=== PATIENT | male | born 1990 | race Two or more races ===

== ENCOUNTER 2020-02-28 15:15 | Outpatient (REF) | payer OTHER, SELFPAY | END 2020-02-28 15:16 | disposition home or self-care (01) | LOC: HO.LAB 15:15 | PROVIDERS: Visit Provider Internal Medicine | DX: Z20.828 Contact with and (suspected) exposure to other viral communicable diseases (principal) | CPT/HCPCS: 36415; C9803; U0003 ==

== ENCOUNTER 2023-07-22 14:32 | Inpatient (IN) | payer OTHER, SELFPAY ==
--- NOTE | 2023-07-22 14:39 | ED_ITS ---
HPI - Psych General Chief Complaint: Psychiatric Symptoms Stated Complaint: SEC 12 FOR [facility]ANOIA FROM [facility] Time Seen by Provider: 07/22/23 14:39 Source: patient Mode of arrival: ambulatory Limitations: other (Pressured speech, paranoid) History of Present Illness ED Provider: Dr. Yo Noriega HPI Narrative: 33-year-old male history of bipolar disorder, schizophrenia, hallucinations, cocaine use disorder, alcohol use disorder who was at the [facility] on a Section 35. He has been at the facility since 07/16/2023 (6 days). He was sent to the emergency department on a Section 12 which states the following: ?Paranoid, not med compliant, disorganized behaviors, unable to care for himself-not eating and rapidly losing weight, auditory hallucinations and responding to internal stimuli ?. On presentation, the patient is awake and alert, he is talking to himself and he incorporates words that he hears or reads into his constant, nonstop, monolgue. He did allow me to examine him and he cooperated with the exam. Related Data Home Medications ?Medication ?Instructions ?Recorded ?Confirmed clonidine HCl 0.1 mg tablet 0.1 mg PO BID 07/22/23 07/22/23 fluphenazine HCl 5 mg tablet 5 mg PO BID 07/22/23 07/22/23 Allergies Allergy/AdvReac Type Severity Reaction Status Date / Time Unable to Assess Allergy Verified 07/22/23 14:41 Review of Systems 2 Review of Systems: Yes all other systems are reviewed and are negative PMFSH Social History Social History Smoked in Last 30 Days: No Use of substances other than those prescribed or required for medical reasons: No Advance Directives: No Advance Directives Information Provided: No Do you have a plan to hurt others: No Plan Physical Exam 2 Vital Signs: Vital Signs: Last Vital Signs Temp 97.8 F 07/22/23 14:40 Pulse 80 07/22/23 14:40 Resp 16 07/22/23 20:25 BP 131/73 07/22/23 14:40 Pulse Ox 99 07/22/23 14:40 O2 Del Method Room Air 07/22/23 14:40 BMI result Body Mass Index 19.0 Exam: General: Patient is awake, alert, he has a constant, nonstop, monologue that incorporates words that he hears and words that he reads. Head: Normocephalic, atraumatic EENT: PERRL, Lids normal, sclera normal, conjunctiva normal, nose normal , ears normal, throat without erythema or exudates Neck: Supple, no adenopathy Lung: breath sounds symmetric, no wheezing, rales or rhonchi Chest: symmetric movement, nontender Heart: regular rate and rhythm, normal S1, S2 no murmurs or rubs Abdomen: soft, non-tender, nondistended, normal bowel sounds Back: no vertebral tenderness, no CVAT Extremities: no deformities, moves all extremities symmetrically Neuro: Awake, alert, oriented to person, rapid, nonstop speech, cranial nerves are intact, strength symmetric Psych: Patient is talking to himself and seems to be responding to an internal dialogue Medications Administered Discontinued Medications Generic Name Dose Route Start Last Admin Trade Name Mathew PRN Reason Stop Dose Admin Lorazepam 2 mg 07/22/23 14:42 07/22/23 14:47 Lorazepam 1 Mg Tablet PO 07/22/23 14:43 2 mg ONCE STA Administration Olanzapine 10 mg 07/22/23 14:42 07/22/23 14:47 Olanzapine 10 Mg Tablet PO 07/22/23 14:43 10 mg ONCE ONE Administration Medical Decision Making Medical Decision Making [facility] Narrative: 33-year-old male history of bipolar disorder, schizophrenia, hallucinations, cocaine use disorder, alcohol use disorder who was at the [facility] on a Section 35. He has been at the facility since 07/16/2023 (6 days). He was sent to the emergency department on a Section 12 for evaluation of paranoid ideation, noncompliant with medications, disorganized behavior, not eating, losing weight, auditory hallucinations and responding to internal stimuli. The patient is awake and oriented to person, he is cooperative and has a constant, rapid, nonstop, monologue which incorporates words from conversation that he is hearing and words that he is reading such as name tags. Differential diagnosis: ?Includes but is not limited to decompensation of bipolar/schizophrenia, noncompliance with medications, alcohol withdrawal, hyperthyroidism, electrolyte abnormalities, anemia Following evaluation was ordered: CBC, CMP, drug screen urine, ethanol, lipase, magnesium, TSH with reflex T4, COVID-19, influenza, RSV Patient was initially treated with the following: Zyprexa 10 mg orally and lorazepam 2 mg orally Course: 18:57 Start physician observation My interpretation patient's laboratory evaluation is as follows: CBC was normal. BUN elevated 19 with a normal creatinine of 1.02. Calcium elevated 10.3. ALT elevated 45. TSH was low at 0.20 with the patient's free T4 was normal at 1.21-suggesting the patient does not have hyperthyroidism as the cause of his symptoms. U tox was positive for marijuana. Ethanol was below detectable limits. COVID-19, RSV and influenza were negative. Patient's symptoms are most likely related to decompensation of his bipolar/schizophrenia. Patient is medically cleared for care team consult. Patient is waiting for care team evaluation. Patient will remain in the emergency department Behavioral Health Unit until disposition can be determined or until patient's symptoms improve over time. 20:45 Continue physician observation At the end of my shift, disposition is not been determined yet for this patient and the patient is waiting for care team evaluation. Therefore the patient's care was turned over to my colleague, Dr. Hanny Santos. Admission/Observation Consideration of admission/observation: Escalation of care including admission/observation considered Lab Data MDM Lab Attestation statement: I reviewed the patient's lab results. 07/22/23 15:24 07/22/23 15:24 Labs: Lab Results 07/22/23 07/22/23 Range/Units 15:24 16:06 WBC 9.1 (4.8-10.8) X10*3/uL RBC 6.13 H (4.60-5.80) X10*6/uL Hgb 15.9 (14.0-18.0) g/dl Hct 50.1 (42.0-52.0) % MCV 81.7 (80.0-98.0) fL MCH 25.9 L (27.0-33.0) pg MCHC 31.7 (31.0-36.0) g/dl RDW 13.7 (11.0-16.0) % Plt Count 383 (160-400) X10*3/uL MPV 10.2 (9.4-12.4) fL Immature Gran % (Auto) 0.2 (0.0-0.4) % Neut % (Auto) 56.1 (45-73) % Lymph % (Auto) 36.7 (20-40) % [place] % (Auto) 5.6 (2-11) % Eos % (Auto) 0.7 (0-4) % Baso % (Auto) 0.7 (0-2) % Lymph # (Auto) 3.4 (1.2-4.9) X10*3/uL [place] # (Auto) 0.5 (0.1-1.2) X10*3/uL Eos # (Auto) 0.1 (0.0-0.4) X10*3/uL Baso # (Auto) 0.1 (0.0-0.2) X10*3/uL Abs Immat Gran (auto) 0.02 (0.00-0.03) X10*3/uL Absolute Neuts (auto) 5.1 (2.0-8.3) x10*3/uL Absolute Nucleated RBC 0.000 (0.0-0.012) X10*3/uL Nucleated RBC % (auto) 0.0 (0.0-0.2) /100WBC Sodium 144 (135-145) mmol/L Potassium 4.2 (3.3-5.1) mmol/L Chloride 107 (96-108) mmol/L Carbon Dioxide 28 (22-29) mmol/L Anion Gap 13 (12-20) BUN 19 H (9-16) mg/dL Creatinine 1.02 (0.5-1.4) mg/dL Estim Creat Clear Calc 86.6 Estimated GFR > 60 Random Glucose 110 (60-115) mg/dL Calcium 10.3 H (8.4-10.2) mg/dL Magnesium 2.6 (1.6-2.6) mg/dL Total Bilirubin 0.4 (0.0-1.0) mg/dL AST 19 (5-37) U/L ALT 45 H (0-40) U/L Alkaline Phosphatase 50 (39-117) U/L Total Protein 7.5 (6.5-8.0) g/dL Albumin 4.6 (3.5-5.0) g/dL Lipase 76 (8-78) U/L TSH 0.20 L (0.32-4.0) uIU/mL Free T4 1.21 (0.71-1.85) ng/dL Urine Opiates Screen Not Detected (Not Detect) Ur Buprenorphine Scrn Not Detected (Not Detect) ng/mL Ur Oxycodone Screen Not Detected (Not Detect) ng/mL Urine Methadone Screen Not Detected (Not Detect) ng/mL Urine Fentanyl Screen Not Detected (Not Detect) Ur Barbiturates Screen Not Detected (Not Detect) Ur Phencyclidine Scrn Not Detected (Not Detect) Ur Amphetamines Screen Not Detected (Not Detect) U Benzodiazepines Scrn Not Detected (Not Detect) Urine Cocaine Screen Not Detected (Not Detect) U Marijuana (THC) Screen POSITIVE H (Not Detect) Ethyl Alcohol < 10 mg/dL Influenza Type A (PCR) NEGATIVE (Negative) Influenza Type B (PCR) NEGATIVE (Negative) RSV RNA Qual (PCR) NEGATIVE (Negative) SARS-CoV-2 RNA (RT-PCR) NEGATIVE (Negative) Independent Historian Clinical information obtained from an independent historian. History obtained from or confirmed by: EMS and Other (career services officer) External Record Review External record reviewed: Outpatient record and Other (Section 12) Discharge Plan Discharge Clinical Impression: Paranoid ideation, Non-compliant behavior Patient Disposition: Still a Patient Prescriptions: No Action clonidine HCl 0.1 mg Tablet 0.1 mg PO BID Rx Instructions: BID @ 0800 and 1999 fluphenazine HCl 5 mg Tablet 5 mg PO BID Rx Instructions: BID @ 0800 and 1999 Interventions: [place]-Suicide Risk Severity Scale Last Done: 07/22/23 16:31 Print Language: Polish
[2023-07-22 14:40] VITALS: BP 131/73; BP 134/66; PULSE 80; PULSE 82; RESP 16; TEMP 36.6; O2SAT 98; O2SAT 99; BMI 19.0
[2023-07-22] MEDS: LORazepam 1 MG TABLET 2 MG PO (14:47)
[2023-07-22] MEDS: OLANZapine 10 MG TABLET PO (14:47)
--- NOTE | 2023-07-22 15:02 | PC.NURSE ---
claudiomagdiel from [facility] on a section 12 d/t being non med compliant/auditory hallucinations/paranoia/decreased PO intake. upon ED arrival, vss and up to date. pt constantly speaking out loud/tearful/not making sense. 2 security officers present. pt changed over by security - placed in ligature free gown. pt seen by ED provider. pt medicated per provider order. pt took pills whole w/o complications. snacks provided to pt. no sob/wob noted. respirations even and unlabored. plan of care ongoing.
[2023-07-22 15:29] LABS: MANUAL DIFF FLAG NO
[2023-07-22 15:53] LABS: Alanine Aminotransferase 45 U/L (0-40); Albumin Level 4.6 g/dL (3.5-5.0); Alkaline Phosphatase 50 U/L (39-117); Anion Gap 13 (12-20); Aspartate Amino Transferase 19 U/L (5-37); Bilirubin Total 0.4 mg/dL (0.0-1.0); Blood Urea Nitrogen 19 mg/dL (9-16); Calcium 10.3 mg/dL (8.4-10.2); Carbon Dioxide 28 mmol/L (22-29); Chloride 107 mmol/L (96-108); Creatinine Clr Calc Pharmacy 86.6; Estimated Glomerular Filt Rate > 60; Glucose Random 110 mg/dL (60-115); Lipase 76 U/L (8-78); Magnesium 2.6 mg/dL (1.6-2.6); Potassium 4.2 mmol/L (3.3-5.1); Sodium 144 mmol/L (135-145); Total Protein 7.5 g/dL (6.5-8.0)
[2023-07-22 15:58] LABS: Ethanol < 10 mg/dL
[2023-07-22 16:08] LABS: Basophils Absolute Auto 0.1 X10*3/uL (0.0-0.2); Basophils Percent Auto 0.7 % (0-2); Eosinophils Absolute Auto 0.1 X10*3/uL (0.0-0.4); Eosinophils Percent Auto 0.7 % (0-4); Hematocrit 50.1 % (42.0-52.0); Hemoglobin 15.9 g/dl (14.0-18.0); Imm Gran Abs Auto 0.02 X10*3/uL (0.00-0.03); Imm Gran Pct Auto 0.2 % (0.0-0.4); Lymphocytes Absolute Auto 3.4 X10*3/uL (1.2-4.9); Lymphocytes Percent Auto 36.7 % (20-40); Mean Corpuscular HGB Conc 31.7 g/dl (31.0-36.0); Mean Corpuscular Hemoglobin 25.9 pg (27.0-33.0); Mean Corpuscular Volume 81.7 fL (80.0-98.0); Mean Platelet Volume 10.2 fL (9.4-12.4); Monocytes Absolute Auto 0.5 X10*3/uL (0.1-1.2); Monocytes Percent Auto 5.6 % (2-11); Neutrophils Absolute Auto 5.1 x10*3/uL (2.0-8.3); Neutrophils Percent Auto 56.1 % (45-73); Platelet Count 383 X10*3/uL (160-400); Red Blood Count 6.13 X10*6/uL (4.60-5.80); Red Cell Distribution Width 13.7 % (11.0-16.0); White Blood Count 9.1 X10*3/uL (4.8-10.8)
--- NOTE | 2023-07-22 16:09 | PC.NURSE ---
urine obtained/sent to lab.
[2023-07-22 16:15] LABS: Influenza A PCR NEGATIVE (Negative); Influenza B PCR NEGATIVE (Negative); Resp Syncy Virus RNA Qual PCR NEGATIVE (Negative); SARS COV2 PCR INHOUSE NEGATIVE (Negative)
[2023-07-22 16:33] LABS: Amphetamine Screen Urine Not Detected (Not Detect); Barbiturates, Urine Not Detected (Not Detect); Benzodiazepines Screen Urine Not Detected (Not Detect); Buprenorphine Scr Not Detected (Not Detect); Cannabinoid Screen Urine POSITIVE (Not Detect); Cocaine Screen Urine Not Detected (Not Detect); Fentanyl, urine Not Detected (Not Detect); Methadone Screen, Urine Not Detected (Not Detect); Opiate Screen Urine Not Detected (Not Detect); Oxycodone Screen Urine Not Detected (Not Detect); Phencyclidine Screen Urine Not Detected (Not Detect)
--- NOTE | 2023-07-22 16:37 | PC.NURSE ---
pt currently asleep/resting in no apparent distress w/ the lights dimmed. medication administration effective. security from facility remains bedside. no sob/wob noted. respirations even/unlabored. plan of care ongoing. call vee placed within reach.
[2023-07-22 16:56] LABS: Free T4 (Free Thyroxine) 1.21 ng/dL (0.71-1.85)
--- NOTE | 2023-07-22 18:17 | PC.NURSE ---
RE: Belongings all belongings are in locker 5
--- NOTE | 2023-07-22 18:43 | PC.NURSE ---
Patient comes to ED today from [facility] on a Section 35 for increased paranoia and auditory hallucinations. Patient is calm and cooperative upon arrival to [facility], now sleeping
--- NOTE | 2023-07-22 19:38 | PC.NURSE ---
patient appears in no distress at present appears to be resting in room, awaits care team assessment
[2023-07-22 20:25] VITALS: RESP 16
[2023-07-22] MEDS: fluPHENAZine HCl 5 MG TABLET PO (20:43)
[2023-07-22] MEDS: cloNIDine HCL 0.1 MG TABLET PO (20:43)
[2023-07-23 02:30] VITALS: BP 125/94; PULSE 80; RESP 16; TEMP 37.1; O2SAT 97
[2023-07-23] MEDS: Acetaminophen 325 MG TABLET PO (02:42)
[2023-07-23] MEDS: traZODone HCL 50 MG TABLET PO (02:42)
--- NOTE | 2023-07-23 02:46 | PC.NURSE ---
client got up used bathroom, requested sleep med and tylenol
[2023-07-23] MEDS: OLANZapine ODT 10 MG TAB.RAPDIS TRANSLINGU (03:45)
--- NOTE | 2023-07-23 03:46 | PC.NURSE ---
patient once he had ingested some drinks and snacks seemed to get easily stimulated by the environment and started narrating all that he saw up at nurses station, reading all phone numbers and becoming engrossed by the objects inside the nurses station, challenging to redirect. requested meds from provider.
--- NOTE | 2023-07-23 04:09 | PC.NURSE ---
in my opinion it is possible that this client may have been cheeking his meds in skilled nursing and or may be exaggerating his symptoms, the responses seem pretty stereotypical and in my opinion patient seemed to be casing the environment of the nurses station.
--- NOTE | 2023-07-23 07:22 | ECG_ITS ---
Test Reason : prolong QT Blood Pressure : / mmHG Vent. Rate : 057 BPM Atrial Rate : 057 BPM P-R Int : 144 ms QRS Dur : 098 ms QT Int : 420 ms P-R-T Axes : 063 080 058 degrees QTc Int : 408 ms Sinus bradycardia Otherwise normal ECG No previous ECGs available Referred By: Yo Noriega Electronically Signed By:JOSE ALFREDO SMITH
[2023-07-23] MEDS: fluPHENAZine HCl 5 MG TABLET PO ×2 (08:55→22:38)
[2023-07-23] MEDS: cloNIDine HCL 0.1 MG TABLET PO ×2 (08:55→22:41)
--- NOTE | 2023-07-23 09:31 | PC.NURSE ---
patient awake, medicated per the MAR. ambulating independently throughout [place] area, speaking to self.
--- NOTE | 2023-07-23 11:41 | PC.NURSE ---
patient continues to pace in hallway, repeating conversations of staff w/ other patients. redirected from climbing on couches. attempted to provide w/ prn, patient refusing at this time
[2023-07-23] MEDS: HaloperidoL 5 MG TABLET PO (12:45)
[2023-07-23] MEDS: LORazepam 1 MG TABLET 2 MG PO (12:45)
--- NOTE | 2023-07-23 12:45 | PC.NURSE ---
patient was standing in hallway when he reported that he was peeing on the floor. staff over to have patient walk back to room where he was medicated with PRN medications and encouraged to change into clean clothes.
[2023-07-23 13:40] VITALS: BP 127/72; PULSE 90; RESP 16; TEMP 36.4; O2SAT 98
[2023-07-23 15:58] VITALS: BMI 23.6
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
[2023-07-23 22:35] VITALS: BP 144/88; PULSE 111; TEMP 36.8
[2023-07-23] MEDS: Acetaminophen 325 MG TABLET 650 MG PO (22:44)
[2023-07-24] MEDS: traZODone HCL 50 MG TABLET PO (02:19)
[2023-07-24 08:00] VITALS: BP 132/73; PULSE 91; RESP 18; TEMP 36.3; O2SAT 99
[2023-07-24] MEDS: cloNIDine HCL 0.1 MG TABLET PO (08:01)
[2023-07-24] MEDS: LORazepam 1 MG TABLET 2 MG PO ×2 (08:01→21:00)
[2023-07-24] MEDS: OLANZapine 5 MG TABLET PO ×2 (08:01→14:38)
[2023-07-24] MEDS: fluPHENAZine HCl 5 MG TABLET PO (08:05)
[2023-07-24 08:08] LABS: Estimated Average Glucose 117 mg/dL; Hemoglobin A1c % 5.7 % (<6.0)
[2023-07-24 08:15] LABS: Cholesterol 173 mg/dL (<200); HDL Cholesterol 68 mg/dL (>40); LDL Cholesterol Calculated 92 mg/dL (<100); Triglycerides 65 mg/dL (<150)
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
[2023-07-24] MEDS: hydrOXYzine HCL 25 MG TABLET PO (14:38)
[2023-07-24 20:00] VITALS: BP 147/67; PULSE 101; RESP 18; TEMP 36.7; O2SAT 98
[2023-07-25] MEDS: hydrOXYzine HCL 25 MG TABLET PO ×4 (00:33→19:54)
[2023-07-25] MEDS: traZODone HCL 50 MG TABLET PO ×2 (03:38→19:53)
[2023-07-25 08:00] VITALS: BP 141/80; PULSE 107; RESP 20; TEMP 36.4; O2SAT 99
[2023-07-25 08:35] VITALS: BP 141/80
[2023-07-25] MEDS: fluPHENAZine HCl 5 MG TABLET 10 MG PO ×2 (08:35→19:53)
[2023-07-25] MEDS: cloNIDine HCL 0.1 MG TABLET PO ×2 (08:35→19:53)
[2023-07-25] MEDS: LORazepam 1 MG TABLET 2 MG PO (09:58)
[2023-07-25] MEDS: OLANZapine 5 MG TABLET PO ×2 (09:58→15:41)
--- NOTE | 2023-07-25 18:28 | P.PNPSI_ITS ---
Subjective Subjective Date of Service: 07/25/23 Reason For Visit: disorganized/psychosis Subjective Notes: Conditional Voluntary Healthcare Proxy: No Guardianship: No Medical Problems Affecting Mental Status: No Interim History: Pt seen, discussed with team Intrusive, disorganized, echolalic and hyperverbal. Poor boundaries-targeting peers, when confronted with little awareness of this and no insight as to how his comments effect others-i.e. calling a peer Cecil. Recites The Wall excerpts and Comfortably Numb from memory, with little insight as to what the meaning is of what is said.... there is no pain you are receding. I guess I would recede if I had pain maybe. when I was a child I caught a fleeting glimpse - I have seen boats on week. Needing much redirection, supervision, support. Meds appear to be helpful. Medication Compliance: Yes Side effects from medications: No Attending Groups: No Review of Systems Acute medical concerns: No Medical Review of Systems: unchanged Review of Systems Review of Systems Yes all other systems are reviewed and are negative Mental Status Exam Mental Status Exam Patient Appearance: Fatigued and Disheveled Patient Orientation: Person Level of Consciousness: Alert Patient Behavior: Talkative, Cooperative and Wandering Mood Description: Withdrawn and Constricted Affect Description: Constricted Patient Cognition Impaired: Yes Ability to Follow Directions: Fair Speech Pattern: Spontaneous Speech, Soft-Spoken and Inappropriate (echolalia) Memory Description: Remote Impaired Hallucinations: Auditory (???) Delusions: Paranoid Ideation and Present Perceptual Disturbances: Derealization Thought Process: Distracted and Confusion Thought Content: positive for Loose Associations and positive for Tangential Depressive Symptoms: Increased Fatigue and Difficulty Concentrating Judgement: Poor Diagnostics Vital Signs (24Hr): Vital Signs - 24 hr 07/24/23 20:00 07/25/23 08:00 07/25/23 08:35 Temperature 98.0 F 97.5 F Pulse Rate 101 H 107 H Respiratory Rate 18 20 Blood Pressure 147/67 H 141/80 H 141/80 H Pulse Oximetry 98 99 Oxygen Delivery Method Room Air Room Air BMI result Body Mass Index 23.6 Labs 07/22/23 15:24 07/22/23 15:24 Labs: Laboratory Results - last 48 hr 07/24/23 07:45 Estimat Average Glucose 117 Hemoglobin A1c % 5.7 Triglycerides 65 Cholesterol 173 LDL Cholesterol, Calc 92 HDL Cholesterol 68 Medications Medications Current Medications Acetaminophen (Acetaminophen 325 Mg Tablet) 650 mg PO Q6H PRN PRN Reason: Headache/Pain Mild Scale (1-3) Last Admin: 07/23/23 22:44 Dose: 650 mg Al Hydroxide/Mg Hydroxide (Magnesium Hydrox/Alum Hydrox 30 Ml Oral.Susp) 30 ml PO Q6H PRN PRN Reason: Heartburn/Nausea Clonidine HCl (Clonidine Hcl 0.1 Mg Tablet) 0.1 mg PO BID@ [facility]; Protocol Last Admin: 07/25/23 08:35 Dose: 0.1 mg Fluphenazine HCl (Fluphenazine Hcl 5 Mg Tablet) 10 mg PO BID@ [facility] Last Admin: 07/25/23 08:35 Dose: 10 mg Hydroxyzine HCl (Hydroxyzine Hcl 25 Mg Tablet) 25 mg PO Q6H PRN PRN Reason: Anxiety Last Admin: 07/25/23 15:41 Dose: 25 mg Lorazepam (Lorazepam 1 Mg Tablet) 2 mg PO BID PRN PRN Reason: anxiety/restlessness Last Admin: 07/25/23 09:58 Dose: 2 mg Magnesium Hydroxide (Milk Of Magnesia 30 Ml Oral.Susp) 30 ml PO DAILY PRN PRN Reason: Constipation Nicotine (Nicotine 21 Mg Patch.Td24) 21 mg TRANSDERMA DAILY PRN PRN Reason: smoking cessation Nicotine Polacrilex (Nicotine Polacrilex 2 Mg Gum) 4 mg BUCCAL Q2H PRN PRN Reason: Nicotine Cravings Olanzapine (Olanzapine 5 Mg Tablet) 5 mg PO TID PRN PRN Reason: agitation Last Admin: 07/25/23 15:41 Dose: 5 mg Olanzapine (Olanzapine 10 Mg Tablet) 10 mg PO BEDTIME [facility] Last Admin: 07/25/23 00:34 Dose: Not Given Trazodone HCl (Trazodone Hcl 50 Mg Tablet) 50 mg PO BEDTIME MRX1 PRN PRN Reason: Insomnia Last Admin: 07/25/23 03:38 Dose: 50 mg Allergies Allergies Allergy/AdvReac Type Severity Reaction Status Date / Time nka Allergy nka Uncoded 07/24/23 16:52 Assessment & Plan Assessment & Plan (1) Schizoaffective disorder, bipolar type: Status: Acute Code(s): F25.0 - Schizoaffective disorder, bipolar type (2) Polysubstance use disorder: Status: Acute Code(s): F19.90 - Other psychoactive substance use, unspecified, uncomplicated Plan 33 yo male, history of schizoaffective disorder, bipolar type, sent from [facility] where he was admitted on a Section 35 on 07/13 for public intoxication while running in the community without clothing. Pt is psychotic upon presentation, signed CV and has been calm but echolalic in speech and behaviors for the most part since admission. Plan: Collateral contacts Med trials for stabilization of sx Olanzapine 10 mg HS Increase Fluphenazine to 10 mg bid Diagnostics Milieu integration for added support, education regarding coping skills. 07/24: Continue plan. Reason for continued inpatient stay Substantial Risk for: rapid decompensation Time Spent With Patient Time: Total time managing care of this patient today ____ minutes.
[2023-07-25] MEDS: OLANZapine 10 MG TABLET PO (19:53)
[2023-07-25 20:00] VITALS: BP 141/90; PULSE 98; RESP 18; TEMP 36.6; O2SAT 100
[2023-07-26] MEDS: traZODone HCL 50 MG TABLET PO ×2 (02:19→21:01)
[2023-07-26] MEDS: LORazepam 1 MG TABLET 2 MG PO ×2 (02:19→13:49)
[2023-07-26] MEDS: hydrOXYzine HCL 25 MG TABLET PO ×4 (02:19→18:27)
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
[2023-07-26] MEDS: OLANZapine 5 MG TABLET PO ×3 (06:19→19:41)
[2023-07-26] MEDS: cloNIDine HCL 0.1 MG TABLET PO ×2 (06:19→19:40)
[2023-07-26 07:36] VITALS: BP 122/80; PULSE 88; TEMP 36.6; O2SAT 100
[2023-07-26] MEDS: fluPHENAZine HCl 5 MG TABLET 10 MG PO ×2 (08:24→19:41)
--- NOTE | 2023-07-26 10:58 | HO.PSYCHPN ---
Subjective Subjective Date of Service: 07/26/23 Reason For Visit: disorganized/psychosis Subjective Notes: Conditional Voluntary Healthcare Proxy: No Guardianship: No Medical Problems Affecting Mental Status: No Interim History: Pt seen, discussed with team. Continues with intrusive, poorly organized, disruptive behavior with echolalia. Irritating to peers who are not confronting him at times. Medication Compliance: Yes Side effects from medications: No Attending Groups: Intermittent Review of Systems Acute medical concerns: No Medical Review of Systems: unchanged Review of Systems Review of Systems Yes all other systems are reviewed and are negative Mental Status Exam Mental Status Exam Patient Appearance: Fatigued and Disheveled Patient Orientation: Person Level of Consciousness: Alert Patient Behavior: Talkative, Cooperative and Wandering Mood Description: Withdrawn and Constricted Affect Description: Constricted Patient Cognition Impaired: Yes Ability to Follow Directions: Fair Speech Pattern: Spontaneous Speech, Soft-Spoken and Inappropriate (echolalia) Memory Description: Remote Impaired Hallucinations: Auditory (???) Delusions: Paranoid Ideation and Present Perceptual Disturbances: Derealization Thought Process: Distracted and Confusion Thought Content: positive for Loose Associations and positive for Tangential Depressive Symptoms: Increased Fatigue and Difficulty Concentrating Judgement: Poor Diagnostics Vital Signs (24Hr): Vital Signs - 24 hr 07/25/23 20:00 07/26/23 07:36 Temperature 97.9 F 97.9 F Pulse Rate 98 88 Respiratory Rate 18 Blood Pressure 141/90 H 122/80 Pulse Oximetry 100 100 Oxygen Delivery Method Room Air Room Air BMI result Body Mass Index 23.6 Labs 07/22/23 15:24 07/22/23 15:24 Medications Medications Current Medications Acetaminophen (Acetaminophen 325 Mg Tablet) 650 mg PO Q6H PRN PRN Reason: Headache/Pain Mild Scale (1-3) Last Admin: 07/23/23 22:44 Dose: 650 mg Al Hydroxide/Mg Hydroxide (Magnesium Hydrox/Alum Hydrox 30 Ml Oral.Susp) 30 ml PO Q6H PRN PRN Reason: Heartburn/Nausea Clonidine HCl (Clonidine Hcl 0.1 Mg Tablet) 0.1 mg PO BID@799,1999 [facility]; Protocol Last Admin: 07/26/23 06:19 Dose: 0.1 mg Fluphenazine HCl (Fluphenazine Hcl 5 Mg Tablet) 10 mg PO BID@799,1999 [facility] Last Admin: 07/26/23 08:24 Dose: 10 mg Hydroxyzine HCl (Hydroxyzine Hcl 25 Mg Tablet) 25 mg PO Q6H PRN PRN Reason: Anxiety Last Admin: 07/26/23 06:19 Dose: 25 mg Lorazepam (Lorazepam 1 Mg Tablet) 2 mg PO BID PRN PRN Reason: anxiety/restlessness Last Admin: 07/26/23 02:19 Dose: 2 mg Magnesium Hydroxide (Milk Of Magnesia 30 Ml Oral.Susp) 30 ml PO DAILY PRN PRN Reason: Constipation Nicotine (Nicotine 21 Mg Patch.Td24) 21 mg TRANSDERMA DAILY PRN PRN Reason: smoking cessation Nicotine Polacrilex (Nicotine Polacrilex 2 Mg Gum) 4 mg BUCCAL Q2H PRN PRN Reason: Nicotine Cravings Olanzapine (Olanzapine 5 Mg Tablet) 5 mg PO TID PRN PRN Reason: agitation Last Admin: 07/26/23 06:19 Dose: 5 mg Olanzapine (Olanzapine 10 Mg Tablet) 10 mg PO BEDTIME [facility] Last Admin: 07/25/23 19:53 Dose: 10 mg Trazodone HCl (Trazodone Hcl 50 Mg Tablet) 50 mg PO BEDTIME MRX1 PRN PRN Reason: Insomnia Last Admin: 07/26/23 02:19 Dose: 50 mg Allergies Allergies Allergy/AdvReac Type Severity Reaction Status Date / Time nka Allergy nka Uncoded 07/24/23 16:52 Assessment & Plan Assessment & Plan (1) Schizoaffective disorder, bipolar type: Status: Acute Code(s): F25.0 - Schizoaffective disorder, bipolar type (2) Polysubstance use disorder: Status: Acute Code(s): F19.90 - Other psychoactive substance use, unspecified, uncomplicated Plan 33 yo male, history of schizoaffective disorder, bipolar type, sent from [facility] where he was admitted on a Section 35 on 07/13 for public intoxication while running in the community without clothing. Pt is psychotic upon presentation, signed CV and has been calm but echolalic in speech and behaviors for the most part since admission. Plan: Collateral contacts Med trials for stabilization of sx Olanzapine 10 mg HS Increase Fluphenazine to 10 mg bid Diagnostics Milieu integration for added support, education regarding coping skills. 07/25: Increase Olanzapine to 20 mg HS Reason for continued inpatient stay Substantial Risk for: rapid decompensation Time Spent With Patient Time: Total time managing care of this patient today ____ minutes.
[2023-07-26 20:00] VITALS: BP 161/78; PULSE 121; RESP 18; TEMP 36.7; O2SAT 99
[2023-07-26] MEDS: OLANZapine 10 MG TABLET 20 MG PO (21:02)
[2023-07-27] MEDS: traZODone HCL 50 MG TABLET PO ×2 (00:21→21:50)
[2023-07-27] MEDS: LORazepam 1 MG TABLET 2 MG PO ×3 (00:21→22:06)
[2023-07-27] MEDS: hydrOXYzine HCL 25 MG TABLET PO ×2 (00:21→21:50)
[2023-07-27] MEDS: OLANZapine 5 MG TABLET PO ×2 (03:08→11:24)
[2023-07-27 08:49] VITALS: BP 135/80; PULSE 110; RESP 16; TEMP 36.9; O2SAT 98
[2023-07-27 09:19] VITALS: BP 135/80
[2023-07-27] MEDS: cloNIDine HCL 0.1 MG TABLET PO ×2 (09:19→21:49)
[2023-07-27] MEDS: fluPHENAZine HCl 5 MG TABLET 10 MG PO ×3 (09:20→21:49)
--- NOTE | 2023-07-27 09:45 | P.PNPSI_ITS ---
Subjective Subjective Date of Service: 07/27/23 Reason For Visit: disorganized/psychosis Subjective Notes: Conditional Voluntary Interim History: One to one continues. Continues with intrusive sx, boundaries are poor, touching others. Echolalia and ongoing commentary which he starts when one responds to him. Tangential, disorganized. Team reports pt did hit the wall today. Given one extra Prolixin dose of 10 mg today, with little to no effect. Broke headphones in half quickly today per team. Can escalate quickly Medication Compliance: Yes Side effects from medications: No Attending Groups: No Review of Systems Acute medical concerns: No Medical Review of Systems: unchanged Review of Systems Review of Systems Yes all other systems are reviewed and are negative Mental Status Exam Mental Status Exam Patient Appearance: Fatigued and Disheveled Patient Orientation: Person Level of Consciousness: Alert Patient Behavior: Talkative, Cooperative and Wandering Mood Description: Withdrawn and Constricted Affect Description: Constricted Patient Cognition Impaired: Yes Ability to Follow Directions: Fair Speech Pattern: Spontaneous Speech, Soft-Spoken and Inappropriate (echolalia) Memory Description: Remote Impaired Hallucinations: Auditory (???) Delusions: Paranoid Ideation and Present Perceptual Disturbances: Derealization Thought Process: Distracted and Confusion Thought Content: positive for Loose Associations and positive for Tangential Depressive Symptoms: Increased Fatigue and Difficulty Concentrating Judgement: Poor Diagnostics Vital Signs (24Hr): Vital Signs - 24 hr 07/26/23 20:00 07/27/23 08:49 07/27/23 09:19 Temperature 98.0 F 98.5 F Pulse Rate 121 H 110 H Respiratory Rate 18 16 Blood Pressure 161/78 H 135/80 135/80 Pulse Oximetry 99 98 Oxygen Delivery Method Room Air Room Air BMI result Body Mass Index 23.6 Labs 07/22/23 15:24 07/22/23 15:24 Medications Medications Current Medications Acetaminophen (Acetaminophen 325 Mg Tablet) 650 mg PO Q6H PRN PRN Reason: Headache/Pain Mild Scale (1-3) Last Admin: 07/23/23 22:44 Dose: 650 mg Al Hydroxide/Mg Hydroxide (Magnesium Hydrox/Alum Hydrox 30 Ml Oral.Susp) 30 ml PO Q6H PRN PRN Reason: Heartburn/Nausea Clonidine HCl (Clonidine Hcl 0.1 Mg Tablet) 0.1 mg PO BID@0800,2000 [facility]; Protocol Last Admin: 07/27/23 09:19 Dose: 0.1 mg Fluphenazine HCl (Fluphenazine Hcl 5 Mg Tablet) 10 mg PO BID@0800,1999 [facility] Last Admin: 07/27/23 09:20 Dose: 10 mg Hydroxyzine HCl (Hydroxyzine Hcl 25 Mg Tablet) 25 mg PO Q6H PRN PRN Reason: Anxiety Last Admin: 07/27/23 00:21 Dose: 25 mg Lorazepam (Lorazepam 1 Mg Tablet) 2 mg PO BID PRN PRN Reason: anxiety/restlessness Last Admin: 07/27/23 00:21 Dose: 2 mg Magnesium Hydroxide (Milk Of Magnesia 30 Ml Oral.Susp) 30 ml PO DAILY PRN PRN Reason: Constipation Nicotine (Nicotine 21 Mg Patch.Td24) 21 mg TRANSDERMA DAILY PRN PRN Reason: smoking cessation Nicotine Polacrilex (Nicotine Polacrilex 2 Mg Gum) 4 mg BUCCAL Q2H PRN PRN Reason: Nicotine Cravings Olanzapine (Olanzapine 5 Mg Tablet) 5 mg PO TID PRN PRN Reason: agitation Last Admin: 07/27/23 03:08 Dose: 5 mg Olanzapine (Olanzapine 10 Mg Tablet) 20 mg PO BEDTIME [facility] Last Admin: 07/26/23 21:02 Dose: 20 mg Trazodone HCl (Trazodone Hcl 50 Mg Tablet) 50 mg PO BEDTIME MRX1 PRN PRN Reason: Insomnia Last Admin: 07/27/23 00:21 Dose: 50 mg Allergies Allergies Allergy/AdvReac Type Severity Reaction Status Date / Time nka Allergy nka Uncoded 07/24/23 16:52 Assessment & Plan Assessment & Plan (1) Schizoaffective disorder, bipolar type: Status: Acute Code(s): F25.0 - Schizoaffective disorder, bipolar type (2) Polysubstance use disorder: Status: Acute Code(s): F19.90 - Other psychoactive substance use, unspecified, uncomplicated Plan 33 yo male, history of schizoaffective disorder, bipolar type, sent from [facility] where he was admitted on a Section 35 on 07/13 for public intoxication while running in the community without clothing. Pt is psychotic upon presentation, signed CV and has been calm but echolalic in speech and behaviors for the most part since admission. Plan: Collateral contacts Med trials for stabilization of sx Olanzapine 10 mg HS Increase Fluphenazine to 10 mg bid Diagnostics Milieu integration for added support, education regarding coping skills. 07/25: Increase Olanzapine to 20 mg HS 07/26: Increase of Prolixin today without current effect. Reason for continued inpatient stay Substantial Risk for: rapid decompensation Time Spent With Patient Time: Total time managing care of this patient today ____ minutes.
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
[2023-07-27] MEDS: Acetaminophen 325 MG TABLET 650 MG PO (18:33)
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
[2023-07-27 20:00] VITALS: BP 143/84; PULSE 114; RESP 18; TEMP 36.8; O2SAT 98
[2023-07-27] MEDS: OLANZapine 10 MG TABLET 20 MG PO (21:00)
[2023-07-27 21:49] VITALS: BP 143/84
--- NOTE | 2023-07-28 06:49 | PC.NURSE ---
This patient told his 1:1 male staff that he is a big, black gorilla. Patient redirected by an [facility].
[2023-07-28 08:00] VITALS: RESP 20
[2023-07-28] MEDS: fluPHENAZine HCl 5 MG TABLET 10 MG PO (08:33)
[2023-07-28] MEDS: LORazepam 1 MG TABLET 2 MG PO ×2 (08:33→14:25)
[2023-07-28] MEDS: OLANZapine 5 MG TABLET PO ×3 (08:34→22:37)
[2023-07-28] MEDS: Nicotine 21 MG PATCH.TD24 TRANSDERMA (08:34)
[2023-07-28 11:15] VITALS: BP 150/73; PULSE 91; RESP 18; TEMP 37; O2SAT 98
[2023-07-28 11:18] VITALS: BP 150/73
[2023-07-28] MEDS: cloNIDine HCL 0.1 MG TABLET PO ×2 (11:18→22:38)
[2023-07-28] MEDS: hydrOXYzine HCL 25 MG TABLET PO ×2 (11:18→22:37)
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
[2023-07-28] MEDS: OLANZapine 10 MG TABLET 20 MG PO (18:43)
[2023-07-28] MEDS: HaloperidoL 5 MG TABLET 10 MG PO (18:43)
[2023-07-28] MEDS: Benztropine Mesylate 1 MG TABLET PO (18:44)
--- NOTE | 2023-07-28 19:06 | PC.NURSE ---
Pt became agitated and threatening towards staff, swinging and posturing. He was redirected, given HS medications per Ambar Mcduffie [employer] orders. Security called.
[2023-07-28 20:00] VITALS: BP 152/83; PULSE 118; RESP 18; TEMP 36.8; O2SAT 98
[2023-07-28] MEDS: traZODone HCL 50 MG TABLET PO (22:37)
[2023-07-28 22:38] VITALS: BP 152/83
[2023-07-29] MEDS: Nicotine Polacrilex 2 MG GUM 4 MG BUCCAL (04:41)
[2023-07-29] MEDS: hydrOXYzine HCL 25 MG TABLET PO ×3 (05:19→20:01)
[2023-07-29] MEDS: OLANZapine 5 MG TABLET PO ×3 (05:19→18:10)
[2023-07-29] MEDS: cloNIDine HCL 0.1 MG TABLET PO ×2 (07:51→20:01)
[2023-07-29] MEDS: HaloperidoL 5 MG TABLET 10 MG PO ×2 (07:52→20:01)
[2023-07-29] MEDS: OLANZapine 10 MG TABLET PO (07:52)
[2023-07-29] MEDS: Benztropine Mesylate 1 MG TABLET PO ×2 (07:52→20:01)
[2023-07-29] MEDS: LORazepam 1 MG TABLET 2 MG PO ×2 (07:52→15:59)
[2023-07-29 08:10] VITALS: BP 136/77; PULSE 78; RESP 18; TEMP 36.6; O2SAT 97
[2023-07-29] MEDS: Nicotine 21 MG PATCH.TD24 TRANSDERMA (11:39)
--- NOTE | 2023-07-29 16:03 | P.PNPSI_ITS ---
Subjective Subjective Date of Service: 07/29/23 Reason For Visit: disorganized/psychosis Interim History: Met with patient; discussed with team Patient talking in more complete and logical sentences however he remains disorganized in both speech and behavior, rude and insulting to numerous staff as they walk by, intrusive and needs constant redirection and needs to remain on one-to-one, not able to tolerate roommate.. Not sleeping very much at night. Intermittent angry outbursts and punching things. This morning patient got so dysregulated, security had to be called, however patient was able to be redirected. Patient agreed to start Depakote, hoping it will help him sleep. Mental Status Exam Mental Status Exam Narrative: Pt is alert and oriented to self, but not really situation; behavior is intrusive, insulting to peers and staff, intermittently highly agitated with threatening gestures, sometimes punching things on the wall; patient is not in distress; dressed in casual attire, tattooed arms, unkempt; mood is described as good though affect congruent either blunted or constricted; eye contact appropriate; Speech is normal rate, volume and prosody and not pressured; intermittent psychomotor agitation present, sometimes severe; thought process can be goal directed but also distracted and disorganized, tangential; Thought content is on whatever is in front of him; intermittent paranoid delusional thinking; denies any SI/HI. Unclear if AH Patients insight and judgment impaired Diagnostics Vital Signs (24Hr): Vital Signs - 24 hr 07/28/23 20:00 07/28/23 22:38 07/29/23 08:10 Temperature 98.3 F 97.8 F Pulse Rate 118 H 78 Respiratory Rate 18 18 Blood Pressure 152/83 H 152/83 H 136/77 Pulse Oximetry 98 97 Oxygen Delivery Method Room Air Room Air BMI result Body Mass Index 23.6 Labs 07/22/23 15:24 07/22/23 15:24 Medications Medications Current Medications Acetaminophen (Acetaminophen 325 Mg Tablet) 650 mg PO Q6H PRN PRN Reason: Headache/Pain Mild Scale (1-3) Last Admin: 07/27/23 18:33 Dose: 650 mg Al Hydroxide/Mg Hydroxide (Magnesium Hydrox/Alum Hydrox 30 Ml Oral.Susp) 30 ml PO Q6H PRN PRN Reason: Heartburn/Nausea Benztropine Mesylate (Benztropine Mesylate 1 Mg Tablet) 1 mg PO BID [facility] Last Admin: 07/29/23 07:52 Dose: 1 mg Clonidine HCl (Clonidine Hcl 0.1 Mg Tablet) 0.1 mg PO BID@0800,1999 [facility]; Protocol Last Admin: 07/29/23 07:51 Dose: 0.1 mg Haloperidol (Haloperidol 5 Mg Tablet) 10 mg PO BID [facility] Last Admin: 07/29/23 07:52 Dose: 10 mg Hydroxyzine HCl (Hydroxyzine Hcl 25 Mg Tablet) 25 mg PO Q6H PRN PRN Reason: Anxiety Last Admin: 07/29/23 11:41 Dose: 25 mg Lorazepam (Lorazepam 1 Mg Tablet) 2 mg PO BID PRN PRN Reason: anxiety/restlessness Last Admin: 07/29/23 15:59 Dose: 2 mg Magnesium Hydroxide (Milk Of Magnesia 30 Ml Oral.Susp) 30 ml PO DAILY PRN PRN Reason: Constipation Nicotine (Nicotine 21 Mg Patch.Td24) 21 mg TRANSDERMA DAILY PRN PRN Reason: smoking cessation Last Admin: 07/29/23 11:39 Dose: 21 mg Nicotine Polacrilex (Nicotine Polacrilex 2 Mg Gum) 4 mg BUCCAL Q2H PRN PRN Reason: Nicotine Cravings Last Admin: 07/29/23 04:41 Dose: 4 mg Olanzapine (Olanzapine 5 Mg Tablet) 5 mg PO TID PRN PRN Reason: agitation Last Admin: 07/29/23 15:16 Dose: 5 mg Olanzapine (Olanzapine 10 Mg Tablet) 20 mg PO BEDTIME [facility] Last Admin: 07/28/23 18:43 Dose: 20 mg Olanzapine (Olanzapine 10 Mg Tablet) 10 mg PO DAILY [facility] Last Admin: 07/29/23 07:52 Dose: 10 mg Trazodone HCl (Trazodone Hcl 50 Mg Tablet) 50 mg PO BEDTIME MRX1 PRN PRN Reason: Insomnia Last Admin: 07/28/23 22:37 Dose: 50 mg Allergies Allergies Allergy/AdvReac Type Severity Reaction Status Date / Time nka Allergy nka Uncoded 07/24/23 16:52 Assessment & Plan Assessment & Plan (1) Schizoaffective disorder, bipolar type: Status: Acute Code(s): F25.0 - Schizoaffective disorder, bipolar type (2) Polysubstance use disorder: Status: Acute Code(s): F19.90 - Other psychoactive substance use, unspecified, uncomplicated Plan 33 yo male, history of schizoaffective disorder, bipolar type, sent from [facility] where he was admitted on a Section 35 on 07/13 for public intoxication while running in the community without clothing. Pt is psychotic upon presentation, signed CV and has been calm but echolalic in speech and behaviors for the most part since admission. Hospital course: 07/25: Increase Olanzapine to 20 mg HS 07/27: No real improvement on consistent changes. DC Prolixin Haldol 10 mg bid-prepare for decanoate trial Add Olanzapine 10 mg a.m. Benztropine 1 mg bid 07/28 Patient talking in more complete and logical sentences however he remains disorganized in both speech and behavior, rude and insulting to numerous staff as they walk by, intrusive and needs constant redirection and needs to remain on one-to-one, not able to tolerate roommate.. Not sleeping very much at night. Intermittent angry outbursts and punching things. This morning patient got so dysregulated, security had to be called, however patient was able to be redirected. Patient agreed to start Depakote, hoping it will help him sleep. Plan: CV 1:1 for unit safety 1. Patient has been treated with the following meds, however does not seem to have helped much Haldol 10 mg b.i.d. Zyprexa 10 mg daily Zyprexa 20 mg q.h.s. 2.on 07/28 Will add Depakote ER 750 q.h.s. to address likely rick (patient is not sleeping and in the past was prescribed lithium) -will continue Haldol and Zyprexa regimen for now however will likely need to change Continue to attempt to gather collateral Collateral Patient educated on: diagnosis and medication risk/benefits Informed Consent: understands, does not understand and further education needed Reason for continued inpatient stay Substantial Risk for: harm to others and inability to function Time Spent With Patient Time: Total time managing care of this patient today ____ minutes.
[2023-07-29 19:53] VITALS: BP 124/69; PULSE 94; RESP 16; TEMP 36.7; O2SAT 98
[2023-07-29] MEDS: OLANZapine 10 MG TABLET 20 MG PO (20:01)
[2023-07-29] MEDS: Divalproex Sodium ER 250 MG TAB.ER.24H 750 MG PO (20:01)
[2023-07-29] MEDS: traZODone HCL 50 MG TABLET PO (20:01)
[2023-07-30] MEDS: OLANZapine 5 MG TABLET PO ×3 (00:22→17:16)
[2023-07-30] MEDS: Acetaminophen 325 MG TABLET 650 MG PO (00:23)
[2023-07-30] MEDS: traZODone HCL 50 MG TABLET PO (00:23)
[2023-07-30] MEDS: LORazepam 1 MG TABLET 2 MG PO ×3 (01:53→21:45)
[2023-07-30] MEDS: diphenhydrAMINE HCL 25 MG CAPSULE 50 MG PO (03:25)
[2023-07-30] MEDS: HaloperidoL 5 MG TABLET PO ×3 (03:25→14:43)
--- NOTE | 2023-07-30 04:22 | PC.NURSE ---
PT WAS ESCALATING THROUGHOUT THE NIGHT, YELLING INTERMITTENTLY, CALLING STAFF DEROGATORY NAMES AND PUNCHING THE GLASS TO THE NURSES STATION. HE WAS ACCEPTING PRN PO MEDICATIONS WITH MINIMAL EFFECT. PT WENT INTO HIS ROOM AND CAME OUT SEVERAL MINUTES LATER WITH ONE OF THE SCREWS TO THE BOTTOM OF THE BED IN GROUP ROOM B THE PATIENT WAS THREATENING TO STAB STAFF AND MURDER THEM WITH THE SCREW IF SOMEONE DID NOT GET HIM ALL OF HIS BELONGINGS SO HE COULD BE DISCHARGED. SECURITY WAS CALLED. PRESCRIBED PO PRN MEDICATIONS WHICH THE PATIENT ACCEPTED. THE PT GAVE SECURITY THE SCREW FROM THE BED. HE WENT INTO HIS ROOM, LAID ON A YOGA MAT ON THE FLOOR AND FELL ASLEEP.
[2023-07-30 07:12] VITALS: BP 138/78
[2023-07-30] MEDS: cloNIDine HCL 0.1 MG TABLET PO ×2 (07:12→22:35)
[2023-07-30] MEDS: hydrOXYzine HCL 25 MG TABLET PO ×2 (07:12→13:36)
[2023-07-30] MEDS: Benztropine Mesylate 1 MG TABLET PO (07:58)
[2023-07-30] MEDS: HaloperidoL 5 MG TABLET 10 MG PO (07:58)
[2023-07-30] MEDS: OLANZapine 10 MG TABLET PO (07:58)
[2023-07-30 08:00] VITALS: BP 138/73; PULSE 110; RESP 18; TEMP 36.4; O2SAT 97
--- NOTE | 2023-07-30 09:51 | HO.PSYCHPN ---
Subjective Subjective Date of Service: 07/30/23 Reason For Visit: disorganized/psychosis Interim History: Met with patient; discussed with team Patient remains disorganized, intrusive, making disparaging comments to staff/peers, repeating what he hears as he walks down the finnegan Continues to require one-to-one for milieu safety Mental Status Exam Mental Status Exam Narrative: Pt is alert and oriented to self, but not really situation; behavior is intrusive, insulting to peers and staff, intermittently highly agitated with threatening gestures, sometimes punching things on the wall; patient is not in distress; dressed in casual attire, tattooed arms, unkempt; mood is described as good though affect congruent either blunted or constricted; eye contact appropriate; Speech is normal rate, volume and prosody and not pressured; intermittent psychomotor agitation present, sometimes severe; thought process can be goal directed but also distracted and disorganized, tangential; Thought content is on whatever is in front of him; intermittent paranoid delusional thinking; denies any SI/HI. Unclear if AH Patients insight and judgment impaired Diagnostics Vital Signs (24Hr): Vital Signs - 24 hr 07/29/23 19:53 07/30/23 07:12 Temperature 98.1 F Pulse Rate 94 Respiratory Rate 16 Blood Pressure 124/69 138/78 Pulse Oximetry 98 Oxygen Delivery Method Room Air BMI result Body Mass Index 23.6 Labs 07/22/23 15:24 07/22/23 15:24 Medications Medications Current Medications Acetaminophen (Acetaminophen 325 Mg Tablet) 650 mg PO Q6H PRN PRN Reason: Headache/Pain Mild Scale (1-3) Last Admin: 07/30/23 00:23 Dose: 650 mg Al Hydroxide/Mg Hydroxide (Magnesium Hydrox/Alum Hydrox 30 Ml Oral.Susp) 30 ml PO Q6H PRN PRN Reason: Heartburn/Nausea Benztropine Mesylate (Benztropine Mesylate 1 Mg Tablet) 1 mg PO BID [facility] Last Admin: 07/30/23 07:58 Dose: 1 mg Clonidine HCl (Clonidine Hcl 0.1 Mg Tablet) 0.1 mg PO BID@0800,2000 [facility]; Protocol Last Admin: 07/30/23 07:12 Dose: 0.1 mg Divalproex Sodium (Divalproex Sodium Er 250 Mg Tab.Er.24h) 750 mg PO BEDTIME [facility] Last Admin: 07/29/23 20:01 Dose: 750 mg Haloperidol (Haloperidol 5 Mg Tablet) 10 mg PO BID [facility] Last Admin: 07/30/23 07:58 Dose: 10 mg Haloperidol (Haloperidol 5 Mg Tablet) 5 mg PO TID PRN PRN Reason: Psychosis Last Admin: 07/30/23 09:21 Dose: 5 mg Hydroxyzine HCl (Hydroxyzine Hcl 25 Mg Tablet) 25 mg PO Q6H PRN PRN Reason: Anxiety Last Admin: 07/30/23 07:12 Dose: 25 mg Lorazepam (Lorazepam 1 Mg Tablet) 2 mg PO BID PRN PRN Reason: anxiety/restlessness Last Admin: 07/30/23 01:53 Dose: 2 mg Magnesium Hydroxide (Milk Of Magnesia 30 Ml Oral.Susp) 30 ml PO DAILY PRN PRN Reason: Constipation Nicotine (Nicotine 21 Mg Patch.Td24) 21 mg TRANSDERMA DAILY PRN PRN Reason: smoking cessation Last Admin: 07/29/23 11:39 Dose: 21 mg Nicotine Polacrilex (Nicotine Polacrilex 2 Mg Gum) 4 mg BUCCAL Q2H PRN PRN Reason: Nicotine Cravings Last Admin: 07/29/23 04:41 Dose: 4 mg Olanzapine (Olanzapine 5 Mg Tablet) 5 mg PO TID PRN PRN Reason: agitation Last Admin: 07/30/23 09:21 Dose: 5 mg Olanzapine (Olanzapine 10 Mg Tablet) 20 mg PO BEDTIME [facility] Last Admin: 07/29/23 20:01 Dose: 20 mg Olanzapine (Olanzapine 10 Mg Tablet) 10 mg PO DAILY [facility] Last Admin: 07/30/23 07:58 Dose: 10 mg Trazodone HCl (Trazodone Hcl 50 Mg Tablet) 50 mg PO BEDTIME MRX1 PRN PRN Reason: Insomnia Last Admin: 07/30/23 00:23 Dose: 50 mg Allergies Allergies Allergy/AdvReac Type Severity Reaction Status Date / Time nka Allergy nka Uncoded 07/24/23 16:52 Assessment & Plan Assessment & Plan (1) Schizoaffective disorder, bipolar type: Status: Acute Code(s): F25.0 - Schizoaffective disorder, bipolar type (2) Polysubstance use disorder: Status: Acute Code(s): F19.90 - Other psychoactive substance use, unspecified, uncomplicated Plan 33 yo male, history of schizoaffective disorder, bipolar type, sent from [facility] where he was admitted on a Section 35 on 07/13 for public intoxication while running in the community without clothing. Pt is psychotic upon presentation, signed CV and has been calm but echolalic in speech and behaviors for the most part since admission. Hospital course: 07/25: Increase Olanzapine to 20 mg HS 07/27: No real improvement on consistent changes. DC Prolixin Haldol 10 mg bid-prepare for decanoate trial Add Olanzapine 10 mg a.m. Benztropine 1 mg bid 07/28 Patient talking in more complete and logical sentences however he remains disorganized in both speech and behavior, rude and insulting to numerous staff as they walk by, intrusive and needs constant redirection and needs to remain on one-to-one, not able to tolerate roommate.. Not sleeping very much at night. Intermittent angry outbursts and punching things. This morning patient got so dysregulated, security had to be called, however patient was able to be redirected. Patient agreed to start Depakote, hoping it will help him sleep. 1). Patient has been treated with the following meds, however does not seem to have helped much Haldol 10 mg b.i.d. Zyprexa 10 mg daily Zyprexa 20 mg q.h.s. 2).on 07/28 Will add Depakote ER 750 q.h.s. to address likely rick (patient is not sleeping and in the past was prescribed lithium) -will continue Haldol and Zyprexa regimen for now however will likely need to change 07/29 patient remains with disorganized, intermittently aggressive behaviors; did sleep a little better last night with Depakote Need to change medication regimen as Patient has gotten up to Zyprexa 45 mg daily and Haldol 20 mg daily (when adding PRNs) 1) increase Depakote ER to 1500 mg q.h.s.; patient continues to be disorganized and dysregulated and intermittently threatening; so far tolerating and found helpful (ER is about 80% of IR) 2) start Risperdal 2 mg b.i.d.; will titrate to 3 mg b.i.d. starting tomorrow on 07/30 (intention is to see if Risperdal can work where Haldol and Zyprexa have thus been ineffective) 3) discontinue Zyprexa 10 mg daily 4) continue Zyprexa 20 mg q.h.s. and Haldol 10 mg b.i.d. for now since not sure if these may be partially subduing him and it is unclear if Risperdal will help 5) work to cross taper Risperdal with Zyprexa/Haldol; goal will be to see if Risperdal and Depakote can be effective and efforts made to be on only 1 antipsychotic SW obtained collateral from father -current episode started this May, sounds like rick when patient quit his job, spent 4000 in a week... -at baseline patient is fully functional; history of lots of LSD which seem to trigger psychotic/manic symptoms. Family history on both sides of schizophrenia -patient has been Section 35 2 times in the last 2 years; 4 psychiatric hospitalizations in the past 2 years -patient can not return to his father's or the apartment he was renting Plan: CV 1:1 for unit safety See medication management above under hospital course, by day Continue to attempt to gather collateral Collateral Patient educated on: diagnosis and medication risk/benefits Informed Consent: understands, does not understand and further education needed Reason for continued inpatient stay Substantial Risk for: harm to others and inability to function Time Spent With Patient Time: Total time managing care of this patient today ____ minutes.
[2023-07-30] MEDS: Nicotine 21 MG PATCH.TD24 TRANSDERMA (10:35)
[2023-07-30] MEDS: Nicotine Polacrilex 2 MG GUM 4 MG BUCCAL ×3 (14:26→20:31)
[2023-07-30] MEDS: risperiDONE 2 MG TABLET PO (15:30)
[2023-07-30 20:00] VITALS: BP 142/91; PULSE 125; TEMP 36.6; O2SAT 98
[2023-07-30] MEDS: Divalproex Sodium ER 500 MG TAB.ER.24H 1500 MG PO (20:33)
[2023-07-31] MEDS: HaloperidoL 5 MG TABLET PO (01:12)
[2023-07-31] MEDS: OLANZapine 5 MG TABLET PO ×3 (01:12→16:18)
[2023-07-31] MEDS: traZODone HCL 50 MG TABLET PO ×3 (01:13→20:55)
[2023-07-31] MEDS: Nicotine Polacrilex 2 MG GUM 4 MG BUCCAL ×6 (01:13→20:13)
[2023-07-31] MEDS: Acetaminophen 325 MG TABLET 650 MG PO ×2 (03:02→20:13)
[2023-07-31] MEDS: HaloperidoL 5 MG TABLET 10 MG PO ×3 (03:33→20:54)
[2023-07-31] MEDS: diphenhydrAMINE HCL 25 MG CAPSULE 50 MG PO (03:33)
--- NOTE | 2023-07-31 04:15 | PC.NURSE ---
Addendum entered by Awilda Sultana RN 07/31/23 05:20: Additional medication did not have any effect. Patient proceeded to shred multiple papers from prior groups, his admission booklet, and coloring pages, and threw them throughout hallway in front of Group Room B. Patient also proceeded to punch the lock box on wall for stairwell in hallway, as well as soap dispenser in bathroom. Patient took book from shelf in room, proceeded to throw across unit x2. He continues with pressured speech, delusional statements, You're all dirty excellence leader. Provider notified again to update on behaviors. Security called to the unit to assist. Ativan 2 mg PRN administered with much encouragement. Original Note: Patient observed becoming increasingly irritable and agitated during 1:1 observation. Patient repeatedly slamming door, verbally aggressive toward 1:1 sitters, escalating with redirection. Patient asking for PRN medications frequently. All PRN's exhausted with no effect on behaviors. Patient began threatening staff stating Do I need to start making a knife? I'll take all these bolts out of this bed, and use them. Provider cooperative education director (EH) notified, and additional medication requested. Haldol 10mg x 1 and Benadryl 50mg x1 ordered and administered - effect pending.
[2023-07-31] MEDS: LORazepam 1 MG TABLET 2 MG PO (05:00)
[2023-07-31] MEDS: hydrOXYzine HCL 25 MG TABLET PO ×2 (06:25→15:58)
[2023-07-31] MEDS: Benztropine Mesylate 1 MG TABLET PO ×2 (08:17→20:53)
[2023-07-31] MEDS: risperiDONE 3 MG TABLET PO ×2 (08:17→20:52)
[2023-07-31] MEDS: cloNIDine HCL 0.1 MG TABLET PO ×2 (08:17→20:54)
[2023-07-31 08:30] VITALS: BP 133/72; PULSE 119; RESP 18; TEMP 36.4; O2SAT 98
[2023-07-31] MEDS: Nicotine 21 MG PATCH.TD24 TRANSDERMA (09:00)
[2023-07-31] MEDS: Haloperidol Lactate 5 MG/ML VIAL 10 MG IM (10:33)
[2023-07-31] MEDS: diazePAM 10 MG/2 ML CARTRIDGE 5 MG IM (10:33)
--- NOTE | 2023-07-31 14:14 | P.PNPSI_ITS ---
Subjective Subjective Date of Service: 07/31/23 Reason For Visit: disorganized/psychosis Subjective Notes: Conditional Voluntary Interim History: Pt did not sleep all night, intermittently agitated, following peers. Echolalia, and also mimicking behaviors. restless, not combative during the day, asking for medications to help him sleep. pacing, non sensical at times. Pt intrusive disorganized perseverative on 1.1 periods agitation required frequent medication Diagnostics Vital Signs (24Hr): Vital Signs - 24 hr 07/30/23 20:00 07/31/23 08:30 Temperature 97.8 F 97.6 F Pulse Rate 125 H 119 H Respiratory Rate 18 Blood Pressure 142/91 H 133/72 Pulse Oximetry 98 98 Oxygen Delivery Method Room Air Room Air BMI result Body Mass Index 23.6 Labs 08/01/23 17:07 08/02/23 10:51 Medications Medications Current Medications Acetaminophen (Acetaminophen 325 Mg Tablet) 650 mg PO Q6H PRN PRN Reason: Headache/Pain Mild Scale (1-3) Last Admin: 07/31/23 03:02 Dose: 650 mg Al Hydroxide/Mg Hydroxide (Magnesium Hydrox/Alum Hydrox 30 Ml Oral.Susp) 30 ml PO Q6H PRN PRN Reason: Heartburn/Nausea Benztropine Mesylate (Benztropine Mesylate 1 Mg Tablet) 1 mg PO BID [facility] Last Admin: 07/31/23 08:17 Dose: 1 mg Clonidine HCl (Clonidine Hcl 0.1 Mg Tablet) 0.1 mg PO BID@0800,2000 [facility]; Protocol Last Admin: 07/31/23 08:17 Dose: 0.1 mg Divalproex Sodium (Divalproex Sodium Er 500 Mg Tab.Er.24h) 1,500 mg PO BEDTIME [facility] Last Admin: 07/30/23 20:33 Dose: 500 mg Haloperidol (Haloperidol 5 Mg Tablet) 10 mg PO BID [facility] Last Admin: 07/31/23 08:17 Dose: 10 mg Haloperidol (Haloperidol 5 Mg Tablet) 5 mg PO TID PRN PRN Reason: Psychosis Last Admin: 07/31/23 01:12 Dose: 5 mg Hydroxyzine HCl (Hydroxyzine Hcl 25 Mg Tablet) 25 mg PO Q6H PRN PRN Reason: Anxiety Last Admin: 07/31/23 06:25 Dose: 25 mg Lorazepam (Lorazepam 1 Mg Tablet) 2 mg PO BID PRN PRN Reason: anxiety/restlessness Last Admin: 07/31/23 05:00 Dose: 2 mg Magnesium Hydroxide (Milk Of Magnesia 30 Ml Oral.Susp) 30 ml PO DAILY PRN PRN Reason: Constipation Nicotine (Nicotine 21 Mg Patch.Td24) 21 mg TRANSDERMA DAILY PRN PRN Reason: smoking cessation Last Admin: 07/31/23 09:00 Dose: 21 mg Nicotine Polacrilex (Nicotine Polacrilex 2 Mg Gum) 4 mg BUCCAL Q2H PRN PRN Reason: Nicotine Cravings Last Admin: 07/31/23 09:00 Dose: 4 mg Olanzapine (Olanzapine 5 Mg Tablet) 5 mg PO TID PRN PRN Reason: agitation Last Admin: 07/31/23 12:05 Dose: 5 mg Olanzapine (Olanzapine 10 Mg Tablet) 20 mg PO BEDTIME [facility] Last Admin: 07/31/23 00:57 Dose: Not Given Risperidone (Risperidone 3 Mg Tablet) 3 mg PO BID [facility] Last Admin: 07/31/23 08:17 Dose: 3 mg Trazodone HCl (Trazodone Hcl 50 Mg Tablet) 50 mg PO BEDTIME MRX1 PRN PRN Reason: Insomnia Last Admin: 07/31/23 02:24 Dose: 50 mg Allergies Allergies Allergy/AdvReac Type Severity Reaction Status Date / Time nka Allergy nka Uncoded 07/24/23 16:52 Assessment & Plan Assessment & Plan (1) Schizoaffective disorder, bipolar type: Status: Acute Code(s): F25.0 - Schizoaffective disorder, bipolar type (2) Polysubstance use disorder: Status: Acute Code(s): F19.90 - Other psychoactive substance use, unspecified, uncomplicated Plan 33 yo male, history of schizoaffective disorder, bipolar type, sent from [facility] where he was admitted on a Section 35 on 07/13 for public intoxication while running in the community without clothing. Pt is psychotic upon presentation, signed CV and has been calm but echolalic in speech and behaviors for the most part since admission. Hospital course: 07/25: Increase Olanzapine to 20 mg HS 07/27: No real improvement on consistent changes. DC Prolixin Haldol 10 mg bid-prepare for decanoate trial Add Olanzapine 10 mg a.m. Benztropine 1 mg bid 07/28 Patient talking in more complete and logical sentences however he remains disorganized in both speech and behavior, rude and insulting to numerous staff as they walk by, intrusive and needs constant redirection and needs to remain on one-to-one, not able to tolerate roommate.. Not sleeping very much at night. Intermittent angry outbursts and punching things. This morning patient got so dysregulated, security had to be called, however patient was able to be redirected. Patient agreed to start Depakote, hoping it will help him sleep. 1). Patient has been treated with the following meds, however does not seem to have helped much Haldol 10 mg b.i.d. Zyprexa 10 mg daily Zyprexa 20 mg q.h.s. 2).on 07/28 Will add Depakote ER 750 q.h.s. to address likely rick (patient is not sleeping and in the past was prescribed lithium) -will continue Haldol and Zyprexa regimen for now however will likely need to change 07/29 patient remains with disorganized, intermittently aggressive behaviors; did sleep a little better last night with Depakote Need to change medication regimen as Patient has gotten up to Zyprexa 45 mg daily and Haldol 20 mg daily (when adding PRNs) 1) increase Depakote ER to 1500 mg q.h.s.; patient continues to be disorganized and dysregulated and intermittently threatening; so far tolerating and found helpful (ER is about 80% of IR) 2) start Risperdal 2 mg b.i.d.; will titrate to 3 mg b.i.d. starting tomorrow on 07/30 (intention is to see if Risperdal can work where Haldol and Zyprexa have thus been ineffective) 3) discontinue Zyprexa 10 mg daily 4) continue Zyprexa 20 mg q.h.s. and Haldol 10 mg b.i.d. for now since not sure if these may be partially subduing him and it is unclear if Risperdal will help 5) work to cross taper Risperdal with Zyprexa/Haldol; goal will be to see if Risperdal and Depakote can be effective and efforts made to be on only 1 antipsychotic SW obtained collateral from father -current episode started this May, sounds like rick when patient quit his job, spent 4000 in a week... -at baseline patient is fully functional; history of lots of LSD which seem to trigger psychotic/manic symptoms. Family history on both sides of schizophrenia -patient has been Section 35 2 times in the last 2 years; 4 psychiatric hospitalizations in the past 2 years -patient can not return to his father's or the apartment he was renting Plan: CV 1:1 for unit safety See medication management above under hospital course, by day Continue to attempt to gather collateral Collateral 07/31/23 Pt seen cont antipsychotic evaluate response Reason for continued inpatient stay Substantial Risk for: harm to others, inability to function and rapid decompensation Time Spent With Patient Time: Total time managing care of this patient today ____ minutes.
--- NOTE | 2023-07-31 14:54 | P.PNPSI_ITS ---
Subjective Subjective Date of Service: 07/31/23 Reason For Visit: disorganized/psychosis Subjective Notes: Conditional Voluntary Interim History: Pt did not sleep all night, intermittently agitated, following peers. Echolalia, and also mimicking behaviors. restless, not combative during the day, asking for medications to help him sleep. pacing, non sensical at times. Mental Status Exam Mental Status Exam Narrative: Pt with hospital gown, fair hygiene, seeing through others as he walks, echolalia. internally preoccupied. appears tired, but unable to sleep. Diagnostics Vital Signs (24Hr): Vital Signs - 24 hr 07/30/23 20:00 07/31/23 08:30 Temperature 97.8 F 97.6 F Pulse Rate 125 H 119 H Respiratory Rate 18 Blood Pressure 142/91 H 133/72 Pulse Oximetry 98 98 Oxygen Delivery Method Room Air Room Air BMI result Body Mass Index 23.6 Labs 08/01/23 17:07 08/01/23 12:46 Medications Medications Current Medications Acetaminophen (Acetaminophen 325 Mg Tablet) 650 mg PO Q6H PRN PRN Reason: Headache/Pain Mild Scale (1-3) Last Admin: 07/31/23 03:02 Dose: 650 mg Al Hydroxide/Mg Hydroxide (Magnesium Hydrox/Alum Hydrox 30 Ml Oral.Susp) 30 ml PO Q6H PRN PRN Reason: Heartburn/Nausea Benztropine Mesylate (Benztropine Mesylate 1 Mg Tablet) 1 mg PO BID [facility] Last Admin: 07/31/23 08:17 Dose: 1 mg Clonidine HCl (Clonidine Hcl 0.1 Mg Tablet) 0.1 mg PO BID@0800,2000 [facility]; Protocol Last Admin: 07/31/23 08:17 Dose: 0.1 mg Divalproex Sodium (Divalproex Sodium Er 500 Mg Tab.Er.24h) 1,500 mg PO BEDTIME [facility] Last Admin: 07/30/23 20:33 Dose: 500 mg Haloperidol (Haloperidol 5 Mg Tablet) 10 mg PO BID [facility] Last Admin: 07/31/23 08:17 Dose: 10 mg Haloperidol (Haloperidol 5 Mg Tablet) 5 mg PO TID PRN PRN Reason: Psychosis Last Admin: 07/31/23 01:12 Dose: 5 mg Hydroxyzine HCl (Hydroxyzine Hcl 25 Mg Tablet) 25 mg PO Q6H PRN PRN Reason: Anxiety Last Admin: 07/31/23 06:25 Dose: 25 mg Lorazepam (Lorazepam 1 Mg Tablet) 2 mg PO BID PRN PRN Reason: anxiety/restlessness Last Admin: 07/31/23 05:00 Dose: 2 mg Magnesium Hydroxide (Milk Of Magnesia 30 Ml Oral.Susp) 30 ml PO DAILY PRN PRN Reason: Constipation Nicotine (Nicotine 21 Mg Patch.Td24) 21 mg TRANSDERMA DAILY PRN PRN Reason: smoking cessation Last Admin: 07/31/23 09:00 Dose: 21 mg Nicotine Polacrilex (Nicotine Polacrilex 2 Mg Gum) 4 mg BUCCAL Q2H PRN PRN Reason: Nicotine Cravings Last Admin: 07/31/23 09:00 Dose: 4 mg Olanzapine (Olanzapine 5 Mg Tablet) 5 mg PO TID PRN PRN Reason: agitation Last Admin: 07/31/23 12:05 Dose: 5 mg Olanzapine (Olanzapine 10 Mg Tablet) 20 mg PO BEDTIME [facility] Last Admin: 07/31/23 00:57 Dose: Not Given Risperidone (Risperidone 3 Mg Tablet) 3 mg PO BID [facility] Last Admin: 07/31/23 08:17 Dose: 3 mg Trazodone HCl (Trazodone Hcl 50 Mg Tablet) 50 mg PO BEDTIME MRX1 PRN PRN Reason: Insomnia Last Admin: 07/31/23 02:24 Dose: 50 mg Allergies Allergies Allergy/AdvReac Type Severity Reaction Status Date / Time nka Allergy nka Uncoded 07/24/23 16:52 Assessment & Plan Assessment & Plan (1) Schizoaffective disorder, bipolar type: Status: Acute Code(s): F25.0 - Schizoaffective disorder, bipolar type (2) Polysubstance use disorder: Status: Acute Code(s): F19.90 - Other psychoactive substance use, unspecified, uncomplicated Plan 33 yo male, history of schizoaffective disorder, bipolar type, sent from [facility] where he was admitted on a Section 35 on 07/13 for public intoxication while running in the community without clothing. Pt is psychotic upon presentation, signed CV and has been calm but echolalic in speech and behaviors for the most part since admission. Hospital course: 07/25: Increase Olanzapine to 20 mg HS 07/27: No real improvement on consistent changes. DC Prolixin Haldol 10 mg bid-prepare for decanoate trial Add Olanzapine 10 mg a.m. Benztropine 1 mg bid 07/28 Patient talking in more complete and logical sentences however he remains disorganized in both speech and behavior, rude and insulting to numerous staff as they walk by, intrusive and needs constant redirection and needs to remain on one-to-one, not able to tolerate roommate.. Not sleeping very much at night. Intermittent angry outbursts and punching things. This morning patient got so dysregulated, security had to be called, however patient was able to be redirected. Patient agreed to start Depakote, hoping it will help him sleep. 1). Patient has been treated with the following meds, however does not seem to have helped much Haldol 10 mg b.i.d. Zyprexa 10 mg daily Zyprexa 20 mg q.h.s. 2).on 07/28 Will add Depakote ER 750 q.h.s. to address likely rick (patient is not sleeping and in the past was prescribed lithium) -will continue Haldol and Zyprexa regimen for now however will likely need to change 07/29 patient remains with disorganized, intermittently aggressive behaviors; did sleep a little better last night with Depakote Need to change medication regimen as Patient has gotten up to Zyprexa 45 mg daily and Haldol 20 mg daily (when adding PRNs) 1) increase Depakote ER to 1500 mg q.h.s.; patient continues to be disorganized and dysregulated and intermittently threatening; so far tolerating and found helpful (ER is about 80% of IR) 2) start Risperdal 2 mg b.i.d.; will titrate to 3 mg b.i.d. starting tomorrow on 07/30 (intention is to see if Risperdal can work where Haldol and Zyprexa have thus been ineffective) 3) discontinue Zyprexa 10 mg daily 4) continue Zyprexa 20 mg q.h.s. and Haldol 10 mg b.i.d. for now since not sure if these may be partially subduing him and it is unclear if Risperdal will help 5) work to cross taper Risperdal with Zyprexa/Haldol; goal will be to see if Risperdal and Depakote can be effective and efforts made to be on only 1 antipsychotic SW obtained collateral from father -current episode started this May, sounds like rick when patient quit his job, spent 4000 in a week... -at baseline patient is fully functional; history of lots of LSD which seem to trigger psychotic/manic symptoms. Family history on both sides of schizophrenia -patient has been Section 35 2 times in the last 2 years; 4 psychiatric hospitalizations in the past 2 years -patient can not return to his father's or the apartment he was renting 07/30- pt continues without sleeping, pacing, less agitated, appears with excitatory catatonia underlying psychosis. will order ammonia level, cmp, cpk as he has been medicated multiple times. Plan: CV 1:1 for unit safety See medication management above under hospital course, by day Continue to attempt to gather collateral Collateral Reason for continued inpatient stay Substantial Risk for: harm to others and inability to function Time Spent With Patient Time: Total time managing care of this patient today ____ minutes.
[2023-07-31] MEDS: LORazepam 1 MG TABLET PO (16:25)
[2023-07-31 19:19] VITALS: BP 120/80; PULSE 124; TEMP 36.8; O2SAT 97
[2023-07-31] MEDS: OLANZapine 10 MG TABLET 20 MG PO (20:53)
[2023-07-31] MEDS: Divalproex Sodium ER 500 MG TAB.ER.24H 1500 MG PO (20:55)
[2023-08-01] MEDS: OLANZapine 5 MG TABLET PO ×2 (00:09→14:23)
[2023-08-01] MEDS: LORazepam 1 MG TABLET 2 MG PO ×2 (00:10→14:10)
[2023-08-01] MEDS: Nicotine Polacrilex 2 MG GUM 4 MG BUCCAL ×4 (01:18→20:24)
[2023-08-01] MEDS: cloNIDine HCL 0.1 MG TABLET PO ×2 (08:20→20:24)
[2023-08-01] MEDS: HaloperidoL 5 MG TABLET 10 MG PO (08:20)
[2023-08-01] MEDS: risperiDONE 3 MG TABLET PO (08:21)
[2023-08-01] MEDS: Benztropine Mesylate 1 MG TABLET PO ×2 (08:21→20:26)
[2023-08-01 08:30] VITALS: BP 121/75; PULSE 100; RESP 18; TEMP 36.8; O2SAT 94
--- NOTE | 2023-08-01 08:44 | P.PNPSI_ITS ---
Subjective Subjective Date of Service: 08/01/23 Reason For Visit: disorganized/psychosis Subjective Notes: Section 7 Interim History: Pt did sleep a little bit better last night. Echolalia, and also mimicking behaviors. Less restless. Slightly more organized in thinking but still confused at times, reports he is at [place]. He is taking medications as prescribed. No rigidity or cogwheel on exam labs ordered- cbc with leukocytosis, afebrile. CMP renal function intact BUN 9, Cr 0.95, CPK elevated in 800's. LFT elevated especially AST 106, ALT 717. ammonia wnl 40, depakote level 51. no electrolyte abnormalities. Review of Systems Review of Systems Yes all other systems are reviewed and are negative Mental Status Exam Mental Status Exam Narrative: Pt with hospital gown, fair hygiene, seeing through others as he walks, echolalia. internally preoccupied. appears tired, but unable to sleep. Diagnostics Vital Signs (24Hr): Vital Signs - 24 hr 07/31/23 19:19 Temperature 98.2 F Pulse Rate 124 H Blood Pressure 120/80 Pulse Oximetry 97 Oxygen Delivery Method Room Air BMI result Body Mass Index 23.6 Labs 08/01/23 17:07 08/01/23 12:46 Medications Medications Current Medications Acetaminophen (Acetaminophen 325 Mg Tablet) 650 mg PO Q6H PRN PRN Reason: Headache/Pain Mild Scale (1-3) Last Admin: 07/31/23 20:13 Dose: 650 mg Al Hydroxide/Mg Hydroxide (Magnesium Hydrox/Alum Hydrox 30 Ml Oral.Susp) 30 ml PO Q6H PRN PRN Reason: Heartburn/Nausea Benztropine Mesylate (Benztropine Mesylate 1 Mg Tablet) 1 mg PO BID [facility] Last Admin: 08/01/23 08:21 Dose: 1 mg Clonidine HCl (Clonidine Hcl 0.1 Mg Tablet) 0.1 mg PO BID@0800,1999 [facility]; Protocol Last Admin: 08/01/23 08:20 Dose: 0.1 mg Divalproex Sodium (Divalproex Sodium Er 500 Mg Tab.Er.24h) 1,500 mg PO BEDTIME [facility] Last Admin: 07/31/23 20:55 Dose: 1,500 mg Haloperidol (Haloperidol 5 Mg Tablet) 10 mg PO BID [facility] Last Admin: 08/01/23 08:20 Dose: 10 mg Haloperidol (Haloperidol 5 Mg Tablet) 5 mg PO TID PRN PRN Reason: Psychosis Last Admin: 07/31/23 01:12 Dose: 5 mg Hydroxyzine HCl (Hydroxyzine Hcl 25 Mg Tablet) 25 mg PO Q6H PRN PRN Reason: Anxiety Last Admin: 07/31/23 15:58 Dose: 25 mg Lorazepam (Lorazepam 1 Mg Tablet) 2 mg PO BID PRN PRN Reason: anxiety/restlessness Last Admin: 08/01/23 00:10 Dose: 2 mg Magnesium Hydroxide (Milk Of Magnesia 30 Ml Oral.Susp) 30 ml PO DAILY PRN PRN Reason: Constipation Nicotine (Nicotine 21 Mg Patch.Td24) 21 mg TRANSDERMA DAILY PRN PRN Reason: smoking cessation Last Admin: 07/31/23 09:00 Dose: 21 mg Nicotine Polacrilex (Nicotine Polacrilex 2 Mg Gum) 4 mg BUCCAL Q2H PRN PRN Reason: Nicotine Cravings Last Admin: 08/01/23 06:36 Dose: 4 mg Olanzapine (Olanzapine 5 Mg Tablet) 5 mg PO TID PRN PRN Reason: agitation Last Admin: 08/01/23 00:09 Dose: 5 mg Olanzapine (Olanzapine 10 Mg Tablet) 20 mg PO BEDTIME [facility] Last Admin: 07/31/23 20:53 Dose: 20 mg Risperidone (Risperidone 3 Mg Tablet) 3 mg PO BID [facility] Last Admin: 08/01/23 08:21 Dose: 3 mg Trazodone HCl (Trazodone Hcl 50 Mg Tablet) 50 mg PO BEDTIME MRX1 PRN PRN Reason: Insomnia Last Admin: 07/31/23 20:55 Dose: 50 mg Allergies Allergies Allergy/AdvReac Type Severity Reaction Status Date / Time nka Allergy nka Uncoded 07/24/23 16:52 Assessment & Plan Assessment & Plan (1) Schizoaffective disorder, bipolar type: Status: Acute Code(s): F25.0 - Schizoaffective disorder, bipolar type (2) Polysubstance use disorder: Status: Acute Code(s): F19.90 - Other psychoactive substance use, unspecified, uncomplicated Plan 33 yo male, history of schizoaffective disorder, bipolar type, sent from [facility] where he was admitted on a Section 35 on 07/13 for public intoxication while running in the community without clothing. Pt is psychotic upon presentation, signed CV and has been calm but echolalic in speech and behaviors for the most part since admission. Hospital course: 07/25: Increase Olanzapine to 20 mg HS 07/27: No real improvement on consistent changes. DC Prolixin Haldol 10 mg bid-prepare for decanoate trial Add Olanzapine 10 mg a.m. Benztropine 1 mg bid 07/28 Patient talking in more complete and logical sentences however he remains disorganized in both speech and behavior, rude and insulting to numerous staff as they walk by, intrusive and needs constant redirection and needs to remain on one-to-one, not able to tolerate roommate.. Not sleeping very much at night. Intermittent angry outbursts and punching things. This morning patient got so dysregulated, security had to be called, however patient was able to be redirected. Patient agreed to start Depakote, hoping it will help him sleep. 1). Patient has been treated with the following meds, however does not seem to have helped much Haldol 10 mg b.i.d. Zyprexa 10 mg daily Zyprexa 20 mg q.h.s. 2).on 07/28 Will add Depakote ER 750 q.h.s. to address likely rick (patient is not sleeping and in the past was prescribed lithium) -will continue Haldol and Zyprexa regimen for now however will likely need to change 07/29 patient remains with disorganized, intermittently aggressive behaviors; did sleep a little better last night with Depakote Need to change medication regimen as Patient has gotten up to Zyprexa 45 mg daily and Haldol 20 mg daily (when adding PRNs) 1) increase Depakote ER to 1500 mg q.h.s.; patient continues to be disorganized and dysregulated and intermittently threatening; so far tolerating and found helpful (ER is about 80% of IR) 2) start Risperdal 2 mg b.i.d.; will titrate to 3 mg b.i.d. starting tomorrow on 07/30 (intention is to see if Risperdal can work where Haldol and Zyprexa have thus been ineffective) 3) discontinue Zyprexa 10 mg daily 4) continue Zyprexa 20 mg q.h.s. and Haldol 10 mg b.i.d. for now since not sure if these may be partially subduing him and it is unclear if Risperdal will help 5) work to cross taper Risperdal with Zyprexa/Haldol; goal will be to see if Risperdal and Depakote can be effective and efforts made to be on only 1 antipsychotic SW obtained collateral from father -current episode started this May, sounds like rick when patient quit his job, spent 4000 in a week... -at baseline patient is fully functional; history of lots of LSD which seem to trigger psychotic/manic symptoms. Family history on both sides of schizophrenia -patient has been Section 35 2 times in the last 2 years; 4 psychiatric hospitalizations in the past 2 years -patient can not return to his father's or the apartment he was renting 07/31- labs ordered- cbc with leukocytosis, afebrile. CMP renal function intact BUN 9, Cr 0.95, CPK elevated in 800's. LFT elevated especially AST 106, ALT 717. ammonia wnl 40, depakote level 51. no electrolyte abnormalities. suspect elevated CPK related to IM medications and restraints. Elevation in LFT- especially ALT may be related to elevated CPK, medications. will order hep panel, if not trending down, may need GI consult. Less suspicion for NMS- no rigidity/afebrile, mentation improving despite abnormal labs. will hold depakote, especially as LFT normalize or trend back down. Plan: CV 1:1 for unit safety See medication management above under hospital course, by day Continue to attempt to gather collateral Collateral Reason for continued inpatient stay Substantial Risk for: harm to others and inability to function Time Spent With Patient Time: Total time managing care of this patient today ____ minutes.
[2023-08-01] MEDS: HaloperidoL 5 MG TABLET PO (12:25)
[2023-08-01 13:10] LABS: Ammonia 45 umol/L (13-55)
[2023-08-01 13:19] LABS: Alanine Aminotransferase 717 U/L (0-40); Albumin Level 4.5 g/dL (3.5-5.0); Alkaline Phosphatase 69 U/L (39-117); Anion Gap 15 (12-20); Aspartate Amino Transferase 106 U/L (5-37); Bilirubin Total 0.2 mg/dL (0.0-1.0); Blood Urea Nitrogen 9 mg/dL (9-16); Calcium 10.7 mg/dL (8.4-10.2); Carbon Dioxide 29 mmol/L (22-29); Chloride 102 mmol/L (96-108); Creatinine Clr Calc Pharmacy 102.4; Estimated Glomerular Filt Rate > 60; Glucose Random 98 mg/dL (60-115); Potassium 4.4 mmol/L (3.3-5.1); Sodium 142 mmol/L (135-145); Total Protein 7.5 g/dL (6.5-8.0)
[2023-08-01] MEDS: Acetaminophen 325 MG TABLET 650 MG PO (14:23)
[2023-08-01] MEDS: hydrOXYzine HCL 25 MG TABLET PO (14:23)
[2023-08-01] MEDS: Nicotine 21 MG PATCH.TD24 TRANSDERMA (14:26)
[2023-08-01 17:18] LABS: Basophils Absolute Auto 0.1 X10*3/uL (0.0-0.2); Basophils Percent Auto 0.9 % (0-2); Eosinophils Absolute Auto 0.5 X10*3/uL (0.0-0.4); Hematocrit 43.4 % (42.0-52.0); Hemoglobin 13.9 g/dl (14.0-18.0); Imm Gran Abs Auto 0.65 X10*3/uL (0.00-0.03); Imm Gran Pct Auto 4.4 % (0.0-0.4); Lymphocytes Absolute Auto 4.6 X10*3/uL (1.2-4.9); Lymphocytes Percent Auto 31.3 % (20-40); MANUAL DIFF FLAG SCAN; Mean Corpuscular Volume 81.1 fL (80.0-98.0); Mean Platelet Volume 9.7 fL (9.4-12.4); Monocytes Absolute Auto 1.5 X10*3/uL (0.1-1.2); Monocytes Percent Auto 10.3 % (2-11); NRBC Pct Auto 0.1 /100WBC (0.0-0.2); Neutrophils Absolute Auto 7.4 x10*3/uL (2.0-8.3); Neutrophils Percent Auto 50.1 % (45-73); Platelet Count 334 X10*3/uL (160-400); Red Blood Count 5.35 X10*6/uL (4.60-5.80); Red Cell Distribution Width 15.6 % (11.0-16.0); SCAN SMEAR FLAG 1; White Blood Count 14.8 X10*3/uL (4.8-10.8)
[2023-08-01 18:15] LABS: SLIDE REVIEW VERIFIED
[2023-08-01 20:00] VITALS: BP 130/67; PULSE 130; RESP 18; TEMP 36.8; O2SAT 96
[2023-08-01 20:24] VITALS: BP 130/67
[2023-08-01] MEDS: risperiDONE 2 MG TABLET PO (20:26)
[2023-08-01] MEDS: LORazepam 1 MG TABLET PO (20:30)
[2023-08-01] MEDS: traZODone HCL 50 MG TABLET PO (22:18)
[2023-08-02] MEDS: Acetaminophen 325 MG TABLET 650 MG PO (00:25)
[2023-08-02] MEDS: traZODone HCL 50 MG TABLET PO ×2 (00:27→20:06)
[2023-08-02] MEDS: Nicotine Polacrilex 2 MG GUM 4 MG BUCCAL ×5 (00:39→16:21)
[2023-08-02] MEDS: Benztropine Mesylate 1 MG TABLET PO ×2 (08:12→20:04)
[2023-08-02] MEDS: cloNIDine HCL 0.1 MG TABLET PO ×2 (08:13→19:01)
[2023-08-02] MEDS: risperiDONE 2 MG TABLET PO ×2 (08:13→20:04)
[2023-08-02] MEDS: Nicotine 21 MG PATCH.TD24 TRANSDERMA (08:13)
[2023-08-02] MEDS: HaloperidoL 5 MG TABLET PO ×2 (09:08→18:48)
[2023-08-02] MEDS: LORazepam 1 MG TABLET 2 MG PO (09:08)
--- NOTE | 2023-08-02 09:58 | HO.PSYCHPN ---
Subjective Subjective Date of Service: 08/02/23 Reason For Visit: disorganized/psychosis Subjective Notes: Conditional Voluntary Interim History: Pt slept most of the night. Somewhat agitated in the morning but accepting medications. He is confused at times as to where he is. He states he is at [facility]. He slept some more in the morning. CPK trending down, as well as LFT. May need to add olanzapine back again as he is regressing. Review of Systems Review of Systems Yes all other systems are reviewed and are negative Mental Status Exam Mental Status Exam Patient Appearance: Fatigued and Disheveled Patient Orientation: Person Level of Consciousness: Alert Patient Behavior: Talkative, Cooperative and Wandering Mood Description: Withdrawn and Constricted Affect Description: Constricted Patient Cognition Impaired: Yes Ability to Follow Directions: Fair Speech Pattern: Spontaneous Speech, Soft-Spoken and Inappropriate (echolalia) Memory Description: Remote Impaired Diagnostics Vital Signs (24Hr): Vital Signs - 24 hr 08/01/23 20:00 08/01/23 20:24 Temperature 98.2 F Pulse Rate 130 H Respiratory Rate 18 Blood Pressure 130/67 130/67 Pulse Oximetry 96 Oxygen Delivery Method Room Air BMI result Body Mass Index 23.6 Labs 08/01/23 17:07 08/02/23 10:51 Labs: Laboratory Results - last 48 hr 08/01/23 08/01/23 12:46 17:07 WBC 14.8 H RBC 5.35 Hgb 13.9 L Hct 43.4 MCV 81.1 MCH 26.0 L MCHC 32.0 RDW 15.6 Plt Count 334 MPV 9.7 Immature Gran % (Auto) 4.4 H Neut % (Auto) 50.1 Lymph % (Auto) 31.3 [place] % (Auto) 10.3 Eos % (Auto) 3.0 Baso % (Auto) 0.9 Lymph # (Auto) 4.6 [place] # (Auto) 1.5 H Eos # (Auto) 0.5 H Baso # (Auto) 0.1 Abs Immat Gran (auto) 0.65 H Absolute Neuts (auto) 7.4 Absolute Nucleated RBC 0.020 H Nucleated RBC % (auto) 0.1 Smear Tech's Comments VERIFIED Sodium 142 Potassium 4.4 Chloride 102 Carbon Dioxide 29 Anion Gap 15 BUN 9 Creatinine 0.95 Estim Creat Clear Calc 102.4 Estimated GFR > 60 Random Glucose 98 Calcium 10.7 H Total Bilirubin 0.2 AST 106 H ALT 717 H Alkaline Phosphatase 69 Ammonia 45 Total Creatine Kinase 851 H Total Protein 7.5 Albumin 4.5 Valproic Acid 51.0 Medications Medications Current Medications Acetaminophen (Acetaminophen 325 Mg Tablet) 650 mg PO Q6H PRN PRN Reason: Headache/Pain Mild Scale (1-3) Last Admin: 08/02/23 00:25 Dose: 650 mg Al Hydroxide/Mg Hydroxide (Magnesium Hydrox/Alum Hydrox 30 Ml Oral.Susp) 30 ml PO Q6H PRN PRN Reason: Heartburn/Nausea Benztropine Mesylate (Benztropine Mesylate 1 Mg Tablet) 1 mg PO BID [facility] Last Admin: 08/02/23 08:12 Dose: 1 mg Clonidine HCl (Clonidine Hcl 0.1 Mg Tablet) 0.1 mg PO BID@0800,1999 [facility]; Protocol Last Admin: 08/02/23 08:13 Dose: 0.1 mg Haloperidol (Haloperidol 5 Mg Tablet) 5 mg PO Q6H PRN PRN Reason: agitation Hydroxyzine HCl (Hydroxyzine Hcl 25 Mg Tablet) 25 mg PO Q6H PRN PRN Reason: Anxiety Last Admin: 08/01/23 14:23 Dose: 25 mg Lorazepam (Lorazepam 1 Mg Tablet) 1 mg PO Q6H PRN PRN Reason: anxiety/restlessness Last Admin: 08/01/23 20:30 Dose: 1 mg Magnesium Hydroxide (Milk Of Magnesia 30 Ml Oral.Susp) 30 ml PO DAILY PRN PRN Reason: Constipation Nicotine (Nicotine 21 Mg Patch.Td24) 21 mg TRANSDERMA DAILY PRN PRN Reason: smoking cessation Last Admin: 08/02/23 08:13 Dose: 21 mg Nicotine Polacrilex (Nicotine Polacrilex 2 Mg Gum) 4 mg BUCCAL Q2H PRN PRN Reason: Nicotine Cravings Last Admin: 08/02/23 04:23 Dose: 4 mg Olanzapine (Olanzapine 5 Mg Tablet) 5 mg PO TID PRN PRN Reason: agitation Last Admin: 08/01/23 14:23 Dose: 5 mg Risperidone (Risperidone 2 Mg Tablet) 2 mg PO BID [facility] Last Admin: 08/02/23 08:13 Dose: 2 mg Trazodone HCl (Trazodone Hcl 50 Mg Tablet) 50 mg PO BEDTIME MRX1 PRN PRN Reason: Insomnia Last Admin: 08/02/23 00:27 Dose: 50 mg Allergies Allergies Allergy/AdvReac Type Severity Reaction Status Date / Time nka Allergy nka Uncoded 07/24/23 16:52 Assessment & Plan Assessment & Plan (1) Schizoaffective disorder, bipolar type: Status: Acute Code(s): F25.0 - Schizoaffective disorder, bipolar type (2) Polysubstance use disorder: Status: Acute Code(s): F19.90 - Other psychoactive substance use, unspecified, uncomplicated Plan 33 yo male, history of schizoaffective disorder, bipolar type, sent from [facility] where he was admitted on a Section 35 on 07/13 for public intoxication while running in the community without clothing. Pt is psychotic upon presentation, signed CV and has been calm but echolalic in speech and behaviors for the most part since admission. Hospital course: 07/25: Increase Olanzapine to 20 mg HS 07/27: No real improvement on consistent changes. DC Prolixin Haldol 10 mg bid-prepare for decanoate trial Add Olanzapine 10 mg a.m. Benztropine 1 mg bid 07/28 Patient talking in more complete and logical sentences however he remains disorganized in both speech and behavior, rude and insulting to numerous staff as they walk by, intrusive and needs constant redirection and needs to remain on one-to-one, not able to tolerate roommate.. Not sleeping very much at night. Intermittent angry outbursts and punching things. This morning patient got so dysregulated, security had to be called, however patient was able to be redirected. Patient agreed to start Depakote, hoping it will help him sleep. 1). Patient has been treated with the following meds, however does not seem to have helped much Haldol 10 mg b.i.d. Zyprexa 10 mg daily Zyprexa 20 mg q.h.s. 2).on 07/28 Will add Depakote ER 750 q.h.s. to address likely rick (patient is not sleeping and in the past was prescribed lithium) -will continue Haldol and Zyprexa regimen for now however will likely need to change 07/29 patient remains with disorganized, intermittently aggressive behaviors; did sleep a little better last night with Depakote Need to change medication regimen as Patient has gotten up to Zyprexa 45 mg daily and Haldol 20 mg daily (when adding PRNs) 1) increase Depakote ER to 1500 mg q.h.s.; patient continues to be disorganized and dysregulated and intermittently threatening; so far tolerating and found helpful (ER is about 80% of IR) 2) start Risperdal 2 mg b.i.d.; will titrate to 3 mg b.i.d. starting tomorrow on 07/30 (intention is to see if Risperdal can work where Haldol and Zyprexa have thus been ineffective) 3) discontinue Zyprexa 10 mg daily 4) continue Zyprexa 20 mg q.h.s. and Haldol 10 mg b.i.d. for now since not sure if these may be partially subduing him and it is unclear if Risperdal will help 5) work to cross taper Risperdal with Zyprexa/Haldol; goal will be to see if Risperdal and Depakote can be effective and efforts made to be on only 1 antipsychotic SW obtained collateral from father -current episode started this May, sounds like rick when patient quit his job, spent 4000 in a week... -at baseline patient is fully functional; history of lots of LSD which seem to trigger psychotic/manic symptoms. Family history on both sides of schizophrenia -patient has been Section 35 2 times in the last 2 years; 4 psychiatric hospitalizations in the past 2 years -patient can not return to his father's or the apartment he was renting 07/31- labs ordered- cbc with leukocytosis, afebrile. CMP renal function intact BUN 9, Cr 0.95, CPK elevated in 800's. LFT elevated especially AST 106, ALT 717. ammonia wnl 40, depakote level 51. no electrolyte abnormalities. suspect elevated CPK related to IM medications and restraints. Elevation in LFT- especially ALT may be related to elevated CPK, medications. will order hep panel, if not trending down, may need GI consult. Less suspicion for NMS- no rigidity/afebrile, mentation improving despite abnormal labs. will hold depakote, especially as LFT normalize or trend back down. 08/01 ALT trending down, CPK also trending back. no rigidity or cogwheel. Plan: CV 1:1 for unit safety See medication management above under hospital course, by day Continue to attempt to gather collateral Collateral Reason for continued inpatient stay Substantial Risk for: inability to function Time Spent With Patient Time: Total time managing care of this patient today ____ minutes.
[2023-08-02 11:03] VITALS: BP 125/70; PULSE 133; RESP 18; TEMP 36.8; O2SAT 96
[2023-08-02 11:20] LABS: Alanine Aminotransferase 549 U/L (0-40); Alkaline Phosphatase 75 U/L (39-117); Aspartate Amino Transferase 102 U/L (5-37); Bilirubin Direct < 0.2 mg/dL (0.0-0.5); Bilirubin Total 0.2 mg/dL (0.0-1.0); Total Protein 6.6 g/dL (6.5-8.0)
[2023-08-02 11:21] LABS: Anion Gap 11 (12-20); Blood Urea Nitrogen 9 mg/dL (9-16); Calcium 10.3 mg/dL (8.4-10.2); Carbon Dioxide 28 mmol/L (22-29); Chloride 104 mmol/L (96-108); Creatinine Clr Calc Pharmacy 113.1; Estimated Glomerular Filt Rate > 60; Glucose Random 121 mg/dL (60-115); Potassium 4.3 mmol/L (3.3-5.1); Sodium 139 mmol/L (135-145)
[2023-08-02] MEDS: LORazepam 1 MG TABLET PO ×2 (13:30→20:04)
[2023-08-02] MEDS: hydrOXYzine HCL 25 MG TABLET PO (13:30)
[2023-08-02] MEDS: OLANZapine 5 MG TABLET PO ×2 (13:52→20:53)
[2023-08-03] MEDS: Acetaminophen 325 MG TABLET 650 MG PO ×2 (01:44→08:26)
[2023-08-03] MEDS: traZODone HCL 50 MG TABLET PO ×2 (01:45→20:28)
[2023-08-03] MEDS: Nicotine Polacrilex 2 MG GUM 4 MG BUCCAL ×3 (02:54→18:09)
[2023-08-03] MEDS: OLANZapine 5 MG TABLET PO ×2 (04:53→16:26)
[2023-08-03] MEDS: LORazepam 1 MG TABLET PO (05:24)
[2023-08-03] MEDS: OLANZapine 10 MG VIAL IM (06:01)
--- NOTE | 2023-08-03 06:36 | PC.NURSE ---
At start of shift, pt presenting as irritable, agitated and showing disruptive behaviors, talking aloud and making bizarre statements. pt insisting on having his labs drawn and being very difficult to redirect at this point after this nurse advice pt his labs usually gets drawn in the morning per MD's orders. pt becoming somewhat aggressive with ancillary staff, security called to unit for help. pt received zyprexa 5mg prn po togetehr with all his HS meds with no effect. pt continued to be irritable all night despite exhausting all prns with no effect. At 0530 Patient observed becoming increasingly irritable and agitated during 1:1 observation. Patient repeatedly throwing staff from his room on the floor, peeing on the floor, broke a piece of the plastic sign number to his room and becoming verbally aggressive towards 1:1 sitters. Pt came out of his room at one point, jumped and sat on the upper bench area close to the unit exit doors, refusing to get down. Security called to unit once again for help and pt redirected to his room.Provider station master (EH) notified, and additional medication requested. Zyprexa 10mg x 1 IM ordered and administered - effect pending.
[2023-08-03 08:00] VITALS: BP 137/71; PULSE 92; RESP 18; TEMP 36.9; O2SAT 98
[2023-08-03 08:24] LABS: Basophils Absolute Auto 0.1 X10*3/uL (0.0-0.2); Basophils Percent Auto 0.8 % (0-2); Eosinophils Absolute Auto 0.3 X10*3/uL (0.0-0.4); Eosinophils Percent Auto 2.5 % (0-4); Hematocrit 41.6 % (42.0-52.0); Hemoglobin 13.3 g/dl (14.0-18.0); Imm Gran Abs Auto 0.31 X10*3/uL (0.00-0.03); Imm Gran Pct Auto 2.2 % (0.0-0.4); Lymphocytes Absolute Auto 4.4 X10*3/uL (1.2-4.9); Lymphocytes Percent Auto 31.7 % (20-40); MANUAL DIFF FLAG SCAN; Mean Corpuscular Hemoglobin 26.1 pg (27.0-33.0); Mean Corpuscular Volume 81.6 fL (80.0-98.0); Monocytes Absolute Auto 1.2 X10*3/uL (0.1-1.2); Monocytes Percent Auto 8.9 % (2-11); Neutrophils Absolute Auto 7.4 x10*3/uL (2.0-8.3); Neutrophils Percent Auto 53.9 % (45-73); Platelet Count 326 X10*3/uL (160-400); Red Cell Distribution Width 15.5 % (11.0-16.0); SCAN SMEAR FLAG 1; White Blood Count 13.8 X10*3/uL (4.8-10.8)
[2023-08-03 08:26] VITALS: BP 137/71
[2023-08-03] MEDS: Benztropine Mesylate 1 MG TABLET PO ×2 (08:26→20:28)
[2023-08-03] MEDS: OLANZapine ODT 10 MG TAB.RAPDIS TRANSLINGU ×2 (08:26→20:28)
[2023-08-03] MEDS: cloNIDine HCL 0.1 MG TABLET PO ×2 (08:26→19:23)
[2023-08-03] MEDS: risperiDONE 2 MG TABLET PO ×2 (08:26→20:28)
[2023-08-03 08:30] LABS: Ammonia 40 umol/L (13-55)
[2023-08-03 08:40] LABS: Alanine Aminotransferase 411 U/L (0-40); Alkaline Phosphatase 73 U/L (39-117); Anion Gap 12 (12-20); Aspartate Amino Transferase 51 U/L (5-37); Bilirubin Total 0.2 mg/dL (0.0-1.0); Blood Urea Nitrogen 8 mg/dL (9-16); Calcium 9.9 mg/dL (8.4-10.2); Carbon Dioxide 26 mmol/L (22-29); Chloride 106 mmol/L (96-108); Creatinine Clr Calc Pharmacy 135.1; Estimated Glomerular Filt Rate > 60; Glucose Random 107 mg/dL (60-115); Potassium 4.3 mmol/L (3.3-5.1); Sodium 140 mmol/L (135-145); Total Protein 6.6 g/dL (6.5-8.0)
[2023-08-03 08:41] LABS: HBS Num1 8.52 mIU/mL (0-7.99); HBc Num1 0.08 S/CO (0.00-0.79); HBsAGNum1 0.26 S/CO (0.00-0.99); Hepatitis A Antibody IgM 0.12 Index (0-0.79); Hepatitis B Core Antibody Nonreactive (Nonreactive); Hepatitis B Surface Antigen Negative (Negative); ~HepC Num1 0.09 S/CO (0.00-0.79); ~Hepatitis A Antibody IgM Nonreactive (Nonreactive); ~Hepatitis C Antibody Nonreactive (Nonreactive)
[2023-08-03 08:45] LABS: SLIDE REVIEW VERIFIED
[2023-08-03 09:39] LABS: HBS Num2 7.97 mIU/mL (0-7.99); ~Hepatitis B Surface Antibody NONREACTIVE (Nonreactive)
--- NOTE | 2023-08-03 15:06 | HO.PSYCHPN ---
Subjective Subjective Date of Service: 08/03/23 Reason For Visit: disorganized/psychosis Subjective Notes: Conditional Voluntary Healthcare Proxy: No Guardianship: No Medical Problems Affecting Mental Status: No Interim History: One to one Remains intrusive, with poor boundaries, echolalic, verbally abusive and degrading, rambling, confrontive, agitated and aggressive at times. Constant commentary that is derrogative. Monitoring metabolic response to medications. Trends are decreasing Medication Compliance: Intermittent Side effects from medications: No Attending Groups: No Review of Systems Acute medical concerns: No Medical Review of Systems: unchanged Review of Systems Review of Systems Yes Unobtainable due to mental status Mental Status Exam Mental Status Exam Patient Appearance: Appropriate Patient Orientation: Person and Place Level of Consciousness: Restless, Alert and Inappropriate Patient Behavior: Talkative, Hyperactive, Suspicious, Hypersexual, Restless, Belligerent, Verbal Threats, Distractible, Confused, Good Eye Contact, Impulsive and Pacing Mood Description: Hostile and Labile Affect Description: Hostile and Labile Patient Cognition Impaired: Yes Ability to Follow Directions: Fair Speech Pattern: Perseverating, Spontaneous Speech, Rambling, Cofabulation, Excessive, Pressured and Includes Profanity Memory Description: Remote Impaired Hallucinations: None Delusions: Being Controlled, Paranoid Ideation, Grandiose and Present Perceptual Disturbances: Derealization Thought Process: Confusion Thought Content: positive for Flight of Ideas, positive for Racing, positive for Circumstantial, positive for Tangential, positive for Disorganized, positive for Suicidal Ideation (denies) and positive for Homicidal Ideation (denies) Depressive Symptoms: Insomnia, Increased Irritability, Difficulty Sleeping and Difficulty Concentrating Abnormal Motor Activity Signs and Symptoms: Aggression, Agitation, Hyperactivity and Restlessness Judgement: Poor Diagnostics Vital Signs (24Hr): Vital Signs - 24 hr 08/03/23 08:00 08/03/23 08:26 Temperature 98.4 F Pulse Rate 92 Respiratory Rate 18 Blood Pressure 137/71 137/71 Pulse Oximetry 98 Oxygen Delivery Method Room Air BMI result Body Mass Index 23.6 Labs 08/03/23 08:16 08/03/23 08:16 Labs: Laboratory Results - last 48 hr 08/01/23 08/02/23 08/03/23 17:07 10:51 08:16 WBC 14.8 H 13.8 H RBC 5.35 5.10 Hgb 13.9 L 13.3 L Hct 43.4 41.6 L MCV 81.1 81.6 MCH 26.0 L 26.1 L MCHC 32.0 32.0 RDW 15.6 15.5 Plt Count 334 326 MPV 9.7 10.0 Immature Gran % (Auto) 4.4 H 2.2 H Neut % (Auto) 50.1 53.9 Lymph % (Auto) 31.[address] [place] % (Auto) 10.3 8.9 Eos % (Auto) 3.0 2.5 Baso % (Auto) 0.9 0.8 Lymph # (Auto) 4.[address] [place] # (Auto) 1.5 H 1.2 Eos # (Auto) 0.5 H 0.3 Baso # (Auto) 0.1 0.1 Abs Immat Gran (auto) 0.65 H 0.31 H Absolute Neuts (auto) 7.4 7.4 Absolute Nucleated RBC 0.020 H 0.000 Nucleated RBC % (auto) 0.1 0.0 Smear Tech's Comments VERIFIED VERIFIED Sodium 139 140 Potassium 4.3 4.3 Chloride 104 106 Carbon Dioxide 28 26 Anion Gap 11 L 12 BUN 9 8 L Creatinine 0.86 0.72 Estim Creat Clear Calc 113.1 135.1 Estimated GFR > 60 > 60 Random Glucose 121 H 107 Calcium 10.3 H 9.9 Total Bilirubin 0.2 0.2 Direct Bilirubin < 0.2 AST 102 H 51 H ALT 549 H 411 H Alkaline Phosphatase 75 73 Ammonia 40 Total Creatine Kinase 413 H 286 H Total Protein 6.6 6.6 Albumin 4.0 4.0 Hepatitis A IgM Ab Nonreactive Hep Bs Antigen Negative Hep Bs Antibody NONREACTIVE Hep B Core Total Ab Nonreactive Hepatitis C Ab (EIA) Nonreactive Medications Medications Current Medications Acetaminophen (Acetaminophen 325 Mg Tablet) 650 mg PO Q6H PRN PRN Reason: Headache/Pain Mild Scale (1-3) Last Admin: 08/03/23 08:26 Dose: 650 mg Al Hydroxide/Mg Hydroxide (Magnesium Hydrox/Alum Hydrox 30 Ml Oral.Susp) 30 ml PO Q6H PRN PRN Reason: Heartburn/Nausea Benztropine Mesylate (Benztropine Mesylate 1 Mg Tablet) 1 mg PO BID [facility] Last Admin: 08/03/23 08:26 Dose: 1 mg Clonidine HCl (Clonidine Hcl 0.1 Mg Tablet) 0.1 mg PO BID@0800,1999 [facility]; Protocol Last Admin: 08/03/23 08:26 Dose: 0.1 mg Haloperidol (Haloperidol 5 Mg Tablet) 5 mg PO Q6H PRN PRN Reason: agitation Last Admin: 08/02/23 18:48 Dose: 5 mg Hydroxyzine HCl (Hydroxyzine Hcl 25 Mg Tablet) 25 mg PO Q6H PRN PRN Reason: Anxiety Last Admin: 08/02/23 13:30 Dose: 25 mg Lorazepam (Lorazepam 1 Mg Tablet) 2 mg PO Q6H PRN PRN Reason: anxiety/restlessness Magnesium Hydroxide (Milk Of Magnesia 30 Ml Oral.Susp) 30 ml PO DAILY PRN PRN Reason: Constipation Nicotine (Nicotine 21 Mg Patch.Td24) 21 mg TRANSDERMA DAILY PRN PRN Reason: smoking cessation Last Admin: 08/02/23 08:13 Dose: 21 mg Nicotine Polacrilex (Nicotine Polacrilex 2 Mg Gum) 4 mg BUCCAL Q2H PRN PRN Reason: Nicotine Cravings Last Admin: 08/03/23 15:02 Dose: 4 mg Olanzapine (Olanzapine 5 Mg Tablet) 5 mg PO TID PRN PRN Reason: agitation Last Admin: 08/03/23 04:53 Dose: 5 mg Olanzapine (Olanzapine Odt 10 Mg Tab.Rapdis) 10 mg TRANSLINGU BID [facility] Last Admin: 08/03/23 08:26 Dose: 10 mg Risperidone (Risperidone 2 Mg Tablet) 2 mg PO BID [facility] Last Admin: 08/03/23 08:26 Dose: 2 mg Trazodone HCl (Trazodone Hcl 50 Mg Tablet) 50 mg PO BEDTIME MRX1 PRN PRN Reason: Insomnia Last Admin: 08/03/23 01:45 Dose: 50 mg Allergies Allergies Allergy/AdvReac Type Severity Reaction Status Date / Time nka Allergy nka Uncoded 07/24/23 16:52 Assessment & Plan Assessment & Plan (1) Schizoaffective disorder, bipolar type: Status: Acute Code(s): F25.0 - Schizoaffective disorder, bipolar type (2) Polysubstance use disorder: Status: Acute Code(s): F19.90 - Other psychoactive substance use, unspecified, uncomplicated Plan 33 yo male, history of schizoaffective disorder, bipolar type, sent from [facility] where he was admitted on a Section 35 on 07/13 for public intoxication while running in the community without clothing. Pt is psychotic upon presentation, signed CV and has been calm but echolalic in speech and behaviors for the most part since admission. Hospital course: 07/25: Increase Olanzapine to 20 mg HS 07/27: No real improvement on consistent changes. DC Prolixin Haldol 10 mg bid-prepare for decanoate trial Add Olanzapine 10 mg a.m. Benztropine 1 mg bid 07/28 Patient talking in more complete and logical sentences however he remains disorganized in both speech and behavior, rude and insulting to numerous staff as they walk by, intrusive and needs constant redirection and needs to remain on one-to-one, not able to tolerate roommate.. Not sleeping very much at night. Intermittent angry outbursts and punching things. This morning patient got so dysregulated, security had to be called, however patient was able to be redirected. Patient agreed to start Depakote, hoping it will help him sleep. 1). Patient has been treated with the following meds, however does not seem to have helped much Haldol 10 mg b.i.d. Zyprexa 10 mg daily Zyprexa 20 mg q.h.s. 2).on 07/28 Will add Depakote ER 750 q.h.s. to address likely rick (patient is not sleeping and in the past was prescribed lithium) -will continue Haldol and Zyprexa regimen for now however will likely need to change 07/29 patient remains with disorganized, intermittently aggressive behaviors; did sleep a little better last night with Depakote Need to change medication regimen as Patient has gotten up to Zyprexa 45 mg daily and Haldol 20 mg daily (when adding PRNs) 1) increase Depakote ER to 1500 mg q.h.s.; patient continues to be disorganized and dysregulated and intermittently threatening; so far tolerating and found helpful (ER is about 80% of IR) 2) start Risperdal 2 mg b.i.d.; will titrate to 3 mg b.i.d. starting tomorrow on 07/30 (intention is to see if Risperdal can work where Haldol and Zyprexa have thus been ineffective) 3) discontinue Zyprexa 10 mg daily 4) continue Zyprexa 20 mg q.h.s. and Haldol 10 mg b.i.d. for now since not sure if these may be partially subduing him and it is unclear if Risperdal will help 5) work to cross taper Risperdal with Zyprexa/Haldol; goal will be to see if Risperdal and Depakote can be effective and efforts made to be on only 1 antipsychotic SW obtained collateral from father -current episode started this May, sounds like rick when patient quit his job, spent 4000 in a week... -at baseline patient is fully functional; history of lots of LSD which seem to trigger psychotic/manic symptoms. Family history on both sides of schizophrenia -patient has been Section 35 2 times in the last 2 years; 4 psychiatric hospitalizations in the past 2 years -patient can not return to his father's or the apartment he was renting 07/31- labs ordered- cbc with leukocytosis, afebrile. CMP renal function intact BUN 9, Cr 0.95, CPK elevated in 800's. LFT elevated especially AST 106, ALT 717. ammonia wnl 40, depakote level 51. no electrolyte abnormalities. suspect elevated CPK related to IM medications and restraints. Elevation in LFT- especially ALT may be related to elevated CPK, medications. will order hep panel, if not trending down, may need GI consult. Less suspicion for NMS- no rigidity/afebrile, mentation improving despite abnormal labs. will hold depakote, especially as LFT normalize or trend back down. 08/01 ALT trending down, CPK also trending back. no rigidity or cogwheel. 08/02 Cylinder 300 mg bid to begin 08/04/23. Plan: CV 1:1 for unit safety See medication management above under hospital course, by day Continue to attempt to gather collateral Collateral Informed Consent: does not understand Reason for continued inpatient stay Substantial Risk for: harm to self, harm to others, inability to function and rapid decompensation Time Spent With Patient Time: Total time managing care of this patient today ____ minutes.
[2023-08-03] MEDS: LORazepam 1 MG TABLET 2 MG PO (16:26)
[2023-08-03] MEDS: HaloperidoL 5 MG TABLET PO (16:28)
[2023-08-03] MEDS: hydrOXYzine HCL 25 MG TABLET PO (16:29)
[2023-08-03 19:23] VITALS: BP 138/74
[2023-08-03 20:00] VITALS: BP 144/58; PULSE 123; RESP 18; TEMP 37.4; O2SAT 97
[2023-08-04] MEDS: traZODone HCL 50 MG TABLET PO (01:22)
[2023-08-04] MEDS: OLANZapine 5 MG TABLET PO ×3 (01:22→20:45)
[2023-08-04] MEDS: HaloperidoL 5 MG TABLET PO ×2 (01:23→06:03)
[2023-08-04] MEDS: LORazepam 1 MG TABLET 2 MG PO ×2 (01:23→05:52)
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
[2023-08-04 07:50] VITALS: BP 133/75; PULSE 106; RESP 15; TEMP 36.8; O2SAT 98
[2023-08-04 07:59] VITALS: BP 133/75
[2023-08-04] MEDS: Lithium Carbonate 300 MG CAPSULE PO ×2 (07:59→20:44)
[2023-08-04] MEDS: risperiDONE 2 MG TABLET PO ×2 (07:59→20:44)
[2023-08-04] MEDS: cloNIDine HCL 0.1 MG TABLET PO ×2 (07:59→20:44)
[2023-08-04] MEDS: OLANZapine ODT 10 MG TAB.RAPDIS TRANSLINGU (08:00)
[2023-08-04] MEDS: Benztropine Mesylate 1 MG TABLET PO ×2 (08:00→20:44)
[2023-08-04] MEDS: hydrOXYzine HCL 25 MG TABLET PO (09:36)
[2023-08-04] MEDS: hydrOXYzine HCL 50 MG TABLET PO ×2 (11:41→18:37)
[2023-08-04] MEDS: diazePAM 2 MG TABLET PO (11:41)
[2023-08-04] MEDS: diphenhydrAMINE HCL 50 MG/ML VIAL IM (15:10)
[2023-08-04] MEDS: Haloperidol Lactate 5 MG/ML VIAL 10 MG IM (15:11)
[2023-08-04] MEDS: Nicotine Polacrilex 2 MG GUM 4 MG BUCCAL ×2 (18:36→23:58)
--- NOTE | 2023-08-04 18:56 | P.PNPSI_ITS ---
Subjective Subjective Date of Service: 08/04/23 Reason For Visit: disorganized/psychosis Subjective Notes: Conditional Voluntary Healthcare Proxy: No Guardianship: No Medical Problems Affecting Mental Status: No Interim History: Met with pt and Emmie Goldstein RN to discuss medicines. Discussed [place] start. Pt reports hydroxyzine is effective, benadryl, Haldol, He asks to have an IM of Haldol and Benadryl to calm sx. He focused on credentials, threatening to take licensing away and attempts to intimidate. Constant redirection needed Poor spatial boundaries, verbally offensive to all. Positive response to Emmie and limit setting. Remains on one to one. Medication Compliance: Intermittent Side effects from medications: No Attending Groups: No Review of Systems Acute medical concerns: No Medical Review of Systems: unchanged Review of Systems Review of Systems Yes Unobtainable due to mental status Mental Status Exam Mental Status Exam Patient Appearance: Appropriate Patient Orientation: Person and Place Level of Consciousness: Restless, Alert and Inappropriate Patient Behavior: Talkative, Hyperactive, Suspicious, Hypersexual, Restless, Belligerent, Verbal Threats, Distractible, Confused, Good Eye Contact, Impulsive and Pacing Mood Description: Hostile and Labile Affect Description: Hostile and Labile Patient Cognition Impaired: Yes Ability to Follow Directions: Fair Speech Pattern: Perseverating, Spontaneous Speech, Rambling, Cofabulation, Excessive, Pressured and Includes Profanity Memory Description: Remote Impaired Hallucinations: None Delusions: Being Controlled, Paranoid Ideation, Grandiose and Present Perceptual Disturbances: Derealization Thought Process: Confusion Thought Content: positive for Flight of Ideas, positive for Racing, positive for Circumstantial, positive for Tangential, positive for Disorganized, positive for Suicidal Ideation (denies) and positive for Homicidal Ideation (denies) Depressive Symptoms: Insomnia, Increased Irritability, Difficulty Sleeping and Difficulty Concentrating Abnormal Motor Activity Signs and Symptoms: Aggression, Agitation, Hyperactivity and Restlessness Judgement: Poor Diagnostics Vital Signs (24Hr): Vital Signs - 24 hr 08/03/23 19:23 08/03/23 20:00 08/04/23 07:50 Temperature 99.4 F 98.2 F Pulse Rate 123 H 106 H Respiratory Rate 18 15 Blood Pressure 138/74 144/58 H 133/75 Pulse Oximetry 97 98 Oxygen Delivery Method Room Air Room Air 08/04/23 07:59 Temperature Pulse Rate Respiratory Rate Blood Pressure 133/75 Pulse Oximetry Oxygen Delivery Method BMI result Body Mass Index 23.6 Labs 08/03/23 08:16 08/03/23 08:16 Labs: Laboratory Results - last 48 hr 08/01/23 08/03/23 17:07 08:16 WBC 13.8 H RBC 5.10 Hgb 13.3 L Hct 41.6 L MCV 81.6 MCH 26.1 L MCHC 32.0 RDW 15.5 Plt Count 326 MPV 10.0 Immature Gran % (Auto) 2.2 H Neut % (Auto) 53.9 Lymph % (Auto) 31.7 [place] % (Auto) 8.9 Eos % (Auto) 2.5 Baso % (Auto) 0.8 Lymph # (Auto) 4.4 [place] # (Auto) 1.2 Eos # (Auto) 0.3 Baso # (Auto) 0.1 Abs Immat Gran (auto) 0.31 H Absolute Neuts (auto) 7.4 Absolute Nucleated RBC 0.000 Nucleated RBC % (auto) 0.0 Smear Tech's Comments VERIFIED Sodium 140 Potassium 4.3 Chloride 106 Carbon Dioxide 26 Anion Gap 12 BUN 8 L Creatinine 0.72 Estim Creat Clear Calc 135.1 Estimated GFR > 60 Random Glucose 107 Calcium 9.9 Total Bilirubin 0.2 AST 51 H ALT 411 H Alkaline Phosphatase 73 Ammonia 40 Total Creatine Kinase 286 H Total Protein 6.6 Albumin 4.0 Hepatitis A IgM Ab Nonreactive Hep Bs Antigen Negative Hep Bs Antibody NONREACTIVE Hep B Core Total Ab Nonreactive Hepatitis C Ab (EIA) Nonreactive Medications Medications Current Medications Acetaminophen (Acetaminophen 325 Mg Tablet) 650 mg PO Q6H PRN PRN Reason: Headache/Pain Mild Scale (1-3) Last Admin: 08/03/23 08:26 Dose: 650 mg Al Hydroxide/Mg Hydroxide (Magnesium Hydrox/Alum Hydrox 30 Ml Oral.Susp) 30 ml PO Q6H PRN PRN Reason: Heartburn/Nausea Benztropine Mesylate (Benztropine Mesylate 1 Mg Tablet) 1 mg PO BID [facility] Last Admin: 08/04/23 08:00 Dose: 1 mg Clonidine HCl (Clonidine Hcl 0.1 Mg Tablet) 0.1 mg PO BID@0800,2000 [facility]; Protocol Last Admin: 08/04/23 07:59 Dose: 0.1 mg Diazepam (Diazepam 2 Mg Tablet) 2 mg PO TID PRN PRN Reason: severe anxiety,agitation Last Admin: 08/04/23 11:41 Dose: 2 mg Haloperidol (Haloperidol 5 Mg Tablet) 5 mg PO Q6H PRN PRN Reason: agitation Last Admin: 08/04/23 01:23 Dose: 5 mg Hydroxyzine HCl (Hydroxyzine Hcl 50 Mg Tablet) 50 mg PO Q4H PRN PRN Reason: Anxiety Last Admin: 08/04/23 18:37 Dose: 50 mg [place] Carbonate ([place] Carbonate 300 Mg Capsule) 300 mg PO BID [facility] Last Admin: 08/04/23 07:59 Dose: 300 mg Magnesium Hydroxide (Milk Of Magnesia 30 Ml Oral.Susp) 30 ml PO DAILY PRN PRN Reason: Constipation Nicotine (Nicotine 21 Mg Patch.Td24) 21 mg TRANSDERMA DAILY PRN PRN Reason: smoking cessation Last Admin: 08/02/23 08:13 Dose: 21 mg Nicotine Polacrilex (Nicotine Polacrilex 2 Mg Gum) 4 mg BUCCAL Q2H PRN PRN Reason: Nicotine Cravings Last Admin: 08/04/23 18:36 Dose: 4 mg Olanzapine (Olanzapine 5 Mg Tablet) 5 mg PO TID PRN PRN Reason: agitation Last Admin: 08/04/23 13:09 Dose: 5 mg Olanzapine (Olanzapine Odt 10 Mg Tab.Rapdis) 10 mg TRANSLINGU BID [facility] Last Admin: 08/04/23 08:00 Dose: 10 mg Risperidone (Risperidone 2 Mg Tablet) 2 mg PO BID [facility] Last Admin: 08/04/23 07:59 Dose: 2 mg Trazodone HCl (Trazodone Hcl 50 Mg Tablet) 50 mg PO BEDTIME MRX1 PRN PRN Reason: Insomnia Last Admin: 08/04/23 01:22 Dose: 50 mg Allergies Allergies Allergy/AdvReac Type Severity Reaction Status Date / Time nka Allergy nka Uncoded 07/24/23 16:52 Assessment & Plan Assessment & Plan (1) Schizoaffective disorder, bipolar type: Status: Acute Code(s): F25.0 - Schizoaffective disorder, bipolar type (2) Polysubstance use disorder: Status: Acute Code(s): F19.90 - Other psychoactive substance use, unspecified, uncomplicated Plan 33 yo male, history of schizoaffective disorder, bipolar type, sent from [facility] where he was admitted on a Section 35 on 07/13 for public intoxication while running in the community without clothing. Pt is psychotic upon presentation, signed CV and has been calm but echolalic in speech and behaviors for the most part since admission. Hospital course: 07/25: Increase Olanzapine to 20 mg HS 07/27: No real improvement on consistent changes. DC Prolixin Haldol 10 mg bid-prepare for decanoate trial Add Olanzapine 10 mg a.m. Benztropine 1 mg bid 07/28 Patient talking in more complete and logical sentences however he remains disorganized in both speech and behavior, rude and insulting to numerous staff as they walk by, intrusive and needs constant redirection and needs to remain on one-to-one, not able to tolerate roommate.. Not sleeping very much at night. Intermittent angry outbursts and punching things. This morning patient got so dysregulated, security had to be called, however patient was able to be redirected. Patient agreed to start Depakote, hoping it will help him sleep. 1). Patient has been treated with the following meds, however does not seem to have helped much Haldol 10 mg b.i.d. Zyprexa 10 mg daily Zyprexa 20 mg q.h.s. 2).on 07/28 Will add Depakote ER 750 q.h.s. to address likely rick (patient is not sleeping and in the past was prescribed lithium) -will continue Haldol and Zyprexa regimen for now however will likely need to change 07/29 patient remains with disorganized, intermittently aggressive behaviors; did sleep a little better last night with Depakote Need to change medication regimen as Patient has gotten up to Zyprexa 45 mg daily and Haldol 20 mg daily (when adding PRNs) 1) increase Depakote ER to 1500 mg q.h.s.; patient continues to be disorganized and dysregulated and intermittently threatening; so far tolerating and found helpful (ER is about 80% of IR) 2) start Risperdal 2 mg b.i.d.; will titrate to 3 mg b.i.d. starting tomorrow on 07/30 (intention is to see if Risperdal can work where Haldol and Zyprexa have thus been ineffective) 3) discontinue Zyprexa 10 mg daily 4) continue Zyprexa 20 mg q.h.s. and Haldol 10 mg b.i.d. for now since not sure if these may be partially subduing him and it is unclear if Risperdal will help 5) work to cross taper Risperdal with Zyprexa/Haldol; goal will be to see if Risperdal and Depakote can be effective and efforts made to be on only 1 antipsychotic SW obtained collateral from father -current episode started this May, sounds like rick when patient quit his job, spent 4000 in a week... -at baseline patient is fully functional; history of lots of LSD which seem to trigger psychotic/manic symptoms. Family history on both sides of schizophrenia -patient has been Section 35 2 times in the last 2 years; 4 psychiatric hospitalizations in the past 2 years -patient can not return to his father's or the apartment he was renting 07/31- labs ordered- cbc with leukocytosis, afebrile. CMP renal function intact BUN 9, Cr 0.95, CPK elevated in 800's. LFT elevated especially AST 106, ALT 717. ammonia wnl 40, depakote level 51. no electrolyte abnormalities. suspect elevated CPK related to IM medications and restraints. Elevation in LFT- especially ALT may be related to elevated CPK, medications. will order hep panel, if not trending down, may need GI consult. Less suspicion for NMS- no rigidity/afebrile, mentation improving despite abnormal labs. will hold depakote, especially as LFT normalize or trend back down. 08/01 ALT trending down, CPK also trending back. no rigidity or cogwheel. 08/03 Tolerating [place] thus far Haldol 10 mg IM x1; Benadryl 50 mg IM x 1-pt reports this helps him to stabilize. Requests IM, will trial x 1 Decrease Olanzapine to 5 mg bid If tolerated will consider Risperdal increase CBCD, CMP on 08/04. Plan: CV 1:1 for unit safety See medication management above under hospital course, by day Continue to attempt to gather collateral Collateral Reason for continued inpatient stay Substantial Risk for: rapid decompensation Time Spent With Patient Time: Total time managing care of this patient today ____ minutes.
[2023-08-04 20:00] VITALS: RESP 20
[2023-08-05] MEDS: Nicotine Polacrilex 2 MG GUM 4 MG BUCCAL (03:59)
[2023-08-05] MEDS: traZODone HCL 50 MG TABLET PO (03:59)
[2023-08-05] MEDS: diazePAM 10 MG/2 ML CARTRIDGE 5 MG IM (04:35)
[2023-08-05] MEDS: Haloperidol Lactate 5 MG/ML VIAL IM (04:36)
[2023-08-05 10:48] VITALS: BP 144/67; PULSE 114; RESP 20; TEMP 36.8
[2023-08-05] MEDS: chlorproMAZINE HCl 25 MG TABLET 75 MG PO (11:00)
[2023-08-05] MEDS: cloNIDine HCL 0.1 MG TABLET PO (11:00)
[2023-08-05] MEDS: Benztropine Mesylate 1 MG TABLET PO (11:01)
[2023-08-05] MEDS: chlorproMAZINE HCl 25 MG/ML AMPUL 100 MG IM (11:20)
[2023-08-05] MEDS: diphenhydrAMINE HCL 50 MG/ML VIAL IM (11:20)
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
[2023-08-05] MEDS: diazePAM 5 MG TABLET 10 MG PO (13:59)
[2023-08-05] MEDS: Ziprasidone 40 MG CAPSULE PO (14:00)
--- NOTE | 2023-08-05 16:23 | PC.NURSE ---
pt is sleeping, respirations even and unlabored. Did not wake for 1500 scheduled medications. Provider CAW made aware.
[2023-08-05] MEDS: HaloperidoL 5 MG TABLET 20 MG PO (17:11)
--- NOTE | 2023-08-06 | ECG_ITS ---
Test Reason : qtc check Blood Pressure : / mmHG Vent. Rate : 082 BPM Atrial Rate : 082 BPM P-R Int : 154 ms QRS Dur : 094 ms QT Int : 364 ms P-R-T Axes : 046 085 049 degrees QTc Int : 425 ms Normal sinus rhythm Normal ECG When compared with ECG of 23-JUL-2023 08:49, No significant change was found Referred By: Hyun Mazariegos Electronically Signed By:JOSE ALFREDO SMITH
[2023-08-06] MEDS: diphenhydrAMINE HCL 50 MG/ML VIAL 100 MG IM (08:32)
[2023-08-06] MEDS: OLANZapine 10 MG VIAL 20 MG IM (08:32)
[2023-08-06 08:35] VITALS: RESP 21
[2023-08-06] MEDS: cloNIDine HCL 0.1 MG TABLET PO (08:43)
[2023-08-06 08:50] VITALS: RESP 21
[2023-08-06 09:05] VITALS: RESP 20
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
[2023-08-06 09:20] VITALS: RESP 20
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
--- NOTE | 2023-08-06 10:54 | P.PNPSI_ITS ---
Subjective Subjective Reason For Visit: disorganized/psychosis Diagnostics Vital Signs (24Hr): BMI result Body Mass Index 23.6 Labs 08/03/23 08:16 08/03/23 08:16 Medications Medications Current Medications Acetaminophen (Acetaminophen 325 Mg Tablet) 650 mg PO Q6H PRN PRN Reason: Headache/Pain Mild Scale (1-3) Last Admin: 08/03/23 08:26 Dose: 650 mg Al Hydroxide/Mg Hydroxide (Magnesium Hydrox/Alum Hydrox 30 Ml Oral.Susp) 30 ml PO Q6H PRN PRN Reason: Heartburn/Nausea Benztropine Mesylate (Benztropine Mesylate 1 Mg Tablet) 1 mg PO BID [facility] Last Admin: 08/06/23 08:44 Dose: Not Given Carbamazepine (Carbamazepine 100 Mg Tab.Chew) 50 mg PO BID [facility] Last Admin: 08/06/23 08:44 Dose: Not Given Clonidine HCl (Clonidine Hcl 0.1 Mg Tablet) 0.1 mg PO BID@0800,2000 [facility]; Protocol Last Admin: 08/06/23 08:43 Dose: 0.1 mg Diazepam (Diazepam 5 Mg Tablet) 10 mg PO BEDTIME [facility] Last Admin: 08/05/23 20:37 Dose: Not Given Diazepam (Diazepam 5 Mg Tablet) 5 mg PO TID PRN PRN Reason: severe anxiety,agitation Diphenhydramine HCl (Diphenhydramine Hcl 25 Mg Capsule) 50 mg PO BEDTIME [facility] Last Admin: 08/05/23 20:37 Dose: Not Given Haloperidol (Haloperidol 5 Mg Tablet) 5 mg PO Q6H PRN PRN Reason: agitation Last Admin: 08/04/23 01:23 Dose: 5 mg Haloperidol (Haloperidol 5 Mg Tablet) 20 mg PO BID [facility] Last Admin: 08/06/23 08:44 Dose: Not Given Hydroxyzine HCl (Hydroxyzine Hcl 50 Mg Tablet) 50 mg PO Q4H PRN PRN Reason: Anxiety Last Admin: 08/04/23 18:37 Dose: 50 mg [place] Carbonate ([place]ilda Carbonate Er 450 Mg Tablet.Er) 900 mg PO BEDTIME [facility] Last Admin: 08/05/23 20:37 Dose: Not Given Magnesium Hydroxide (Milk Of Magnesia 30 Ml Oral.Susp) 30 ml PO DAILY PRN PRN Reason: Constipation Nicotine (Nicotine 21 Mg Patch.Td24) 21 mg TRANSDERMA DAILY PRN PRN Reason: smoking cessation Last Admin: 08/02/23 08:13 Dose: 21 mg Nicotine Polacrilex (Nicotine Polacrilex 2 Mg Gum) 4 mg BUCCAL Q2H PRN PRN Reason: Nicotine Cravings Last Admin: 08/05/23 03:59 Dose: 4 mg Olanzapine (Olanzapine 5 Mg Tablet) 5 mg PO TID PRN PRN Reason: agitation Last Admin: 08/04/23 13:09 Dose: 5 mg Olanzapine (Olanzapine 10 Mg Tablet) 20 mg PO BID [facility] Last Admin: 08/06/23 08:44 Dose: Not Given Zolpidem Tartrate (Zolpidem Tartrate 5 Mg Tablet) 10 mg PO BEDTIME [facility] Last Admin: 08/05/23 20:37 Dose: Not Given Allergies Allergies Allergy/AdvReac Type Severity Reaction Status Date / Time nka Allergy nka Uncoded 07/24/23 16:52 Assessment & Plan Assessment & Plan (1) Schizoaffective disorder, bipolar type: Status: Acute Code(s): F25.0 - Schizoaffective disorder, bipolar type (2) Polysubstance use disorder: Status: Acute Code(s): F19.90 - Other psychoactive substance use, unspecified, uncomplicated Plan 33 yo male, history of schizoaffective disorder, bipolar type, sent from [facility] where he was admitted on a Section 35 on 07/13 for public intoxication while running in the community without clothing. Pt is psychotic upon presentation, signed CV and has been calm but echolalic in speech and behaviors for the most part since admission. Hospital course: 07/25: Increase Olanzapine to 20 mg HS 07/27: No real improvement on consistent changes. DC Prolixin Haldol 10 mg bid-prepare for decanoate trial Add Olanzapine 10 mg a.m. Benztropine 1 mg bid 07/28 Patient talking in more complete and logical sentences however he remains disorganized in both speech and behavior, rude and insulting to numerous staff as they walk by, intrusive and needs constant redirection and needs to remain on one-to-one, not able to tolerate roommate.. Not sleeping very much at night. Intermittent angry outbursts and punching things. This morning patient got so dysregulated, security had to be called, however patient was able to be redirected. Patient agreed to start Depakote, hoping it will help him sleep. 1). Patient has been treated with the following meds, however does not seem to have helped much Haldol 10 mg b.i.d. Zyprexa 10 mg daily Zyprexa 20 mg q.h.s. 2).on 07/28 Will add Depakote ER 750 q.h.s. to address likely rick (patient is not sleeping and in the past was prescribed lithium) -will continue Haldol and Zyprexa regimen for now however will likely need to change 07/29 patient remains with disorganized, intermittently aggressive behaviors; did sleep a little better last night with Depakote Need to change medication regimen as Patient has gotten up to Zyprexa 45 mg daily and Haldol 20 mg daily (when adding PRNs) 1) increase Depakote ER to 1500 mg q.h.s.; patient continues to be disorganized and dysregulated and intermittently threatening; so far tolerating and found helpful (ER is about 80% of IR) 2) start Risperdal 2 mg b.i.d.; will titrate to 3 mg b.i.d. starting tomorrow on 07/30 (intention is to see if Risperdal can work where Haldol and Zyprexa have thus been ineffective) 3) discontinue Zyprexa 10 mg daily 4) continue Zyprexa 20 mg q.h.s. and Haldol 10 mg b.i.d. for now since not sure if these may be partially subduing him and it is unclear if Risperdal will help 5) work to cross taper Risperdal with Zyprexa/Haldol; goal will be to see if Risperdal and Depakote can be effective and efforts made to be on only 1 antipsychotic SW obtained collateral from father -current episode started this May, sounds like rick when patient quit his job, spent 4000 in a week... -at baseline patient is fully functional; history of lots of LSD which seem to trigger psychotic/manic symptoms. Family history on both sides of schizophrenia -patient has been Section 35 2 times in the last 2 years; 4 psychiatric hospitalizations in the past 2 years -patient can not return to his father's or the apartment he was renting 07/31- labs ordered- cbc with leukocytosis, afebrile. CMP renal function intact BUN 9, Cr 0.95, CPK elevated in 800's. LFT elevated especially AST 106, ALT 717. ammonia wnl 40, depakote level 51. no electrolyte abnormalities. suspect elevated CPK related to IM medications and restraints. Elevation in LFT- especially ALT may be related to elevated CPK, medications. will order hep panel, if not trending down, may need GI consult. Less suspicion for NMS- no rigidity/afebrile, mentation improving despite abnormal labs. will hold depakote, especially as LFT normalize or trend back down. 08/01 ALT trending down, CPK also trending back. no rigidity or cogwheel. 08/03 Tolerating [place] thus far Haldol 10 mg IM x1; Benadryl 50 mg IM x 1-pt reports this helps him to stabilize. Requests IM, will trial x 1 Decrease Olanzapine to 5 mg bid If tolerated will consider Risperdal increase CBCD, CMP on 08/04. 08/04 Severe agitation and aggression today. Regime change Haldol 20 mg bid Olanzapine 20 mg bid Tegretol 50 mg bid Valium 10 mg HS Benadryl 50 mg HS Change [place] to ER 900 mg HS Ambien 10 mg HS Discontinue Risperdal Discontinue Chlorpromazine Repeat diagnostics when pt will allow. Plan: CV 1:1 for unit safety See medication management above under hospital course, by day Continue to attempt to gather collateral Collateral Time Spent With Patient Time: Total time managing care of this patient today ____ minutes.
[2023-08-06 12:31] VITALS: BP 133/68; PULSE 85; RESP 17; TEMP 36.3; O2SAT 98
[2023-08-06 12:53] LABS: MANUAL DIFF FLAG NO
[2023-08-06 12:55] LABS: Basophils Absolute Auto 0.1 X10*3/uL (0.0-0.2); Basophils Percent Auto 0.6 % (0-2); Eosinophils Absolute Auto 0.3 X10*3/uL (0.0-0.4); Eosinophils Percent Auto 2.4 % (0-4); Hemoglobin 15.9 g/dl (14.0-18.0); Imm Gran Abs Auto 0.13 X10*3/uL (0.00-0.03); Lymphocytes Absolute Auto 3.8 X10*3/uL (1.2-4.9); Lymphocytes Percent Auto 30.4 % (20-40); Mean Corpuscular HGB Conc 31.8 g/dl (31.0-36.0); Mean Corpuscular Volume 81.8 fL (80.0-98.0); Mean Platelet Volume 9.5 fL (9.4-12.4); Monocytes Percent Auto 8.3 % (2-11); Neutrophils Absolute Auto 7.2 x10*3/uL (2.0-8.3); Neutrophils Percent Auto 57.3 % (45-73); Platelet Count 348 X10*3/uL (160-400); Red Blood Count 6.11 X10*6/uL (4.60-5.80); White Blood Count 12.5 X10*3/uL (4.8-10.8)
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
[2023-08-06 13:17] LABS: Alanine Aminotransferase 216 U/L (0-40); Albumin Level 4.5 g/dL (3.5-5.0); Alkaline Phosphatase 68 U/L (39-117); Anion Gap 13 (12-20); Aspartate Amino Transferase 68 U/L (5-37); Bilirubin Total 0.4 mg/dL (0.0-1.0); Blood Urea Nitrogen 10 mg/dL (9-16); Calcium 10.2 mg/dL (8.4-10.2); Carbon Dioxide 27 mmol/L (22-29); Chloride 104 mmol/L (96-108); Creatinine Clr Calc Pharmacy 100.3; Estimated Glomerular Filt Rate > 60; Glucose Random 88 mg/dL (60-115); Potassium 4.2 mmol/L (3.3-5.1); Sodium 140 mmol/L (135-145); Total Protein 7.6 g/dL (6.5-8.0)
[2023-08-06] MEDS: OLANZapine 5 MG TABLET PO (15:42)
--- NOTE | 2023-08-06 18:20 | PC.NURSE ---
Pt urinated self in room while wearing clothes. Refused to change and attend to ADL's.
[2023-08-06] MEDS: diphenhydrAMINE HCL 25 MG CAPSULE 50 MG PO (20:43)
[2023-08-06] MEDS: Lithium Carbonate ER 450 MG TABLET.ER 900 MG PO (20:43)
[2023-08-06] MEDS: carBAMazepine 100 MG TAB.CHEW 50 MG PO (20:44)
[2023-08-06] MEDS: diazePAM 5 MG TABLET 10 MG PO (21:13)
[2023-08-06] MEDS: Zolpidem Tartrate 5 MG TABLET 10 MG PO (21:13)
[2023-08-06] MEDS: Benztropine Mesylate 1 MG TABLET PO (21:13)
[2023-08-06] MEDS: HaloperidoL 5 MG TABLET PO (21:14)
[2023-08-06] MEDS: HaloperidoL 5 MG TABLET 20 MG PO (22:20)
[2023-08-06] MEDS: OLANZapine 10 MG TABLET 20 MG PO (22:21)
[2023-08-07 10:42] VITALS: BP 129/77; PULSE 88; RESP 18; TEMP 36.4; O2SAT 99
[2023-08-07 10:45] VITALS: BP 129/77
[2023-08-07] MEDS: cloNIDine HCL 0.1 MG TABLET PO (10:45)
[2023-08-07] MEDS: OLANZapine 10 MG TABLET 20 MG PO (10:46)
[2023-08-07] MEDS: Benztropine Mesylate 1 MG TABLET PO (10:46)
[2023-08-07] MEDS: carBAMazepine 100 MG TAB.CHEW 200 MG PO (10:47)
--- NOTE | 2023-08-07 14:38 | P.PNPSI_ITS ---
Subjective Subjective Date of Service: 08/07/23 Reason For Visit: disorganized/psychosis Interim History: seen in the ante-room, where he had been sleeping overnight. echolalia, challenging or mocking tone. broke pills in half and dropped them on the floor. briefly took pill into his mouth with water, then spat both water and pill out. repeatedly attempting to disrobe, responsive to redirection. calling MD by the name of a local clinical documentation spec, also asking himself how he would know if i were a real doctor, or a real police commanding officer. per staff, urinated on self last night, refused to change clothes. urinated between the feet of his 1:1 staff. threw various medications on the floor. asked for haldol. Mental Status Exam Mental Status Exam Narrative: wearing shorts and nothing else. disrobed completely at one point. adequately groomed. not cooperative with interview or care. nml amount of speech, but echolalia. no appropriate answers to questions. nml loudness, decr latency. thoughts disordered, as described previously. affect constricted, normo- intense, non-labile. mood not assessed. no SI/SIBI/HI/AVH expressed. Diagnostics Vital Signs (24Hr): Vital Signs - 24 hr 08/07/23 10:42 08/07/23 10:45 Temperature 97.6 F Pulse Rate 88 Respiratory Rate 18 Blood Pressure 129/77 129/77 Pulse Oximetry 99 Oxygen Delivery Method Room Air BMI result Body Mass Index 23.6 Labs 08/06/23 12:42 08/06/23 12:42 Labs: Laboratory Results - last 48 hr 08/06/23 12:42 WBC 12.5 H RBC 6.11 H Hgb 15.9 Hct 50.0 D MCV 81.8 MCH 26.0 L MCHC 31.8 RDW 17.0 H Plt Count 348 MPV 9.5 Immature Gran % (Auto) 1.0 H Neut % (Auto) 57.3 Lymph % (Auto) 30.4 [place] % (Auto) 8.3 Eos % (Auto) 2.4 Baso % (Auto) 0.6 Lymph # (Auto) 3.8 [place] # (Auto) 1.0 Eos # (Auto) 0.3 Baso # (Auto) 0.1 Abs Immat Gran (auto) 0.13 H Absolute Neuts (auto) 7.2 Absolute Nucleated RBC 0.000 Nucleated RBC % (auto) 0.0 Sodium 140 Potassium 4.2 Chloride 104 Carbon Dioxide 27 Anion Gap 13 BUN 10 Creatinine 0.97 Estim Creat Clear Calc 100.3 Estimated GFR > 60 Random Glucose 88 Calcium 10.2 Total Bilirubin 0.4 AST 68 H ALT 216 H Alkaline Phosphatase 68 Total Protein 7.6 Albumin 4.5 TSH 0.90 Medications Medications Current Medications Acetaminophen (Acetaminophen 325 Mg Tablet) 650 mg PO Q6H PRN PRN Reason: Headache/Pain Mild Scale (1-3) Last Admin: 08/03/23 08:26 Dose: 650 mg Al Hydroxide/Mg Hydroxide (Magnesium Hydrox/Alum Hydrox 30 Ml Oral.Susp) 30 ml PO Q6H PRN PRN Reason: Heartburn/Nausea Benztropine Mesylate (Benztropine Mesylate 1 Mg Tablet) 1 mg PO BID [facility] Last Admin: 08/07/23 10:46 Dose: 1 mg Carbamazepine (Carbamazepine 100 Mg Tab.Chew) 200 mg PO BID [facility] Last Admin: 08/07/23 10:47 Dose: 200 mg Chlorpromazine HCl (Chlorpromazine Hcl 100 Mg Tablet) 200 mg PO Q4H PRN PRN Reason: anxiety/agitation Clonidine HCl (Clonidine Hcl 0.1 Mg Tablet) 0.1 mg PO BID@0800,1999 [facility]; Protocol Last Admin: 08/07/23 10:45 Dose: 0.1 mg Diazepam (Diazepam 2 Mg Tablet) 8 mg PO BEDTIME [facility] Stop: 08/09/23 20:59 Diazepam (Diazepam 2 Mg Tablet) 6 mg PO BEDTIME [facility] Stop: 08/11/23 20:59 Diazepam (Diazepam 2 Mg Tablet) 4 mg PO BEDTIME [facility] Stop: 08/13/23 20:59 Diazepam (Diazepam 2 Mg Tablet) 2 mg PO BEDTIME [facility] Stop: 08/15/23 20:59 Diphenhydramine HCl (Diphenhydramine Hcl 25 Mg Capsule) 50 mg PO BID [facility] Haloperidol (Haloperidol 5 Mg Tablet) 20 mg PO BID [facility] Last Admin: 08/07/23 11:13 Dose: Not Given [place] Carbonate ([place] Carbonate Er 450 Mg Tablet.Er) 900 mg PO BEDTIME [facility] Last Admin: 08/06/23 20:43 Dose: 450 mg Magnesium Hydroxide (Milk Of Magnesia 30 Ml Oral.Susp) 30 ml PO DAILY PRN PRN Reason: Constipation Nicotine (Nicotine 21 Mg Patch.Td24) 21 mg TRANSDERMA DAILY PRN PRN Reason: smoking cessation Last Admin: 08/02/23 08:13 Dose: 21 mg Nicotine Polacrilex (Nicotine Polacrilex 2 Mg Gum) 4 mg BUCCAL Q2H PRN PRN Reason: Nicotine Cravings Last Admin: 08/05/23 03:59 Dose: 4 mg Allergies Allergies Allergy/AdvReac Type Severity Reaction Status Date / Time nka Allergy nka Uncoded 07/24/23 16:52 Assessment & Plan Assessment & Plan (1) Schizoaffective disorder, bipolar type: Status: Acute Code(s): F25.0 - Schizoaffective disorder, bipolar type (2) Polysubstance use disorder: Status: Acute Code(s): F19.90 - Other psychoactive substance use, unspecified, uncomplicated Plan 33 yo male, history of schizoaffective disorder, bipolar type, sent from [facility] where he was admitted on a Section 35 on 07/13 for public intoxication while running in the community without clothing. Pt is psychotic upon presentation, signed CV and has been calm but echolalic in speech and behaviors for the most part since admission. Hospital course: 07/25: Increase Olanzapine to 20 mg HS 07/27: No real improvement on consistent changes. DC Prolixin Haldol 10 mg bid-prepare for decanoate trial Add Olanzapine 10 mg a.m. Benztropine 1 mg bid 07/28 Patient talking in more complete and logical sentences however he remains disorganized in both speech and behavior, rude and insulting to numerous staff as they walk by, intrusive and needs constant redirection and needs to remain on one-to-one, not able to tolerate roommate.. Not sleeping very much at night. Intermittent angry outbursts and punching things. This morning patient got so dysregulated, security had to be called, however patient was able to be redirected. Patient agreed to start Depakote, hoping it will help him sleep. 1). Patient has been treated with the following meds, however does not seem to have helped much Haldol 10 mg b.i.d. Zyprexa 10 mg daily Zyprexa 20 mg q.h.s. 2).on 07/28 Will add Depakote ER 750 q.h.s. to address likely rick (patient is not sleeping and in the past was prescribed lithium) -will continue Haldol and Zyprexa regimen for now however will likely need to change 07/29 patient remains with disorganized, intermittently aggressive behaviors; did sleep a little better last night with Depakote Need to change medication regimen as Patient has gotten up to Zyprexa 45 mg daily and Haldol 20 mg daily (when adding PRNs) 1) increase Depakote ER to 1500 mg q.h.s.; patient continues to be disorganized and dysregulated and intermittently threatening; so far tolerating and found helpful (ER is about 80% of IR) 2) start Risperdal 2 mg b.i.d.; will titrate to 3 mg b.i.d. starting tomorrow on 07/30 (intention is to see if Risperdal can work where Haldol and Zyprexa have thus been ineffective) 3) discontinue Zyprexa 10 mg daily 4) continue Zyprexa 20 mg q.h.s. and Haldol 10 mg b.i.d. for now since not sure if these may be partially subduing him and it is unclear if Risperdal will help 5) work to cross taper Risperdal with Zyprexa/Haldol; goal will be to see if Risperdal and Depakote can be effective and efforts made to be on only 1 antipsychotic SW obtained collateral from father -current episode started this May, sounds like rick when patient quit his job, spent 4000 in a week... -at baseline patient is fully functional; history of lots of LSD which seem to trigger psychotic/manic symptoms. Family history on both sides of schizophrenia -patient has been Section 35 2 times in the last 2 years; 4 psychiatric hospitalizations in the past 2 years -patient can not return to his father's or the apartment he was renting 07/31- labs ordered- cbc with leukocytosis, afebrile. CMP renal function intact BUN 9, Cr 0.95, CPK elevated in 800's. LFT elevated especially AST 106, ALT 717. ammonia wnl 40, depakote level 51. no electrolyte abnormalities. suspect elevated CPK related to IM medications and restraints. Elevation in LFT- especially ALT may be related to elevated CPK, medications. will order hep panel, if not trending down, may need GI consult. Less suspicion for NMS- no rigidity/afebrile, mentation improving despite abnormal labs. will hold depakote, especially as LFT normalize or trend back down. 08/01 ALT trending down, CPK also trending back. no rigidity or cogwheel. 08/03 Tolerating [place] thus far Haldol 10 mg IM x1; Benadryl 50 mg IM x 1-pt reports this helps him to stabilize. Requests IM, will trial x 1 Decrease Olanzapine to 5 mg bid If tolerated will consider Risperdal increase CBCD, CMP on 08/04. 08/04 Severe agitation and aggression today. Regime change Haldol 20 mg bid Olanzapine 20 mg bid Tegretol 50 mg bid Valium 10 mg HS Benadryl 50 mg HS Change [place] to ER 900 mg HS Ambien 10 mg HS Discontinue Risperdal Discontinue Chlorpromazine Repeat diagnostics when pt will allow. 08/06/[address] 08/13/23 2pm Refusing most of regime, Olanzapine/Benadryl combination IM this a.m. effective in providing him some mild rest. EKG WNL AST 51 to 68 TSH 0.90 Continue one to one Continue to offer regime Pt transferred to [facility] 08/06: attempt to streamline medications and taper disinhibiting medications. ambien D/Oumar. valium taper over the next week initiated. pt on both zyprexa 20 BID and haldol 20 BID; will DC zyprexa in favor of single scheduled neuroleptic agent. various PRNs DCed, including for haldol, zyprexa, atarax. will return to thorazine PRN agitation/anxiety despite report of lack of efficacy (clearly none of these other medications have been demonstrating much efficacy); will use relatively high-dose thorazine as needed for agitation, perhaps with IM benzo if sedation is required. it appears what may be missing from present regimen is adequate mood stabilizer. problems with recent VPA trial noted. no lithium level yet as pt has not been taking it consistently in any case. increase tegretol dosing from 50 BID to 200 BID for more aggressive approach to mood stabilization. section 7 filed, hearing pending for 08/12. Plan: CV 1:1 for unit safety See medication management above under hospital course, by day Continue to attempt to gather collateral Collateral Reason for continued inpatient stay Substantial Risk for: harm to others Time Spent With Patient Time: Total time managing care of this patient today __45__ minutes.
[2023-08-07] MEDS: chlorproMAZINE HCl 100 MG TABLET 200 MG PO (16:08)
[2023-08-07 22:00] VITALS: BP 151/65; RESP 18; TEMP 36.4
[2023-08-07] MEDS: diazePAM 2 MG TABLET 8 MG PO (23:53)
--- NOTE | 2023-08-08 03:50 | PC.NURSE ---
[facility] medication-assisted primary nurse in attempting to offer medications. accepted 2mg valium, split one tablet into multiple pieces (tablet wasted) and 2 tablets returned to bin. refused offer of PRN thorazine.
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
--- NOTE | 2023-08-08 10:41 | HO.PSYCHPN ---
Subjective Subjective Date of Service: 08/08/23 Reason For Visit: disorganized/psychosis Interim History: Patient was seen and discussed in rounds today. Records and plans were reviewed. On several attempts I could not arouse him to interact. He continues to be very disorganized, very little verbal output. Exhibits echolalia. Noncompliant with medications but sometimes certain nurses or security can be helpful with that. As I was writing the note he became quite agitated and needed 2 or 3 people to control him physically and a chemical restraints is ordered. Because of the level of agitation chlorpromazine 200 mg IM, Ativan 2 mg IM and Benadryl 50 mg IM were administered. Medication Compliance: Intermittent Mental Status Exam Mental Status Exam Narrative: Could not assess but currently he is agitated and appears to be responding to internal stimuli and threatening to break his own finger. Diagnostics Vital Signs (24Hr): Vital Signs - 24 hr 08/07/23 10:42 08/07/23 10:45 08/07/23 22:00 Temperature 97.6 F 97.5 F Pulse Rate 88 Respiratory Rate 18 18 Blood Pressure 129/77 129/77 151/65 H Pulse Oximetry 99 Oxygen Delivery Method Room Air BMI result Body Mass Index 23.6 Labs 08/06/23 12:42 08/06/23 12:42 Labs: Laboratory Results - last 48 hr 08/06/23 12:42 WBC 12.5 H RBC 6.11 H Hgb 15.9 Hct 50.0 D MCV 81.8 MCH 26.0 L MCHC 31.8 RDW 17.0 H Plt Count 348 MPV 9.5 Immature Gran % (Auto) 1.0 H Neut % (Auto) 57.3 Lymph % (Auto) 30.4 Page % (Auto) 8.3 Eos % (Auto) 2.4 Baso % (Auto) 0.6 Lymph # (Auto) 3.8 Page # (Auto) 1.0 Eos # (Auto) 0.3 Baso # (Auto) 0.1 Abs Immat Gran (auto) 0.13 H Absolute Neuts (auto) 7.2 Absolute Nucleated RBC 0.000 Nucleated RBC % (auto) 0.0 Sodium 140 Potassium 4.2 Chloride 104 Carbon Dioxide 27 Anion Gap 13 BUN 10 Creatinine 0.97 Estim Creat Clear Calc 100.3 Estimated GFR > 60 Random Glucose 88 Calcium 10.2 Total Bilirubin 0.4 AST 68 H ALT 216 H Alkaline Phosphatase 68 Total Protein 7.6 Albumin 4.5 TSH 0.90 Medications Medications Current Medications Acetaminophen (Acetaminophen 325 Mg Tablet) 650 mg PO Q6H PRN PRN Reason: Headache/Pain Mild Scale (1-3) Last Admin: 08/03/23 08:26 Dose: 650 mg Al Hydroxide/Mg Hydroxide (Magnesium Hydrox/Alum Hydrox 30 Ml Oral.Susp) 30 ml PO Q6H PRN PRN Reason: Heartburn/Nausea Benztropine Mesylate (Benztropine Mesylate 1 Mg Tablet) 1 mg PO BID [facility] Last Admin: 08/08/23 09:28 Dose: Not Given Carbamazepine (Carbamazepine 100 Mg Tab.Chew) 200 mg PO BID [facility] Last Admin: 08/08/23 09:28 Dose: Not Given Chlorpromazine HCl (Chlorpromazine Hcl 100 Mg Tablet) 200 mg PO Q4H PRN PRN Reason: anxiety/agitation Last Admin: 08/07/23 16:08 Dose: 200 mg Clonidine HCl (Clonidine Hcl 0.1 Mg Tablet) 0.1 mg PO BID@0800,1999 [facility]; Protocol Last Admin: 08/08/23 09:26 Dose: Not Given Diazepam (Diazepam 2 Mg Tablet) 8 mg PO BEDTIME [facility] Stop: 08/09/23 20:59 Last Admin: 08/07/23 23:53 Dose: 2 mg Diazepam (Diazepam 2 Mg Tablet) 6 mg PO BEDTIME [facility] Stop: 08/11/23 20:59 Diazepam (Diazepam 2 Mg Tablet) 4 mg PO BEDTIME [facility] Stop: 08/13/23 20:59 Diazepam (Diazepam 2 Mg Tablet) 2 mg PO BEDTIME [facility] Stop: 08/15/23 20:59 Diphenhydramine HCl (Diphenhydramine Hcl 25 Mg Capsule) 50 mg PO BID [facility] Last Admin: 08/08/23 09:28 Dose: Not Given Haloperidol (Haloperidol 5 Mg Tablet) 20 mg PO BID [facility] Last Admin: 08/08/23 09:28 Dose: Not Given [place] Carbonate ([place] Carbonate Er 450 Mg Tablet.Er) 900 mg PO BEDTIME [facility] Last Admin: 08/07/23 22:13 Dose: Not Given Magnesium Hydroxide (Milk Of Magnesia 30 Ml Oral.Susp) 30 ml PO DAILY PRN PRN Reason: Constipation Nicotine (Nicotine 21 Mg Patch.Td24) 21 mg TRANSDERMA DAILY PRN PRN Reason: smoking cessation Last Admin: 08/02/23 08:13 Dose: 21 mg Nicotine Polacrilex (Nicotine Polacrilex 2 Mg Gum) 4 mg BUCCAL Q2H PRN PRN Reason: Nicotine Cravings Last Admin: 08/05/23 03:59 Dose: 4 mg Allergies Allergies Allergy/AdvReac Type Severity Reaction Status Date / Time nka Allergy nka Uncoded 07/24/23 16:52 Assessment & Plan Assessment & Plan (1) Schizoaffective disorder, bipolar type: Status: Acute Code(s): F25.0 - Schizoaffective disorder, bipolar type (2) Polysubstance use disorder: Status: Acute Code(s): F19.90 - Other psychoactive substance use, unspecified, uncomplicated Plan 33 yo male, history of schizoaffective disorder, bipolar type, sent from [facility] where he was admitted on a Section 35 on 07/13 for public intoxication while running in the community without clothing. Pt is psychotic upon presentation, signed CV and has been calm but echolalic in speech and behaviors for the most part since admission. Hospital course: 07/25: Increase Olanzapine to 20 mg HS 07/27: No real improvement on consistent changes. DC Prolixin Haldol 10 mg bid-prepare for decanoate trial Add Olanzapine 10 mg a.m. Benztropine 1 mg bid 07/28 Patient talking in more complete and logical sentences however he remains disorganized in both speech and behavior, rude and insulting to numerous staff as they walk by, intrusive and needs constant redirection and needs to remain on one-to-one, not able to tolerate roommate.. Not sleeping very much at night. Intermittent angry outbursts and punching things. This morning patient got so dysregulated, security had to be called, however patient was able to be redirected. Patient agreed to start Depakote, hoping it will help him sleep. 1). Patient has been treated with the following meds, however does not seem to have helped much Haldol 10 mg b.i.d. Zyprexa 10 mg daily Zyprexa 20 mg q.h.s. 2).on 07/28 Will add Depakote ER 750 q.h.s. to address likely rick (patient is not sleeping and in the past was prescribed lithium) -will continue Haldol and Zyprexa regimen for now however will likely need to change 07/29 patient remains with disorganized, intermittently aggressive behaviors; did sleep a little better last night with Depakote Need to change medication regimen as Patient has gotten up to Zyprexa 45 mg daily and Haldol 20 mg daily (when adding PRNs) 1) increase Depakote ER to 1500 mg q.h.s.; patient continues to be disorganized and dysregulated and intermittently threatening; so far tolerating and found helpful (ER is about 80% of IR) 2) start Risperdal 2 mg b.i.d.; will titrate to 3 mg b.i.d. starting tomorrow on 07/30 (intention is to see if Risperdal can work where Haldol and Zyprexa have thus been ineffective) 3) discontinue Zyprexa 10 mg daily 4) continue Zyprexa 20 mg q.h.s. and Haldol 10 mg b.i.d. for now since not sure if these may be partially subduing him and it is unclear if Risperdal will help 5) work to cross taper Risperdal with Zyprexa/Haldol; goal will be to see if Risperdal and Depakote can be effective and efforts made to be on only 1 antipsychotic SW obtained collateral from father -current episode started this May, sounds like rick when patient quit his job, spent 4000 in a week... -at baseline patient is fully functional; history of lots of LSD which seem to trigger psychotic/manic symptoms. Family history on both sides of schizophrenia -patient has been Section 35 2 times in the last 2 years; 4 psychiatric hospitalizations in the past 2 years -patient can not return to his father's or the apartment he was renting 07/31- labs ordered- cbc with leukocytosis, afebrile. CMP renal function intact BUN 9, Cr 0.95, CPK elevated in 800's. LFT elevated especially AST 106, ALT 717. ammonia wnl 40, depakote level 51. no electrolyte abnormalities. suspect elevated CPK related to IM medications and restraints. Elevation in LFT- especially ALT may be related to elevated CPK, medications. will order hep panel, if not trending down, may need GI consult. Less suspicion for NMS- no rigidity/afebrile, mentation improving despite abnormal labs. will hold depakote, especially as LFT normalize or trend back down. 08/01 ALT trending down, CPK also trending back. no rigidity or cogwheel. 08/03 Tolerating [place] thus far Haldol 10 mg IM x1; Benadryl 50 mg IM x 1-pt reports this helps him to stabilize. Requests IM, will trial x 1 Decrease Olanzapine to 5 mg bid If tolerated will consider Risperdal increase CBCD, CMP on 08/04. 08/04 Severe agitation and aggression today. Regime change Haldol 20 mg bid Olanzapine 20 mg bid Tegretol 50 mg bid Valium 10 mg HS Benadryl 50 mg HS Change [place] to ER 900 mg HS Ambien 10 mg HS Discontinue Risperdal Discontinue Chlorpromazine Repeat diagnostics when pt will allow. 08/06/[address] 08/13/23 2pm Refusing most of regime, Olanzapine/Benadryl combination IM this a.m. effective in providing him some mild rest. EKG WNL AST 51 to 68 TSH 0.90 Continue one to one Continue to offer regime Pt transferred to M3 08/06: attempt to streamline medications and taper disinhibiting medications. ambien D/Oumar. valium taper over the next week initiated. pt on both zyprexa 20 BID and haldol 20 BID; will DC zyprexa in favor of single scheduled neuroleptic agent. various PRNs DCed, including for haldol, zyprexa, atarax. will return to thorazine PRN agitation/anxiety despite report of lack of efficacy (clearly none of these other medications have been demonstrating much efficacy); will use relatively high-dose thorazine as needed for agitation, perhaps with IM benzo if sedation is required. it appears what may be missing from present regimen is adequate mood stabilizer. problems with recent VPA trial noted. no lithium level yet as pt has not been taking it consistently in any case. increase tegretol dosing from 50 BID to 200 BID for more aggressive approach to mood stabilization. section 7 filed, hearing pending for 08/12. 08/07: Continue current regimen and plans. Chemical restraint was administered with physical hold for administration Plan: CV 1:1 for unit safety See medication management above under hospital course, by day Continue to attempt to gather collateral Collateral Reason for continued inpatient stay Substantial Risk for: rapid decompensation Time Spent With Patient Time: Total time managing care of this patient today ____ minutes.
[2023-08-08] MEDS: diphenhydrAMINE HCL 50 MG/ML VIAL IM (11:02)
[2023-08-08] MEDS: OLANZapine 10 MG VIAL IM (11:02)
[2023-08-08] MEDS: LORazepam 2 MG/ML VIAL IM (11:02)
[2023-08-08 11:34] VITALS: BP 121/70; PULSE 99; RESP 15; TEMP 36.8; O2SAT 96
--- NOTE | 2023-08-08 12:16 | PM.EVENT ---
Event Note Date of Service: 08/08/23 Event Note: Because of agitation and aggressive behavior and concerns for safety of others and himself he was given a chemical restraint this morning at 11. He was seen at 11:30. Vital signs are within normal range. He is calm, lying in bed, able to respond, stating that he is feeling calmer. Time Spent With Patient Time: Total time managing care of this patient today ____ minutes.
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
[2023-08-08 22:00] VITALS: BP 129/78; PULSE 88; RESP 16; TEMP 36.6; O2SAT 96
--- NOTE | 2023-08-09 12:05 | P.PNPSI_ITS ---
Subjective Subjective Date of Service: 08/09/23 Reason For Visit: disorganized/psychosis Interim History: Patient was attempted to be seen and discussed in rounds today. Records and plans were reviewed. I tried several times to see him but he was sleeping given his recent mental status and behavioral issues I did not wake him up. Medication Compliance: Intermittent Review of Systems Review of Systems Yes Unobtainable due to mental status Mental Status Exam Mental Status Exam Narrative: Could not be assessed Diagnostics Vital Signs (24Hr): Vital Signs - 24 hr 08/08/23 22:00 Temperature 97.8 F Pulse Rate 88 Respiratory Rate 16 Blood Pressure 129/78 Pulse Oximetry 96 Oxygen Delivery Method Room Air BMI result Body Mass Index 23.6 Labs 08/06/23 12:42 08/06/23 12:42 Medications Medications Current Medications Acetaminophen (Acetaminophen 325 Mg Tablet) 650 mg PO Q6H PRN PRN Reason: Headache/Pain Mild Scale (1-3) Last Admin: 08/03/23 08:26 Dose: 650 mg Al Hydroxide/Mg Hydroxide (Magnesium Hydrox/Alum Hydrox 30 Ml Oral.Susp) 30 ml PO Q6H PRN PRN Reason: Heartburn/Nausea Benztropine Mesylate (Benztropine Mesylate 1 Mg Tablet) 1 mg PO BID [facility] Last Admin: 08/08/23 22:21 Dose: Not Given Carbamazepine (Carbamazepine 100 Mg Tab.Chew) 200 mg PO BID [facility] Last Admin: 08/08/23 22:21 Dose: Not Given Chlorpromazine HCl (Chlorpromazine Hcl 100 Mg Tablet) 200 mg PO Q4H PRN PRN Reason: anxiety/agitation Last Admin: 08/07/23 16:08 Dose: 200 mg Clonidine HCl (Clonidine Hcl 0.1 Mg Tablet) 0.1 mg PO BID@0800,1999 [facility]; Protocol Last Admin: 08/08/23 22:20 Dose: Not Given Diazepam (Diazepam 2 Mg Tablet) 8 mg PO BEDTIME [facility] Stop: 08/09/23 20:59 Last Admin: 08/08/23 22:21 Dose: Not Given Diazepam (Diazepam 2 Mg Tablet) 6 mg PO BEDTIME [facility] Stop: 08/11/23 20:59 Diazepam (Diazepam 2 Mg Tablet) 4 mg PO BEDTIME [facility] Stop: 08/13/23 20:59 Diazepam (Diazepam 2 Mg Tablet) 2 mg PO BEDTIME [facility] Stop: 08/15/23 20:59 Diphenhydramine HCl (Diphenhydramine Hcl 25 Mg Capsule) 50 mg PO BID [facility] Last Admin: 08/08/23 22:21 Dose: Not Given Haloperidol (Haloperidol 5 Mg Tablet) 20 mg PO BID [facility] Last Admin: 08/08/23 22:22 Dose: Not Given [place] Carbonate ([place] Carbonate Er 450 Mg Tablet.Er) 900 mg PO BEDTIME [facility] Last Admin: 08/08/23 22:45 Dose: Not Given Magnesium Hydroxide (Milk Of Magnesia 30 Ml Oral.Susp) 30 ml PO DAILY PRN PRN Reason: Constipation Nicotine (Nicotine 21 Mg Patch.Td24) 21 mg TRANSDERMA DAILY PRN PRN Reason: smoking cessation Last Admin: 08/02/23 08:13 Dose: 21 mg Nicotine Polacrilex (Nicotine Polacrilex 2 Mg Gum) 4 mg BUCCAL Q2H PRN PRN Reason: Nicotine Cravings Last Admin: 08/05/23 03:59 Dose: 4 mg Allergies Allergies Allergy/AdvReac Type Severity Reaction Status Date / Time nka Allergy nka Uncoded 07/24/23 16:52 Assessment & Plan Assessment & Plan (1) Schizoaffective disorder, bipolar type: Status: Acute Code(s): F25.0 - Schizoaffective disorder, bipolar type (2) Polysubstance use disorder: Status: Acute Code(s): F19.90 - Other psychoactive substance use, unspecified, uncomplicated Plan 33 yo male, history of schizoaffective disorder, bipolar type, sent from [facility] where he was admitted on a Section 35 on 07/13 for public intoxication while running in the community without clothing. Pt is psychotic upon presentation, signed CV and has been calm but echolalic in speech and behaviors for the most part since admission. Hospital course: 07/25: Increase Olanzapine to 20 mg HS 07/27: No real improvement on consistent changes. DC Prolixin Haldol 10 mg bid-prepare for decanoate trial Add Olanzapine 10 mg a.m. Benztropine 1 mg bid 07/28 Patient talking in more complete and logical sentences however he remains disorganized in both speech and behavior, rude and insulting to numerous staff as they walk by, intrusive and needs constant redirection and needs to remain on one-to-one, not able to tolerate roommate.. Not sleeping very much at night. Intermittent angry outbursts and punching things. This morning patient got so dysregulated, security had to be called, however patient was able to be redirected. Patient agreed to start Depakote, hoping it will help him sleep. 1). Patient has been treated with the following meds, however does not seem to have helped much Haldol 10 mg b.i.d. Zyprexa 10 mg daily Zyprexa 20 mg q.h.s. 2).on 07/28 Will add Depakote ER 750 q.h.s. to address likely rick (patient is not sleeping and in the past was prescribed lithium) -will continue Haldol and Zyprexa regimen for now however will likely need to change 07/29 patient remains with disorganized, intermittently aggressive behaviors; did sleep a little better last night with Depakote Need to change medication regimen as Patient has gotten up to Zyprexa 45 mg daily and Haldol 20 mg daily (when adding PRNs) 1) increase Depakote ER to 1500 mg q.h.s.; patient continues to be disorganized and dysregulated and intermittently threatening; so far tolerating and found helpful (ER is about 80% of IR) 2) start Risperdal 2 mg b.i.d.; will titrate to 3 mg b.i.d. starting tomorrow on 07/30 (intention is to see if Risperdal can work where Haldol and Zyprexa have thus been ineffective) 3) discontinue Zyprexa 10 mg daily 4) continue Zyprexa 20 mg q.h.s. and Haldol 10 mg b.i.d. for now since not sure if these may be partially subduing him and it is unclear if Risperdal will help 5) work to cross taper Risperdal with Zyprexa/Haldol; goal will be to see if Risperdal and Depakote can be effective and efforts made to be on only 1 antipsychotic SW obtained collateral from father -current episode started this May, sounds like rick when patient quit his job, spent 4000 in a week... -at baseline patient is fully functional; history of lots of LSD which seem to trigger psychotic/manic symptoms. Family history on both sides of schizophrenia -patient has been Section 35 2 times in the last 2 years; 4 psychiatric hospitalizations in the past 2 years -patient can not return to his father's or the apartment he was renting 07/31- labs ordered- cbc with leukocytosis, afebrile. CMP renal function intact BUN 9, Cr 0.95, CPK elevated in 800's. LFT elevated especially AST 106, ALT 717. ammonia wnl 40, depakote level 51. no electrolyte abnormalities. suspect elevated CPK related to IM medications and restraints. Elevation in LFT- especially ALT may be related to elevated CPK, medications. will order hep panel, if not trending down, may need GI consult. Less suspicion for NMS- no rigidity/afebrile, mentation improving despite abnormal labs. will hold depakote, especially as LFT normalize or trend back down. 08/01 ALT trending down, CPK also trending back. no rigidity or cogwheel. 08/03 Tolerating [place] thus far Haldol 10 mg IM x1; Benadryl 50 mg IM x 1-pt reports this helps him to stabilize. Requests IM, will trial x 1 Decrease Olanzapine to 5 mg bid If tolerated will consider Risperdal increase CBCD, CMP on 08/04. 08/04 Severe agitation and aggression today. Regime change Haldol 20 mg bid Olanzapine 20 mg bid Tegretol 50 mg bid Valium 10 mg HS Benadryl 50 mg HS Change [place] to ER 900 mg HS Ambien 10 mg HS Discontinue Risperdal Discontinue Chlorpromazine Repeat diagnostics when pt will allow. 08/06/[address] 08/13/23 2pm Refusing most of regime, Olanzapine/Benadryl combination IM this a.m. effective in providing him some mild rest. EKG WNL AST 51 to 68 TSH 0.90 Continue one to one Continue to offer regime Pt transferred to M3 08/06: attempt to streamline medications and taper disinhibiting medications. ambien D/Oumar. valium taper over the next week initiated. pt on both zyprexa 20 BID and haldol 20 BID; will DC zyprexa in favor of single scheduled neuroleptic agent. various PRNs DCed, including for haldol, zyprexa, atarax. will return to thorazine PRN agitation/anxiety despite report of lack of efficacy (clearly none of these other medications have been demonstrating much efficacy); will use relatively high-dose thorazine as needed for agitation, perhaps with IM benzo if sedation is required. it appears what may be missing from present regimen is adequate mood stabilizer. problems with recent VPA trial noted. no lithium level yet as pt has not been taking it consistently in any case. increase tegretol dosing from 50 BID to 200 BID for more aggressive approach to mood stabilization. section 7 filed, hearing pending for 08/12. 08/07: Continue current regimen and plans. Chemical restraint was administered with physical hold for administration 08/08: Continue current regimen and plans Plan: CV 1:1 for unit safety See medication management above under hospital course, by day Continue to attempt to gather collateral Collateral Reason for continued inpatient stay Substantial Risk for: rapid decompensation Time Spent With Patient Time: Total time managing care of this patient today ____ minutes.
[2023-08-09] MEDS: Nicotine Polacrilex 2 MG GUM 4 MG BUCCAL (15:40)
[2023-08-09] MEDS: OLANZapine 10 MG VIAL 20 MG IM (18:20)
--- NOTE | 2023-08-09 19:01 | PC.NURSE ---
Pt has been getting close to needing a restrain for this afternoon, however, has not crossed the line. He was pacing, threw a cookie, was constantly pushing the emergency call button and one time got . He did request an IM of either zyprexa or haldol . Order provided for 20mg of Zyprexa IM and pt accepted.
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
--- NOTE | 2023-08-09 19:15 | PM.EVENT ---
Event Note Date of Service: 08/21/23 Event Note: remains manic, aggressive; earlier this evening provocative but asked for IM Zyprexa. Not long after received, pt became aggressive, swung at staff and required medication restraint and hold Time Spent With Patient Time: Total time managing care of this patient today ____ minutes.
[2023-08-09] MEDS: diazePAM 10 MG/2 ML CARTRIDGE IM (19:36)
[2023-08-09] MEDS: diphenhydrAMINE HCL 50 MG/ML VIAL IM (19:36)
[2023-08-09] MEDS: OLANZapine 10 MG VIAL IM (19:36)
[2023-08-09 19:38] VITALS: BP 112/76; PULSE 108; RESP 14; TEMP 36.9; O2SAT 97
[2023-08-09 20:02] VITALS: BP 133/71; PULSE 105; RESP 14; TEMP 36.7; O2SAT 98
--- NOTE | 2023-08-09 20:50 | PC.NURSE ---
s/p medication restraint-after IM was given patient allowed for VS to be taken, offered and accepted food and fluids (eating 2 personal size pizzas), was seen by the hospitalist, and is currently asleep, no distress noted with respirations even and unlabored. continues on 1:1 status.
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
[2023-08-10] MEDS: Acetaminophen 325 MG TABLET 650 MG PO (03:05)
--- NOTE | 2023-08-10 04:54 | PC.NURSE ---
OOB at 0245. on rising urinated in toilet, ate and apple and brownie and drank a 1 liter bottle of gingerale. patient c/o neck pain, back pain. ? possible medication SE verses having slept on the floor instead of his mattress when had fallen asleep earlier. patient offered and refused cogentin. when patient attempted to sleep on the floor again was prompted by staff to put mattress on floor for comfort if not wanting to sleep in the bed itself. patient decided to sleep on the floor, on the mattress, is currently sleeping.
[2023-08-10] MEDS: Nicotine 21 MG PATCH.TD24 TRANSDERMA (05:22)
[2023-08-10] MEDS: Nicotine Polacrilex 2 MG GUM 4 MG BUCCAL (05:56)
[2023-08-10 07:55] VITALS: BP 132/81; PULSE 82; RESP 18; TEMP 36.5; O2SAT 98
--- NOTE | 2023-08-10 15:24 | HO.PSYCHPN ---
Subjective Subjective Date of Service: 08/10/23 Reason For Visit: disorganized/psychosis Interim History: pt referring to MD as demetri laureano. wandering finnegan or asleep in ante-room. rousable but somnolent. no questions or complaints for MD. per staff, on 1:1 for safety. echolalia. less combative/aggressive. got IMed x 2 over w/e. attempting to twist peoples' fingers/wrists. Mental Status Exam Mental Status Exam Narrative: adequately groomed. not cooperative with interview. decr amount of speech, but echolalia. no appropriate answers to questions. nml loudness, decr latency. thoughts disordered. affect constricted, normo-intense, non-labile. mood not assessed. no SI/SIBI/HI/AVH expressed. Diagnostics Vital Signs (24Hr): Vital Signs - 24 hr 08/09/23 19:38 08/09/23 20:02 08/10/23 07:55 Temperature 98.5 F 98.1 F 97.7 F Pulse Rate 108 H 105 H 82 Respiratory Rate 14 14 18 Blood Pressure 112/76 133/71 132/81 Pulse Oximetry 97 98 98 Oxygen Delivery Method Room Air Room Air Room Air BMI result Body Mass Index 23.6 Labs 08/06/23 12:42 08/06/23 12:42 Medications Medications Current Medications Acetaminophen (Acetaminophen 325 Mg Tablet) 650 mg PO Q6H PRN PRN Reason: Headache/Pain Mild Scale (1-3) Last Admin: 08/10/23 03:05 Dose: 650 mg Al Hydroxide/Mg Hydroxide (Magnesium Hydrox/Alum Hydrox 30 Ml Oral.Susp) 30 ml PO Q6H PRN PRN Reason: Heartburn/Nausea Benztropine Mesylate (Benztropine Mesylate 1 Mg Tablet) 1 mg PO BID [facility] Last Admin: 08/10/23 08:57 Dose: Not Given Carbamazepine (Carbamazepine 100 Mg Tab.Chew) 200 mg PO BID [facility] Last Admin: 08/10/23 08:57 Dose: Not Given Chlorpromazine HCl (Chlorpromazine Hcl 100 Mg Tablet) 200 mg PO Q4H PRN PRN Reason: anxiety/agitation Last Admin: 08/07/23 16:08 Dose: 200 mg Clonidine HCl (Clonidine Hcl 0.1 Mg Tablet) 0.1 mg PO BID@0800,1999 [facility]; Protocol Last Admin: 08/10/23 08:57 Dose: Not Given Diazepam (Diazepam 2 Mg Tablet) 6 mg PO BEDTIME [facility] Stop: 08/11/23 20:59 Last Admin: 08/09/23 23:32 Dose: Not Given Diazepam (Diazepam 2 Mg Tablet) 4 mg PO BEDTIME [facility] Stop: 08/13/23 20:59 Diazepam (Diazepam 2 Mg Tablet) 2 mg PO BEDTIME [facility] Stop: 08/15/23 20:59 Diphenhydramine HCl (Diphenhydramine Hcl 25 Mg Capsule) 50 mg PO BID [facility] Last Admin: 08/10/23 08:57 Dose: Not Given Haloperidol (Haloperidol 5 Mg Tablet) 20 mg PO BID [facility] Last Admin: 08/10/23 08:57 Dose: Not Given [place] Carbonate ([place] Carbonate Er 450 Mg Tablet.Er) 900 mg PO BEDTIME [facility] Last Admin: 08/09/23 23:32 Dose: Not Given Magnesium Hydroxide (Milk Of Magnesia 30 Ml Oral.Susp) 30 ml PO DAILY PRN PRN Reason: Constipation Nicotine (Nicotine 21 Mg Patch.Td24) 21 mg TRANSDERMA DAILY PRN PRN Reason: smoking cessation Last Admin: 08/10/23 05:22 Dose: 21 mg Nicotine Polacrilex (Nicotine Polacrilex 2 Mg Gum) 4 mg BUCCAL Q2H PRN PRN Reason: Nicotine Cravings Last Admin: 08/10/23 05:56 Dose: 4 mg Allergies Allergies Allergy/AdvReac Type Severity Reaction Status Date / Time nka Allergy nka Uncoded 07/24/23 16:52 Assessment & Plan Assessment & Plan (1) Schizoaffective disorder, bipolar type: Status: Acute Code(s): F25.0 - Schizoaffective disorder, bipolar type (2) Polysubstance use disorder: Status: Acute Code(s): F19.90 - Other psychoactive substance use, unspecified, uncomplicated Plan 33 yo male, history of schizoaffective disorder, bipolar type, sent from [facility] where he was admitted on a Section 35 on 07/13 for public intoxication while running in the community without clothing. Pt is psychotic upon presentation, signed CV and has been calm but echolalic in speech and behaviors for the most part since admission. Hospital course: 07/25: Increase Olanzapine to 20 mg HS 6/4: No real improvement on consistent changes. DC Prolixin Haldol 10 mg bid-prepare for decanoate trial Add Olanzapine 10 mg a.m. Benztropine 1 mg bid 07/28 Patient talking in more complete and logical sentences however he remains disorganized in both speech and behavior, rude and insulting to numerous staff as they walk by, intrusive and needs constant redirection and needs to remain on one-to-one, not able to tolerate roommate.. Not sleeping very much at night. Intermittent angry outbursts and punching things. This morning patient got so dysregulated, security had to be called, however patient was able to be redirected. Patient agreed to start Depakote, hoping it will help him sleep. 1). Patient has been treated with the following meds, however does not seem to have helped much Haldol 10 mg b.i.d. Zyprexa 10 mg daily Zyprexa 20 mg q.h.s. 2).on 07/28 Will add Depakote ER 750 q.h.s. to address likely rick (patient is not sleeping and in the past was prescribed lithium) -will continue Haldol and Zyprexa regimen for now however will likely need to change 07/29 patient remains with disorganized, intermittently aggressive behaviors; did sleep a little better last night with Depakote Need to change medication regimen as Patient has gotten up to Zyprexa 45 mg daily and Haldol 20 mg daily (when adding PRNs) 1) increase Depakote ER to 1500 mg q.h.s.; patient continues to be disorganized and dysregulated and intermittently threatening; so far tolerating and found helpful (ER is about 80% of IR) 2) start Risperdal 2 mg b.i.d.; will titrate to 3 mg b.i.d. starting tomorrow on 07/30 (intention is to see if Risperdal can work where Haldol and Zyprexa have thus been ineffective) 3) discontinue Zyprexa 10 mg daily 4) continue Zyprexa 20 mg q.h.s. and Haldol 10 mg b.i.d. for now since not sure if these may be partially subduing him and it is unclear if Risperdal will help 5) work to cross taper Risperdal with Zyprexa/Haldol; goal will be to see if Risperdal and Depakote can be effective and efforts made to be on only 1 antipsychotic SW obtained collateral from father -current episode started this May, sounds like rick when patient quit his job, spent 4000 in a week... -at baseline patient is fully functional; history of lots of LSD which seem to trigger psychotic/manic symptoms. Family history on both sides of schizophrenia -patient has been Section 35 2 times in the last 2 years; 4 psychiatric hospitalizations in the past 2 years -patient can not return to his father's or the apartment he was renting 07/31- labs ordered- cbc with leukocytosis, afebrile. CMP renal function intact BUN 9, Cr 0.95, CPK elevated in 800's. LFT elevated especially AST 106, ALT 717. ammonia wnl 40, depakote level 51. no electrolyte abnormalities. suspect elevated CPK related to IM medications and restraints. Elevation in LFT- especially ALT may be related to elevated CPK, medications. will order hep panel, if not trending down, may need GI consult. Less suspicion for NMS- no rigidity/afebrile, mentation improving despite abnormal labs. will hold depakote, especially as LFT normalize or trend back down. 08/01 ALT trending down, CPK also trending back. no rigidity or cogwheel. 08/03 Tolerating [place] thus far Haldol 10 mg IM x1; Benadryl 50 mg IM x 1-pt reports this helps him to stabilize. Requests IM, will trial x 1 Decrease Olanzapine to 5 mg bid If tolerated will consider Risperdal increase CBCD, CMP on 08/04. 08/04 Severe agitation and aggression today. Regime change Haldol 20 mg bid Olanzapine 20 mg bid Tegretol 50 mg bid Valium 10 mg HS Benadryl 50 mg HS Change [place] to ER 900 mg HS Ambien 10 mg HS Discontinue Risperdal Discontinue Chlorpromazine Repeat diagnostics when pt will allow. 08/06/[address] 08/13/23 2pm Refusing most of regime, Olanzapine/Benadryl combination IM this a.m. effective in providing him some mild rest. EKG WNL AST 51 to 68 TSH 0.90 Continue one to one Continue to offer regime Pt transferred to 08/06: attempt to streamline medications and taper disinhibiting medications. ambien D/Oumar. valium taper over the next week initiated. pt on both zyprexa 20 BID and haldol 20 BID; will DC zyprexa in favor of single scheduled neuroleptic agent. various PRNs DCed, including for haldol, zyprexa, atarax. will return to thorazine PRN agitation/anxiety despite report of lack of efficacy (clearly none of these other medications have been demonstrating much efficacy); will use relatively high-dose thorazine as needed for agitation, perhaps with IM benzo if sedation is required. it appears what may be missing from present regimen is adequate mood stabilizer. problems with recent VPA trial noted. no lithium level yet as pt has not been taking it consistently in any case. increase tegretol dosing from 50 BID to 200 BID for more aggressive approach to mood stabilization. section 7 filed, hearing pending for 08/12. 08/07: Continue current regimen and plans. Chemical restraint was administered with physical hold for administration 08/08: Continue current regimen and plans 08/09: continue current mgmt. court . Plan: CV 1:1 for unit safety See medication management above under hospital course, by day Continue to attempt to gather collateral Collateral Reason for continued inpatient stay Substantial Risk for: harm to others and inability to function Time Spent With Patient Time: Total time managing care of this patient today __25__ minutes.
[2023-08-10 20:50] VITALS: BP 158/87; PULSE 98; RESP 20; TEMP 36.4; O2SAT 98
[2023-08-10 20:52] VITALS: BP 158/87
[2023-08-11] VITALS (7 sets, daily range): BP systolic 124–142; BP diastolic 73–89; PULSE 78–121; RESP 14–20; TEMP 36.5–37; O2SAT 98
--- NOTE | 2023-08-11 00:56 | PC.NURSE ---
One of Hilario's peers informed this advertising copywriter that when the patient is visible on the unit he is using a lot of gang signs. you gotta make him stop he keeps throwing gag sing all day he's gonna get himself hurt. we take that kind of stuff seriously. he needs to stop he is really getting some of the guys upset
--- NOTE | 2023-08-11 06:25 | HO.PSYEVENT2 ---
Documented by User: Hyun Mazariegos APRN 08/11/23 06:28 Event Note Date of Service: 08/11/23 Psych On-Call Event Note: Notified by team of a hold from [phone] as pt had strings wrapped tightly around 2 fingers. These needed to be cut off of his fingers. Pt in response tore a blanket and and wrapped it around his neck and team removed this as well. Time Spent With Patient Time: Total time managing care of this patient today ____ minutes. Documented by User: Holden Saunders MD 08/11/23 09:52 Event Note Date of Service: 08/11/23
[2023-08-11] MEDS: diphenhydrAMINE HCL 25 MG CAPSULE 50 MG PO (11:50)
[2023-08-11] MEDS: LORazepam 2 MG/ML VIAL IM (15:30)
[2023-08-11] MEDS: chlorproMAZINE HCl 25 MG/ML AMPUL 100 MG IM (15:30)
--- NOTE | 2023-08-11 15:33 | PM.EVENT ---
Event Note Date of Service: 08/11/23 Event Note: pt throwing punches, code assist called. pt placed in restraint chair, given IM medication. saw pt shortly after IM meds given, calm, cooperative in chair. c/o some back pain due to contact with mattress standing in corner of room. no other complaints or requests. appears comfortable in restraint chair. Time Spent With Patient Time: Total time managing care of this patient today __20__ minutes.
--- NOTE | 2023-08-11 16:14 | HO.PSYCHPN ---
Subjective Subjective Date of Service: 08/11/23 Reason For Visit: disorganized/psychosis Interim History: echolalia, wandering, touching. afternoon throwing punches and requiring restraint/meds. per staff, refusing meds, throwing things, touching people and objects around the unit. walking on furniture. showing gang signs. had physical restraint this morning after ripping up his blanket and tying it both around his neck and also very tightly around his fingers. slept about 4 hours. urinated on the floor. Mental Status Exam Mental Status Exam Narrative: adequately groomed. not cooperative with interview. decr amount of speech, but echolalia. no appropriate answers to questions. nml loudness, decr latency. thoughts disordered. affect constricted, normo-intense, non-labile. mood not assessed. no SI/SIBI/HI/AVH expressed. Diagnostics Vital Signs (24Hr): Vital Signs - 24 hr 08/10/23 20:50 08/10/23 20:52 08/11/23 07:48 Temperature 97.6 F 97.7 F Pulse Rate 98 78 Respiratory Rate 20 16 Blood Pressure 158/87 H 158/87 H 129/89 Pulse Oximetry 98 98 Oxygen Delivery Method Room Air Room Air BMI result Body Mass Index 23.6 Labs 08/06/23 12:42 08/06/23 12:42 Medications Medications Current Medications Acetaminophen (Acetaminophen 325 Mg Tablet) 650 mg PO Q6H PRN PRN Reason: Headache/Pain Mild Scale (1-3) Last Admin: 08/10/23 03:05 Dose: 650 mg Al Hydroxide/Mg Hydroxide (Magnesium Hydrox/Alum Hydrox 30 Ml Oral.Susp) 30 ml PO Q6H PRN PRN Reason: Heartburn/Nausea Benztropine Mesylate (Benztropine Mesylate 1 Mg Tablet) 1 mg PO BID [facility] Last Admin: 08/11/23 08:23 Dose: Not Given Carbamazepine (Carbamazepine 100 Mg Tab.Chew) 200 mg PO BID [facility] Last Admin: 08/11/23 08:23 Dose: Not Given Chlorpromazine HCl (Chlorpromazine Hcl 100 Mg Tablet) 200 mg PO Q4H PRN PRN Reason: anxiety/agitation Last Admin: 08/07/23 16:08 Dose: 200 mg Clonidine HCl (Clonidine Hcl 0.1 Mg Tablet) 0.1 mg PO BID@0800,1999 [facility]; Protocol Last Admin: 08/11/23 08:23 Dose: Not Given Diazepam (Diazepam 2 Mg Tablet) 6 mg PO BEDTIME [facility] Stop: 08/11/23 20:59 Last Admin: 08/10/23 20:53 Dose: Not Given Diazepam (Diazepam 2 Mg Tablet) 4 mg PO BEDTIME [facility] Stop: 08/13/23 20:59 Diazepam (Diazepam 2 Mg Tablet) 2 mg PO BEDTIME [facility] Stop: 08/15/23 20:59 Diphenhydramine HCl (Diphenhydramine Hcl 25 Mg Capsule) 50 mg PO BID [facility] Last Admin: 08/11/23 11:50 Dose: 50 mg Haloperidol (Haloperidol 5 Mg Tablet) 20 mg PO BID [facility] Last Admin: 08/11/23 08:23 Dose: Not Given [place] Carbonate ([place] Carbonate Er 450 Mg Tablet.Er) 900 mg PO BEDTIME [facility] Last Admin: 08/10/23 20:53 Dose: Not Given Magnesium Hydroxide (Milk Of Magnesia 30 Ml Oral.Susp) 30 ml PO DAILY PRN PRN Reason: Constipation Nicotine (Nicotine 21 Mg Patch.Td24) 21 mg TRANSDERMA DAILY PRN PRN Reason: smoking cessation Last Admin: 08/10/23 05:22 Dose: 21 mg Nicotine Polacrilex (Nicotine Polacrilex 2 Mg Gum) 4 mg BUCCAL Q2H PRN PRN Reason: Nicotine Cravings Last Admin: 08/10/23 05:56 Dose: 4 mg Allergies Allergies Allergy/AdvReac Type Severity Reaction Status Date / Time nka Allergy nka Uncoded 07/24/23 16:52 Assessment & Plan Assessment & Plan (1) Schizoaffective disorder, bipolar type: Status: Acute Code(s): F25.0 - Schizoaffective disorder, bipolar type (2) Polysubstance use disorder: Status: Acute Code(s): F19.90 - Other psychoactive substance use, unspecified, uncomplicated Plan 33 yo male, history of schizoaffective disorder, bipolar type, sent from [facility] where he was admitted on a Section 35 on 07/13 for public intoxication while running in the community without clothing. Pt is psychotic upon presentation, signed CV and has been calm but echolalic in speech and behaviors for the most part since admission. Hospital course: 07/25: Increase Olanzapine to 20 mg HS 07/27: No real improvement on consistent changes. DC Prolixin Haldol 10 mg bid-prepare for decanoate trial Add Olanzapine 10 mg a.m. Benztropine 1 mg bid 07/28 Patient talking in more complete and logical sentences however he remains disorganized in both speech and behavior, rude and insulting to numerous staff as they walk by, intrusive and needs constant redirection and needs to remain on one-to-one, not able to tolerate roommate.. Not sleeping very much at night. Intermittent angry outbursts and punching things. This morning patient got so dysregulated, security had to be called, however patient was able to be redirected. Patient agreed to start Depakote, hoping it will help him sleep. 1). Patient has been treated with the following meds, however does not seem to have helped much Haldol 10 mg b.i.d. Zyprexa 10 mg daily Zyprexa 20 mg q.h.s. 2).on 07/28 Will add Depakote ER 750 q.h.s. to address likely rick (patient is not sleeping and in the past was prescribed lithium) -will continue Haldol and Zyprexa regimen for now however will likely need to change 07/29 patient remains with disorganized, intermittently aggressive behaviors; did sleep a little better last night with Depakote Need to change medication regimen as Patient has gotten up to Zyprexa 45 mg daily and Haldol 20 mg daily (when adding PRNs) 1) increase Depakote ER to 1500 mg q.h.s.; patient continues to be disorganized and dysregulated and intermittently threatening; so far tolerating and found helpful (ER is about 80% of IR) 2) start Risperdal 2 mg b.i.d.; will titrate to 3 mg b.i.d. starting tomorrow on 07/30 (intention is to see if Risperdal can work where Haldol and Zyprexa have thus been ineffective) 3) discontinue Zyprexa 10 mg daily 4) continue Zyprexa 20 mg q.h.s. and Haldol 10 mg b.i.d. for now since not sure if these may be partially subduing him and it is unclear if Risperdal will help 5) work to cross taper Risperdal with Zyprexa/Haldol; goal will be to see if Risperdal and Depakote can be effective and efforts made to be on only 1 antipsychotic SW obtained collateral from father -current episode started this May, sounds like rick when patient quit his job, spent 4000 in a week... -at baseline patient is fully functional; history of lots of LSD which seem to trigger psychotic/manic symptoms. Family history on both sides of schizophrenia -patient has been Section 35 2 times in the last 2 years; 4 psychiatric hospitalizations in the past 2 years -patient can not return to his father's or the apartment he was renting 07/31- labs ordered- cbc with leukocytosis, afebrile. CMP renal function intact BUN 9, Cr 0.95, CPK elevated in 800's. LFT elevated especially AST 106, ALT 717. ammonia wnl 40, depakote level 51. no electrolyte abnormalities. suspect elevated CPK related to IM medications and restraints. Elevation in LFT- especially ALT may be related to elevated CPK, medications. will order hep panel, if not trending down, may need GI consult. Less suspicion for NMS- no rigidity/afebrile, mentation improving despite abnormal labs. will hold depakote, especially as LFT normalize or trend back down. 08/01 ALT trending down, CPK also trending back. no rigidity or cogwheel. 08/03 Tolerating [place] thus far Haldol 10 mg IM x1; Benadryl 50 mg IM x 1-pt reports this helps him to stabilize. Requests IM, will trial x 1 Decrease Olanzapine to 5 mg bid If tolerated will consider Risperdal increase CBCD, CMP on 08/04. 08/04 Severe agitation and aggression today. Regime change Haldol 20 mg bid Olanzapine 20 mg bid Tegretol 50 mg bid Valium 10 mg HS Benadryl 50 mg HS Change [place] to ER 900 mg HS Ambien 10 mg HS Discontinue Risperdal Discontinue Chlorpromazine Repeat diagnostics when pt will allow. 08/06/[address] 08/13/23 2pm Refusing most of regime, Olanzapine/Benadryl combination IM this a.m. effective in providing him some mild rest. EKG WNL AST 51 to 68 TSH 0.90 Continue one to one Continue to offer regime Pt transferred to [facility]3 08/06: attempt to streamline medications and taper disinhibiting medications. jocelyn D/Oumar. valium taper over the next week initiated. pt on both zyprexa 20 BID and haldol 20 BID; will DC zyprexa in favor of single scheduled neuroleptic agent. various PRNs DCed, including for haldol, zyprexa, atarax. will return to thorazine PRN agitation/anxiety despite report of lack of efficacy (clearly none of these other medications have been demonstrating much efficacy); will use relatively high-dose thorazine as needed for agitation, perhaps with IM benzo if sedation is required. it appears what may be missing from present regimen is adequate mood stabilizer. problems with recent VPA trial noted. no lithium level yet as pt has not been taking it consistently in any case. increase tegretol dosing from 50 BID to 200 BID for more aggressive approach to mood stabilization. section 7 filed, hearing pending for 08/12. 08/07: Continue current regimen and plans. Chemical restraint was administered with physical hold for administration 08/08: Continue current regimen and plans 08/09: continue current mgmt. court . 08/10: intermittently dangerous behaviors. punching air, touching people repeatedly, urinating on floor, showing gang signs, ripping up blanket and tying around neck and fingers, throwing things. restrained yesterday and this morning. restrained a second time today, given medication. court . Plan: CV 1:1 for unit safety See medication management above under hospital course, by day Continue to attempt to gather collateral Collateral Reason for continued inpatient stay Substantial Risk for: harm to self, harm to others, inability to function and rapid decompensation Time Spent With Patient Time: Total time managing care of this patient today __45__ minutes.
--- NOTE | 2023-08-11 16:58 | PC.NURSE ---
Hilario began swinging at staff member, threatening to punch staff and was restrained at 1525 due to posed imminent harm towards staff members. He was put into a physical hold, then placed in the restraint chair and finally given IM medication. He was released from restraint chair at 1545. There was no injury to staff or patient noted. Family member notified per request of patient.
--- NOTE | 2023-08-11 17:08 | PC.NURSE ---
Pt urinated in hallway at 0800
--- NOTE | 2023-08-11 21:53 | PC.NURSE ---
Late entry: on 08/11/23 at 0600 patient was placed in a physical hold r/t refusing to allow this senior medical writer to remove multiple strings wrapped tightly around the ring fingers of bilateral hands. patient was held for a total of 7 minutes. patient sustained a small laceration on his right ring finger during the removal of the strings. laceration was cleaned and dressed with a bandage. patient attempted to reap his clothing around his neck. personal clothing was removed and patient was provided with a safety smock
[2023-08-12] MEDS: diazePAM 2 MG TABLET 4 MG PO (02:08)
[2023-08-12] MEDS: Acetaminophen 325 MG TABLET 650 MG PO (02:10)
--- NOTE | 2023-08-12 02:15 | PC.NURSE ---
patient awake. given pizza and fluids. is c/o muscle tension, pain at r shoulder. accepted valium and tylenol.
[2023-08-12 10:30] VITALS: BP 126/71; PULSE 79; RESP 16; TEMP 36.6; O2SAT 97
[2023-08-12 10:31] VITALS: BP 126/71
[2023-08-12] MEDS: cloNIDine HCL 0.1 MG TABLET PO (10:31)
[2023-08-12] MEDS: Benztropine Mesylate 1 MG TABLET PO (10:36)
[2023-08-12] MEDS: diphenhydrAMINE HCL 25 MG CAPSULE 50 MG PO (10:36)
--- NOTE | 2023-08-12 16:33 | P.PNPSI_ITS ---
Subjective Subjective Date of Service: 08/12/23 Reason For Visit: disorganized/psychosis Interim History: sleeping on his bed this morning, was not awakened as sleep was felt to be more therapeutic for pt than interview with MD. per staff, 1:1. court tomorrow has been deferred for JAMAL. labile, expansive. restraint at 1525 yesterday. slept [id number]. got tylenol and valium. c/o right shoulder pain. in total slept about 8 hours. Mental Status Exam Mental Status Exam Narrative: asleep on bed, 1:1 at bedside Diagnostics Vital Signs (24Hr): Vital Signs - 24 hr 08/11/23 20:00 08/12/23 10:30 08/12/23 10:31 Temperature 97.9 F Pulse Rate 79 Respiratory Rate 14 16 Blood Pressure 126/71 126/71 Pulse Oximetry 97 Oxygen Delivery Method Room Air BMI result Body Mass Index 23.6 Labs 08/06/23 12:42 08/06/23 12:42 Medications Medications Current Medications Acetaminophen (Acetaminophen 325 Mg Tablet) 650 mg PO Q6H PRN PRN Reason: Headache/Pain Mild Scale (1-3) Last Admin: 08/12/23 02:10 Dose: 650 mg Al Hydroxide/Mg Hydroxide (Magnesium Hydrox/Alum Hydrox 30 Ml Oral.Susp) 30 ml PO Q6H PRN PRN Reason: Heartburn/Nausea Benztropine Mesylate (Benztropine Mesylate 1 Mg Tablet) 1 mg PO BID [facility] Last Admin: 08/12/23 10:36 Dose: 1 mg Carbamazepine (Carbamazepine 100 Mg Tab.Chew) 200 mg PO BID [facility] Last Admin: 08/12/23 10:29 Dose: Not Given Chlorpromazine HCl (Chlorpromazine Hcl 100 Mg Tablet) 200 mg PO Q4H PRN PRN Reason: anxiety/agitation Last Admin: 08/07/23 16:08 Dose: 200 mg Clonidine HCl (Clonidine Hcl 0.1 Mg Tablet) 0.1 mg PO BID@0800,1999 [facility]; Protocol Last Admin: 08/12/23 10:31 Dose: 0.1 mg Diazepam (Diazepam 2 Mg Tablet) 4 mg PO BEDTIME [facility] Stop: 08/13/23 20:59 Last Admin: 08/12/23 02:08 Dose: 4 mg Diazepam (Diazepam 2 Mg Tablet) 2 mg PO BEDTIME [facility] Stop: 08/15/23 20:59 Diphenhydramine HCl (Diphenhydramine Hcl 25 Mg Capsule) 50 mg PO BID [facility] Last Admin: 08/12/23 10:36 Dose: 50 mg Haloperidol (Haloperidol 5 Mg Tablet) 20 mg PO BID [facility] Last Admin: 08/12/23 10:29 Dose: Not Given [place]ester Carbonate (Hester Carbonate Er 450 Mg Tablet.Er) 900 mg PO BEDTIME [facility] Last Admin: 08/11/23 23:05 Dose: Not Given Magnesium Hydroxide (Milk Of Magnesia 30 Ml Oral.Susp) 30 ml PO DAILY PRN PRN Reason: Constipation Nicotine (Nicotine 21 Mg Patch.Td24) 21 mg TRANSDERMA DAILY PRN PRN Reason: smoking cessation Last Admin: 08/10/23 05:22 Dose: 21 mg Nicotine Polacrilex (Nicotine Polacrilex 2 Mg Gum) 4 mg BUCCAL Q2H PRN PRN Reason: Nicotine Cravings Last Admin: 08/10/23 05:56 Dose: 4 mg Allergies Allergies Allergy/AdvReac Type Severity Reaction Status Date / Time nka Allergy nka Uncoded 07/24/23 16:52 Assessment & Plan Assessment & Plan (1) Schizoaffective disorder, bipolar type: Status: Acute Code(s): F25.0 - Schizoaffective disorder, bipolar type (2) Polysubstance use disorder: Status: Acute Code(s): F19.90 - Other psychoactive substance use, unspecified, uncomplicated Plan 33 yo male, history of schizoaffective disorder, bipolar type, sent from [facility] where he was admitted on a Section 35 on 07/13 for public intoxication while running in the community without clothing. Pt is psychotic upon presentation, signed CV and has been calm but echolalic in speech and behaviors for the most part since admission. Hospital course: 07/25: Increase Olanzapine to 20 mg HS 07/27: No real improvement on consistent changes. DC Prolixin Haldol 10 mg bid-prepare for decanoate trial Add Olanzapine 10 mg a.m. Benztropine 1 mg bid 07/28 Patient talking in more complete and logical sentences however he remains disorganized in both speech and behavior, rude and insulting to numerous staff as they walk by, intrusive and needs constant redirection and needs to remain on one-to-one, not able to tolerate roommate.. Not sleeping very much at night. Intermittent angry outbursts and punching things. This morning patient got so dysregulated, security had to be called, however patient was able to be redirected. Patient agreed to start Depakote, hoping it will help him sleep. 1). Patient has been treated with the following meds, however does not seem to have helped much Haldol 10 mg b.i.d. Zyprexa 10 mg daily Zyprexa 20 mg q.h.s. 2).on 07/28 Will add Depakote ER 750 q.h.s. to address likely rick (patient is not sleeping and in the past was prescribed lithium) -will continue Haldol and Zyprexa regimen for now however will likely need to change 07/29 patient remains with disorganized, intermittently aggressive behaviors; did sleep a little better last night with Depakote Need to change medication regimen as Patient has gotten up to Zyprexa 45 mg daily and Haldol 20 mg daily (when adding PRNs) 1) increase Depakote ER to 1500 mg q.h.s.; patient continues to be disorganized and dysregulated and intermittently threatening; so far tolerating and found helpful (ER is about 80% of IR) 2) start Risperdal 2 mg b.i.d.; will titrate to 3 mg b.i.d. starting tomorrow on 07/30 (intention is to see if Risperdal can work where Haldol and Zyprexa have thus been ineffective) 3) discontinue Zyprexa 10 mg daily 4) continue Zyprexa 20 mg q.h.s. and Haldol 10 mg b.i.d. for now since not sure if these may be partially subduing him and it is unclear if Risperdal will help 5) work to cross taper Risperdal with Zyprexa/Haldol; goal will be to see if Risperdal and Depakote can be effective and efforts made to be on only 1 antipsychotic SW obtained collateral from father -current episode started this May, sounds like rick when patient quit his job, spent 4000 in a week... -at baseline patient is fully functional; history of lots of LSD which seem to trigger psychotic/manic symptoms. Family history on both sides of schizophrenia -patient has been Section 35 2 times in the last 2 years; 4 psychiatric hospitalizations in the past 2 years -patient can not return to his father's or the apartment he was renting 07/31- labs ordered- cbc with leukocytosis, afebrile. CMP renal function intact BUN 9, Cr 0.95, CPK elevated in 800's. LFT elevated especially AST 106, ALT 717. ammonia wnl 40, depakote level 51. no electrolyte abnormalities. suspect elevated CPK related to IM medications and restraints. Elevation in LFT- especially ALT may be related to elevated CPK, medications. will order hep panel, if not trending down, may need GI consult. Less suspicion for NMS- no rigidity/afebrile, mentation improving despite abnormal labs. will hold depakote, especially as LFT normalize or trend back down. 08/01 ALT trending down, CPK also trending back. no rigidity or cogwheel. 08/03 Tolerating [place] thus far Haldol 10 mg IM x1; Benadryl 50 mg IM x 1-pt reports this helps him to stabilize. Requests IM, will trial x 1 Decrease Olanzapine to 5 mg bid If tolerated will consider Risperdal increase CBCD, CMP on 08/04. 08/04 Severe agitation and aggression today. Regime change Haldol 20 mg bid Olanzapine 20 mg bid Tegretol 50 mg bid Valium 10 mg HS Benadryl 50 mg HS Change [place] to ER 900 mg HS Ambien 10 mg HS Discontinue Risperdal Discontinue Chlorpromazine Repeat diagnostics when pt will allow. 08/06/[address] 08/13/23 2pm Refusing most of regime, Olanzapine/Benadryl combination IM this a.m. effective in providing him some mild rest. EKG WNL AST 51 to 68 TSH 0.90 Continue one to one Continue to offer regime Pt transferred to M3 08/06: attempt to streamline medications and taper disinhibiting medications. ambien D/Oumar. valium taper over the next week initiated. pt on both zyprexa 20 BID and haldol 20 BID; will DC zyprexa in favor of single scheduled neuroleptic agent. various PRNs DCed, including for haldol, zyprexa, atarax. will return to thorazine PRN agitation/anxiety despite report of lack of efficacy (clearly none of these other medications have been demonstrating much efficacy); will use relatively high-dose thorazine as needed for agitation, perhaps with IM benzo if sedation is required. it appears what may be missing from present regimen is adequate mood stabilizer. problems with recent VPA trial noted. no lithium level yet as pt has not been taking it consistently in any case. increase tegretol dosing from 50 BID to 200 BID for more aggressive approach to mood stabilization. section 7 filed, hearing pending for 08/12. 08/07: Continue current regimen and plans. Chemical restraint was administered with physical hold for administration 08/08: Continue current regimen and plans 08/09: continue current mgmt. court . 08/10: intermittently dangerous behaviors. punching air, touching people repeatedly, urinating on floor, showing gang signs, ripping up blanket and tying around neck and fingers, throwing things. restrained yesterday and this morning. restrained a second time today, given medication. court . 08/11: court deferred for JAMAL. sleeping this morning, not visible on unit. continue to offer medications. Reason for continued inpatient stay Substantial Risk for: harm to self, harm to others and inability to function Time Spent With Patient Time: Total time managing care of this patient today ____ minutes.
[2023-08-12 20:00] VITALS: BP 118/63; PULSE 83; RESP 16; TEMP 36.5; O2SAT 99
[2023-08-12 20:30] VITALS: BP 118/63
[2023-08-13 07:00] VITALS: BMI 24.9
[2023-08-13 08:00] VITALS: BP 126/74; PULSE 92; TEMP 36.9; O2SAT 98
[2023-08-13] MEDS: diphenhydrAMINE HCL 25 MG CAPSULE 50 MG PO ×3 (11:05→21:11)
[2023-08-13] MEDS: Acetaminophen 325 MG TABLET 650 MG PO (11:19)
[2023-08-13] MEDS: Nicotine 21 MG PATCH.TD24 TRANSDERMA (11:20)
[2023-08-13] MEDS: Nicotine Polacrilex 2 MG GUM 4 MG BUCCAL ×5 (12:04→22:22)
--- NOTE | 2023-08-13 14:09 | HO.PSYCHPN ---
Subjective Subjective Date of Service: 08/13/23 Reason For Visit: disorganized/psychosis Interim History: no change in presentation on unit. per staff, slept unitl 1 pm yesterday. disorganized. refused meds eves. appeared to have slept a fair amount overnight. Mental Status Exam Mental Status Exam Narrative: adequately groomed. not cooperative with interview. decr amount of speech, but echolalia. no appropriate answers to questions. nml loudness, decr latency. thoughts disordered. affect constricted, normo-intense, non-labile. mood not assessed. no SI/SIBI/HI/AVH expressed. Diagnostics Vital Signs (24Hr): Vital Signs - 24 hr 08/12/23 20:00 08/12/23 20:30 08/13/23 08:00 Temperature 97.7 F 98.4 F Pulse Rate 83 92 Respiratory Rate 16 Blood Pressure 118/63 118/63 126/74 Pulse Oximetry 99 98 Oxygen Delivery Method Room Air Room Air BMI result Body Mass Index 23.6 Labs 08/06/23 12:42 08/06/23 12:42 Medications Medications Current Medications Acetaminophen (Acetaminophen 325 Mg Tablet) 650 mg PO Q6H PRN PRN Reason: Headache/Pain Mild Scale (1-3) Last Admin: 08/13/23 11:19 Dose: 650 mg Al Hydroxide/Mg Hydroxide (Magnesium Hydrox/Alum Hydrox 30 Ml Oral.Susp) 30 ml PO Q6H PRN PRN Reason: Heartburn/Nausea Benztropine Mesylate (Benztropine Mesylate 1 Mg Tablet) 1 mg PO BID [facility] Last Admin: 08/13/23 11:23 Dose: Not Given Carbamazepine (Carbamazepine 100 Mg Tab.Chew) 200 mg PO BID [facility] Last Admin: 08/13/23 11:23 Dose: Not Given Chlorpromazine HCl (Chlorpromazine Hcl 100 Mg Tablet) 200 mg PO Q4H PRN PRN Reason: anxiety/agitation Last Admin: 08/07/23 16:08 Dose: 200 mg Clonidine HCl (Clonidine Hcl 0.1 Mg Tablet) 0.1 mg PO BID@0800,1999 [facility]; Protocol Last Admin: 08/13/23 11:23 Dose: Not Given Diazepam (Diazepam 2 Mg Tablet) 4 mg PO BEDTIME [facility] Stop: 08/13/23 20:59 Last Admin: 06/19/24 20:30 Dose: Not Given Diazepam (Diazepam 2 Mg Tablet) 2 mg PO BEDTIME [facility] Stop: 08/15/23 20:59 Diphenhydramine HCl (Diphenhydramine Hcl 25 Mg Capsule) 50 mg PO BID [facility] Last Admin: 08/13/23 11:05 Dose: 50 mg Haloperidol (Haloperidol 5 Mg Tablet) 20 mg PO BID [facility] Last Admin: 08/13/23 11:23 Dose: Not Given [place] Carbonate ([place] Carbonate Er 450 Mg Tablet.Er) 900 mg PO BEDTIME [facility] Last Admin: 08/12/23 20:31 Dose: Not Given Magnesium Hydroxide (Milk Of Magnesia 30 Ml Oral.Susp) 30 ml PO DAILY PRN PRN Reason: Constipation Nicotine (Nicotine 21 Mg Patch.Td24) 21 mg TRANSDERMA DAILY PRN PRN Reason: smoking cessation Last Admin: 08/13/23 11:20 Dose: 21 mg Nicotine Polacrilex (Nicotine Polacrilex 2 Mg Gum) 4 mg BUCCAL Q2H PRN PRN Reason: Nicotine Cravings Last Admin: 08/13/23 12:04 Dose: 4 mg Allergies Allergies Allergy/AdvReac Type Severity Reaction Status Date / Time nka Allergy nka Uncoded 07/24/23 16:52 Assessment & Plan Assessment & Plan (1) Schizoaffective disorder, bipolar type: Status: Acute Code(s): F25.0 - Schizoaffective disorder, bipolar type (2) Polysubstance use disorder: Status: Acute Code(s): F19.90 - Other psychoactive substance use, unspecified, uncomplicated Plan 33 yo male, history of schizoaffective disorder, bipolar type, sent from [facility] where he was admitted on a Section 35 on 07/13 for public intoxication while running in the community without clothing. Pt is psychotic upon presentation, signed CV and has been calm but echolalic in speech and behaviors for the most part since admission. Hospital course: 07/25: Increase Olanzapine to 20 mg HS 07/27: No real improvement on consistent changes. DC Prolixin Haldol 10 mg bid-prepare for decanoate trial Add Olanzapine 10 mg a.m. Benztropine 1 mg bid 07/28 Patient talking in more complete and logical sentences however he remains disorganized in both speech and behavior, rude and insulting to numerous staff as they walk by, intrusive and needs constant redirection and needs to remain on one-to-one, not able to tolerate roommate.. Not sleeping very much at night. Intermittent angry outbursts and punching things. This morning patient got so dysregulated, security had to be called, however patient was able to be redirected. Patient agreed to start Depakote, hoping it will help him sleep. 1). Patient has been treated with the following meds, however does not seem to have helped much Haldol 10 mg b.i.d. Zyprexa 10 mg daily Zyprexa 20 mg q.h.s. 2).on 07/28 Will add Depakote ER 750 q.h.s. to address likely rick (patient is not sleeping and in the past was prescribed lithium) -will continue Haldol and Zyprexa regimen for now however will likely need to change 07/29 patient remains with disorganized, intermittently aggressive behaviors; did sleep a little better last night with Depakote Need to change medication regimen as Patient has gotten up to Zyprexa 45 mg daily and Haldol 20 mg daily (when adding PRNs) 1) increase Depakote ER to 1500 mg q.h.s.; patient continues to be disorganized and dysregulated and intermittently threatening; so far tolerating and found helpful (ER is about 80% of IR) 2) start Risperdal 2 mg b.i.d.; will titrate to 3 mg b.i.d. starting tomorrow on 07/30 (intention is to see if Risperdal can work where Haldol and Zyprexa have thus been ineffective) 3) discontinue Zyprexa 10 mg daily 4) continue Zyprexa 20 mg q.h.s. and Haldol 10 mg b.i.d. for now since not sure if these may be partially subduing him and it is unclear if Risperdal will help 5) work to cross taper Risperdal with Zyprexa/Haldol; goal will be to see if Risperdal and Depakote can be effective and efforts made to be on only 1 antipsychotic SW obtained collateral from father -current episode started this May, sounds like rick when patient quit his job, spent 4000 in a week... -at baseline patient is fully functional; history of lots of LSD which seem to trigger psychotic/manic symptoms. Family history on both sides of schizophrenia -patient has been Section 35 2 times in the last 2 years; 4 psychiatric hospitalizations in the past 2 years -patient can not return to his father's or the apartment he was renting 07/31- labs ordered- cbc with leukocytosis, afebrile. CMP renal function intact BUN 9, Cr 0.95, CPK elevated in 800's. LFT elevated especially AST 106, ALT 717. ammonia wnl 40, depakote level 51. no electrolyte abnormalities. suspect elevated CPK related to IM medications and restraints. Elevation in LFT- especially ALT may be related to elevated CPK, medications. will order hep panel, if not trending down, may need GI consult. Less suspicion for NMS- no rigidity/afebrile, mentation improving despite abnormal labs. will hold depakote, especially as LFT normalize or trend back down. 08/01 ALT trending down, CPK also trending back. no rigidity or cogwheel. 08/03 Tolerating [place] thus far Haldol 10 mg IM x1; Benadryl 50 mg IM x 1-pt reports this helps him to stabilize. Requests IM, will trial x 1 Decrease Olanzapine to 5 mg bid If tolerated will consider Risperdal increase CBCD, CMP on 08/04. 08/04 Severe agitation and aggression today. Regime change Haldol 20 mg bid Olanzapine 20 mg bid Tegretol 50 mg bid Valium 10 mg HS Benadryl 50 mg HS Change [place] to ER 900 mg HS Ambien 10 mg HS Discontinue Risperdal Discontinue Chlorpromazine Repeat diagnostics when pt will allow. 08/06/[address] 08/13/23 2pm Refusing most of regime, Olanzapine/Benadryl combination IM this a.m. effective in providing him some mild rest. EKG WNL AST 51 to 68 TSH 0.90 Continue one to one Continue to offer regime Pt transferred to M3 08/06: attempt to streamline medications and taper disinhibiting medications. ambien D/Oumar. valium taper over the next week initiated. pt on both zyprexa 20 BID and haldol 20 BID; will DC zyprexa in favor of single scheduled neuroleptic agent. various PRNs DCed, including for haldol, zyprexa, atarax. will return to thorazine PRN agitation/anxiety despite report of lack of efficacy (clearly none of these other medications have been demonstrating much efficacy); will use relatively high-dose thorazine as needed for agitation, perhaps with IM benzo if sedation is required. it appears what may be missing from present regimen is adequate mood stabilizer. problems with recent VPA trial noted. no lithium level yet as pt has not been taking it consistently in any case. increase tegretol dosing from 50 BID to 200 BID for more aggressive approach to mood stabilization. section 7 filed, hearing pending for 08/12. 08/07: Continue current regimen and plans. Chemical restraint was administered with physical hold for administration 08/08: Continue current regimen and plans 08/09: continue current mgmt. court . 08/10: intermittently dangerous behaviors. punching air, touching people repeatedly, urinating on floor, showing gang signs, ripping up blanket and tying around neck and fingers, throwing things. restrained yesterday and this morning. restrained a second time today, given medication. court . 08/11: court deferred for JAMAL. sleeping this morning, not visible on unit. continue to offer medications. 08/12: refusing most meds. no change in presentation. continue current mgmt. Reason for continued inpatient stay Substantial Risk for: harm to self, harm to others and inability to function Time Spent With Patient Time: Total time managing care of this patient today ____ minutes.
[2023-08-13] MEDS: Haloperidol Lactate 5 MG/ML VIAL 10 MG IM (19:16)
[2023-08-13 19:55] VITALS: BP 134/74; PULSE 80; RESP 16; TEMP 37.1; O2SAT 99
[2023-08-14 12:55] VITALS: BP 130/72; PULSE 82; RESP 18; TEMP 36.7; O2SAT 98
[2023-08-14] MEDS: Nicotine 21 MG PATCH.TD24 TRANSDERMA (12:58)
[2023-08-14] MEDS: carBAMazepine 100 MG TAB.CHEW 200 MG PO ×2 (12:58→19:56)
[2023-08-14] MEDS: diphenhydrAMINE HCL 25 MG CAPSULE 50 MG PO ×2 (12:59→19:57)
[2023-08-14] MEDS: Benztropine Mesylate 1 MG TABLET PO ×2 (12:59→19:56)
[2023-08-14 13:00] VITALS: BP 130/72
[2023-08-14] MEDS: HaloperidoL 5 MG TABLET 10 MG PO ×2 (13:00→19:57)
[2023-08-14] MEDS: cloNIDine HCL 0.1 MG TABLET PO ×2 (13:00→19:57)
[2023-08-14] MEDS: Nicotine Polacrilex 2 MG GUM 4 MG BUCCAL (13:24)
--- NOTE | 2023-08-14 13:42 | P.PNPSI_ITS ---
Subjective Subjective Date of Service: 08/14/23 Reason For Visit: disorganized/psychosis Interim History: sleeping in bed in ante room late morning. pt was not roused as sleep was felt to be more therapeutic for this patient at this time than any interview with MD might hope to be. per staff, +RIS. taking benadryl and nicotine. refusing all other meds. 1850 asked for haldol 10 mg IM, which he received. Mental Status Exam Mental Status Exam Narrative: asleep on bed, 1:1 at bedside Diagnostics Vital Signs (24Hr): Vital Signs - 24 hr 08/13/23 19:55 08/14/23 12:55 08/14/23 13:00 Temperature 98.8 F 98.1 F Pulse Rate 80 82 Respiratory Rate 16 18 Blood Pressure 134/74 130/72 130/72 Pulse Oximetry 99 98 Oxygen Delivery Method Room Air Room Air BMI result Body Mass Index 24.9 Labs 08/06/23 12:42 08/06/23 12:42 Medications Medications Current Medications Acetaminophen (Acetaminophen 325 Mg Tablet) 650 mg PO Q6H PRN PRN Reason: Headache/Pain Mild Scale (1-3) Last Admin: 08/13/23 11:19 Dose: 650 mg Al Hydroxide/Mg Hydroxide (Magnesium Hydrox/Alum Hydrox 30 Ml Oral.Susp) 30 ml PO Q6H PRN PRN Reason: Heartburn/Nausea Benztropine Mesylate (Benztropine Mesylate 1 Mg Tablet) 1 mg PO BID [facility] Last Admin: 08/14/23 12:59 Dose: 1 mg Carbamazepine (Carbamazepine 100 Mg Tab.Chew) 200 mg PO BID [facility] Last Admin: 08/14/23 12:58 Dose: 200 mg Chlorpromazine HCl (Chlorpromazine Hcl 100 Mg Tablet) 200 mg PO Q4H PRN PRN Reason: anxiety/agitation Last Admin: 08/07/23 16:08 Dose: 200 mg Clonidine HCl (Clonidine Hcl 0.1 Mg Tablet) 0.1 mg PO BID@0800,1999 [facility]; Protocol Last Admin: 08/14/23 13:00 Dose: 0.1 mg Diazepam (Diazepam 2 Mg Tablet) 2 mg PO BEDTIME [facility] Stop: 08/15/23 20:59 Last Admin: 08/13/23 21:13 Dose: Not Given Diphenhydramine HCl (Diphenhydramine Hcl 25 Mg Capsule) 50 mg PO BID [facility] Last Admin: 08/14/23 12:59 Dose: 50 mg Diphenhydramine HCl (Diphenhydramine Hcl 25 Mg Capsule) 50 mg PO Q6H PRN PRN Reason: anxiety Last Admin: 08/13/23 16:33 Dose: 50 mg Haloperidol (Haloperidol 5 Mg Tablet) 10 mg PO BID [facility] Last Admin: 08/14/23 13:00 Dose: 10 mg [place] Carbonate ([place] Carbonate Er 450 Mg Tablet.Er) 900 mg PO BEDTIME [facility] Last Admin: 08/13/23 21:13 Dose: Not Given Magnesium Hydroxide (Milk Of Magnesia 30 Ml Oral.Susp) 30 ml PO DAILY PRN PRN Reason: Constipation Nicotine (Nicotine 21 Mg Patch.Td24) 21 mg TRANSDERMA DAILY PRN PRN Reason: smoking cessation Last Admin: 08/14/23 12:58 Dose: 21 mg Nicotine Polacrilex (Nicotine Polacrilex 2 Mg Gum) 4 mg BUCCAL Q2H PRN PRN Reason: Nicotine Cravings Last Admin: 08/14/23 13:24 Dose: 4 mg Allergies Allergies Allergy/AdvReac Type Severity Reaction Status Date / Time nka Allergy nka Uncoded 07/24/23 16:52 Assessment & Plan Assessment & Plan (1) Schizoaffective disorder, bipolar type: Status: Acute Code(s): F25.0 - Schizoaffective disorder, bipolar type (2) Polysubstance use disorder: Status: Acute Code(s): F19.90 - Other psychoactive substance use, unspecified, uncomplicated Plan 33 yo male, history of schizoaffective disorder, bipolar type, sent from [facility] where he was admitted on a Section 35 on 07/13 for public intoxication while running in the community without clothing. Pt is psychotic upon presentation, signed CV and has been calm but echolalic in speech and behaviors for the most part since admission. Hospital course: 07/25: Increase Olanzapine to 20 mg HS 07/27: No real improvement on consistent changes. DC Prolixin Haldol 10 mg bid-prepare for decanoate trial Add Olanzapine 10 mg a.m. Benztropine 1 mg bid 07/28 Patient talking in more complete and logical sentences however he remains disorganized in both speech and behavior, rude and insulting to numerous staff as they walk by, intrusive and needs constant redirection and needs to remain on one-to-one, not able to tolerate roommate.. Not sleeping very much at night. Intermittent angry outbursts and punching things. This morning patient got so dysregulated, security had to be called, however patient was able to be redirected. Patient agreed to start Depakote, hoping it will help him sleep. 1). Patient has been treated with the following meds, however does not seem to have helped much Haldol 10 mg b.i.d. Zyprexa 10 mg daily Zyprexa 20 mg q.h.s. 2).on 07/28 Will add Depakote ER 750 q.h.s. to address likely rick (patient is not sleeping and in the past was prescribed lithium) -will continue Haldol and Zyprexa regimen for now however will likely need to change 07/29 patient remains with disorganized, intermittently aggressive behaviors; did sleep a little better last night with Depakote Need to change medication regimen as Patient has gotten up to Zyprexa 45 mg daily and Haldol 20 mg daily (when adding PRNs) 1) increase Depakote ER to 1500 mg q.h.s.; patient continues to be disorganized and dysregulated and intermittently threatening; so far tolerating and found helpful (ER is about 80% of IR) 2) start Risperdal 2 mg b.i.d.; will titrate to 3 mg b.i.d. starting tomorrow on 07/30 (intention is to see if Risperdal can work where Haldol and Zyprexa have thus been ineffective) 3) discontinue Zyprexa 10 mg daily 4) continue Zyprexa 20 mg q.h.s. and Haldol 10 mg b.i.d. for now since not sure if these may be partially subduing him and it is unclear if Risperdal will help 5) work to cross taper Risperdal with Zyprexa/Haldol; goal will be to see if Risperdal and Depakote can be effective and efforts made to be on only 1 antipsychotic SW obtained collateral from father -current episode started this May, sounds like rick when patient quit his job, spent 4000 in a week... -at baseline patient is fully functional; history of lots of LSD which seem to trigger psychotic/manic symptoms. Family history on both sides of schizophrenia -patient has been Section 35 2 times in the last 2 years; 4 psychiatric hospitalizations in the past 2 years -patient can not return to his father's or the apartment he was renting 07/31- labs ordered- cbc with leukocytosis, afebrile. CMP renal function intact BUN 9, Cr 0.95, CPK elevated in 800's. LFT elevated especially AST 106, ALT 717. ammonia wnl 40, depakote level 51. no electrolyte abnormalities. suspect elevated CPK related to IM medications and restraints. Elevation in LFT- especially ALT may be related to elevated CPK, medications. will order hep panel, if not trending down, may need GI consult. Less suspicion for NMS- no rigidity/afebrile, mentation improving despite abnormal labs. will hold depakote, especially as LFT normalize or trend back down. 08/01 ALT trending down, CPK also trending back. no rigidity or cogwheel. 08/03 Tolerating [place] thus far Haldol 10 mg IM x1; Benadryl 50 mg IM x 1-pt reports this helps him to stabilize. Requests IM, will trial x 1 Decrease Olanzapine to 5 mg bid If tolerated will consider Risperdal increase CBCD, CMP on 08/04. 08/04 Severe agitation and aggression today. Regime change Haldol 20 mg bid Olanzapine 20 mg bid Tegretol 50 mg bid Valium 10 mg HS Benadryl 50 mg HS Change [place] to ER 900 mg HS Ambien 10 mg HS Discontinue Risperdal Discontinue Chlorpromazine Repeat diagnostics when pt will allow. 08/06/[address] 08/13/23 2pm Refusing most of regime, Olanzapine/Benadryl combination IM this a.m. effective in providing him some mild rest. EKG WNL AST 51 to 68 TSH 0.90 Continue one to one Continue to offer regime Pt transferred to M3 08/06: attempt to streamline medications and taper disinhibiting medications. ambien D/Oumar. valium taper over the next week initiated. pt on both zyprexa 20 BID and haldol 20 BID; will DC zyprexa in favor of single scheduled neuroleptic agent. various PRNs DCed, including for haldol, zyprexa, atarax. will return to thorazine PRN agitation/anxiety despite report of lack of efficacy (clearly none of these other medications have been demonstrating much efficacy); will use relatively high-dose thorazine as needed for agitation, perhaps with IM benzo if sedation is required. it appears what may be missing from present regimen is adequate mood stabilizer. problems with recent VPA trial noted. no lithium level yet as pt has not been taking it consistently in any case. increase tegretol dosing from 50 BID to 200 BID for more aggressive approach to mood stabilization. section 7 filed, hearing pending for 08/12. 08/07: Continue current regimen and plans. Chemical restraint was administered with physical hold for administration 08/08: Continue current regimen and plans 08/09: continue current mgmt. court . 08/10: intermittently dangerous behaviors. punching air, touching people repeatedly, urinating on floor, showing gang signs, ripping up blanket and tying around neck and fingers, throwing things. restrained yesterday and this morning. restrained a second time today, given medication. court . 08/11: court deferred for JAMAL. sleeping this morning, not visible on unit. continue to offer medications. 08/12: refusing most meds. no change in presentation. continue current mgmt. 08/13: no change in presentation. continue to offer meds. JAMAL today. court thursday. Reason for continued inpatient stay Substantial Risk for: harm to self, harm to others and inability to function Time Spent With Patient Time: Total time managing care of this patient today ____ minutes.
[2023-08-14] MEDS: chlorproMAZINE HCl 100 MG TABLET 200 MG PO (15:12)
[2023-08-14 19:50] VITALS: BP 115/55; PULSE 92; RESP 16; TEMP 36.8; O2SAT 92
[2023-08-14] MEDS: diazePAM 2 MG TABLET PO (19:56)
[2023-08-14] MEDS: Lithium Carbonate ER 450 MG TABLET.ER 900 MG PO (19:56)
[2023-08-15 11:10] VITALS: BP 130/73; PULSE 91; RESP 18; TEMP 36.5; O2SAT 100
[2023-08-15] MEDS: Nicotine 21 MG PATCH.TD24 TRANSDERMA (11:12)
[2023-08-15] MEDS: HaloperidoL 5 MG TABLET 10 MG PO ×2 (11:13→21:39)
[2023-08-15] MEDS: carBAMazepine 100 MG TAB.CHEW 200 MG PO ×2 (11:13→21:39)
[2023-08-15] MEDS: diphenhydrAMINE HCL 25 MG CAPSULE 50 MG PO ×2 (11:13→21:38)
[2023-08-15 11:14] VITALS: BP 130/73
[2023-08-15] MEDS: cloNIDine HCL 0.1 MG TABLET PO ×2 (11:14→21:37)
[2023-08-15] MEDS: Benztropine Mesylate 1 MG TABLET PO ×2 (11:14→21:38)
--- NOTE | 2023-08-15 12:00 | HO.PSYCHPN ---
Subjective Subjective Date of Service: 08/15/23 Reason For Visit: disorganized/psychosis Subjective Notes: Hu[place]h Warning and Section 12B Medical Problems Affecting Mental Status: No Interim History: Pt awake and engaged with provider taking some of medications- asking for IM ativan- told him he can have po ativan- Plans to keep taking medications so he won't be commitable by date of court- Gave patient huynh warning- Somewhat inapp personal space and jovial with provider Less labile - Nursign report yesterday he slept and was up to talk to manager culinary and for JAMAL- took meds some echolalia- Medication Compliance: Intermittent Side effects from medications: No Attending Groups: No Review of Systems Acute medical concerns: No Medical Review of Systems: unchanged Mental Status Exam Mental Status Exam Patient Appearance: Disheveled and Unkempt Patient Orientation: Person, Place and Situation Level of Consciousness: Awake Patient Behavior: Talkative, Invasion - Personal Space and Distractible Mood Description: Happy Affect Description: Labile Patient Cognition Impaired: No Ability to Follow Directions: Fair Speech Pattern: Rambling and Poor Articulation Thought Process: Distracted Thought Content: positive for Disorganized Depressive Symptoms: Difficulty Concentrating Judgement: Fair (knows enough to take medications to try and avoid commitment) Diagnostics Vital Signs (24Hr): Vital Signs - 24 hr 08/14/23 12:55 08/14/23 13:00 08/14/23 19:50 Temperature 98.1 F 98.2 F Pulse Rate 82 92 Respiratory Rate 18 16 Blood Pressure 130/72 130/72 115/55 L Pulse Oximetry 98 92 Oxygen Delivery Method Room Air Room Air 08/15/23 11:10 08/15/23 11:14 Temperature 97.7 F Pulse Rate 91 Respiratory Rate 18 Blood Pressure 130/73 130/73 Pulse Oximetry 100 Oxygen Delivery Method Room Air BMI result Body Mass Index 24.9 Labs 08/06/23 12:42 08/06/23 12:42 Medications Medications Current Medications Acetaminophen (Acetaminophen 325 Mg Tablet) 650 mg PO Q6H PRN PRN Reason: Headache/Pain Mild Scale (1-3) Last Admin: 08/13/23 11:19 Dose: 650 mg Al Hydroxide/Mg Hydroxide (Magnesium Hydrox/Alum Hydrox 30 Ml Oral.Susp) 30 ml PO Q6H PRN PRN Reason: Heartburn/Nausea Benztropine Mesylate (Benztropine Mesylate 1 Mg Tablet) 1 mg PO BID [facility] Last Admin: 08/15/23 11:14 Dose: 1 mg Carbamazepine (Carbamazepine 100 Mg Tab.Chew) 200 mg PO BID [facility] Last Admin: 08/15/23 11:13 Dose: 200 mg Chlorpromazine HCl (Chlorpromazine Hcl 100 Mg Tablet) 200 mg PO Q4H PRN PRN Reason: anxiety/agitation Last Admin: 08/14/23 15:12 Dose: 200 mg Clonidine HCl (Clonidine Hcl 0.1 Mg Tablet) 0.1 mg PO BID@0800,2000 [facility]; Protocol Last Admin: 08/15/23 11:14 Dose: 0.1 mg Diazepam (Diazepam 2 Mg Tablet) 2 mg PO BEDTIME [facility] Stop: 08/15/23 20:59 Last Admin: 08/14/23 19:56 Dose: 2 mg Diphenhydramine HCl (Diphenhydramine Hcl 25 Mg Capsule) 50 mg PO BID [facility] Last Admin: 08/15/23 11:13 Dose: 50 mg Diphenhydramine HCl (Diphenhydramine Hcl 25 Mg Capsule) 50 mg PO Q6H PRN PRN Reason: anxiety Last Admin: 08/13/23 16:33 Dose: 50 mg Haloperidol (Haloperidol 5 Mg Tablet) 10 mg PO BID [facility] Last Admin: 08/15/23 11:13 Dose: 10 mg [place] Carbonate ([place] Carbonate Er 450 Mg Tablet.Er) 900 mg PO BEDTIME [facility] Last Admin: 08/14/23 19:56 Dose: 900 mg Magnesium Hydroxide (Milk Of Magnesia 30 Ml Oral.Susp) 30 ml PO DAILY PRN PRN Reason: Constipation Nicotine (Nicotine 21 Mg Patch.Td24) 21 mg TRANSDERMA DAILY PRN PRN Reason: smoking cessation Last Admin: 08/15/23 11:12 Dose: 21 mg Nicotine Polacrilex (Nicotine Polacrilex 2 Mg Gum) 4 mg BUCCAL Q2H PRN PRN Reason: Nicotine Cravings Last Admin: 08/14/23 13:24 Dose: 4 mg Allergies Allergies Allergy/AdvReac Type Severity Reaction Status Date / Time nka Allergy nka Uncoded 07/24/23 16:52 Assessment & Plan Assessment & Plan (1) Schizoaffective disorder, bipolar type: Status: Acute Code(s): F25.0 - Schizoaffective disorder, bipolar type (2) Polysubstance use disorder: Status: Acute Code(s): F19.90 - Other psychoactive substance use, unspecified, uncomplicated Plan 33 yo male, history of schizoaffective disorder, bipolar type, sent from [facility] where he was admitted on a Section 35 on 07/13 for public intoxication while running in the community without clothing. Pt is psychotic upon presentation, signed CV and has been calm but echolalic in speech and behaviors for the most part since admission. Hospital course: 07/25: Increase Olanzapine to 20 mg HS 07/27: No real improvement on consistent changes. DC Prolixin Haldol 10 mg bid-prepare for decanoate trial Add Olanzapine 10 mg a.m. Benztropine 1 mg bid 07/28 Patient talking in more complete and logical sentences however he remains disorganized in both speech and behavior, rude and insulting to numerous staff as they walk by, intrusive and needs constant redirection and needs to remain on one-to-one, not able to tolerate roommate.. Not sleeping very much at night. Intermittent angry outbursts and punching things. This morning patient got so dysregulated, security had to be called, however patient was able to be redirected. Patient agreed to start Depakote, hoping it will help him sleep. 1). Patient has been treated with the following meds, however does not seem to have helped much Haldol 10 mg b.i.d. Zyprexa 10 mg daily Zyprexa 20 mg q.h.s. 2).on 07/28 Will add Depakote ER 750 q.h.s. to address likely rick (patient is not sleeping and in the past was prescribed lithium) -will continue Haldol and Zyprexa regimen for now however will likely need to change 07/29 patient remains with disorganized, intermittently aggressive behaviors; did sleep a little better last night with Depakote Need to change medication regimen as Patient has gotten up to Zyprexa 45 mg daily and Haldol 20 mg daily (when adding PRNs) 1) increase Depakote ER to 1500 mg q.h.s.; patient continues to be disorganized and dysregulated and intermittently threatening; so far tolerating and found helpful (ER is about 80% of IR) 2) start Risperdal 2 mg b.i.d.; will titrate to 3 mg b.i.d. starting tomorrow on 07/30 (intention is to see if Risperdal can work where Haldol and Zyprexa have thus been ineffective) 3) discontinue Zyprexa 10 mg daily 4) continue Zyprexa 20 mg q.h.s. and Haldol 10 mg b.i.d. for now since not sure if these may be partially subduing him and it is unclear if Risperdal will help 5) work to cross taper Risperdal with Zyprexa/Haldol; goal will be to see if Risperdal and Depakote can be effective and efforts made to be on only 1 antipsychotic SW obtained collateral from father -current episode started this May, sounds like rick when patient quit his job, spent 4000 in a week... -at baseline patient is fully functional; history of lots of LSD which seem to trigger psychotic/manic symptoms. Family history on both sides of schizophrenia -patient has been Section 35 2 times in the last 2 years; 4 psychiatric hospitalizations in the past 2 years -patient can not return to his father's or the apartment he was renting 07/31- labs ordered- cbc with leukocytosis, afebrile. CMP renal function intact BUN 9, Cr 0.95, CPK elevated in 800's. LFT elevated especially AST 106, ALT 717. ammonia wnl 40, depakote level 51. no electrolyte abnormalities. suspect elevated CPK related to IM medications and restraints. Elevation in LFT- especially ALT may be related to elevated CPK, medications. will order hep panel, if not trending down, may need GI consult. Less suspicion for NMS- no rigidity/afebrile, mentation improving despite abnormal labs. will hold depakote, especially as LFT normalize or trend back down. 08/01 ALT trending down, CPK also trending back. no rigidity or cogwheel. 08/03 Tolerating [place] thus far Haldol 10 mg IM x1; Benadryl 50 mg IM x 1-pt reports this helps him to stabilize. Requests IM, will trial x 1 Decrease Olanzapine to 5 mg bid If tolerated will consider Risperdal increase CBCD, CMP on 08/04. 08/04 Severe agitation and aggression today. Regime change Haldol 20 mg bid Olanzapine 20 mg bid Tegretol 50 mg bid Valium 10 mg HS Benadryl 50 mg HS Change [place] to ER 900 mg HS Ambien 10 mg HS Discontinue Risperdal Discontinue Chlorpromazine Repeat diagnostics when pt will allow. 08/06/[address] 08/13/23 2pm Refusing most of regime, Olanzapine/Benadryl combination IM this a.m. effective in providing him some mild rest. EKG WNL AST 51 to 68 TSH 0.90 Continue one to one Continue to offer regime Pt transferred to M3 08/06: attempt to streamline medications and taper disinhibiting medications. ambien D/Oumar. valium taper over the next week initiated. pt on both zyprexa 20 BID and haldol 20 BID; will DC zyprexa in favor of single scheduled neuroleptic agent. various PRNs DCed, including for haldol, zyprexa, atarax. will return to thorazine PRN agitation/anxiety despite report of lack of efficacy (clearly none of these other medications have been demonstrating much efficacy); will use relatively high-dose thorazine as needed for agitation, perhaps with IM benzo if sedation is required. it appears what may be missing from present regimen is adequate mood stabilizer. problems with recent VPA trial noted. no lithium level yet as pt has not been taking it consistently in any case. increase tegretol dosing from 50 BID to 200 BID for more aggressive approach to mood stabilization. section 7 filed, hearing pending for 08/12. 08/07: Continue current regimen and plans. Chemical restraint was administered with physical hold for administration 08/08: Continue current regimen and plans 08/09: continue current mgmt. court . 08/10: intermittently dangerous behaviors. punching air, touching people repeatedly, urinating on floor, showing gang signs, ripping up blanket and tying around neck and fingers, throwing things. restrained yesterday and this morning. restrained a second time today, given medication. court . 08/11: court deferred for JAMAL. sleeping this morning, not visible on unit. continue to offer medications. 08/12: refusing most meds. no change in presentation. continue current mgmt. 08/13: no change in presentation. continue to offer meds. JAMAL today. court thursday. 08/15/23- may be mildly better taking some meds- requesting IMs , given po ativan Patient educated on: medication risk/benefits and other Informed Consent: understands Reason for continued inpatient stay Substantial Risk for: inability to function and rapid decompensation Time Spent With Patient Time: Total time managing care of this patient today ____ minutes.
[2023-08-15] MEDS: LORazepam 1 MG TABLET PO (16:03)
[2023-08-15 21:35] VITALS: BP 131/60; PULSE 77; RESP 18; TEMP 36.9; O2SAT 99
[2023-08-15 21:37] VITALS: BP 131/60
[2023-08-15] MEDS: Lithium Carbonate ER 450 MG TABLET.ER 900 MG PO (21:39)
[2023-08-16] MEDS: chlorproMAZINE HCl 100 MG TABLET 200 MG PO (04:51)
[2023-08-16 11:36] VITALS: BP 114/62; PULSE 68; RESP 18; TEMP 36.7; O2SAT 97
[2023-08-16] MEDS: carBAMazepine 100 MG TAB.CHEW 200 MG PO ×2 (11:42→20:50)
[2023-08-16] MEDS: diphenhydrAMINE HCL 25 MG CAPSULE 50 MG PO ×2 (11:42→20:49)
[2023-08-16 11:43] VITALS: BP 114/62
[2023-08-16] MEDS: HaloperidoL 5 MG TABLET 10 MG PO ×2 (11:43→20:50)
[2023-08-16] MEDS: Benztropine Mesylate 1 MG TABLET PO ×2 (11:43→20:50)
[2023-08-16] MEDS: cloNIDine HCL 0.1 MG TABLET PO ×2 (11:43→20:50)
--- NOTE | 2023-08-16 12:08 | P.PNPSI_ITS ---
Subjective Subjective Date of Service: 08/16/23 Reason For Visit: disorganized/psychosis Subjective Notes: Section 7 Interim History: Pt continues to improve as he has taken his antipsychotic and even requested prns- he is moving to 5 min checks for shift to see how he does- He sleeps intermittently in day after meds and slept last pm- He denies current si/hi/psychosis and agrees that his thoughts are coming clearer. Medication Compliance: Yes Side effects from medications: Yes (? some fatigue) Attending Groups: No Review of Systems Acute medical concerns: No Medical Review of Systems: unchanged Mental Status Exam Mental Status Exam Narrative: did shower but doesn't have clean shirt to change into Patient Appearance: Unkempt Patient Orientation: Person, Place, Time and Situation Level of Consciousness: Drowsy (but able to roused) Patient Behavior: Passive and Fatigued Mood Description: Calm Patient Cognition Impaired: No Ability to Follow Directions: Fair Speech Pattern: Mumbled Hallucinations: None (denying now) Thought Process: Distracted Thought Content: positive for Disorganized (but coming more clearly ) Depressive Symptoms: Difficulty Concentrating Judgement: Fair (started taking meds prior to court to avoid commitment) Diagnostics Vital Signs (24Hr): Vital Signs - 24 hr 08/15/23 21:35 08/15/23 21:37 08/16/23 11:36 Temperature 98.5 F 98.0 F Pulse Rate 77 68 Respiratory Rate 18 18 Blood Pressure 131/60 131/60 114/62 Pulse Oximetry 99 97 Oxygen Delivery Method Room Air Room Air 08/16/23 11:43 Temperature Pulse Rate Respiratory Rate Blood Pressure 114/62 Pulse Oximetry Oxygen Delivery Method BMI result Body Mass Index 24.9 Labs 08/06/23 12:42 08/06/23 12:42 Labs: we should order tegretol lvl now that taking meds! Medications Medications Current Medications Acetaminophen (Acetaminophen 325 Mg Tablet) 650 mg PO Q6H PRN PRN Reason: Headache/Pain Mild Scale (1-3) Last Admin: 08/13/23 11:19 Dose: 650 mg Al Hydroxide/Mg Hydroxide (Magnesium Hydrox/Alum Hydrox 30 Ml Oral.Susp) 30 ml PO Q6H PRN PRN Reason: Heartburn/Nausea Benztropine Mesylate (Benztropine Mesylate 1 Mg Tablet) 1 mg PO BID [facility] Last Admin: 08/16/23 11:43 Dose: 1 mg Carbamazepine (Carbamazepine 100 Mg Tab.Chew) 200 mg PO BID [facility] Last Admin: 08/16/23 11:42 Dose: 200 mg Chlorpromazine HCl (Chlorpromazine Hcl 100 Mg Tablet) 200 mg PO Q4H PRN PRN Reason: anxiety/agitation Last Admin: 08/16/23 04:51 Dose: 200 mg Clonidine HCl (Clonidine Hcl 0.1 Mg Tablet) 0.1 mg PO BID@0800,2000 [facility]; Protocol Last Admin: 08/16/23 11:43 Dose: 0.1 mg Diphenhydramine HCl (Diphenhydramine Hcl 25 Mg Capsule) 50 mg PO BID [facility] Last Admin: 08/16/23 11:42 Dose: 50 mg Diphenhydramine HCl (Diphenhydramine Hcl 25 Mg Capsule) 50 mg PO Q6H PRN PRN Reason: anxiety Last Admin: 08/13/23 16:33 Dose: 50 mg Haloperidol (Haloperidol 5 Mg Tablet) 10 mg PO BID [facility] Last Admin: 08/16/23 11:43 Dose: 10 mg [place] Carbonate ([place] Carbonate Er 450 Mg Tablet.Er) 900 mg PO BEDTIME [facility] Last Admin: 08/15/23 21:39 Dose: 900 mg Lorazepam (Lorazepam 1 Mg Tablet) 1 mg PO Q4H PRN PRN Reason: anxiety/restlessness Last Admin: 08/15/23 16:03 Dose: 1 mg Magnesium Hydroxide (Milk Of Magnesia 30 Ml Oral.Susp) 30 ml PO DAILY PRN PRN Reason: Constipation Nicotine (Nicotine 21 Mg Patch.Td24) 21 mg TRANSDERMA DAILY PRN PRN Reason: smoking cessation Last Admin: 08/15/23 11:12 Dose: 21 mg Nicotine Polacrilex (Nicotine Polacrilex 2 Mg Gum) 4 mg BUCCAL Q2H PRN PRN Reason: Nicotine Cravings Last Admin: 08/14/23 13:24 Dose: 4 mg Allergies Allergies Allergy/AdvReac Type Severity Reaction Status Date / Time nka Allergy nka Uncoded 07/24/23 16:52 Assessment & Plan Assessment & Plan (1) Schizoaffective disorder, bipolar type: Status: Acute Code(s): F25.0 - Schizoaffective disorder, bipolar type (2) Polysubstance use disorder: Status: Acute Code(s): F19.90 - Other psychoactive substance use, unspecified, uncomplicated Plan 33 yo male, history of schizoaffective disorder, bipolar type, sent from [facility] where he was admitted on a Section 35 on 07/13 for public intoxication while running in the community without clothing. Pt is psychotic upon presentation, signed CV and has been calm but echolalic in speech and behaviors for the most part since admission. Hospital course: 07/25: Increase Olanzapine to 20 mg HS 07/27: No real improvement on consistent changes. DC Prolixin Haldol 10 mg bid-prepare for decanoate trial Add Olanzapine 10 mg a.m. Benztropine 1 mg bid 07/28 Patient talking in more complete and logical sentences however he remains disorganized in both speech and behavior, rude and insulting to numerous staff as they walk by, intrusive and needs constant redirection and needs to remain on one-to-one, not able to tolerate roommate.. Not sleeping very much at night. Intermittent angry outbursts and punching things. This morning patient got so dysregulated, security had to be called, however patient was able to be redirected. Patient agreed to start Depakote, hoping it will help him sleep. 1). Patient has been treated with the following meds, however does not seem to have helped much Haldol 10 mg b.i.d. Zyprexa 10 mg daily Zyprexa 20 mg q.h.s. 2).on 07/28 Will add Depakote ER 750 q.h.s. to address likely rick (patient is not sleeping and in the past was prescribed lithium) -will continue Haldol and Zyprexa regimen for now however will likely need to change 07/29 patient remains with disorganized, intermittently aggressive behaviors; did sleep a little better last night with Depakote Need to change medication regimen as Patient has gotten up to Zyprexa 45 mg daily and Haldol 20 mg daily (when adding PRNs) 1) increase Depakote ER to 1500 mg q.h.s.; patient continues to be disorganized and dysregulated and intermittently threatening; so far tolerating and found helpful (ER is about 80% of IR) 2) start Risperdal 2 mg b.i.d.; will titrate to 3 mg b.i.d. starting tomorrow on 07/30 (intention is to see if Risperdal can work where Haldol and Zyprexa have thus been ineffective) 3) discontinue Zyprexa 10 mg daily 4) continue Zyprexa 20 mg q.h.s. and Haldol 10 mg b.i.d. for now since not sure if these may be partially subduing him and it is unclear if Risperdal will help 5) work to cross taper Risperdal with Zyprexa/Haldol; goal will be to see if Risperdal and Depakote can be effective and efforts made to be on only 1 antipsychotic SW obtained collateral from father -current episode started this May, sounds like rick when patient quit his job, spent 4000 in a week... -at baseline patient is fully functional; history of lots of LSD which seem to trigger psychotic/manic symptoms. Family history on both sides of schizophrenia -patient has been Section 35 2 times in the last 2 years; 4 psychiatric hospitalizations in the past 2 years -patient can not return to his father's or the apartment he was renting 07/31- labs ordered- cbc with leukocytosis, afebrile. CMP renal function intact BUN 9, Cr 0.95, CPK elevated in 800's. LFT elevated especially AST 106, ALT 717. ammonia wnl 40, depakote level 51. no electrolyte abnormalities. suspect elevated CPK related to IM medications and restraints. Elevation in LFT- especially ALT may be related to elevated CPK, medications. will order hep panel, if not trending down, may need GI consult. Less suspicion for NMS- no rigidity/afebrile, mentation improving despite abnormal labs. will hold depakote, especially as LFT normalize or trend back down. 08/01 ALT trending down, CPK also trending back. no rigidity or cogwheel. 08/03 Tolerating [place] thus far Haldol 10 mg IM x1; Benadryl 50 mg IM x 1-pt reports this helps him to stabilize. Requests IM, will trial x 1 Decrease Olanzapine to 5 mg bid If tolerated will consider Risperdal increase CBCD, CMP on 08/04. 08/04 Severe agitation and aggression today. Regime change Haldol 20 mg bid Olanzapine 20 mg bid Tegretol 50 mg bid Valium 10 mg HS Benadryl 50 mg HS Change [place] to ER 900 mg HS Ambien 10 mg HS Discontinue Risperdal Discontinue Chlorpromazine Repeat diagnostics when pt will allow. 08/06/[address] 08/13/23 2pm Refusing most of regime, Olanzapine/Benadryl combination IM this a.m. effective in providing him some mild rest. EKG WNL AST 51 to 68 TSH 0.90 Continue one to one Continue to offer regime Pt transferred to M3 08/06: attempt to streamline medications and taper disinhibiting medications. ambien D/Oumar. valium taper over the next week initiated. pt on both zyprexa 20 BID and haldol 20 BID; will DC zyprexa in favor of single scheduled neuroleptic agent. various PRNs DCed, including for haldol, zyprexa, atarax. will return to thorazine PRN agitation/anxiety despite report of lack of efficacy (clearly none of these other medications have been demonstrating much efficacy); will use relatively high-dose thorazine as needed for agitation, perhaps with IM benzo if sedation is required. it appears what may be missing from present regimen is adequate mood stabilizer. problems with recent VPA trial noted. no lithium level yet as pt has not been taking it consistently in any case. increase tegretol dosing from 50 BID to 200 BID for more aggressive approach to mood stabilization. section 7 filed, hearing pending for 08/12. 08/07: Continue current regimen and plans. Chemical restraint was administered with physical hold for administration 08/08: Continue current regimen and plans 08/09: continue current mgmt. court . 08/10: intermittently dangerous behaviors. punching air, touching people repeatedly, urinating on floor, showing gang signs, ripping up blanket and tying around neck and fingers, throwing things. restrained yesterday and this morning. restrained a second time today, given medication. court . 08/11: court deferred for JAMAL. sleeping this morning, not visible on unit. continue to offer medications. 08/12: refusing most meds. no change in presentation. continue current mgmt. 08/13: no change in presentation. continue to offer meds. JAMAL today. court thursday. 6/22/24- may be mildly better taking some meds- requesting IMs , given po ativan 08/15 continues to improve asking for prn thorazine, will order tegretol lvl and other labs for fu CTP, 5min checks for shift to see how he does- Patient educated on: medication risk/benefits Informed Consent: understands Reason for continued inpatient stay Substantial Risk for: rapid decompensation Time Spent With Patient Time: Total time managing care of this patient today ____ minutes.
[2023-08-16] MEDS: Nicotine 21 MG PATCH.TD24 TRANSDERMA (17:05)
[2023-08-16] MEDS: LORazepam 1 MG TABLET PO (17:06)
[2023-08-16 20:00] VITALS: BP 122/60; PULSE 70; RESP 17; TEMP 36.6; O2SAT 98
[2023-08-16] MEDS: Lithium Carbonate ER 450 MG TABLET.ER 900 MG PO (20:49)
[2023-08-17] MEDS: Nicotine Polacrilex 2 MG GUM 4 MG BUCCAL ×2 (00:48→08:21)
[2023-08-17] MEDS: LORazepam 1 MG TABLET PO ×2 (00:48→08:20)
[2023-08-17 08:00] VITALS: BP 126/63; PULSE 106; RESP 18; TEMP 36.4; O2SAT 98
[2023-08-17 08:20] VITALS: BP 126/63
[2023-08-17] MEDS: carBAMazepine 100 MG TAB.CHEW 200 MG PO ×2 (08:20→21:58)
[2023-08-17] MEDS: HaloperidoL 5 MG TABLET 10 MG PO ×2 (08:20→21:59)
[2023-08-17] MEDS: Benztropine Mesylate 1 MG TABLET PO ×2 (08:20→21:58)
[2023-08-17] MEDS: cloNIDine HCL 0.1 MG TABLET PO ×2 (08:20→21:59)
[2023-08-17] MEDS: diphenhydrAMINE HCL 25 MG CAPSULE 50 MG PO ×2 (08:20→21:58)
[2023-08-17 08:34] LABS: Basophils Absolute Auto 0.1 X10*3/uL (0.0-0.2); Basophils Percent Auto 0.9 % (0-2); Eosinophils Absolute Auto 0.6 X10*3/uL (0.0-0.4); Eosinophils Percent Auto 4.2 % (0-4); Hematocrit 47.8 % (42.0-52.0); Hemoglobin 15.1 g/dl (14.0-18.0); Imm Gran Abs Auto 0.04 X10*3/uL (0.00-0.03); Imm Gran Pct Auto 0.3 % (0.0-0.4); Lymphocytes Absolute Auto 5.4 X10*3/uL (1.2-4.9); Lymphocytes Percent Auto 39.2 % (20-40); MANUAL DIFF FLAG SCAN; Mean Corpuscular HGB Conc 31.6 g/dl (31.0-36.0); Mean Corpuscular Hemoglobin 26.1 pg (27.0-33.0); Mean Corpuscular Volume 82.6 fL (80.0-98.0); Mean Platelet Volume 9.3 fL (9.4-12.4); Monocytes Percent Auto 7.2 % (2-11); Neutrophils Absolute Auto 6.7 x10*3/uL (2.0-8.3); Neutrophils Percent Auto 48.2 % (45-73); Platelet Count 417 X10*3/uL (160-400); Red Blood Count 5.79 X10*6/uL (4.60-5.80); Red Cell Distribution Width 14.6 % (11.0-16.0); SCAN SMEAR FLAG 1; White Blood Count 13.8 X10*3/uL (4.8-10.8)
[2023-08-17 08:52] LABS: Carbamazepine Tegretol 8.8 mcg/mL (5.0-12.0)
[2023-08-17 09:00] LABS: SLIDE REVIEW VERIFIED
[2023-08-17 09:01] LABS: Alanine Aminotransferase 32 U/L (0-40); Albumin Level 4.4 g/dL (3.5-5.0); Alkaline Phosphatase 66 U/L (39-117); Anion Gap 14 (12-20); Aspartate Amino Transferase 15 U/L (5-37); Bilirubin Total 0.2 mg/dL (0.0-1.0); Blood Urea Nitrogen 10 mg/dL (9-16); Calcium 9.9 mg/dL (8.4-10.2); Carbon Dioxide 27 mmol/L (22-29); Chloride 103 mmol/L (96-108); Cholesterol 229 mg/dL (<200); Creatinine Clr Calc Pharmacy 97.3; Estimated Glomerular Filt Rate > 60; Glucose Random 95 mg/dL (60-115); HDL Cholesterol 76 mg/dL (>40); LDL Cholesterol Calculated 134 mg/dL (<100); Potassium 3.7 mmol/L (3.3-5.1); Sodium 140 mmol/L (135-145); Total Protein 7.5 g/dL (6.5-8.0); Triglycerides 99 mg/dL (<150)
[2023-08-17 09:16] LABS: Thyroid Stimulating Hormone 3.26 uIU/mL (0.32-4.0)
[2023-08-17 21:30] VITALS: BP 105/61; PULSE 82; RESP 16; TEMP 37.1; O2SAT 96
--- NOTE | 2023-08-17 21:43 | P.PNPSI_ITS ---
Subjective Subjective Date of Service: 08/17/23 Reason For Visit: disorganized/psychosis Subjective Notes: Section 7 Interim History: pt has been more cooperative with medication less aggressive cycling down no gross psychotic sx Mental Status Exam Mental Status Exam Patient Appearance: Unkempt Patient Orientation: Person, Place, Time and Situation Level of Consciousness: Drowsy (but able to roused) Patient Behavior: Passive and Fatigued Mood Description: Calm Patient Cognition Impaired: No Ability to Follow Directions: Fair Speech Pattern: Mumbled Hallucinations: None (denying now) Thought Process: Distracted Thought Content: positive for Disorganized (but coming more clearly ) Depressive Symptoms: Difficulty Concentrating Judgement: Fair (started taking meds prior to court to avoid commitment) Diagnostics Vital Signs (24Hr): Vital Signs - 24 hr 08/17/23 08:00 08/17/23 08:20 Temperature 97.6 F Pulse Rate 106 H Respiratory Rate 18 Blood Pressure 126/63 126/63 Pulse Oximetry 98 Oxygen Delivery Method Room Air BMI result Body Mass Index 24.9 Labs 08/17/23 08:23 08/17/23 08:23 Labs: Laboratory Results - last 48 hr 08/17/23 08:23 WBC 13.8 H RBC 5.79 Hgb 15.1 Hct 47.8 MCV 82.6 MCH 26.1 L MCHC 31.6 RDW 14.6 Plt Count 417 H MPV 9.3 L Immature Gran % (Auto) 0.3 Neut % (Auto) 48.2 Lymph % (Auto) 39.2 Dare % (Auto) 7.2 Eos % (Auto) 4.2 H Baso % (Auto) 0.9 Lymph # (Auto) 5.4 H Dare # (Auto) 1.0 Eos # (Auto) 0.6 H Baso # (Auto) 0.1 Abs Immat Gran (auto) 0.04 H Absolute Neuts (auto) 6.7 Absolute Nucleated RBC 0.000 Nucleated RBC % (auto) 0.0 Smear Tech's Comments VERIFIED Sodium 140 Potassium 3.7 Chloride 103 Carbon Dioxide 27 Anion Gap 14 BUN 10 Creatinine 1.00 Estim Creat Clear Calc 97.3 Estimated GFR > 60 Random Glucose 95 Calcium 9.9 Total Bilirubin 0.2 AST 15 ALT 32 Alkaline Phosphatase 66 Total Protein 7.5 Albumin 4.4 Triglycerides 99 Cholesterol 229 H LDL Cholesterol, Calc 134 H HDL Cholesterol 76 TSH 3.26 Carbamazepine 8.8 [place] 0.70 Medications Medications Current Medications Acetaminophen (Acetaminophen 325 Mg Tablet) 650 mg PO Q6H PRN PRN Reason: Headache/Pain Mild Scale (1-3) Last Admin: 08/13/23 11:19 Dose: 650 mg Al Hydroxide/Mg Hydroxide (Magnesium Hydrox/Alum Hydrox 30 Ml Oral.Susp) 30 ml PO Q6H PRN PRN Reason: Heartburn/Nausea Benztropine Mesylate (Benztropine Mesylate 1 Mg Tablet) 1 mg PO BID [facility] Last Admin: 08/17/23 08:20 Dose: 1 mg Carbamazepine (Carbamazepine 100 Mg Tab.Chew) 200 mg PO BID [facility] Last Admin: 08/17/23 08:20 Dose: 200 mg Chlorpromazine HCl (Chlorpromazine Hcl 100 Mg Tablet) 200 mg PO Q4H PRN PRN Reason: anxiety/agitation Last Admin: 08/16/23 04:51 Dose: 200 mg Clonidine HCl (Clonidine Hcl 0.1 Mg Tablet) 0.1 mg PO BID@0800,2000 [facility]; Protocol Last Admin: 08/17/23 08:20 Dose: 0.1 mg Diphenhydramine HCl (Diphenhydramine Hcl 25 Mg Capsule) 50 mg PO BID [facility] Last Admin: 08/17/23 08:20 Dose: 50 mg Diphenhydramine HCl (Diphenhydramine Hcl 25 Mg Capsule) 50 mg PO Q6H PRN PRN Reason: anxiety Last Admin: 08/13/23 16:33 Dose: 50 mg Haloperidol (Haloperidol 5 Mg Tablet) 10 mg PO BID [facility] Last Admin: 08/17/23 08:20 Dose: 10 mg [place] Carbonate ([place] Carbonate Er 450 Mg Tablet.Er) 900 mg PO BEDTIME [facility] Last Admin: 08/16/23 20:49 Dose: 900 mg Lorazepam (Lorazepam 1 Mg Tablet) 1 mg PO Q4H PRN PRN Reason: anxiety/restlessness Last Admin: 08/17/23 08:20 Dose: 1 mg Magnesium Hydroxide (Milk Of Magnesia 30 Ml Oral.Susp) 30 ml PO DAILY PRN PRN Reason: Constipation Nicotine (Nicotine 21 Mg Patch.Td24) 21 mg TRANSDERMA DAILY PRN PRN Reason: smoking cessation Last Admin: 08/16/23 17:05 Dose: 21 mg Nicotine Polacrilex (Nicotine Polacrilex 2 Mg Gum) 4 mg BUCCAL Q2H PRN PRN Reason: Nicotine Cravings Last Admin: 08/17/23 08:21 Dose: 4 mg Allergies Allergies Allergy/AdvReac Type Severity Reaction Status Date / Time nka Allergy nka Uncoded 07/24/23 16:52 Assessment & Plan Assessment & Plan (1) Schizoaffective disorder, bipolar type: Status: Acute Code(s): F25.0 - Schizoaffective disorder, bipolar type (2) Polysubstance use disorder: Status: Acute Code(s): F19.90 - Other psychoactive substance use, unspecified, uncomplicated Plan 33 yo male, history of schizoaffective disorder, bipolar type, sent from [facility] where he was admitted on a Section 35 on 07/13 for public intoxication while running in the community without clothing. Pt is psychotic upon presentation, signed CV and has been calm but echolalic in speech and behaviors for the most part since admission. Hospital course: 07/25: Increase Olanzapine to 20 mg HS 07/27: No real improvement on consistent changes. DC Prolixin Haldol 10 mg bid-prepare for decanoate trial Add Olanzapine 10 mg a.m. Benztropine 1 mg bid 07/28 Patient talking in more complete and logical sentences however he remains disorganized in both speech and behavior, rude and insulting to numerous staff as they walk by, intrusive and needs constant redirection and needs to remain on one-to-one, not able to tolerate roommate.. Not sleeping very much at night. Intermittent angry outbursts and punching things. This morning patient got so dysregulated, security had to be called, however patient was able to be redirected. Patient agreed to start Depakote, hoping it will help him sleep. 1). Patient has been treated with the following meds, however does not seem to have helped much Haldol 10 mg b.i.d. Zyprexa 10 mg daily Zyprexa 20 mg q.h.s. 2).on 07/28 Will add Depakote ER 750 q.h.s. to address likely rick (patient is not sleeping and in the past was prescribed lithium) -will continue Haldol and Zyprexa regimen for now however will likely need to change 07/29 patient remains with disorganized, intermittently aggressive behaviors; did sleep a little better last night with Depakote Need to change medication regimen as Patient has gotten up to Zyprexa 45 mg daily and Haldol 20 mg daily (when adding PRNs) 1) increase Depakote ER to 1500 mg q.h.s.; patient continues to be disorganized and dysregulated and intermittently threatening; so far tolerating and found helpful (ER is about 80% of IR) 2) start Risperdal 2 mg b.i.d.; will titrate to 3 mg b.i.d. starting tomorrow on 07/30 (intention is to see if Risperdal can work where Haldol and Zyprexa have thus been ineffective) 3) discontinue Zyprexa 10 mg daily 4) continue Zyprexa 20 mg q.h.s. and Haldol 10 mg b.i.d. for now since not sure if these may be partially subduing him and it is unclear if Risperdal will help 5) work to cross taper Risperdal with Zyprexa/Haldol; goal will be to see if Risperdal and Depakote can be effective and efforts made to be on only 1 antipsychotic SW obtained collateral from father -current episode started this May, sounds like rick when patient quit his job, spent 4000 in a week... -at baseline patient is fully functional; history of lots of LSD which seem to trigger psychotic/manic symptoms. Family history on both sides of schizophrenia -patient has been Section 35 2 times in the last 2 years; 4 psychiatric hospitalizations in the past 2 years -patient can not return to his father's or the apartment he was renting 07/31- labs ordered- cbc with leukocytosis, afebrile. CMP renal function intact BUN 9, Cr 0.95, CPK elevated in 800's. LFT elevated especially AST 106, ALT 717. ammonia wnl 40, depakote level 51. no electrolyte abnormalities. suspect elevated CPK related to IM medications and restraints. Elevation in LFT- especially ALT may be related to elevated CPK, medications. will order hep panel, if not trending down, may need GI consult. Less suspicion for NMS- no rigidity/afebrile, mentation improving despite abnormal labs. will hold depakote, especially as LFT normalize or trend back down. 08/01 ALT trending down, CPK also trending back. no rigidity or cogwheel. 08/03 Tolerating [place] thus far Haldol 10 mg IM x1; Benadryl 50 mg IM x 1-pt reports this helps him to stabilize. Requests IM, will trial x 1 Decrease Olanzapine to 5 mg bid If tolerated will consider Risperdal increase CBCD, CMP on 08/04. 08/04 Severe agitation and aggression today. Regime change Haldol 20 mg bid Olanzapine 20 mg bid Tegretol 50 mg bid Valium 10 mg HS Benadryl 50 mg HS Change [place] to ER 900 mg HS Ambien 10 mg HS Discontinue Risperdal Discontinue Chlorpromazine Repeat diagnostics when pt will allow. 08/06/[address] 08/13/23 2pm Refusing most of regime, Olanzapine/Benadryl combination IM this a.m. effective in providing him some mild rest. EKG WNL AST 51 to 68 TSH 0.90 Continue one to one Continue to offer regime Pt transferred to M3 08/06: attempt to streamline medications and taper disinhibiting medications. ambien D/Oumar. valium taper over the next week initiated. pt on both zyprexa 20 BID and haldol 20 BID; will DC zyprexa in favor of single scheduled neuroleptic agent. various PRNs DCed, including for haldol, zyprexa, atarax. will return to thorazine PRN agitation/anxiety despite report of lack of efficacy (clearly none of these other medications have been demonstrating much efficacy); will use relatively high-dose thorazine as needed for agitation, perhaps with IM benzo if sedation is required. it appears what may be missing from present regimen is adequate mood stabilizer. problems with recent VPA trial noted. no lithium level yet as pt has not been taking it consistently in any case. increase tegretol dosing from 50 BID to 200 BID for more aggressive approach to mood stabilization. section 7 filed, hearing pending for 08/12. 08/07: Continue current regimen and plans. Chemical restraint was administered with physical hold for administration 08/08: Continue current regimen and plans 08/09: continue current mgmt. court . 08/10: intermittently dangerous behaviors. punching air, touching people repeatedly, urinating on floor, showing gang signs, ripping up blanket and tying around neck and fingers, throwing things. restrained yesterday and this morning. restrained a second time today, given medication. court . 08/11: court deferred for JAMAL. sleeping this morning, not visible on unit. continue to offer medications. 08/12: refusing most meds. no change in presentation. continue current mgmt. 08/13: no change in presentation. continue to offer meds. JAMAL today. court thursday. 08/15/23- may be mildly better taking some meds- requesting IMs , given po ativan 08/15 continues to improve asking for prn thorazine, will order tegretol lvl and other labs for fu CTP, 5min checks for shift to see how he does- 08/17/23 Improving less aggressive taking meds hearing on hold x 2 weeks with extension Reason for continued inpatient stay Substantial Risk for: harm to others, inability to function and rapid decompensation Time Spent With Patient Time: Total time managing care of this patient today ____ minutes.
[2023-08-17] MEDS: Lithium Carbonate ER 450 MG TABLET.ER 900 MG PO (21:58)
[2023-08-17 21:59] VITALS: BP 105/61
[2023-08-18] MEDS: LORazepam 1 MG TABLET PO ×2 (01:45→08:59)
[2023-08-18] MEDS: diphenhydrAMINE HCL 25 MG CAPSULE 50 MG PO ×3 (01:45→21:26)
[2023-08-18 07:05] VITALS: BP 115/58; PULSE 79; RESP 16; TEMP 36.8; O2SAT 100
[2023-08-18 08:31] VITALS: BP 115/58
[2023-08-18] MEDS: cloNIDine HCL 0.1 MG TABLET PO ×2 (08:31→21:27)
[2023-08-18] MEDS: HaloperidoL 5 MG TABLET 10 MG PO ×2 (08:33→21:26)
[2023-08-18] MEDS: carBAMazepine 100 MG TAB.CHEW 200 MG PO ×2 (08:33→21:27)
[2023-08-18] MEDS: Benztropine Mesylate 1 MG TABLET PO ×2 (08:33→21:27)
--- NOTE | 2023-08-18 09:44 | P.PNPSI_ITS ---
Subjective Subjective Date of Service: 08/18/23 Reason For Visit: disorganized/psychosis Subjective Notes: Conditional Voluntary Interim History: Pt mostly in bed. He reports feeling good. He is asleep but does open eyes and answer briefly most of my questions. He denies SI/HI. No behavioral concerns. No agitation, takes medications as prescribed. Medication Compliance: Yes Side effects from medications: No Attending Groups: No Review of Systems Review of Systems Yes all other systems are reviewed and are negative and Unobtainable due to mental status Mental Status Exam Mental Status Exam Patient Orientation: Person, Place, Time and Situation Level of Consciousness: Drowsy (but able to roused) Patient Behavior: Passive and Fatigued Mood Description: Calm Affect Description: Labile Patient Cognition Impaired: No Ability to Follow Directions: Fair Speech Pattern: Mumbled Memory Description: Remote Impaired Diagnostics Vital Signs (24Hr): Vital Signs - 24 hr 08/17/23 21:30 08/17/23 21:59 08/18/23 07:05 Temperature 98.7 F 98.3 F Pulse Rate 82 79 Respiratory Rate 16 16 Blood Pressure 105/61 105/61 115/58 L Pulse Oximetry 96 100 Oxygen Delivery Method Room Air Room Air 08/18/23 08:31 Temperature Pulse Rate Respiratory Rate Blood Pressure 115/58 L Pulse Oximetry Oxygen Delivery Method BMI result Body Mass Index 24.9 Labs 08/17/23 08:23 08/17/23 08:23 Labs: Laboratory Results - last 48 hr 08/17/23 08:23 WBC 13.8 H RBC 5.79 Hgb 15.1 Hct 47.8 MCV 82.6 MCH 26.1 L MCHC 31.6 RDW 14.6 Plt Count 417 H MPV 9.3 L Immature Gran % (Auto) 0.3 Neut % (Auto) 48.2 Lymph % (Auto) 39.2 [place] % (Auto) 7.2 Eos % (Auto) 4.2 H Baso % (Auto) 0.9 Lymph # (Auto) 5.4 H [place] # (Auto) 1.0 Eos # (Auto) 0.6 H Baso # (Auto) 0.1 Abs Immat Gran (auto) 0.04 H Absolute Neuts (auto) 6.7 Absolute Nucleated RBC 0.000 Nucleated RBC % (auto) 0.0 Smear Tech's Comments VERIFIED Sodium 140 Potassium 3.7 Chloride 103 Carbon Dioxide 27 Anion Gap 14 BUN 10 Creatinine 1.00 Estim Creat Clear Calc 97.3 Estimated GFR > 60 Random Glucose 95 Calcium 9.9 Total Bilirubin 0.2 AST 15 ALT 32 Alkaline Phosphatase 66 Total Protein 7.5 Albumin 4.4 Triglycerides 99 Cholesterol 229 H LDL Cholesterol, Calc 134 H HDL Cholesterol 76 TSH 3.26 Carbamazepine 8.8 [place] 0.70 Medications Medications Current Medications Acetaminophen (Acetaminophen 325 Mg Tablet) 650 mg PO Q6H PRN PRN Reason: Headache/Pain Mild Scale (1-3) Last Admin: 08/13/23 11:19 Dose: 650 mg Al Hydroxide/Mg Hydroxide (Magnesium Hydrox/Alum Hydrox 30 Ml Oral.Susp) 30 ml PO Q6H PRN PRN Reason: Heartburn/Nausea Benztropine Mesylate (Benztropine Mesylate 1 Mg Tablet) 1 mg PO BID [facility] Last Admin: 08/18/23 08:33 Dose: 1 mg Carbamazepine (Carbamazepine 100 Mg Tab.Chew) 200 mg PO BID [facility] Last Admin: 08/18/23 08:33 Dose: 200 mg Chlorpromazine HCl (Chlorpromazine Hcl 100 Mg Tablet) 200 mg PO Q4H PRN PRN Reason: anxiety/agitation Last Admin: 08/16/23 04:51 Dose: 200 mg Clonidine HCl (Clonidine Hcl 0.1 Mg Tablet) 0.1 mg PO BID@0800,1999 [facility]; Protocol Last Admin: 08/18/23 08:31 Dose: 0.1 mg Diphenhydramine HCl (Diphenhydramine Hcl 25 Mg Capsule) 50 mg PO BID [facility] Last Admin: 08/18/23 08:32 Dose: 50 mg Diphenhydramine HCl (Diphenhydramine Hcl 25 Mg Capsule) 50 mg PO Q6H PRN PRN Reason: anxiety Last Admin: 08/18/23 01:45 Dose: 50 mg Haloperidol (Haloperidol 5 Mg Tablet) 10 mg PO BID [facility] Last Admin: 08/18/23 08:33 Dose: 10 mg [place] Carbonate ([place] Carbonate Er 450 Mg Tablet.Er) 900 mg PO BEDTIME [facility] Last Admin: 08/17/23 21:58 Dose: 900 mg Lorazepam (Lorazepam 1 Mg Tablet) 1 mg PO Q4H PRN PRN Reason: anxiety/restlessness Last Admin: 08/18/23 08:59 Dose: 1 mg Magnesium Hydroxide (Milk Of Magnesia 30 Ml Oral.Susp) 30 ml PO DAILY PRN PRN Reason: Constipation Nicotine (Nicotine 21 Mg Patch.Td24) 21 mg TRANSDERMA DAILY PRN PRN Reason: smoking cessation Last Admin: 08/16/23 17:05 Dose: 21 mg Nicotine Polacrilex (Nicotine Polacrilex 2 Mg Gum) 4 mg BUCCAL Q2H PRN PRN Reason: Nicotine Cravings Last Admin: 08/17/23 08:21 Dose: 4 mg Allergies Allergies Allergy/AdvReac Type Severity Reaction Status Date / Time nka Allergy nka Uncoded 07/24/23 16:52 Assessment & Plan Assessment & Plan (1) Schizoaffective disorder, bipolar type: Status: Acute Code(s): F25.0 - Schizoaffective disorder, bipolar type (2) Polysubstance use disorder: Status: Acute Code(s): F19.90 - Other psychoactive substance use, unspecified, uncomplicated Plan 33 yo male, history of schizoaffective disorder, bipolar type, sent from [facility] where he was admitted on a Section 35 on 07/13 for public intoxication while running in the community without clothing. Pt is psychotic upon presentation, signed CV and has been calm but echolalic in speech and behaviors for the most part since admission. Hospital course: 07/25: Increase Olanzapine to 20 mg HS 07/27: No real improvement on consistent changes. DC Prolixin Haldol 10 mg bid-prepare for decanoate trial Add Olanzapine 10 mg a.m. Benztropine 1 mg bid 07/28 Patient talking in more complete and logical sentences however he remains disorganized in both speech and behavior, rude and insulting to numerous staff as they walk by, intrusive and needs constant redirection and needs to remain on one-to-one, not able to tolerate roommate.. Not sleeping very much at night. Intermittent angry outbursts and punching things. This morning patient got so dysregulated, security had to be called, however patient was able to be redirected. Patient agreed to start Depakote, hoping it will help him sleep. 1). Patient has been treated with the following meds, however does not seem to have helped much Haldol 10 mg b.i.d. Zyprexa 10 mg daily Zyprexa 20 mg q.h.s. 2).on 07/28 Will add Depakote ER 750 q.h.s. to address likely rick (patient is not sleeping and in the past was prescribed lithium) -will continue Haldol and Zyprexa regimen for now however will likely need to change 07/29 patient remains with disorganized, intermittently aggressive behaviors; did sleep a little better last night with Depakote Need to change medication regimen as Patient has gotten up to Zyprexa 45 mg daily and Haldol 20 mg daily (when adding PRNs) 1) increase Depakote ER to 1500 mg q.h.s.; patient continues to be disorganized and dysregulated and intermittently threatening; so far tolerating and found helpful (ER is about 80% of IR) 2) start Risperdal 2 mg b.i.d.; will titrate to 3 mg b.i.d. starting tomorrow on 07/30 (intention is to see if Risperdal can work where Haldol and Zyprexa have thus been ineffective) 3) discontinue Zyprexa 10 mg daily 4) continue Zyprexa 20 mg q.h.s. and Haldol 10 mg b.i.d. for now since not sure if these may be partially subduing him and it is unclear if Risperdal will help 5) work to cross taper Risperdal with Zyprexa/Haldol; goal will be to see if Risperdal and Depakote can be effective and efforts made to be on only 1 antipsychotic SW obtained collateral from father -current episode started this May, sounds like rick when patient quit his job, spent 4000 in a week... -at baseline patient is fully functional; history of lots of LSD which seem to trigger psychotic/manic symptoms. Family history on both sides of schizophrenia -patient has been Section 35 2 times in the last 2 years; 4 psychiatric hospitalizations in the past 2 years -patient can not return to his father's or the apartment he was renting 07/31- labs ordered- cbc with leukocytosis, afebrile. CMP renal function intact BUN 9, Cr 0.95, CPK elevated in 800's. LFT elevated especially AST 106, ALT 717. ammonia wnl 40, depakote level 51. no electrolyte abnormalities. suspect elevated CPK related to IM medications and restraints. Elevation in LFT- especially ALT may be related to elevated CPK, medications. will order hep panel, if not trending down, may need GI consult. Less suspicion for NMS- no rigidity/afebrile, mentation improving despite abnormal labs. will hold depakote, especially as LFT normalize or trend back down. 08/01 ALT trending down, CPK also trending back. no rigidity or cogwheel. 08/03 Tolerating [place] thus far Haldol 10 mg IM x1; Benadryl 50 mg IM x 1-pt reports this helps him to stabilize. Requests IM, will trial x 1 Decrease Olanzapine to 5 mg bid If tolerated will consider Risperdal increase CBCD, CMP on 08/04. 08/04 Severe agitation and aggression today. Regime change Haldol 20 mg bid Olanzapine 20 mg bid Tegretol 50 mg bid Valium 10 mg HS Benadryl 50 mg HS Change [place] to ER 900 mg HS Ambien 10 mg HS Discontinue Risperdal Discontinue Chlorpromazine Repeat diagnostics when pt will allow. 08/06/[address] 08/13/23 2pm Refusing most of regime, Olanzapine/Benadryl combination IM this a.m. effective in providing him some mild rest. EKG WNL AST 51 to 68 TSH 0.90 Continue one to one Continue to offer regime Pt transferred to M3 08/06: attempt to streamline medications and taper disinhibiting medications. ambien D/Oumar. valium taper over the next week initiated. pt on both zyprexa 20 BID and haldol 20 BID; will DC zyprexa in favor of single scheduled neuroleptic agent. various PRNs DCed, including for haldol, zyprexa, atarax. will return to thorazine PRN agitation/anxiety despite report of lack of efficacy (clearly none of these other medications have been demonstrating much efficacy); will use relatively high-dose thorazine as needed for agitation, perhaps with IM benzo if sedation is required. it appears what may be missing from present regimen is adequate mood stabilizer. problems with recent VPA trial noted. no lithium level yet as pt has not been taking it consistently in any case. increase tegretol dosing from 50 BID to 200 BID for more aggressive approach to mood stabilization. section 7 filed, hearing pending for 08/12. 08/07: Continue current regimen and plans. Chemical restraint was administered with physical hold for administration 08/08: Continue current regimen and plans 08/09: continue current mgmt. court . 08/10: intermittently dangerous behaviors. punching air, touching people repeatedly, urinating on floor, showing gang signs, ripping up blanket and tying around neck and fingers, throwing things. restrained yesterday and this morning. restrained a second time today, given medication. court . 08/11: court deferred for JAMAL. sleeping this morning, not visible on unit. continue to offer medications. 08/12: refusing most meds. no change in presentation. continue current mgmt. 08/13: no change in presentation. continue to offer meds. JAMAL today. court thursday. 08/15/23- may be mildly better taking some meds- requesting IMs , given po ativan 08/15 continues to improve asking for prn thorazine, will order tegretol lvl and other labs for fu CTP, 5min checks for shift to see how he does- 08/17/23 Improving less aggressive taking meds hearing on hold x 2 weeks with extension 08/17 mostly in bed, taking medications, no aggression, no overt delusional or psychotic content noted or reported. Reason for continued inpatient stay Substantial Risk for: inability to function Time Spent With Patient Time: Total time managing care of this patient today ____ minutes.
[2023-08-18 20:00] VITALS: BP 123/59; PULSE 74; RESP 16; TEMP 36.9; O2SAT 97
[2023-08-18 21:27] VITALS: BP 123/59
[2023-08-18] MEDS: Lithium Carbonate ER 450 MG TABLET.ER 900 MG PO (21:27)
[2023-08-18] MEDS: Nicotine Polacrilex 2 MG GUM 4 MG BUCCAL (21:47)
[2023-08-19] MEDS: LORazepam 1 MG TABLET PO ×2 (02:13→18:28)
[2023-08-19 07:42] VITALS: BP 118/58; PULSE 80; RESP 14; TEMP 36.4; O2SAT 98
[2023-08-19 09:41] VITALS: BP 115/62; PULSE 65; RESP 16; O2SAT 99
[2023-08-19] MEDS: Benztropine Mesylate 1 MG TABLET PO ×2 (09:42→20:50)
[2023-08-19 09:43] VITALS: BP 115/62
[2023-08-19] MEDS: cloNIDine HCL 0.1 MG TABLET PO ×2 (09:43→20:48)
[2023-08-19] MEDS: HaloperidoL 5 MG TABLET 10 MG PO ×2 (09:43→20:50)
[2023-08-19] MEDS: carBAMazepine 100 MG TAB.CHEW 200 MG PO ×2 (09:43→20:49)
[2023-08-19] MEDS: diphenhydrAMINE HCL 25 MG CAPSULE 50 MG PO ×2 (09:43→20:50)
[2023-08-19] MEDS: Nicotine 21 MG PATCH.TD24 TRANSDERMA (11:37)
--- NOTE | 2023-08-19 13:52 | HO.PSYCHPN ---
Subjective Subjective Date of Service: 08/19/23 Reason For Visit: disorganized/psychosis Subjective Notes: Section 7 Interim History: Pt again sleeping mostly in sofa of sensory room. He reports he is tired and will like to rest. He denies SI/HI. no overt psychosis or delusions. No aggression but mostly in bed and withdrawn. Review of Systems Review of Systems Yes all other systems are reviewed and are negative and Unobtainable due to mental status Mental Status Exam Mental Status Exam Narrative: did shower but doesn't have clean shirt to change into Patient Appearance: Unkempt Patient Orientation: Person, Place, Time and Situation Level of Consciousness: Drowsy (but able to roused) Patient Behavior: Passive and Fatigued Mood Description: Calm Affect Description: Labile Patient Cognition Impaired: No Ability to Follow Directions: Fair Speech Pattern: Mumbled Memory Description: Remote Impaired Diagnostics Vital Signs (24Hr): Vital Signs - 24 hr 08/18/23 20:00 08/18/23 21:27 08/19/23 07:42 Temperature 98.5 F 97.6 F Pulse Rate 74 80 Respiratory Rate 16 14 Blood Pressure 123/59 L 123/59 L 118/58 L Pulse Oximetry 97 98 Oxygen Delivery Method Room Air Room Air 08/19/23 09:41 08/19/23 09:43 Temperature Pulse Rate 65 Respiratory Rate 16 Blood Pressure 115/62 115/62 Pulse Oximetry 99 Oxygen Delivery Method Room Air BMI result Body Mass Index 24.9 Labs 08/17/23 08:23 08/17/23 08:23 Medications Medications Current Medications Acetaminophen (Acetaminophen 325 Mg Tablet) 650 mg PO Q6H PRN PRN Reason: Headache/Pain Mild Scale (1-3) Last Admin: 08/13/23 11:19 Dose: 650 mg Al Hydroxide/Mg Hydroxide (Magnesium Hydrox/Alum Hydrox 30 Ml Oral.Susp) 30 ml PO Q6H PRN PRN Reason: Heartburn/Nausea Benztropine Mesylate (Benztropine Mesylate 1 Mg Tablet) 1 mg PO BID [facility] Last Admin: 08/19/23 09:42 Dose: 1 mg Carbamazepine (Carbamazepine 100 Mg Tab.Chew) 200 mg PO BID [facility] Last Admin: 08/19/23 09:43 Dose: 200 mg Chlorpromazine HCl (Chlorpromazine Hcl 100 Mg Tablet) 200 mg PO Q4H PRN PRN Reason: anxiety/agitation Last Admin: 08/16/23 04:51 Dose: 200 mg Clonidine HCl (Clonidine Hcl 0.1 Mg Tablet) 0.1 mg PO BID@0800,2000 [facility]; Protocol Last Admin: 08/19/23 09:43 Dose: 0.1 mg Diphenhydramine HCl (Diphenhydramine Hcl 25 Mg Capsule) 50 mg PO BID [facility] Last Admin: 08/19/23 09:43 Dose: 50 mg Diphenhydramine HCl (Diphenhydramine Hcl 25 Mg Capsule) 50 mg PO Q6H PRN PRN Reason: anxiety Last Admin: 08/18/23 01:45 Dose: 50 mg Haloperidol (Haloperidol 5 Mg Tablet) 10 mg PO BID [facility] Last Admin: 08/19/23 09:43 Dose: 10 mg [place] Carbonate ([place] Carbonate Er 450 Mg Tablet.Er) 900 mg PO BEDTIME [facility] Last Admin: 08/18/23 21:27 Dose: 900 mg Lorazepam (Lorazepam 1 Mg Tablet) 1 mg PO Q4H PRN PRN Reason: anxiety/restlessness Last Admin: 08/19/23 02:13 Dose: 1 mg Magnesium Hydroxide (Milk Of Magnesia 30 Ml Oral.Susp) 30 ml PO DAILY PRN PRN Reason: Constipation Nicotine (Nicotine 21 Mg Patch.Td24) 21 mg TRANSDERMA DAILY PRN PRN Reason: smoking cessation Last Admin: 08/19/23 11:37 Dose: 21 mg Nicotine Polacrilex (Nicotine Polacrilex 2 Mg Gum) 4 mg [place] Q2H PRN PRN Reason: Nicotine Cravings Last Admin: 08/18/23 21:47 Dose: 4 mg Allergies Allergies Allergy/AdvReac Type Severity Reaction Status Date / Time nka Allergy nka Uncoded 07/24/23 16:52 Assessment & Plan Assessment & Plan (1) Schizoaffective disorder, bipolar type: Status: Acute Code(s): F25.0 - Schizoaffective disorder, bipolar type (2) Polysubstance use disorder: Status: Acute Code(s): F19.90 - Other psychoactive substance use, unspecified, uncomplicated Plan 33 yo male, history of schizoaffective disorder, bipolar type, sent from [facility] where he was admitted on a Section 35 on 07/13 for public intoxication while running in the community without clothing. Pt is psychotic upon presentation, signed CV and has been calm but echolalic in speech and behaviors for the most part since admission. Hospital course: 07/25: Increase Olanzapine to 20 mg HS 07/27: No real improvement on consistent changes. DC Prolixin Haldol 10 mg bid-prepare for decanoate trial Add Olanzapine 10 mg a.m. Benztropine 1 mg bid 07/28 Patient talking in more complete and logical sentences however he remains disorganized in both speech and behavior, rude and insulting to numerous staff as they walk by, intrusive and needs constant redirection and needs to remain on one-to-one, not able to tolerate roommate.. Not sleeping very much at night. Intermittent angry outbursts and punching things. This morning patient got so dysregulated, security had to be called, however patient was able to be redirected. Patient agreed to start Depakote, hoping it will help him sleep. 1). Patient has been treated with the following meds, however does not seem to have helped much Haldol 10 mg b.i.d. Zyprexa 10 mg daily Zyprexa 20 mg q.h.s. 2).on 07/28 Will add Depakote ER 750 q.h.s. to address likely rick (patient is not sleeping and in the past was prescribed lithium) -will continue Haldol and Zyprexa regimen for now however will likely need to change 07/29 patient remains with disorganized, intermittently aggressive behaviors; did sleep a little better last night with Depakote Need to change medication regimen as Patient has gotten up to Zyprexa 45 mg daily and Haldol 20 mg daily (when adding PRNs) 1) increase Depakote ER to 1500 mg q.h.s.; patient continues to be disorganized and dysregulated and intermittently threatening; so far tolerating and found helpful (ER is about 80% of IR) 2) start Risperdal 2 mg b.i.d.; will titrate to 3 mg b.i.d. starting tomorrow on 07/30 (intention is to see if Risperdal can work where Haldol and Zyprexa have thus been ineffective) 3) discontinue Zyprexa 10 mg daily 4) continue Zyprexa 20 mg q.h.s. and Haldol 10 mg b.i.d. for now since not sure if these may be partially subduing him and it is unclear if Risperdal will help 5) work to cross taper Risperdal with Zyprexa/Haldol; goal will be to see if Risperdal and Depakote can be effective and efforts made to be on only 1 antipsychotic SW obtained collateral from father -current episode started this May, sounds like rick when patient quit his job, spent 4000 in a week... -at baseline patient is fully functional; history of lots of LSD which seem to trigger psychotic/manic symptoms. Family history on both sides of schizophrenia -patient has been Section 35 2 times in the last 2 years; 4 psychiatric hospitalizations in the past 2 years -patient can not return to his father's or the apartment he was renting 07/31- labs ordered- cbc with leukocytosis, afebrile. CMP renal function intact BUN 9, Cr 0.95, CPK elevated in 800's. LFT elevated especially AST 106, ALT 717. ammonia wnl 40, depakote level 51. no electrolyte abnormalities. suspect elevated CPK related to IM medications and restraints. Elevation in LFT- especially ALT may be related to elevated CPK, medications. will order hep panel, if not trending down, may need GI consult. Less suspicion for NMS- no rigidity/afebrile, mentation improving despite abnormal labs. will hold depakote, especially as LFT normalize or trend back down. 08/01 ALT trending down, CPK also trending back. no rigidity or cogwheel. 08/03 Tolerating [place] thus far Haldol 10 mg IM x1; Benadryl 50 mg IM x 1-pt reports this helps him to stabilize. Requests IM, will trial x 1 Decrease Olanzapine to 5 mg bid If tolerated will consider Risperdal increase CBCD, CMP on 08/04. 08/04 Severe agitation and aggression today. Regime change Haldol 20 mg bid Olanzapine 20 mg bid Tegretol 50 mg bid Valium 10 mg HS Benadryl 50 mg HS Change [place] to ER 900 mg HS Ambien 10 mg HS Discontinue Risperdal Discontinue Chlorpromazine Repeat diagnostics when pt will allow. 08/06/[address] 08/13/23 2pm Refusing most of regime, Olanzapine/Benadryl combination IM this a.m. effective in providing him some mild rest. EKG WNL AST 51 to 68 TSH 0.90 Continue one to one Continue to offer regime Pt transferred to M3 08/06: attempt to streamline medications and taper disinhibiting medications. jocelyn D/Oumar. valium taper over the next week initiated. pt on both zyprexa 20 BID and haldol 20 BID; will DC zyprexa in favor of single scheduled neuroleptic agent. various PRNs DCed, including for haldol, zyprexa, atarax. will return to thorazine PRN agitation/anxiety despite report of lack of efficacy (clearly none of these other medications have been demonstrating much efficacy); will use relatively high-dose thorazine as needed for agitation, perhaps with IM benzo if sedation is required. it appears what may be missing from present regimen is adequate mood stabilizer. problems with recent VPA trial noted. no lithium level yet as pt has not been taking it consistently in any case. increase tegretol dosing from 50 BID to 200 BID for more aggressive approach to mood stabilization. section 7 filed, hearing pending for 08/12. 08/07: Continue current regimen and plans. Chemical restraint was administered with physical hold for administration 08/08: Continue current regimen and plans 08/09: continue current mgmt. court . 08/10: intermittently dangerous behaviors. punching air, touching people repeatedly, urinating on floor, showing gang signs, ripping up blanket and tying around neck and fingers, throwing things. restrained yesterday and this morning. restrained a second time today, given medication. court . 08/11: court deferred for JAMAL. sleeping this morning, not visible on unit. continue to offer medications. 08/12: refusing most meds. no change in presentation. continue current mgmt. 08/13: no change in presentation. continue to offer meds. JAMAL today. court thursday. 08/15/23- may be mildly better taking some meds- requesting IMs , given po ativan 08/15 continues to improve asking for prn thorazine, will order tegretol lvl and other labs for fu CTP, 5min checks for shift to see how he does- 08/17/23 Improving less aggressive taking meds hearing on hold x 2 weeks with extension 08/17 continue tx 08/18 continue tx. Reason for continued inpatient stay Substantial Risk for: inability to function Time Spent With Patient Time: Total time managing care of this patient today ____ minutes.
[2023-08-19 20:45] VITALS: BP 117/63; PULSE 94; RESP 18; TEMP 37.2; O2SAT 98
[2023-08-19 20:48] VITALS: BP 117/63
[2023-08-19] MEDS: Lithium Carbonate ER 450 MG TABLET.ER 900 MG PO (20:48)
[2023-08-20 21:15] VITALS: BP 116/74; PULSE 80; RESP 16; TEMP 37.1; O2SAT 98
[2023-08-20] MEDS: Benztropine Mesylate 1 MG TABLET PO (21:45)
[2023-08-20] MEDS: carBAMazepine 100 MG TAB.CHEW 200 MG PO (21:45)
[2023-08-20] MEDS: cloNIDine HCL 0.1 MG TABLET PO (21:46)
[2023-08-20] MEDS: diphenhydrAMINE HCL 25 MG CAPSULE 50 MG PO (21:46)
[2023-08-20] MEDS: Lithium Carbonate ER 450 MG TABLET.ER 900 MG PO (21:47)
[2023-08-20] MEDS: HaloperidoL 5 MG TABLET 10 MG PO (21:47)
[2023-08-21 09:15] VITALS: BP 116/63; PULSE 68; RESP 18; TEMP 36.6; O2SAT 98
[2023-08-21] MEDS: HaloperidoL 5 MG TABLET 10 MG PO ×2 (09:16→20:49)
[2023-08-21] MEDS: carBAMazepine 100 MG TAB.CHEW 200 MG PO ×2 (09:16→20:49)
[2023-08-21 09:17] VITALS: BP 116/63
[2023-08-21] MEDS: cloNIDine HCL 0.1 MG TABLET PO ×2 (09:17→20:48)
[2023-08-21] MEDS: diphenhydrAMINE HCL 25 MG CAPSULE 50 MG PO ×2 (09:17→20:49)
[2023-08-21] MEDS: Benztropine Mesylate 1 MG TABLET PO ×2 (09:17→20:49)
--- NOTE | 2023-08-21 10:50 | P.PNPSI_ITS ---
Subjective Subjective Date of Service: 08/20/23 Reason For Visit: disorganized/psychosis Subjective Notes: Section 7 Interim History: Pt slept through the night. Sleeping in morning but much more awake later in afternoon. He presents as pleasant. No signs of psychosis. he is taking medications as prescribed. No SI/HI. Review of Systems Review of Systems Yes all other systems are reviewed and are negative and Unobtainable due to mental status Mental Status Exam Mental Status Exam Patient Appearance: Unkempt Patient Orientation: Person, Place, Time and Situation Level of Consciousness: Drowsy (but able to roused) Patient Behavior: Passive and Fatigued Mood Description: Calm Affect Description: Labile Patient Cognition Impaired: No Ability to Follow Directions: Fair Speech Pattern: Mumbled Memory Description: Remote Impaired Diagnostics Vital Signs (24Hr): Vital Signs - 24 hr 08/20/23 21:15 08/21/23 09:15 08/21/23 09:17 Temperature 98.7 F 97.8 F Pulse Rate 80 68 Respiratory Rate 16 18 Blood Pressure 116/74 116/63 116/63 Pulse Oximetry 98 98 Oxygen Delivery Method Room Air Room Air BMI result Body Mass Index 24.9 Labs 08/17/23 08:23 08/17/23 08:23 Medications Medications Current Medications Acetaminophen (Acetaminophen 325 Mg Tablet) 650 mg PO Q6H PRN PRN Reason: Headache/Pain Mild Scale (1-3) Last Admin: 08/13/23 11:19 Dose: 650 mg Al Hydroxide/Mg Hydroxide (Magnesium Hydrox/Alum Hydrox 30 Ml Oral.Susp) 30 ml PO Q6H PRN PRN Reason: Heartburn/Nausea Benztropine Mesylate (Benztropine Mesylate 1 Mg Tablet) 1 mg PO BID [facility] Last Admin: 08/21/23 09:17 Dose: 1 mg Carbamazepine (Carbamazepine 100 Mg Tab.Chew) 200 mg PO BID [facility] Last Admin: 08/21/23 09:16 Dose: 200 mg Chlorpromazine HCl (Chlorpromazine Hcl 100 Mg Tablet) 200 mg PO Q4H PRN PRN Reason: anxiety/agitation Last Admin: 08/16/23 04:51 Dose: 200 mg Clonidine HCl (Clonidine Hcl 0.1 Mg Tablet) 0.1 mg PO BID@0800,2000 [facility]; Protocol Last Admin: 08/21/23 09:17 Dose: 0.1 mg Diphenhydramine HCl (Diphenhydramine Hcl 25 Mg Capsule) 50 mg PO BID [facility] Last Admin: 08/21/23 09:17 Dose: 50 mg Diphenhydramine HCl (Diphenhydramine Hcl 25 Mg Capsule) 50 mg PO Q6H PRN PRN Reason: anxiety Last Admin: 08/18/23 01:45 Dose: 50 mg Haloperidol (Haloperidol 5 Mg Tablet) 10 mg PO BID [facility] Last Admin: 08/21/23 09:16 Dose: 10 mg [place] Star Carbonate ([place] Star Carbonate Er 450 Mg Tablet.Er) 900 mg PO BEDTIME [facility] Last Admin: 08/20/23 21:47 Dose: 900 mg Magnesium Hydroxide (Milk Of Magnesia 30 Ml Oral.Susp) 30 ml PO DAILY PRN PRN Reason: Constipation Nicotine (Nicotine 21 Mg Patch.Td24) 21 mg TRANSDERMA DAILY PRN PRN Reason: smoking cessation Last Admin: 08/19/23 11:37 Dose: 21 mg Nicotine Polacrilex (Nicotine Polacrilex 2 Mg Gum) 4 mg BUCCAL Q2H PRN PRN Reason: Nicotine Cravings Last Admin: 08/18/23 21:47 Dose: 4 mg Allergies Allergies Allergy/AdvReac Type Severity Reaction Status Date / Time nka Allergy nka Uncoded 07/24/23 16:52 Assessment & Plan Assessment & Plan (1) Schizoaffective disorder, bipolar type: Status: Acute Code(s): F25.0 - Schizoaffective disorder, bipolar type (2) Polysubstance use disorder: Status: Acute Code(s): F19.90 - Other psychoactive substance use, unspecified, uncomplicated Plan 33 yo male, history of schizoaffective disorder, bipolar type, sent from [facility] where he was admitted on a Section 35 on 07/13 for public intoxication while running in the community without clothing. Pt is psychotic upon presentation, signed CV and has been calm but echolalic in speech and behaviors for the most part since admission. Hospital course: 07/25: Increase Olanzapine to 20 mg HS 07/27: No real improvement on consistent changes. DC Prolixin Haldol 10 mg bid-prepare for decanoate trial Add Olanzapine 10 mg a.m. Benztropine 1 mg bid 07/28 Patient talking in more complete and logical sentences however he remains disorganized in both speech and behavior, rude and insulting to numerous staff as they walk by, intrusive and needs constant redirection and needs to remain on one-to-one, not able to tolerate roommate.. Not sleeping very much at night. Intermittent angry outbursts and punching things. This morning patient got so dysregulated, security had to be called, however patient was able to be redirected. Patient agreed to start Depakote, hoping it will help him sleep. 1). Patient has been treated with the following meds, however does not seem to have helped much Haldol 10 mg b.i.d. Zyprexa 10 mg daily Zyprexa 20 mg q.h.s. 2).on 07/28 Will add Depakote ER 750 q.h.s. to address likely rick (patient is not sleeping and in the past was prescribed lithium) -will continue Haldol and Zyprexa regimen for now however will likely need to change 07/29 patient remains with disorganized, intermittently aggressive behaviors; did sleep a little better last night with Depakote Need to change medication regimen as Patient has gotten up to Zyprexa 45 mg daily and Haldol 20 mg daily (when adding PRNs) 1) increase Depakote ER to 1500 mg q.h.s.; patient continues to be disorganized and dysregulated and intermittently threatening; so far tolerating and found helpful (ER is about 80% of IR) 2) start Risperdal 2 mg b.i.d.; will titrate to 3 mg b.i.d. starting tomorrow on 07/30 (intention is to see if Risperdal can work where Haldol and Zyprexa have thus been ineffective) 3) discontinue Zyprexa 10 mg daily 4) continue Zyprexa 20 mg q.h.s. and Haldol 10 mg b.i.d. for now since not sure if these may be partially subduing him and it is unclear if Risperdal will help 5) work to cross taper Risperdal with Zyprexa/Haldol; goal will be to see if Risperdal and Depakote can be effective and efforts made to be on only 1 antipsychotic SW obtained collateral from father -current episode started this May, sounds like rick when patient quit his job, spent 4000 in a week... -at baseline patient is fully functional; history of lots of LSD which seem to trigger psychotic/manic symptoms. Family history on both sides of schizophrenia -patient has been Section 35 2 times in the last 2 years; 4 psychiatric hospitalizations in the past 2 years -patient can not return to his father's or the apartment he was renting 07/31- labs ordered- cbc with leukocytosis, afebrile. CMP renal function intact BUN 9, Cr 0.95, CPK elevated in 800's. LFT elevated especially AST 106, ALT 717. ammonia wnl 40, depakote level 51. no electrolyte abnormalities. suspect elevated CPK related to IM medications and restraints. Elevation in LFT- especially ALT may be related to elevated CPK, medications. will order hep panel, if not trending down, may need GI consult. Less suspicion for NMS- no rigidity/afebrile, mentation improving despite abnormal labs. will hold depakote, especially as LFT normalize or trend back down. 08/01 ALT trending down, CPK also trending back. no rigidity or cogwheel. 08/03 Tolerating [place] Star thus far Haldol 10 mg IM x1; Benadryl 50 mg IM x 1-pt reports this helps him to stabilize. Requests IM, will trial x 1 Decrease Olanzapine to 5 mg bid If tolerated will consider Risperdal increase CBCD, CMP on 08/04. 08/04 Severe agitation and aggression today. Regime change Haldol 20 mg bid Olanzapine 20 mg bid Tegretol 50 mg bid Valium 10 mg HS Benadryl 50 mg HS Change [place] to ER 900 mg HS Ambien 10 mg HS Discontinue Risperdal Discontinue Chlorpromazine Repeat diagnostics when pt will allow. 08/06/[address] 08/13/23 2pm Refusing most of regime, Olanzapine/Benadryl combination IM this a.m. effective in providing him some mild rest. EKG WNL AST 51 to 68 TSH 0.90 Continue one to one Continue to offer regime Pt transferred to [facility] 08/06: attempt to streamline medications and taper disinhibiting medications. ambien D/Oumar. valium taper over the next week initiated. pt on both zyprexa 20 BID and haldol 20 BID; will DC zyprexa in favor of single scheduled neuroleptic agent. various PRNs DCed, including for haldol, zyprexa, atarax. will return to thorazine PRN agitation/anxiety despite report of lack of efficacy (clearly none of these other medications have been demonstrating much efficacy); will use relatively high-dose thorazine as needed for agitation, perhaps with IM benzo if sedation is required. it appears what may be missing from present regimen is adequate mood stabilizer. problems with recent VPA trial noted. no lithium level yet as pt has not been taking it consistently in any case. increase tegretol dosing from 50 BID to 200 BID for more aggressive approach to mood stabilization. section 7 filed, hearing pending for 08/12. 08/07: Continue current regimen and plans. Chemical restraint was administered with physical hold for administration 08/08: Continue current regimen and plans 08/09: continue current mgmt. court . 08/10: intermittently dangerous behaviors. punching air, touching people repeatedly, urinating on floor, showing gang signs, ripping up blanket and tying around neck and fingers, throwing things. restrained yesterday and this morning. restrained a second time today, given medication. court . 08/11: court deferred for JAMAL. sleeping this morning, not visible on unit. continue to offer medications. 08/12: refusing most meds. no change in presentation. continue current mgmt. 08/13: no change in presentation. continue to offer meds. JAMAL today. court thursday. 08/15/23- may be mildly better taking some meds- requesting IMs , given po ativan 08/15 continues to improve asking for prn thorazine, will order tegretol lvl and other labs for fu CTP, 5min checks for shift to see how he does- 08/17/23 Improving less aggressive taking meds hearing on hold x 2 weeks with extension 08/17 continue tx 08/18 continue tx. 08/19 more awake, improved hygiene, plesant on approach. no overt psychosis or delusions. no behavioral concerns. Reason for continued inpatient stay Substantial Risk for: inability to function Time Spent With Patient Time: Total time managing care of this patient today ____ minutes.
--- NOTE | 2023-08-21 10:51 | P.PNPSI_ITS ---
Subjective Subjective Date of Service: 08/21/23 Reason For Visit: disorganized/psychosis Subjective Notes: Section 7 Interim History: Pt slept through the night. Pt more visible on the unit, social with select peers. He presents as pleasant. No signs of psychosis. he is taking medications as prescribed. No SI/HI. Review of Systems Review of Systems Yes all other systems are reviewed and are negative and Unobtainable due to mental status Mental Status Exam Mental Status Exam Patient Appearance: Unkempt Patient Orientation: Person, Place, Time and Situation Level of Consciousness: Drowsy (but able to roused) Patient Behavior: Passive and Fatigued Mood Description: Calm Affect Description: Labile Patient Cognition Impaired: No Ability to Follow Directions: Fair Speech Pattern: Mumbled Memory Description: Remote Impaired Diagnostics Vital Signs (24Hr): Vital Signs - 24 hr 08/20/23 21:15 08/21/23 09:15 08/21/23 09:17 Temperature 98.7 F 97.8 F Pulse Rate 80 68 Respiratory Rate 16 18 Blood Pressure 116/74 116/63 116/63 Pulse Oximetry 98 98 Oxygen Delivery Method Room Air Room Air BMI result Body Mass Index 24.9 Labs 08/17/23 08:23 08/17/23 08:23 Medications Medications Current Medications Acetaminophen (Acetaminophen 325 Mg Tablet) 650 mg PO Q6H PRN PRN Reason: Headache/Pain Mild Scale (1-3) Last Admin: 08/13/23 11:19 Dose: 650 mg Al Hydroxide/Mg Hydroxide (Magnesium Hydrox/Alum Hydrox 30 Ml Oral.Susp) 30 ml PO Q6H PRN PRN Reason: Heartburn/Nausea Benztropine Mesylate (Benztropine Mesylate 1 Mg Tablet) 1 mg PO BID [facility] Last Admin: 08/21/23 09:17 Dose: 1 mg Carbamazepine (Carbamazepine 100 Mg Tab.Chew) 200 mg PO BID [facility] Last Admin: 08/21/23 09:16 Dose: 200 mg Chlorpromazine HCl (Chlorpromazine Hcl 100 Mg Tablet) 200 mg PO Q4H PRN PRN Reason: anxiety/agitation Last Admin: 08/16/23 04:51 Dose: 200 mg Clonidine HCl (Clonidine Hcl 0.1 Mg Tablet) 0.1 mg PO BID@0800,2000 [facility]; Protocol Last Admin: 08/21/23 09:17 Dose: 0.1 mg Diphenhydramine HCl (Diphenhydramine Hcl 25 Mg Capsule) 50 mg PO BID [facility] Last Admin: 08/21/23 09:17 Dose: 50 mg Diphenhydramine HCl (Diphenhydramine Hcl 25 Mg Capsule) 50 mg PO Q6H PRN PRN Reason: anxiety Last Admin: 08/18/23 01:45 Dose: 50 mg Haloperidol (Haloperidol 5 Mg Tablet) 10 mg PO BID [facility] Last Admin: 08/21/23 09:16 Dose: 10 mg Orwin Carbonate (Orwin Carbonate Er 450 Mg Tablet.Er) 900 mg PO BEDTIME [facility] Last Admin: 08/20/23 21:47 Dose: 900 mg Magnesium Hydroxide (Milk Of Magnesia 30 Ml Oral.Susp) 30 ml PO DAILY PRN PRN Reason: Constipation Nicotine (Nicotine 21 Mg Patch.Td24) 21 mg TRANSDERMA DAILY PRN PRN Reason: smoking cessation Last Admin: 08/19/23 11:37 Dose: 21 mg Nicotine Polacrilex (Nicotine Polacrilex 2 Mg Gum) 4 mg BUCCAL Q2H PRN PRN Reason: Nicotine Cravings Last Admin: 08/18/23 21:47 Dose: 4 mg Allergies Allergies Allergy/AdvReac Type Severity Reaction Status Date / Time nka Allergy nka Uncoded 07/24/23 16:52 Assessment & Plan Assessment & Plan (1) Schizoaffective disorder, bipolar type: Status: Acute Code(s): F25.0 - Schizoaffective disorder, bipolar type (2) Polysubstance use disorder: Status: Acute Code(s): F19.90 - Other psychoactive substance use, unspecified, uncomplicated Plan 33 yo male, history of schizoaffective disorder, bipolar type, sent from [facility] where he was admitted on a Section 35 on 07/13 for public intoxication while running in the community without clothing. Pt is psychotic upon presentation, signed CV and has been calm but echolalic in speech and behaviors for the most part since admission. Hospital course: 07/25: Increase Olanzapine to 20 mg HS 07/27: No real improvement on consistent changes. DC Prolixin Haldol 10 mg bid-prepare for decanoate trial Add Olanzapine 10 mg a.m. Benztropine 1 mg bid 07/28 Patient talking in more complete and logical sentences however he remains disorganized in both speech and behavior, rude and insulting to numerous staff as they walk by, intrusive and needs constant redirection and needs to remain on one-to-one, not able to tolerate roommate.. Not sleeping very much at night. Intermittent angry outbursts and punching things. This morning patient got so dysregulated, security had to be called, however patient was able to be redirected. Patient agreed to start Depakote, hoping it will help him sleep. 1). Patient has been treated with the following meds, however does not seem to have helped much Haldol 10 mg b.i.d. Zyprexa 10 mg daily Zyprexa 20 mg q.h.s. 2).on 07/28 Will add Depakote ER 750 q.h.s. to address likely rick (patient is not sleeping and in the past was prescribed lithium) -will continue Haldol and Zyprexa regimen for now however will likely need to change 07/29 patient remains with disorganized, intermittently aggressive behaviors; did sleep a little better last night with Depakote Need to change medication regimen as Patient has gotten up to Zyprexa 45 mg daily and Haldol 20 mg daily (when adding PRNs) 1) increase Depakote ER to 1500 mg q.h.s.; patient continues to be disorganized and dysregulated and intermittently threatening; so far tolerating and found helpful (ER is about 80% of IR) 2) start Risperdal 2 mg b.i.d.; will titrate to 3 mg b.i.d. starting tomorrow on 07/30 (intention is to see if Risperdal can work where Haldol and Zyprexa have thus been ineffective) 3) discontinue Zyprexa 10 mg daily 4) continue Zyprexa 20 mg q.h.s. and Haldol 10 mg b.i.d. for now since not sure if these may be partially subduing him and it is unclear if Risperdal will help 5) work to cross taper Risperdal with Zyprexa/Haldol; goal will be to see if Risperdal and Depakote can be effective and efforts made to be on only 1 antipsychotic SW obtained collateral from father -current episode started this May, sounds like rick when patient quit his job, spent 4000 in a week... -at baseline patient is fully functional; history of lots of LSD which seem to trigger psychotic/manic symptoms. Family history on both sides of schizophrenia -patient has been Section 35 2 times in the last 2 years; 4 psychiatric hospitalizations in the past 2 years -patient can not return to his father's or the apartment he was renting 07/31- labs ordered- cbc with leukocytosis, afebrile. CMP renal function intact BUN 9, Cr 0.95, CPK elevated in 800's. LFT elevated especially AST 106, ALT 717. ammonia wnl 40, depakote level 51. no electrolyte abnormalities. suspect elevated CPK related to IM medications and restraints. Elevation in LFT- especially ALT may be related to elevated CPK, medications. will order hep panel, if not trending down, may need GI consult. Less suspicion for NMS- no rigidity/afebrile, mentation improving despite abnormal labs. will hold depakote, especially as LFT normalize or trend back down. 08/01 ALT trending down, CPK also trending back. no rigidity or cogwheel. 08/03 Tolerating [place] thus far Haldol 10 mg IM x1; Benadryl 50 mg IM x 1-pt reports this helps him to stabilize. Requests IM, will trial x 1 Decrease Olanzapine to 5 mg bid If tolerated will consider Risperdal increase CBCD, CMP on 08/04. 08/04 Severe agitation and aggression today. Regime change Haldol 20 mg bid Olanzapine 20 mg bid Tegretol 50 mg bid Valium 10 mg HS Benadryl 50 mg HS Change [place] to ER 900 mg HS Ambien 10 mg HS Discontinue Risperdal Discontinue Chlorpromazine Repeat diagnostics when pt will allow. 08/06/[address] 08/13/23 2pm Refusing most of regime, Olanzapine/Benadryl combination IM this a.m. effective in providing him some mild rest. EKG WNL AST 51 to 68 TSH 0.90 Continue one to one Continue to offer regime Pt transferred to M3 08/06: attempt to streamline medications and taper disinhibiting medications. ambien D/Oumar. valium taper over the next week initiated. pt on both zyprexa 20 BID and haldol 20 BID; will DC zyprexa in favor of single scheduled neuroleptic agent. various PRNs DCed, including for haldol, zyprexa, atarax. will return to thorazine PRN agitation/anxiety despite report of lack of efficacy (clearly none of these other medications have been demonstrating much efficacy); will use relatively high-dose thorazine as needed for agitation, perhaps with IM benzo if sedation is required. it appears what may be missing from present regimen is adequate mood stabilizer. problems with recent VPA trial noted. no lithium level yet as pt has not been taking it consistently in any case. increase tegretol dosing from 50 BID to 200 BID for more aggressive approach to mood stabilization. section 7 filed, hearing pending for 08/12. 08/07: Continue current regimen and plans. Chemical restraint was administered with physical hold for administration 08/08: Continue current regimen and plans 08/09: continue current mgmt. court . 08/10: intermittently dangerous behaviors. punching air, touching people repeatedly, urinating on floor, showing gang signs, ripping up blanket and tying around neck and fingers, throwing things. restrained yesterday and this morning. restrained a second time today, given medication. court . 08/11: court deferred for JAMAL. sleeping this morning, not visible on unit. continue to offer medications. 08/12: refusing most meds. no change in presentation. continue current mgmt. 08/13: no change in presentation. continue to offer meds. JAMAL today. court thursday. 08/15/23- may be mildly better taking some meds- requesting IMs , given po ativan 08/15 continues to improve asking for prn thorazine, will order tegretol lvl and other labs for fu CTP, 5min checks for shift to see how he does- 08/17/23 Improving less aggressive taking meds hearing on hold x 2 weeks with extension 08/17 continue tx 08/18 continue tx. 08/19 more awake, improved hygiene, pleasant on approach. no overt psychosis or delusions. no behavioral concerns. 08/20 continue tx. Reason for continued inpatient stay Substantial Risk for: inability to function Time Spent With Patient Time: Total time managing care of this patient today ____ minutes.
[2023-08-21 20:40] VITALS: BP 105/69; PULSE 85; RESP 16; TEMP 36.8; O2SAT 97
[2023-08-21] MEDS: Lithium Carbonate ER 450 MG TABLET.ER 900 MG PO (20:48)
[2023-08-22 07:45] VITALS: BP 100/51; PULSE 63; RESP 12; TEMP 36.5; O2SAT 98
[2023-08-22] MEDS: HaloperidoL 5 MG TABLET 10 MG PO ×2 (09:33→20:50)
[2023-08-22] MEDS: diphenhydrAMINE HCL 25 MG CAPSULE 50 MG PO ×2 (09:33→20:49)
[2023-08-22] MEDS: Benztropine Mesylate 1 MG TABLET PO ×2 (09:33→20:50)
[2023-08-22] MEDS: carBAMazepine 100 MG TAB.CHEW 200 MG PO ×2 (09:34→20:49)
--- NOTE | 2023-08-22 10:12 | P.PNPSI_ITS ---
Subjective Subjective Date of Service: 08/22/23 Reason For Visit: disorganized/psychosis Interim History: Pt slept through the night. Pt mostly isolating in room. He presents as pleasant. No signs of psychosis. he is taking medications as prescribed. No side effects. No SI/HI. Review of Systems Review of Systems Yes all other systems are reviewed and are negative and Unobtainable due to mental status Mental Status Exam Mental Status Exam Narrative: did shower but doesn't have clean shirt to change into Patient Appearance: Unkempt Patient Orientation: Person, Place, Time and Situation Level of Consciousness: Drowsy (but able to roused) Patient Behavior: Passive and Fatigued Mood Description: Calm Affect Description: Labile Patient Cognition Impaired: No Ability to Follow Directions: Fair Speech Pattern: Mumbled Memory Description: Remote Impaired Diagnostics Vital Signs (24Hr): Vital Signs - 24 hr 08/21/23 20:40 08/22/23 07:45 Temperature 98.3 F 97.7 F Pulse Rate 85 63 Respiratory Rate 16 12 Blood Pressure 105/69 100/51 L Pulse Oximetry 97 98 Oxygen Delivery Method Room Air Room Air BMI result Body Mass Index 24.9 Labs 08/17/23 08:23 08/17/23 08:23 Medications Medications Current Medications Acetaminophen (Acetaminophen 325 Mg Tablet) 650 mg PO Q6H PRN PRN Reason: Headache/Pain Mild Scale (1-3) Last Admin: 08/13/23 11:19 Dose: 650 mg Al Hydroxide/Mg Hydroxide (Magnesium Hydrox/Alum Hydrox 30 Ml Oral.Susp) 30 ml PO Q6H PRN PRN Reason: Heartburn/Nausea Benztropine Mesylate (Benztropine Mesylate 1 Mg Tablet) 1 mg PO BID [facility] Last Admin: 08/22/23 09:33 Dose: 1 mg Carbamazepine (Carbamazepine 100 Mg Tab.Chew) 200 mg PO BID [facility] Last Admin: 08/22/23 09:34 Dose: 200 mg Chlorpromazine HCl (Chlorpromazine Hcl 100 Mg Tablet) 200 mg PO Q4H PRN PRN Reason: anxiety/agitation Last Admin: 08/16/23 04:51 Dose: 200 mg Clonidine HCl (Clonidine Hcl 0.1 Mg Tablet) 0.1 mg PO BID@0800,2000 [facility]; Protocol Last Admin: 08/22/23 09:35 Dose: Not Given Diphenhydramine HCl (Diphenhydramine Hcl 25 Mg Capsule) 50 mg PO BID [facility] Last Admin: 08/22/23 09:33 Dose: 50 mg Diphenhydramine HCl (Diphenhydramine Hcl 25 Mg Capsule) 50 mg PO Q6H PRN PRN Reason: anxiety Last Admin: 08/18/23 01:45 Dose: 50 mg Haloperidol (Haloperidol 5 Mg Tablet) 10 mg PO BID [facility] Last Admin: 08/22/23 09:33 Dose: 10 mg [place] Carbonate ([place] Carbonate Er 450 Mg Tablet.Er) 900 mg PO BEDTIME [facility] Last Admin: 08/21/23 20:48 Dose: 900 mg Magnesium Hydroxide (Milk Of Magnesia 30 Ml Oral.Susp) 30 ml PO DAILY PRN PRN Reason: Constipation Nicotine (Nicotine 21 Mg Patch.Td24) 21 mg TRANSDERMA DAILY PRN PRN Reason: smoking cessation Last Admin: 08/19/23 11:37 Dose: 21 mg Nicotine Polacrilex (Nicotine Polacrilex 2 Mg Gum) 4 mg BUCCAL Q2H PRN PRN Reason: Nicotine Cravings Last Admin: 08/18/23 21:47 Dose: 4 mg Allergies Allergies Allergy/AdvReac Type Severity Reaction Status Date / Time nka Allergy nka Uncoded 07/24/23 16:52 Assessment & Plan Assessment & Plan (1) Schizoaffective disorder, bipolar type: Status: Acute Code(s): F25.0 - Schizoaffective disorder, bipolar type (2) Polysubstance use disorder: Status: Acute Code(s): F19.90 - Other psychoactive substance use, unspecified, uncomplicated Plan 33 yo male, history of schizoaffective disorder, bipolar type, sent from [facility] where he was admitted on a Section 35 on 07/13 for public intoxication while running in the community without clothing. Pt is psychotic upon presentation, signed CV and has been calm but echolalic in speech and behaviors for the most part since admission. Hospital course: 07/25: Increase Olanzapine to 20 mg HS 07/27: No real improvement on consistent changes. DC Prolixin Haldol 10 mg bid-prepare for decanoate trial Add Olanzapine 10 mg a.m. Benztropine 1 mg bid 07/28 Patient talking in more complete and logical sentences however he remains disorganized in both speech and behavior, rude and insulting to numerous staff as they walk by, intrusive and needs constant redirection and needs to remain on one-to-one, not able to tolerate roommate.. Not sleeping very much at night. Intermittent angry outbursts and punching things. This morning patient got so dysregulated, security had to be called, however patient was able to be redirected. Patient agreed to start Depakote, hoping it will help him sleep. 1). Patient has been treated with the following meds, however does not seem to have helped much Haldol 10 mg b.i.d. Zyprexa 10 mg daily Zyprexa 20 mg q.h.s. 2).on 07/28 Will add Depakote ER 750 q.h.s. to address likely rick (patient is not sleeping and in the past was prescribed lithium) -will continue Haldol and Zyprexa regimen for now however will likely need to change 07/29 patient remains with disorganized, intermittently aggressive behaviors; did sleep a little better last night with Depakote Need to change medication regimen as Patient has gotten up to Zyprexa 45 mg daily and Haldol 20 mg daily (when adding PRNs) 1) increase Depakote ER to 1500 mg q.h.s.; patient continues to be disorganized and dysregulated and intermittently threatening; so far tolerating and found helpful (ER is about 80% of IR) 2) start Risperdal 2 mg b.i.d.; will titrate to 3 mg b.i.d. starting tomorrow on 07/30 (intention is to see if Risperdal can work where Haldol and Zyprexa have thus been ineffective) 3) discontinue Zyprexa 10 mg daily 4) continue Zyprexa 20 mg q.h.s. and Haldol 10 mg b.i.d. for now since not sure if these may be partially subduing him and it is unclear if Risperdal will help 5) work to cross taper Risperdal with Zyprexa/Haldol; goal will be to see if Risperdal and Depakote can be effective and efforts made to be on only 1 antipsychotic SW obtained collateral from father -current episode started this May, sounds like rick when patient quit his job, spent 4000 in a week... -at baseline patient is fully functional; history of lots of LSD which seem to trigger psychotic/manic symptoms. Family history on both sides of schizophrenia -patient has been Section 35 2 times in the last 2 years; 4 psychiatric hospitalizations in the past 2 years -patient can not return to his father's or the apartment he was renting 07/31- labs ordered- cbc with leukocytosis, afebrile. CMP renal function intact BUN 9, Cr 0.95, CPK elevated in 800's. LFT elevated especially AST 106, ALT 717. ammonia wnl 40, depakote level 51. no electrolyte abnormalities. suspect elevated CPK related to IM medications and restraints. Elevation in LFT- especially ALT may be related to elevated CPK, medications. will order hep panel, if not trending down, may need GI consult. Less suspicion for NMS- no rigidity/afebrile, mentation improving despite abnormal labs. will hold depakote, especially as LFT normalize or trend back down. 08/01 ALT trending down, CPK also trending back. no rigidity or cogwheel. 08/03 Tolerating [place] thus far Haldol 10 mg IM x1; Benadryl 50 mg IM x 1-pt reports this helps him to stabilize. Requests IM, will trial x 1 Decrease Olanzapine to 5 mg bid If tolerated will consider Risperdal increase CBCD, CMP on 08/04. 08/04 Severe agitation and aggression today. Regime change Haldol 20 mg bid Olanzapine 20 mg bid Tegretol 50 mg bid Valium 10 mg HS Benadryl 50 mg HS Change [place] to ER 900 mg HS Ambien 10 mg HS Discontinue Risperdal Discontinue Chlorpromazine Repeat diagnostics when pt will allow. 08/06/[address] 08/13/23 2pm Refusing most of regime, Olanzapine/Benadryl combination IM this a.m. effective in providing him some mild rest. EKG WNL AST 51 to 68 TSH 0.90 Continue one to one Continue to offer regime Pt transferred to M3 08/06: attempt to streamline medications and taper disinhibiting medications. ambien D/Oumar. valium taper over the next week initiated. pt on both zyprexa 20 BID and haldol 20 BID; will DC zyprexa in favor of single scheduled neuroleptic agent. various PRNs DCed, including for haldol, zyprexa, atarax. will return to thorazine PRN agitation/anxiety despite report of lack of efficacy (clearly none of these other medications have been demonstrating much efficacy); will use relatively high-dose thorazine as needed for agitation, perhaps with IM benzo if sedation is required. it appears what may be missing from present regimen is adequate mood stabilizer. problems with recent VPA trial noted. no lithium level yet as pt has not been taking it consistently in any case. increase tegretol dosing from 50 BID to 200 BID for more aggressive approach to mood stabilization. section 7 filed, hearing pending for 08/12. 08/07: Continue current regimen and plans. Chemical restraint was administered with physical hold for administration 08/08: Continue current regimen and plans 08/09: continue current mgmt. court . 08/10: intermittently dangerous behaviors. punching air, touching people repeatedly, urinating on floor, showing gang signs, ripping up blanket and tying around neck and fingers, throwing things. restrained yesterday and this morning. restrained a second time today, given medication. court . 08/11: court deferred for JAMAL. sleeping this morning, not visible on unit. continue to offer medications. 08/12: refusing most meds. no change in presentation. continue current mgmt. 08/13: no change in presentation. continue to offer meds. JAMAL today. court thursday. 08/15/23- may be mildly better taking some meds- requesting IMs , given po ativan 08/15 continues to improve asking for prn thorazine, will order tegretol lvl and other labs for fu CTP, 5min checks for shift to see how he does- 08/17/23 Improving less aggressive taking meds hearing on hold x 2 weeks with extension 08/17 continue tx 08/18 continue tx. 08/19 more awake, improved hygiene, pleasant on approach. no overt psychosis or delusions. no behavioral concerns. 08/20 continue tx. 08/21: continue current management and treatment plan. Reason for continued inpatient stay Substantial Risk for: inability to function and rapid decompensation Time Spent With Patient Time: Total time managing care of this patient today ____ minutes.
[2023-08-22 20:30] VITALS: BP 120/65; PULSE 80; RESP 16; TEMP 36.8; O2SAT 99
[2023-08-22] MEDS: Lithium Carbonate ER 450 MG TABLET.ER 900 MG PO (20:49)
[2023-08-22] MEDS: cloNIDine HCL 0.1 MG TABLET PO (20:50)
[2023-08-23 08:00] VITALS: BP 97/54; PULSE 62; RESP 18; TEMP 36.9; O2SAT 98
[2023-08-23] MEDS: carBAMazepine 100 MG TAB.CHEW 200 MG PO ×2 (08:50→20:42)
[2023-08-23] MEDS: HaloperidoL 5 MG TABLET 10 MG PO ×2 (08:50→20:43)
[2023-08-23] MEDS: Benztropine Mesylate 1 MG TABLET PO ×2 (08:51→20:43)
[2023-08-23] MEDS: diphenhydrAMINE HCL 25 MG CAPSULE 50 MG PO ×2 (08:51→20:43)
[2023-08-23 09:25] VITALS: BP 97/54
--- NOTE | 2023-08-23 15:31 | P.PNPSI_ITS ---
Subjective Subjective Date of Service: 08/23/23 Reason For Visit: disorganized/psychosis Interim History: Pt slept through the night. Pt mostly isolating in room. He presents as pleasant. No overt signs of psychosis. he is taking medications as prescribed. No side effects. No SI/HI. Medication Compliance: Yes Side effects from medications: No Review of Systems Review of Systems Yes all other systems are reviewed and are negative and Unobtainable due to mental status Mental Status Exam Mental Status Exam Narrative: did shower but doesn't have clean shirt to change into Patient Appearance: Unkempt Patient Orientation: Person, Place, Time and Situation Level of Consciousness: Drowsy (but able to roused) Patient Behavior: Passive and Fatigued Mood Description: Calm Affect Description: Labile Patient Cognition Impaired: No Ability to Follow Directions: Fair Speech Pattern: Mumbled Memory Description: Remote Impaired Diagnostics Vital Signs (24Hr): Vital Signs - 24 hr 08/22/23 20:30 08/23/23 08:00 08/23/23 09:25 Temperature 98.2 F 98.4 F Pulse Rate 80 62 Respiratory Rate 16 18 Blood Pressure 120/65 97/54 L 97/54 L Pulse Oximetry 99 98 Oxygen Delivery Method Room Air Room Air BMI result Body Mass Index 24.9 Labs 08/17/23 08:23 08/17/23 08:23 Medications Medications Current Medications Acetaminophen (Acetaminophen 325 Mg Tablet) 650 mg PO Q6H PRN PRN Reason: Headache/Pain Mild Scale (1-3) Last Admin: 08/13/23 11:19 Dose: 650 mg Al Hydroxide/Mg Hydroxide (Magnesium Hydrox/Alum Hydrox 30 Ml Oral.Susp) 30 ml PO Q6H PRN PRN Reason: Heartburn/Nausea Benztropine Mesylate (Benztropine Mesylate 1 Mg Tablet) 1 mg PO BID [facility] Last Admin: 08/23/23 08:51 Dose: 1 mg Carbamazepine (Carbamazepine 100 Mg Tab.Chew) 200 mg PO BID [facility] Last Admin: 08/23/23 08:50 Dose: 200 mg Chlorpromazine HCl (Chlorpromazine Hcl 100 Mg Tablet) 200 mg PO Q4H PRN PRN Reason: anxiety/agitation Last Admin: 08/16/23 04:51 Dose: 200 mg Clonidine HCl (Clonidine Hcl 0.1 Mg Tablet) 0.1 mg PO BID@0800,2000 [facility]; Protocol Last Admin: 08/23/23 09:25 Dose: Not Given Diphenhydramine HCl (Diphenhydramine Hcl 25 Mg Capsule) 50 mg PO BID [facility] Last Admin: 08/23/23 08:51 Dose: 50 mg Diphenhydramine HCl (Diphenhydramine Hcl 25 Mg Capsule) 50 mg PO Q6H PRN PRN Reason: anxiety Last Admin: 08/18/23 01:45 Dose: 50 mg Haloperidol (Haloperidol 5 Mg Tablet) 10 mg PO BID [facility] Last Admin: 08/23/23 08:50 Dose: 10 mg [place] Carbonate ([place] Carbonate Er 450 Mg Tablet.Er) 900 mg PO BEDTIME [facility] Last Admin: 08/22/23 20:49 Dose: 900 mg Magnesium Hydroxide (Milk Of Magnesia 30 Ml Oral.Susp) 30 ml PO DAILY PRN PRN Reason: Constipation Nicotine (Nicotine 21 Mg Patch.Td24) 21 mg TRANSDERMA DAILY PRN PRN Reason: smoking cessation Last Admin: 08/19/23 11:37 Dose: 21 mg Nicotine Polacrilex (Nicotine Polacrilex 2 Mg Gum) 4 mg BUCCAL Q2H PRN PRN Reason: Nicotine Cravings Last Admin: 08/18/23 21:47 Dose: 4 mg Allergies Allergies Allergy/AdvReac Type Severity Reaction Status Date / Time nka Allergy nka Uncoded 07/24/23 16:52 Assessment & Plan Assessment & Plan (1) Schizoaffective disorder, bipolar type: Status: Acute Code(s): F25.0 - Schizoaffective disorder, bipolar type (2) Polysubstance use disorder: Status: Acute Code(s): F19.90 - Other psychoactive substance use, unspecified, uncomplicated Plan 33 yo male, history of schizoaffective disorder, bipolar type, sent from [facility] where he was admitted on a Section 35 on 07/13 for public intoxication while running in the community without clothing. Pt is psychotic upon presentation, signed CV and has been calm but echolalic in speech and behaviors for the most part since admission. Hospital course: 07/25: Increase Olanzapine to 20 mg HS 07/27: No real improvement on consistent changes. DC Prolixin Haldol 10 mg bid-prepare for decanoate trial Add Olanzapine 10 mg a.m. Benztropine 1 mg bid 07/28 Patient talking in more complete and logical sentences however he remains disorganized in both speech and behavior, rude and insulting to numerous staff as they walk by, intrusive and needs constant redirection and needs to remain on one-to-one, not able to tolerate roommate.. Not sleeping very much at night. Intermittent angry outbursts and punching things. This morning patient got so dysregulated, security had to be called, however patient was able to be redirected. Patient agreed to start Depakote, hoping it will help him sleep. 1). Patient has been treated with the following meds, however does not seem to have helped much Haldol 10 mg b.i.d. Zyprexa 10 mg daily Zyprexa 20 mg q.h.s. 2).on 07/28 Will add Depakote ER 750 q.h.s. to address likely rick (patient is not sleeping and in the past was prescribed lithium) -will continue Haldol and Zyprexa regimen for now however will likely need to change 07/29 patient remains with disorganized, intermittently aggressive behaviors; did sleep a little better last night with Depakote Need to change medication regimen as Patient has gotten up to Zyprexa 45 mg daily and Haldol 20 mg daily (when adding PRNs) 1) increase Depakote ER to 1500 mg q.h.s.; patient continues to be disorganized and dysregulated and intermittently threatening; so far tolerating and found helpful (ER is about 80% of IR) 2) start Risperdal 2 mg b.i.d.; will titrate to 3 mg b.i.d. starting tomorrow on 07/30 (intention is to see if Risperdal can work where Haldol and Zyprexa have thus been ineffective) 3) discontinue Zyprexa 10 mg daily 4) continue Zyprexa 20 mg q.h.s. and Haldol 10 mg b.i.d. for now since not sure if these may be partially subduing him and it is unclear if Risperdal will help 5) work to cross taper Risperdal with Zyprexa/Haldol; goal will be to see if Risperdal and Depakote can be effective and efforts made to be on only 1 antipsychotic SW obtained collateral from father -current episode started this Rita, sounds like rick when patient quit his job, spent 4000 in a week... -at baseline patient is fully functional; history of lots of LSD which seem to trigger psychotic/manic symptoms. Family history on both sides of schizophrenia -patient has been Section 35 2 times in the last 2 years; 4 psychiatric hospitalizations in the past 2 years -patient can not return to his father's or the apartment he was renting 07/31- labs ordered- cbc with leukocytosis, afebrile. CMP renal function intact BUN 9, Cr 0.95, CPK elevated in 800's. LFT elevated especially AST 106, ALT 717. ammonia wnl 40, depakote level 51. no electrolyte abnormalities. suspect elevated CPK related to IM medications and restraints. Elevation in LFT- especially ALT may be related to elevated CPK, medications. will order hep panel, if not trending down, may need GI consult. Less suspicion for NMS- no rigidity/afebrile, mentation improving despite abnormal labs. will hold depakote, especially as LFT normalize or trend back down. 08/01 ALT trending down, CPK also trending back. no rigidity or cogwheel. 08/03 Tolerating [place] thus far Haldol 10 mg IM x1; Benadryl 50 mg IM x 1-pt reports this helps him to stabilize. Requests IM, will trial x 1 Decrease Olanzapine to 5 mg bid If tolerated will consider Risperdal increase CBCD, CMP on 08/04. 08/04 Severe agitation and aggression today. Regime change Haldol 20 mg bid Olanzapine 20 mg bid Tegretol 50 mg bid Valium 10 mg HS Benadryl 50 mg HS Change [place] to ER 900 mg HS Ambien 10 mg HS Discontinue Risperdal Discontinue Chlorpromazine Repeat diagnostics when pt will allow. 08/06/[address] 08/13/23 2pm Refusing most of regime, Olanzapine/Benadryl combination IM this a.m. effective in providing him some mild rest. EKG WNL AST 51 to 68 TSH 0.90 Continue one to one Continue to offer regime Pt transferred to M3 08/06: attempt to streamline medications and taper disinhibiting medications. ambien D/Oumar. valium taper over the next week initiated. pt on both zyprexa 20 BID and haldol 20 BID; will DC zyprexa in favor of single scheduled neuroleptic agent. various PRNs DCed, including for haldol, zyprexa, atarax. will return to thorazine PRN agitation/anxiety despite report of lack of efficacy (clearly none of these other medications have been demonstrating much efficacy); will use relatively high-dose thorazine as needed for agitation, perhaps with IM benzo if sedation is required. it appears what may be missing from present regimen is adequate mood stabilizer. problems with recent VPA trial noted. no lithium level yet as pt has not been taking it consistently in any case. increase tegretol dosing from 50 BID to 200 BID for more aggressive approach to mood stabilization. section 7 filed, hearing pending for 08/12. 08/07: Continue current regimen and plans. Chemical restraint was administered with physical hold for administration 08/08: Continue current regimen and plans 08/09: continue current mgmt. court . 08/10: intermittently dangerous behaviors. punching air, touching people repeatedly, urinating on floor, showing gang signs, ripping up blanket and tying around neck and fingers, throwing things. restrained yesterday and this morning. restrained a second time today, given medication. court . 08/11: court deferred for JAMAL. sleeping this morning, not visible on unit. continue to offer medications. 08/12: refusing most meds. no change in presentation. continue current mgmt. 08/13: no change in presentation. continue to offer meds. JAMAL today. court thursday. 08/15/23- may be mildly better taking some meds- requesting IMs , given po ativan 08/15 continues to improve asking for prn thorazine, will order tegretol lvl and other labs for fu CTP, 5min checks for shift to see how he does- 08/17/23 Improving less aggressive taking meds hearing on hold x 2 weeks with extension 08/17 continue tx 08/18 continue tx. 08/19 more awake, improved hygiene, pleasant on approach. no overt psychosis or delusions. no behavioral concerns. 08/20 continue tx. 08/21: continue current management and treatment plan. 08/22: continue current management and treatment plan. Reason for continued inpatient stay Substantial Risk for: inability to function and rapid decompensation Time Spent With Patient Time: Total time managing care of this patient today ____ minutes.
[2023-08-23] MEDS: cloNIDine HCL 0.1 MG TABLET PO (20:43)
[2023-08-23] MEDS: Lithium Carbonate ER 450 MG TABLET.ER 900 MG PO (20:43)
[2023-08-23 20:45] VITALS: BP 122/67; PULSE 65; RESP 16; TEMP 36.6; O2SAT 97
[2023-08-24 08:00] VITALS: BP 100/57; PULSE 53; RESP 16; TEMP 36.6; O2SAT 98
[2023-08-24 08:45] VITALS: BP 109/65
[2023-08-24] MEDS: cloNIDine HCL 0.1 MG TABLET PO ×2 (08:45→20:22)
[2023-08-24] MEDS: HaloperidoL 5 MG TABLET 10 MG PO ×2 (08:46→20:23)
[2023-08-24] MEDS: Benztropine Mesylate 1 MG TABLET PO ×2 (08:47→20:24)
[2023-08-24] MEDS: diphenhydrAMINE HCL 25 MG CAPSULE 50 MG PO ×2 (08:47→20:23)
[2023-08-24] MEDS: carBAMazepine 100 MG TAB.CHEW 200 MG PO ×2 (08:48→20:23)
--- NOTE | 2023-08-24 10:53 | HO.PSYCHPN ---
Subjective Subjective Date of Service: 08/24/23 Reason For Visit: disorganized/psychosis Subjective Notes: Section 7 Interim History: Pt slept through the night. Pt much more alert, and pleasant. No signs of psychosis or delusions. No SI/HI. No aggression towards self or others. Pending dispo. He is taking medications as prescribed. No behavioral concerns. Review of Systems Review of Systems Yes all other systems are reviewed and are negative and Unobtainable due to mental status Mental Status Exam Mental Status Exam Patient Appearance: Unkempt Patient Orientation: Person, Place, Time and Situation Level of Consciousness: Drowsy (but able to roused) Patient Behavior: Passive and Fatigued Mood Description: Calm Affect Description: Labile Patient Cognition Impaired: No Ability to Follow Directions: Fair Speech Pattern: Mumbled Memory Description: Remote Impaired Diagnostics Vital Signs (24Hr): Vital Signs - 24 hr 08/23/23 20:45 08/24/23 08:00 08/24/23 08:45 Temperature 97.8 F 97.8 F Pulse Rate 65 53 Respiratory Rate 16 16 Blood Pressure 122/67 100/57 L 109/65 Pulse Oximetry 97 98 Oxygen Delivery Method Room Air Room Air BMI result Body Mass Index 24.9 Labs 08/17/23 08:23 08/17/23 08:23 Medications Medications Current Medications Acetaminophen (Acetaminophen 325 Mg Tablet) 650 mg PO Q6H PRN PRN Reason: Headache/Pain Mild Scale (1-3) Last Admin: 08/13/23 11:19 Dose: 650 mg Al Hydroxide/Mg Hydroxide (Magnesium Hydrox/Alum Hydrox 30 Ml Oral.Susp) 30 ml PO Q6H PRN PRN Reason: Heartburn/Nausea Benztropine Mesylate (Benztropine Mesylate 1 Mg Tablet) 1 mg PO BID [facility] Last Admin: 08/24/23 08:47 Dose: 1 mg Carbamazepine (Carbamazepine 100 Mg Tab.Chew) 200 mg PO BID [facility] Last Admin: 08/24/23 08:48 Dose: 200 mg Chlorpromazine HCl (Chlorpromazine Hcl 100 Mg Tablet) 200 mg PO Q4H PRN PRN Reason: anxiety/agitation Last Admin: 08/16/23 04:51 Dose: 200 mg Clonidine HCl (Clonidine Hcl 0.1 Mg Tablet) 0.1 mg PO BID@0800,1999 [facility]; Protocol Last Admin: 08/24/23 08:45 Dose: 0.1 mg Diphenhydramine HCl (Diphenhydramine Hcl 25 Mg Capsule) 50 mg PO BID [facility] Last Admin: 08/24/23 08:47 Dose: 50 mg Diphenhydramine HCl (Diphenhydramine Hcl 25 Mg Capsule) 50 mg PO Q6H PRN PRN Reason: anxiety Last Admin: 08/18/23 01:45 Dose: 50 mg Haloperidol (Haloperidol 5 Mg Tablet) 10 mg PO BID [facility] Last Admin: 08/24/23 08:46 Dose: 10 mg Bucks Carbonate (Bucks Carbonate Er 450 Mg Tablet.Er) 900 mg PO BEDTIME [facility] Last Admin: 08/23/23 20:43 Dose: 900 mg Magnesium Hydroxide (Milk Of Magnesia 30 Ml Oral.Susp) 30 ml PO DAILY PRN PRN Reason: Constipation Nicotine (Nicotine 21 Mg Patch.Td24) 21 mg TRANSDERMA DAILY PRN PRN Reason: smoking cessation Last Admin: 08/19/23 11:37 Dose: 21 mg Nicotine Polacrilex (Nicotine Polacrilex 2 Mg Gum) 4 mg BUCCAL Q2H PRN PRN Reason: Nicotine Cravings Last Admin: 08/18/23 21:47 Dose: 4 mg Allergies Allergies Allergy/AdvReac Type Severity Reaction Status Date / Time nka Allergy nka Uncoded 07/24/23 16:52 Assessment & Plan Assessment & Plan (1) Schizoaffective disorder, bipolar type: Status: Acute Code(s): F25.0 - Schizoaffective disorder, bipolar type (2) Polysubstance use disorder: Status: Acute Code(s): F19.90 - Other psychoactive substance use, unspecified, uncomplicated Plan 33 yo male, history of schizoaffective disorder, bipolar type, sent from [facility] where he was admitted on a Section 35 on 07/13 for public intoxication while running in the community without clothing. Pt is psychotic upon presentation, signed CV and has been calm but echolalic in speech and behaviors for the most part since admission. Hospital course: 07/25: Increase Olanzapine to 20 mg HS 07/27: No real improvement on consistent changes. DC Prolixin Haldol 10 mg bid-prepare for decanoate trial Add Olanzapine 10 mg a.m. Benztropine 1 mg bid 07/28 Patient talking in more complete and logical sentences however he remains disorganized in both speech and behavior, rude and insulting to numerous staff as they walk by, intrusive and needs constant redirection and needs to remain on one-to-one, not able to tolerate roommate.. Not sleeping very much at night. Intermittent angry outbursts and punching things. This morning patient got so dysregulated, security had to be called, however patient was able to be redirected. Patient agreed to start Depakote, hoping it will help him sleep. 1). Patient has been treated with the following meds, however does not seem to have helped much Haldol 10 mg b.i.d. Zyprexa 10 mg daily Zyprexa 20 mg q.h.s. 2).on 07/28 Will add Depakote ER 750 q.h.s. to address likely rick (patient is not sleeping and in the past was prescribed lithium) -will continue Haldol and Zyprexa regimen for now however will likely need to change 07/29 patient remains with disorganized, intermittently aggressive behaviors; did sleep a little better last night with Depakote Need to change medication regimen as Patient has gotten up to Zyprexa 45 mg daily and Haldol 20 mg daily (when adding PRNs) 1) increase Depakote ER to 1500 mg q.h.s.; patient continues to be disorganized and dysregulated and intermittently threatening; so far tolerating and found helpful (ER is about 80% of IR) 2) start Risperdal 2 mg b.i.d.; will titrate to 3 mg b.i.d. starting tomorrow on 07/30 (intention is to see if Risperdal can work where Haldol and Zyprexa have thus been ineffective) 3) discontinue Zyprexa 10 mg daily 4) continue Zyprexa 20 mg q.h.s. and Haldol 10 mg b.i.d. for now since not sure if these may be partially subduing him and it is unclear if Risperdal will help 5) work to cross taper Risperdal with Zyprexa/Haldol; goal will be to see if Risperdal and Depakote can be effective and efforts made to be on only 1 antipsychotic SW obtained collateral from father -current episode started this May, sounds like rick when patient quit his job, spent 4000 in a week... -at baseline patient is fully functional; history of lots of LSD which seem to trigger psychotic/manic symptoms. Family history on both sides of schizophrenia -patient has been Section 35 2 times in the last 2 years; 4 psychiatric hospitalizations in the past 2 years -patient can not return to his father's or the apartment he was renting 07/31- labs ordered- cbc with leukocytosis, afebrile. CMP renal function intact BUN 9, Cr 0.95, CPK elevated in 800's. LFT elevated especially AST 106, ALT 717. ammonia wnl 40, depakote level 51. no electrolyte abnormalities. suspect elevated CPK related to IM medications and restraints. Elevation in LFT- especially ALT may be related to elevated CPK, medications. will order hep panel, if not trending down, may need GI consult. Less suspicion for NMS- no rigidity/afebrile, mentation improving despite abnormal labs. will hold depakote, especially as LFT normalize or trend back down. 08/01 ALT trending down, CPK also trending back. no rigidity or cogwheel. 08/03 Tolerating Bucks thus far Haldol 10 mg IM x1; Benadryl 50 mg IM x 1-pt reports this helps him to stabilize. Requests IM, will trial x 1 Decrease Olanzapine to 5 mg bid If tolerated will consider Risperdal increase CBCD, CMP on 08/04. 08/04 Severe agitation and aggression today. Regime change Haldol 20 mg bid Olanzapine 20 mg bid Tegretol 50 mg bid Valium 10 mg HS Benadryl 50 mg HS Change Bucks to ER 900 mg HS Ambien 10 mg HS Discontinue Risperdal Discontinue Chlorpromazine Repeat diagnostics when pt will allow. 08/06/[address] 08/13/23 2pm Refusing most of regime, Olanzapine/Benadryl combination IM this a.m. effective in providing him some mild rest. EKG WNL AST 51 to 68 TSH 0.90 Continue one to one Continue to offer regime Pt transferred to M3 08/06: attempt to streamline medications and taper disinhibiting medications. ambien D/Oumar. valium taper over the next week initiated. pt on both zyprexa 20 BID and haldol 20 BID; will DC zyprexa in favor of single scheduled neuroleptic agent. various PRNs DCed, including for haldol, zyprexa, atarax. will return to thorazine PRN agitation/anxiety despite report of lack of efficacy (clearly none of these other medications have been demonstrating much efficacy); will use relatively high-dose thorazine as needed for agitation, perhaps with IM benzo if sedation is required. it appears what may be missing from present regimen is adequate mood stabilizer. problems with recent VPA trial noted. no lithium level yet as pt has not been taking it consistently in any case. increase tegretol dosing from 50 BID to 200 BID for more aggressive approach to mood stabilization. section 7 filed, hearing pending for 08/12. 08/07: Continue current regimen and plans. Chemical restraint was administered with physical hold for administration 08/08: Continue current regimen and plans 08/09: continue current mgmt. court . 08/10: intermittently dangerous behaviors. punching air, touching people repeatedly, urinating on floor, showing gang signs, ripping up blanket and tying around neck and fingers, throwing things. restrained yesterday and this morning. restrained a second time today, given medication. court . 08/11: court deferred for JAMAL. sleeping this morning, not visible on unit. continue to offer medications. 08/12: refusing most meds. no change in presentation. continue current mgmt. 08/13: no change in presentation. continue to offer meds. JAMAL today. court thursday. 08/15/23- may be mildly better taking some meds- requesting IMs , given po ativan 08/15 continues to improve asking for prn thorazine, will order tegretol lvl and other labs for fu CTP, 5min checks for shift to see how he does- 08/17/23 Improving less aggressive taking meds hearing on hold x 2 weeks with extension 08/17 continue tx 08/18 continue tx. 08/19 more awake, improved hygiene, pleasant on approach. no overt psychosis or delusions. no behavioral concerns. 08/20 continue tx. 08/21: continue current management and treatment plan. 08/22: continue current management and treatment plan. 08/23 continue tx. Reason for continued inpatient stay Substantial Risk for: inability to function Time Spent With Patient Time: Total time managing care of this patient today ____ minutes.
[2023-08-24 20:15] VITALS: BP 115/63; PULSE 68; RESP 14; TEMP 36.9; O2SAT 98
[2023-08-24] MEDS: Lithium Carbonate ER 450 MG TABLET.ER 900 MG PO (20:22)
[2023-08-25 07:52] VITALS: BP 97/47; PULSE 51; RESP 14; TEMP 36.6; O2SAT 98
[2023-08-25] MEDS: diphenhydrAMINE HCL 25 MG CAPSULE 50 MG PO (09:06)
[2023-08-25] MEDS: HaloperidoL 5 MG TABLET 10 MG PO ×2 (09:06→22:01)
[2023-08-25] MEDS: carBAMazepine 100 MG TAB.CHEW 200 MG PO ×2 (09:07→22:01)
[2023-08-25] MEDS: Benztropine Mesylate 1 MG TABLET PO ×2 (09:07→22:00)
[2023-08-25 09:12] VITALS: BP 102/55; PULSE 62
--- NOTE | 2023-08-25 11:00 | P.PNPSI_ITS ---
Subjective Subjective Date of Service: 08/25/23 Reason For Visit: disorganized/psychosis Subjective Notes: Section 7 Interim History: Pt slept through the night. Pt has been in bed for most of the day but wakes up easily. He denies SI/HI. He is able to have meaningful conversation about discharge. He reports he may ask either a friend or relative to let him stay. He was informed his parents can't have him back. He agreed to get ME[place]OWS haldol dec 100mg IM. No overt psychosis or delusions. Medication Compliance: Yes Side effects from medications: No Diagnostics Vital Signs (24Hr): Vital Signs - 24 hr 08/24/23 20:15 08/25/23 07:52 08/25/23 09:12 Temperature 98.5 F 97.8 F Pulse Rate 68 51 62 Respiratory Rate 14 14 Blood Pressure 115/63 97/47 L 102/55 L Pulse Oximetry 98 98 Oxygen Delivery Method Room Air Room Air BMI result Body Mass Index 24.9 Labs 08/17/23 08:23 08/17/23 08:23 Medications Medications Current Medications Acetaminophen (Acetaminophen 325 Mg Tablet) 650 mg PO Q6H PRN PRN Reason: Headache/Pain Mild Scale (1-3) Last Admin: 08/13/23 11:19 Dose: 650 mg Al Hydroxide/Mg Hydroxide (Magnesium Hydrox/Alum Hydrox 30 Ml Oral.Susp) 30 ml PO Q6H PRN PRN Reason: Heartburn/Nausea Benztropine Mesylate (Benztropine Mesylate 1 Mg Tablet) 1 mg PO BID [facility] Last Admin: 08/25/23 09:07 Dose: 1 mg Carbamazepine (Carbamazepine 100 Mg Tab.Chew) 200 mg PO BID [facility] Last Admin: 08/25/23 09:07 Dose: 200 mg Chlorpromazine HCl (Chlorpromazine Hcl 100 Mg Tablet) 200 mg PO Q4H PRN PRN Reason: anxiety/agitation Last Admin: 08/16/23 04:51 Dose: 200 mg Clonidine HCl (Clonidine Hcl 0.1 Mg Tablet) 0.1 mg PO BID@0800,1999 [facility]; Protocol Last Admin: 08/25/23 09:07 Dose: Not Given Diphenhydramine HCl (Diphenhydramine Hcl 25 Mg Capsule) 50 mg PO BID [facility] Last Admin: 08/25/23 09:06 Dose: 50 mg Diphenhydramine HCl (Diphenhydramine Hcl 25 Mg Capsule) 50 mg PO Q6H PRN PRN Reason: anxiety Last Admin: 08/18/23 01:45 Dose: 50 mg Haloperidol (Haloperidol 5 Mg Tablet) 10 mg PO BID [facility] Last Admin: 08/25/23 09:06 Dose: 10 mg [place] Carbonate ([place] Carbonate Er 450 Mg Tablet.Er) 900 mg PO BEDTIME [facility] Last Admin: 08/24/23 20:22 Dose: 900 mg Magnesium Hydroxide (Milk Of Magnesia 30 Ml Oral.Susp) 30 ml PO DAILY PRN PRN Reason: Constipation Nicotine (Nicotine 21 Mg Patch.Td24) 21 mg TRANSDERMA DAILY PRN PRN Reason: smoking cessation Last Admin: 08/19/23 11:37 Dose: 21 mg Nicotine Polacrilex (Nicotine Polacrilex 2 Mg Gum) 4 mg BUCCAL Q2H PRN PRN Reason: Nicotine Cravings Last Admin: 08/18/23 21:47 Dose: 4 mg Allergies Allergies Allergy/AdvReac Type Severity Reaction Status Date / Time nka Allergy nka Uncoded 07/24/23 16:52 Assessment & Plan Assessment & Plan (1) Schizoaffective disorder, bipolar type: Status: Acute Code(s): F25.0 - Schizoaffective disorder, bipolar type (2) Polysubstance use disorder: Status: Acute Code(s): F19.90 - Other psychoactive substance use, unspecified, uncomplicated Plan 33 yo male, history of schizoaffective disorder, bipolar type, sent from [facility] where he was admitted on a Section 35 on 07/13 for public intoxication while running in the community without clothing. Pt is psychotic upon presentation, signed CV and has been calm but echolalic in speech and behaviors for the most part since admission. Hospital course: 07/25: Increase Olanzapine to 20 mg HS 07/27: No real improvement on consistent changes. DC Prolixin Haldol 10 mg bid-prepare for decanoate trial Add Olanzapine 10 mg a.m. Benztropine 1 mg bid 07/28 Patient talking in more complete and logical sentences however he remains disorganized in both speech and behavior, rude and insulting to numerous staff as they walk by, intrusive and needs constant redirection and needs to remain on one-to-one, not able to tolerate roommate.. Not sleeping very much at night. Intermittent angry outbursts and punching things. This morning patient got so dysregulated, security had to be called, however patient was able to be redirected. Patient agreed to start Depakote, hoping it will help him sleep. 1). Patient has been treated with the following meds, however does not seem to have helped much Haldol 10 mg b.i.d. Zyprexa 10 mg daily Zyprexa 20 mg q.h.s. 2).on 07/28 Will add Depakote ER 750 q.h.s. to address likely rick (patient is not sleeping and in the past was prescribed lithium) -will continue Haldol and Zyprexa regimen for now however will likely need to change 07/29 patient remains with disorganized, intermittently aggressive behaviors; did sleep a little better last night with Depakote Need to change medication regimen as Patient has gotten up to Zyprexa 45 mg daily and Haldol 20 mg daily (when adding PRNs) 1) increase Depakote ER to 1500 mg q.h.s.; patient continues to be disorganized and dysregulated and intermittently threatening; so far tolerating and found helpful (ER is about 80% of IR) 2) start Risperdal 2 mg b.i.d.; will titrate to 3 mg b.i.d. starting tomorrow on 07/30 (intention is to see if Risperdal can work where Haldol and Zyprexa have thus been ineffective) 3) discontinue Zyprexa 10 mg daily 4) continue Zyprexa 20 mg q.h.s. and Haldol 10 mg b.i.d. for now since not sure if these may be partially subduing him and it is unclear if Risperdal will help 5) work to cross taper Risperdal with Zyprexa/Haldol; goal will be to see if Risperdal and Depakote can be effective and efforts made to be on only 1 antipsychotic SW obtained collateral from father -current episode started this May, sounds like rick when patient quit his job, spent 4000 in a week... -at baseline patient is fully functional; history of lots of LSD which seem to trigger psychotic/manic symptoms. Family history on both sides of schizophrenia -patient has been Section 35 2 times in the last 2 years; 4 psychiatric hospitalizations in the past 2 years -patient can not return to his father's or the apartment he was renting 07/31- labs ordered- cbc with leukocytosis, afebrile. CMP renal function intact BUN 9, Cr 0.95, CPK elevated in 800's. LFT elevated especially AST 106, ALT 717. ammonia wnl 40, depakote level 51. no electrolyte abnormalities. suspect elevated CPK related to IM medications and restraints. Elevation in LFT- especially ALT may be related to elevated CPK, medications. will order hep panel, if not trending down, may need GI consult. Less suspicion for NMS- no rigidity/afebrile, mentation improving despite abnormal labs. will hold depakote, especially as LFT normalize or trend back down. 08/01 ALT trending down, CPK also trending back. no rigidity or cogwheel. 08/03 Tolerating Aguilita thus far Haldol 10 mg IM x1; Benadryl 50 mg IM x 1-pt reports this helps him to stabilize. Requests IM, will trial x 1 Decrease Olanzapine to 5 mg bid If tolerated will consider Risperdal increase CBCD, CMP on 08/04. 08/04 Severe agitation and aggression today. Regime change Haldol 20 mg bid Olanzapine 20 mg bid Tegretol 50 mg bid Valium 10 mg HS Benadryl 50 mg HS Change [place] to ER 900 mg HS Ambien 10 mg HS Discontinue Risperdal Discontinue Chlorpromazine Repeat diagnostics when pt will allow. 08/06/[address] 08/13/23 2pm Refusing most of regime, Olanzapine/Benadryl combination IM this a.m. effective in providing him some mild rest. EKG WNL AST 51 to 68 TSH 0.90 Continue one to one Continue to offer regime Pt transferred to M3 08/06: attempt to streamline medications and taper disinhibiting medications. ambien D/Oumar. valium taper over the next week initiated. pt on both zyprexa 20 BID and haldol 20 BID; will DC zyprexa in favor of single scheduled neuroleptic agent. various PRNs DCed, including for haldol, zyprexa, atarax. will return to thorazine PRN agitation/anxiety despite report of lack of efficacy (clearly none of these other medications have been demonstrating much efficacy); will use relatively high-dose thorazine as needed for agitation, perhaps with IM benzo if sedation is required. it appears what may be missing from present regimen is adequate mood stabilizer. problems with recent VPA trial noted. no lithium level yet as pt has not been taking it consistently in any case. increase tegretol dosing from 50 BID to 200 BID for more aggressive approach to mood stabilization. section 7 filed, hearing pending for 08/12. 08/07: Continue current regimen and plans. Chemical restraint was administered with physical hold for administration 08/08: Continue current regimen and plans 08/09: continue current mgmt. court . 08/10: intermittently dangerous behaviors. punching air, touching people repeatedly, urinating on floor, showing gang signs, ripping up blanket and tying around neck and fingers, throwing things. restrained yesterday and this morning. restrained a second time today, given medication. court . 08/11: court deferred for JAMAL. sleeping this morning, not visible on unit. continue to offer medications. 08/12: refusing most meds. no change in presentation. continue current mgmt. 08/13: no change in presentation. continue to offer meds. JAMAL today. court thursday. 08/15/23- may be mildly better taking some meds- requesting IMs , given po ativan 08/15 continues to improve asking for prn thorazine, will order tegretol lvl and other labs for fu CTP, 5min checks for shift to see how he does- 08/17/23 Improving less aggressive taking meds hearing on hold x 2 weeks with extension 08/17 continue tx 08/18 continue tx. 08/19 more awake, improved hygiene, pleasant on approach. no overt psychosis or delusions. no behavioral concerns. 08/20 continue tx. 08/21: continue current management and treatment plan. 08/22: continue current management and treatment plan. 08/23 continue tx. 08/24- d/c benadryl to decrease sedation during the day. continue cogentin. BP is low- may want to lower clonidine or dc. Pt received haldol dec 100mg IM, continue oral for next 14 days. Reason for continued inpatient stay Substantial Risk for: inability to function Time Spent With Patient Time: Total time managing care of this patient today ____ minutes.
[2023-08-25] MEDS: Haloperidol Decanoate 50 MG/ML VIAL 100 MG IM (16:48)
--- NOTE | 2023-08-25 16:54 | PC.NURSE ---
pt received Haldol Dec 100mg IM right deltoid [id number]
[2023-08-25 21:00] VITALS: BP 102/58; PULSE 60; RESP 16; TEMP 36.5; O2SAT 98
[2023-08-25] MEDS: Lithium Carbonate ER 450 MG TABLET.ER 900 MG PO (22:00)
[2023-08-25] MEDS: cloNIDine HCL 0.1 MG TABLET PO (22:01)
[2023-08-26] MEDS: carBAMazepine 100 MG TAB.CHEW 200 MG PO ×2 (08:54→21:39)
[2023-08-26] MEDS: HaloperidoL 5 MG TABLET 10 MG PO ×2 (08:54→21:40)
[2023-08-26] MEDS: Benztropine Mesylate 1 MG TABLET PO ×2 (08:54→21:39)
[2023-08-26 20:00] VITALS: BP 126/61; PULSE 72; RESP 16; TEMP 37; O2SAT 97
[2023-08-26] MEDS: cloNIDine HCL 0.1 MG TABLET PO (21:39)
[2023-08-26] MEDS: Lithium Carbonate ER 450 MG TABLET.ER 900 MG PO (21:39)
--- NOTE | 2023-08-26 22:40 | HO.PSYCHPN ---
Subjective Subjective Date of Service: 08/26/23 Reason For Visit: disorganized/psychosis Interim History: calm, cooperative. no complaints. prepared for discharge thursday. will check labs prior to discharge. per staff, sleeping got haldol dec 100 mg yesterday. taking meds. flat, withdrawn. Mental Status Exam Mental Status Exam Narrative: adequately groomed. cooperative with interview. decr amount of speech. appropriate answers to questions. nml loudness, latency. thoughts linear, logical, and without paranoia or delusions. affect constricted, normo-intense, non-labile. mood good. no SI/SIBI/HI/AVH. Diagnostics Vital Signs (24Hr): Vital Signs - 24 hr 08/26/23 20:00 Temperature 98.6 F Pulse Rate 72 Respiratory Rate 16 Blood Pressure 126/61 Pulse Oximetry 97 Oxygen Delivery Method Room Air BMI result Body Mass Index 24.9 Labs 08/17/23 08:23 08/17/23 08:23 Medications Medications Current Medications Acetaminophen (Acetaminophen 325 Mg Tablet) 650 mg PO Q6H PRN PRN Reason: Headache/Pain Mild Scale (1-3) Last Admin: 08/13/23 11:19 Dose: 650 mg Al Hydroxide/Mg Hydroxide (Magnesium Hydrox/Alum Hydrox 30 Ml Oral.Susp) 30 ml PO Q6H PRN PRN Reason: Heartburn/Nausea Benztropine Mesylate (Benztropine Mesylate 1 Mg Tablet) 1 mg PO BID [facility] Last Admin: 08/26/23 21:39 Dose: 1 mg Carbamazepine (Carbamazepine 100 Mg Tab.Chew) 200 mg PO BID [facility] Last Admin: 08/26/23 21:39 Dose: 200 mg Chlorpromazine HCl (Chlorpromazine Hcl 100 Mg Tablet) 200 mg PO Q4H PRN PRN Reason: anxiety/agitation Last Admin: 08/16/23 04:51 Dose: 200 mg Clonidine HCl (Clonidine Hcl 0.1 Mg Tablet) 0.1 mg PO BEDTIME [facility]; Protocol Last Admin: 08/26/23 21:39 Dose: 0.1 mg Diphenhydramine HCl (Diphenhydramine Hcl 25 Mg Capsule) 50 mg PO Q6H PRN PRN Reason: anxiety Last Admin: 08/18/23 01:45 Dose: 50 mg Haloperidol (Haloperidol 5 Mg Tablet) 10 mg PO BID [facility] Last Admin: 08/26/23 21:40 Dose: 10 mg Haloperidol Decanoate (Haloperidol Decanoate 50 Mg/Ml Vial) 100 mg IM ONCE ONE Stop: 08/28/23 09:01 [place] Carbonate ([place] Carbonate Er 450 Mg Tablet.Er) 900 mg PO BEDTIME [facility] Last Admin: 08/26/23 21:39 Dose: 900 mg Magnesium Hydroxide (Milk Of Magnesia 30 Ml Oral.Susp) 30 ml PO DAILY PRN PRN Reason: Constipation Nicotine (Nicotine 21 Mg Patch.Td24) 21 mg TRANSDERMA DAILY PRN PRN Reason: smoking cessation Last Admin: 08/19/23 11:37 Dose: 21 mg Nicotine Polacrilex (Nicotine Polacrilex 2 Mg Gum) 4 mg BUCCAL Q2H PRN PRN Reason: Nicotine Cravings Last Admin: 08/18/23 21:47 Dose: 4 mg Allergies Allergies Allergy/AdvReac Type Severity Reaction Status Date / Time nka Allergy nka Uncoded 07/24/23 16:52 Assessment & Plan Assessment & Plan (1) Schizoaffective disorder, bipolar type: Status: Acute Code(s): F25.0 - Schizoaffective disorder, bipolar type (2) Polysubstance use disorder: Status: Acute Code(s): F19.90 - Other psychoactive substance use, unspecified, uncomplicated Plan 33 yo male, history of schizoaffective disorder, bipolar type, sent from [facility] where he was admitted on a Section 35 on 07/13 for public intoxication while running in the community without clothing. Pt is psychotic upon presentation, signed CV and has been calm but echolalic in speech and behaviors for the most part since admission. Hospital course: 07/25: Increase Olanzapine to 20 mg HS 07/27: No real improvement on consistent changes. DC Prolixin Haldol 10 mg bid-prepare for decanoate trial Add Olanzapine 10 mg a.m. Benztropine 1 mg bid 07/28 Patient talking in more complete and logical sentences however he remains disorganized in both speech and behavior, rude and insulting to numerous staff as they walk by, intrusive and needs constant redirection and needs to remain on one-to-one, not able to tolerate roommate.. Not sleeping very much at night. Intermittent angry outbursts and punching things. This morning patient got so dysregulated, security had to be called, however patient was able to be redirected. Patient agreed to start Depakote, hoping it will help him sleep. 1). Patient has been treated with the following meds, however does not seem to have helped much Haldol 10 mg b.i.d. Zyprexa 10 mg daily Zyprexa 20 mg q.h.s. 2).on 07/28 Will add Depakote ER 750 q.h.s. to address likely rick (patient is not sleeping and in the past was prescribed lithium) -will continue Haldol and Zyprexa regimen for now however will likely need to change 07/29 patient remains with disorganized, intermittently aggressive behaviors; did sleep a little better last night with Depakote Need to change medication regimen as Patient has gotten up to Zyprexa 45 mg daily and Haldol 20 mg daily (when adding PRNs) 1) increase Depakote ER to 1500 mg q.h.s.; patient continues to be disorganized and dysregulated and intermittently threatening; so far tolerating and found helpful (ER is about 80% of IR) 2) start Risperdal 2 mg b.i.d.; will titrate to 3 mg b.i.d. starting tomorrow on 07/30 (intention is to see if Risperdal can work where Haldol and Zyprexa have thus been ineffective) 3) discontinue Zyprexa 10 mg daily 4) continue Zyprexa 20 mg q.h.s. and Haldol 10 mg b.i.d. for now since not sure if these may be partially subduing him and it is unclear if Risperdal will help 5) work to cross taper Risperdal with Zyprexa/Haldol; goal will be to see if Risperdal and Depakote can be effective and efforts made to be on only 1 antipsychotic SW obtained collateral from father -current episode started this May, sounds like rick when patient quit his job, spent 4000 in a week... -at baseline patient is fully functional; history of lots of LSD which seem to trigger psychotic/manic symptoms. Family history on both sides of schizophrenia -patient has been Section 35 2 times in the last 2 years; 4 psychiatric hospitalizations in the past 2 years -patient can not return to his father's or the apartment he was renting 07/31- labs ordered- cbc with leukocytosis, afebrile. CMP renal function intact BUN 9, Cr 0.95, CPK elevated in 800's. LFT elevated especially AST 106, ALT 717. ammonia wnl 40, depakote level 51. no electrolyte abnormalities. suspect elevated CPK related to IM medications and restraints. Elevation in LFT- especially ALT may be related to elevated CPK, medications. will order hep panel, if not trending down, may need GI consult. Less suspicion for NMS- no rigidity/afebrile, mentation improving despite abnormal labs. will hold depakote, especially as LFT normalize or trend back down. 08/01 ALT trending down, CPK also trending back. no rigidity or cogwheel. 08/03 Tolerating [place] thus far Haldol 10 mg IM x1; Benadryl 50 mg IM x 1-pt reports this helps him to stabilize. Requests IM, will trial x 1 Decrease Olanzapine to 5 mg bid If tolerated will consider Risperdal increase CBCD, CMP on 08/04. 08/04 Severe agitation and aggression today. Regime change Haldol 20 mg bid Olanzapine 20 mg bid Tegretol 50 mg bid Valium 10 mg HS Benadryl 50 mg HS Change [place] to ER 900 mg HS Ambien 10 mg HS Discontinue Risperdal Discontinue Chlorpromazine Repeat diagnostics when pt will allow. 08/06/[address] 08/13/23 2pm Refusing most of regime, Olanzapine/Benadryl combination IM this a.m. effective in providing him some mild rest. EKG WNL AST 51 to 68 TSH 0.90 Continue one to one Continue to offer regime Pt transferred to M3 08/06: attempt to streamline medications and taper disinhibiting medications. ambien D/Oumar. valium taper over the next week initiated. pt on both zyprexa 20 BID and haldol 20 BID; will DC zyprexa in favor of single scheduled neuroleptic agent. various PRNs DCed, including for haldol, zyprexa, atarax. will return to thorazine PRN agitation/anxiety despite report of lack of efficacy (clearly none of these other medications have been demonstrating much efficacy); will use relatively high-dose thorazine as needed for agitation, perhaps with IM benzo if sedation is required. it appears what may be missing from present regimen is adequate mood stabilizer. problems with recent VPA trial noted. no lithium level yet as pt has not been taking it consistently in any case. increase tegretol dosing from 50 BID to 200 BID for more aggressive approach to mood stabilization. section 7 filed, hearing pending for 08/12. 08/07: Continue current regimen and plans. Chemical restraint was administered with physical hold for administration 08/08: Continue current regimen and plans 08/09: continue current mgmt. court . 08/10: intermittently dangerous behaviors. punching air, touching people repeatedly, urinating on floor, showing gang signs, ripping up blanket and tying around neck and fingers, throwing things. restrained yesterday and this morning. restrained a second time today, given medication. court . 08/11: court deferred for JAMAL. sleeping this morning, not visible on unit. continue to offer medications. 08/12: refusing most meds. no change in presentation. continue current mgmt. 08/13: no change in presentation. continue to offer meds. JAMAL today. court thursday. 08/15/23- may be mildly better taking some meds- requesting IMs , given po ativan 08/15 continues to improve asking for prn thorazine, will order tegretol lvl and other labs for fu CTP, 5min checks for shift to see how he does- 08/17/23 Improving less aggressive taking meds hearing on hold x 2 weeks with extension 08/17 continue tx 08/18 continue tx. 08/19 more awake, improved hygiene, pleasant on approach. no overt psychosis or delusions. no behavioral concerns. 08/20 continue tx. 08/21: continue current management and treatment plan. 08/22: continue current management and treatment plan. 08/23 continue tx. 08/24- d/c benadryl to decrease sedation during the day. continue cogentin. BP is low- may want to lower clonidine or dc. Pt received haldol dec 100mg IM, continue oral for next 14 days. 08/25: per haldol dosing guidelines in [place]: Oral overlap: Following the first ER decanoate dose, taper the oral dose by ~25% at weekly intervals during the second or third month of decanoate treatment. Adjust oral dose and rate of tapering based on clinical response and tolerability. therefore continue PO haldol dosing at current level for at least the next month prior to initiating taper. also, in the overlap protocol being used here, Q4wk haldol dec dosing is recommended to be 10-15 times daily PO dosing, which in this case was 20 mg daily. therefore haldol dec dosing should be in the range of 200-300 mg Q4wk. dosing guidelines allow for 100 mg in first initial haldol dec dose and remainder after 3 days. therefore give another 100 mg haldol dec IM on thursday prior to discharge. pt is much improved from admission, linear and logical in his thoughts. meds reviewed, reconciled, prescribed. planning for thursday morning discharge. Reason for continued inpatient stay Substantial Risk for: rapid decompensation Time Spent With Patient Time: Total time managing care of this patient today __40__ minutes.
[2023-08-27 07:00] VITALS: BMI 25.8
[2023-08-27 07:39] VITALS: BP 101/55; PULSE 61; RESP 14; TEMP 36.8; O2SAT 98
[2023-08-27] MEDS: Benztropine Mesylate 1 MG TABLET PO ×2 (08:51→22:28)
[2023-08-27] MEDS: HaloperidoL 5 MG TABLET 10 MG PO ×2 (08:51→22:27)
[2023-08-27] MEDS: carBAMazepine 100 MG TAB.CHEW 200 MG PO ×2 (08:52→22:27)
--- NOTE | 2023-08-27 10:10 | P.PNPSI_ITS ---
Subjective Subjective Date of Service: 08/27/23 Reason For Visit: disorganized/psychosis Subjective Notes: Section 7 Interim History: Pt is pleasant and cooperative upon approach; he is calm, cooperative. no complaints. prepared for discharge thursday. e. per staff, sleeping got haldol dec 100 mg yesterday. taking meds. flat, withdrawn. Review of Systems Review of Systems Yes all other systems are reviewed and are negative and Unobtainable due to mental status Mental Status Exam Mental Status Exam Narrative: adequately groomed. cooperative with interview. decr amount of speech. appropriate answers to questions. nml loudness, latency. thoughts linear, logical, and without paranoia or delusions. affect constricted, normo-intense, non-labile. mood good. no SI/SIBI/HI/AVH. Patient Appearance: Unkempt Patient Orientation: Person, Place, Time and Situation Level of Consciousness: Drowsy (but able to roused) Patient Behavior: Passive and Fatigued Mood Description: Calm Affect Description: Labile Patient Cognition Impaired: No Ability to Follow Directions: Fair Speech Pattern: Mumbled Memory Description: Remote Impaired Diagnostics Vital Signs (24Hr): Vital Signs - 24 hr 08/26/23 20:00 08/27/23 07:39 Temperature 98.6 F 98.2 F Pulse Rate 72 61 Respiratory Rate 16 14 Blood Pressure 126/61 101/55 L Pulse Oximetry 97 98 Oxygen Delivery Method Room Air Room Air BMI result Body Mass Index 24.9 Labs 08/27/23 20:09 08/27/23 20:09 Medications Medications Current Medications Acetaminophen (Acetaminophen 325 Mg Tablet) 650 mg PO Q6H PRN PRN Reason: Headache/Pain Mild Scale (1-3) Last Admin: 08/13/23 11:19 Dose: 650 mg Al Hydroxide/Mg Hydroxide (Magnesium Hydrox/Alum Hydrox 30 Ml Oral.Susp) 30 ml PO Q6H PRN PRN Reason: Heartburn/Nausea Benztropine Mesylate (Benztropine Mesylate 1 Mg Tablet) 1 mg PO BID [facility] Last Admin: 08/27/23 08:51 Dose: 1 mg Carbamazepine (Carbamazepine 100 Mg Tab.Chew) 200 mg PO BID [facility] Last Admin: 08/27/23 08:52 Dose: 200 mg Chlorpromazine HCl (Chlorpromazine Hcl 100 Mg Tablet) 200 mg PO Q4H PRN PRN Reason: anxiety/agitation Last Admin: 08/16/23 04:51 Dose: 200 mg Clonidine HCl (Clonidine Hcl 0.1 Mg Tablet) 0.1 mg PO BEDTIME [facility]; Protocol Last Admin: 08/26/23 21:39 Dose: 0.1 mg Diphenhydramine HCl (Diphenhydramine Hcl 25 Mg Capsule) 50 mg PO Q6H PRN PRN Reason: anxiety Last Admin: 08/18/23 01:45 Dose: 50 mg Haloperidol (Haloperidol 5 Mg Tablet) 10 mg PO BID [facility] Last Admin: 08/27/23 08:51 Dose: 10 mg Haloperidol Decanoate (Haloperidol Decanoate 50 Mg/Ml Vial) 100 mg IM ONCE ONE Stop: 08/28/23 09:01 [place] Carbonate ([place] Carbonate Er 450 Mg Tablet.Er) 900 mg PO BEDTIME [facility] Last Admin: 08/26/23 21:39 Dose: 900 mg Magnesium Hydroxide (Milk Of Magnesia 30 Ml Oral.Susp) 30 ml PO DAILY PRN PRN Reason: Constipation Nicotine (Nicotine 21 Mg Patch.Td24) 21 mg TRANSDERMA DAILY PRN PRN Reason: smoking cessation Last Admin: 08/19/23 11:37 Dose: 21 mg Nicotine Polacrilex (Nicotine Polacrilex 2 Mg Gum) 4 mg BUCCAL Q2H PRN PRN Reason: Nicotine Cravings Last Admin: 08/18/23 21:47 Dose: 4 mg Allergies Allergies Allergy/AdvReac Type Severity Reaction Status Date / Time nka Allergy nka Uncoded 07/24/23 16:52 Assessment & Plan Assessment & Plan (1) Schizoaffective disorder, bipolar type: Status: Acute Code(s): F25.0 - Schizoaffective disorder, bipolar type (2) Polysubstance use disorder: Status: Acute Code(s): F19.90 - Other psychoactive substance use, unspecified, uncomplicated Plan 33 yo male, history of schizoaffective disorder, bipolar type, sent from [facility] where he was admitted on a Section 35 on 07/13 for public intoxication while running in the community without clothing. Pt is psychotic upon presentation, signed CV and has been calm but echolalic in speech and behaviors for the most part since admission. Hospital course: 07/25: Increase Olanzapine to 20 mg HS 07/27: No real improvement on consistent changes. DC Prolixin Haldol 10 mg bid-prepare for decanoate trial Add Olanzapine 10 mg a.m. Benztropine 1 mg bid 07/28 Patient talking in more complete and logical sentences however he remains disorganized in both speech and behavior, rude and insulting to numerous staff as they walk by, intrusive and needs constant redirection and needs to remain on one-to-one, not able to tolerate roommate.. Not sleeping very much at night. Intermittent angry outbursts and punching things. This morning patient got so dysregulated, security had to be called, however patient was able to be redirected. Patient agreed to start Depakote, hoping it will help him sleep. 1). Patient has been treated with the following meds, however does not seem to have helped much Haldol 10 mg b.i.d. Zyprexa 10 mg daily Zyprexa 20 mg q.h.s. 2).on 07/28 Will add Depakote ER 750 q.h.s. to address likely rick (patient is not sleeping and in the past was prescribed lithium) -will continue Haldol and Zyprexa regimen for now however will likely need to change 07/29 patient remains with disorganized, intermittently aggressive behaviors; did sleep a little better last night with Depakote Need to change medication regimen as Patient has gotten up to Zyprexa 45 mg daily and Haldol 20 mg daily (when adding PRNs) 1) increase Depakote ER to 1500 mg q.h.s.; patient continues to be disorganized and dysregulated and intermittently threatening; so far tolerating and found helpful (ER is about 80% of IR) 2) start Risperdal 2 mg b.i.d.; will titrate to 3 mg b.i.d. starting tomorrow on 07/30 (intention is to see if Risperdal can work where Haldol and Zyprexa have thus been ineffective) 3) discontinue Zyprexa 10 mg daily 4) continue Zyprexa 20 mg q.h.s. and Haldol 10 mg b.i.d. for now since not sure if these may be partially subduing him and it is unclear if Risperdal will help 5) work to cross taper Risperdal with Zyprexa/Haldol; goal will be to see if Risperdal and Depakote can be effective and efforts made to be on only 1 antipsychotic SW obtained collateral from father -current episode started this May, sounds like rick when patient quit his job, spent 4000 in a week... -at baseline patient is fully functional; history of lots of LSD which seem to trigger psychotic/manic symptoms. Family history on both sides of schizophrenia -patient has been Section 35 2 times in the last 2 years; 4 psychiatric hospitalizations in the past 2 years -patient can not return to his father's or the apartment he was renting 07/31- labs ordered- cbc with leukocytosis, afebrile. CMP renal function intact BUN 9, Cr 0.95, CPK elevated in 800's. LFT elevated especially AST 106, ALT 717. ammonia wnl 40, depakote level 51. no electrolyte abnormalities. suspect elevated CPK related to IM medications and restraints. Elevation in LFT- especially ALT may be related to elevated CPK, medications. will order hep panel, if not trending down, may need GI consult. Less suspicion for NMS- no rigidity/afebrile, mentation improving despite abnormal labs. will hold depakote, especially as LFT normalize or trend back down. 08/01 ALT trending down, CPK also trending back. no rigidity or cogwheel. 08/03 Tolerating [place] thus far Haldol 10 mg IM x1; Benadryl 50 mg IM x 1-pt reports this helps him to stabilize. Requests IM, will trial x 1 Decrease Olanzapine to 5 mg bid If tolerated will consider Risperdal increase CBCD, CMP on 08/04. 08/04 Severe agitation and aggression today. Regime change Haldol 20 mg bid Olanzapine 20 mg bid Tegretol 50 mg bid Valium 10 mg HS Benadryl 50 mg HS Change [place] to ER 900 mg HS Ambien 10 mg HS Discontinue Risperdal Discontinue Chlorpromazine Repeat diagnostics when pt will allow. 08/06/[address] 08/13/23 2pm Refusing most of regime, Olanzapine/Benadryl combination IM this a.m. effective in providing him some mild rest. EKG WNL AST 51 to 68 TSH 0.90 Continue one to one Continue to offer regime Pt transferred to M3 08/06: attempt to streamline medications and taper disinhibiting medications. jocelyn D/Oumar. valium taper over the next week initiated. pt on both zyprexa 20 BID and haldol 20 BID; will DC zyprexa in favor of single scheduled neuroleptic agent. various PRNs DCed, including for haldol, zyprexa, atarax. will return to thorazine PRN agitation/anxiety despite report of lack of efficacy (clearly none of these other medications have been demonstrating much efficacy); will use relatively high-dose thorazine as needed for agitation, perhaps with IM benzo if sedation is required. it appears what may be missing from present regimen is adequate mood stabilizer. problems with recent VPA trial noted. no lithium level yet as pt has not been taking it consistently in any case. increase tegretol dosing from 50 BID to 200 BID for more aggressive approach to mood stabilization. section 7 filed, hearing pending for 08/12. 08/07: Continue current regimen and plans. Chemical restraint was administered with physical hold for administration 08/08: Continue current regimen and plans 08/09: continue current mgmt. court . 08/10: intermittently dangerous behaviors. punching air, touching people repeatedly, urinating on floor, showing gang signs, ripping up blanket and tying around neck and fingers, throwing things. restrained yesterday and this morning. restrained a second time today, given medication. court . 08/11: court deferred for JAMAL. sleeping this morning, not visible on unit. continue to offer medications. 08/12: refusing most meds. no change in presentation. continue current mgmt. 08/13: no change in presentation. continue to offer meds. JAMAL today. court thursday. 08/15/23- may be mildly better taking some meds- requesting IMs , given po ativan 08/15 continues to improve asking for prn thorazine, will order tegretol lvl and other labs for fu CTP, 5min checks for shift to see how he does- 08/17/23 Improving less aggressive taking meds hearing on hold x 2 weeks with extension 08/17 continue tx 08/18 continue tx. 08/19 more awake, improved hygiene, pleasant on approach. no overt psychosis or delusions. no behavioral concerns. 08/20 continue tx. 08/21: continue current management and treatment plan. 08/22: continue current management and treatment plan. 08/23 continue tx. 08/24- d/c benadryl to decrease sedation during the day. continue cogentin. BP is low- may want to lower clonidine or dc. Pt received haldol dec 100mg IM, continue oral for next 14 days. 08/25: per haldol dosing guidelines in [place]: Oral overlap: Following the first ER decanoate dose, taper the oral dose by ~25% at weekly intervals during the second or third month of decanoate treatment. Adjust oral dose and rate of tapering based on clinical response and tolerability. therefore continue PO haldol dosing at current level for at least the next month prior to initiating taper. also, in the overlap protocol being used here, Q4wk haldol dec dosing is recommended to be 10-15 times daily PO dosing, which in this case was 20 mg daily. therefore haldol dec dosing should be in the range of 200-300 mg Q4wk. dosing guidelines allow for 100 mg in first initial haldol dec dose and remainder after 3 days. therefore give another 100 mg haldol dec IM on thursday prior to discharge. pt is much improved from admission, linear and logical in his thoughts. meds reviewed, reconciled, prescribed. planning for thursday morning discharge. 08/26 continue tx plan Reason for continued inpatient stay Substantial Risk for: inability to function Time Spent With Patient Time: Total time managing care of this patient today ____ minutes.
[2023-08-27 20:15] LABS: MANUAL DIFF FLAG NO
[2023-08-27 20:17] LABS: Basophils Absolute Auto 0.1 X10*3/uL (0.0-0.2); Basophils Percent Auto 0.8 % (0-2); Eosinophils Absolute Auto 0.5 X10*3/uL (0.0-0.4); Eosinophils Percent Auto 3.2 % (0-4); Hematocrit 49.2 % (42.0-52.0); Hemoglobin 15.7 g/dl (14.0-18.0); Imm Gran Abs Auto 0.09 X10*3/uL (0.00-0.03); Imm Gran Pct Auto 0.5 % (0.0-0.4); Lymphocytes Absolute Auto 2.7 X10*3/uL (1.2-4.9); Lymphocytes Percent Auto 16.3 % (20-40); Mean Corpuscular HGB Conc 31.9 g/dl (31.0-36.0); Mean Corpuscular Volume 81.5 fL (80.0-98.0); Monocytes Absolute Auto 0.9 X10*3/uL (0.1-1.2); Monocytes Percent Auto 5.3 % (2-11); Neutrophils Absolute Auto 12.3 x10*3/uL (2.0-8.3); Neutrophils Percent Auto 73.9 % (45-73); Platelet Count 421 X10*3/uL (160-400); Red Blood Count 6.04 X10*6/uL (4.60-5.80); Red Cell Distribution Width 14.9 % (11.0-16.0); White Blood Count 16.6 X10*3/uL (4.8-10.8)
[2023-08-27 20:32] LABS: Carbamazepine Tegretol 7.4 mcg/mL (5.0-12.0)
[2023-08-27 20:38] LABS: Alanine Aminotransferase 24 U/L (0-40); Albumin Level 4.7 g/dL (3.5-5.0); Alkaline Phosphatase 53 U/L (39-117); Anion Gap 12 (12-20); Aspartate Amino Transferase 12 U/L (5-37); Bilirubin Direct < 0.2 mg/dL (0.0-0.5); Bilirubin Total 0.1 mg/dL (0.0-1.0); Blood Urea Nitrogen 11 mg/dL (9-16); Calcium 9.9 mg/dL (8.4-10.2); Carbon Dioxide 29 mmol/L (22-29); Chloride 103 mmol/L (96-108); Creatinine Clr Calc Pharmacy 81.7; Estimated Glomerular Filt Rate > 60; Glucose Random 129 mg/dL (60-115); Potassium 4.2 mmol/L (3.3-5.1); Sodium 140 mmol/L (135-145); Total Protein 7.7 g/dL (6.5-8.0)
[2023-08-27 22:26] VITALS: BP 116/71; PULSE 73; RESP 14; TEMP 36.9; O2SAT 97
[2023-08-27] MEDS: Lithium Carbonate ER 450 MG TABLET.ER 900 MG PO (22:27)
[2023-08-27] MEDS: cloNIDine HCL 0.1 MG TABLET PO (22:28)
[2023-08-28 08:09] VITALS: BP 107/58; PULSE 60; RESP 14; TEMP 36.8; O2SAT 97
[2023-08-28] MEDS: Benztropine Mesylate 1 MG TABLET PO (08:24)
[2023-08-28] MEDS: carBAMazepine 100 MG TAB.CHEW 200 MG PO (08:24)
[2023-08-28] MEDS: HaloperidoL 5 MG TABLET 10 MG PO (08:24)
[2023-08-28] MEDS: Haloperidol Decanoate 50 MG/ML VIAL 100 MG IM (08:38)
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
== END 2023-08-28 09:25 | disposition home or self-care (01) | DRG 750 ==
LOC: HO.ED 17:32 → HO.PM5 07-23 12:43 → HO.PADLT16 08-06 14:11
PROVIDERS: Clinical Nurse Specialist Psychiatric/Mental Health, Adult; Psychiatry & Neurology Psychiatry; Social Worker; Admitting Provider Psychiatry & Neurology Psychiatry; Emergency Provider Emergency Medicine Emergency Medical Services; PCP Internal Medicine; Visit Provider Psychiatry & Neurology Psychiatry
DX: F25.0 Schizoaffective disorder, bipolar type (principal); Z91.148 Patient's other noncompliance with medication regimen for other reason; F19.90 Other psychoactive substance use, unspecified, uncomplicated; Z20.822 Contact with and (suspected) exposure to COVID-19; Z78.1 Physical restraint status; Z79.899 Other long term (current) drug therapy
CPT/HCPCS: 0241U; 36415; 80048; 80053; 80061; 80076; 80156; 80164; 80178; 80307; 82140; 82550; 83036; 83690; 83735; 84439; 84443; 85025; 86704; 86706; 86709; 86803; 87340; 92950; 93005; 99285; J1200; J1630; J1631; J2060; J2359; J3230; J3360; S9485

== ENCOUNTER → 2023-07-23 07:22 | Outpatient (BNV) | payer OTHER, SELFPAY | PROVIDERS: Admitting Provider Psychiatry & Neurology Psychiatry; Emergency Provider Emergency Medicine Emergency Medical Services; PCP Internal Medicine; Visit Provider Internal Medicine | DX: R00.1 Bradycardia, unspecified (principal) | CPT/HCPCS: 93010 ==

== ENCOUNTER 2023-07-23 12:42 | Outpatient (BNV) | payer OTHER, SELFPAY | END 2023-08-06 12:20 | PROVIDERS: Admitting Provider Psychiatry & Neurology Psychiatry; Emergency Provider Emergency Medicine Emergency Medical Services; PCP Internal Medicine; Visit Provider Internal Medicine | DX: I45.81 Long QT syndrome (principal) | CPT/HCPCS: 93010 ==

== ENCOUNTER → 2023-07-23 12:42 | Outpatient (BNV) | payer OTHER, SELFPAY | PROVIDERS: Admitting Provider Psychiatry & Neurology Psychiatry; Emergency Provider Emergency Medicine Emergency Medical Services; PCP Internal Medicine; Visit Provider Psychiatry & Neurology Psychiatry | DX: F25.0 Schizoaffective disorder, bipolar type (principal); F19.90 Other psychoactive substance use, unspecified, uncomplicated | CPT/HCPCS: 99231; 99499 ==

== ENCOUNTER → 2023-07-23 12:42 | Outpatient (BNV) | payer OTHER, SELFPAY | PROVIDERS: Admitting Provider Psychiatry & Neurology Psychiatry; Emergency Provider Emergency Medicine Emergency Medical Services; PCP Internal Medicine; Visit Provider Clinical Nurse Specialist Psychiatric/Mental Health, Adult | DX: F25.0 Schizoaffective disorder, bipolar type (principal); F19.90 Other psychoactive substance use, unspecified, uncomplicated | CPT/HCPCS: 99231; 99232; 99233; 99499 ==

== ENCOUNTER 2024-01-04 14:09 | Outpatient (REF) | payer OTHER, SELFPAY ==
[2024-01-04 15:02] LABS: Lithium < 0.10 mmol/L (0.60-1.20)
[2024-01-04 15:09] LABS: Amphetamine Screen Urine Not Detected (Not Detect); Barbiturates, Urine Not Detected (Not Detect); Benzodiazepines Screen Urine Not Detected (Not Detect); Buprenorphine Scr Not Detected (Not Detect); Cannabinoid Screen Urine POSITIVE (Not Detect); Cocaine Screen Urine Not Detected (Not Detect); Fentanyl, urine Not Detected (Not Detect); Methadone Screen, Urine Not Detected (Not Detect); Opiate Screen Urine Not Detected (Not Detect); Oxycodone Screen Urine Not Detected (Not Detect); Phencyclidine Screen Urine Not Detected (Not Detect)
== END 2024-01-04 14:10 | disposition home or self-care (01) ==
LOC: HO.LAB 14:09
PROVIDERS: PCP Internal Medicine; Visit Provider Nurse Practitioner Psychiatric/Mental Health
DX: Z79.899 Other long term (current) drug therapy (principal)
CPT/HCPCS: 80178; 80307